=== PATIENT | female | born 1940 | race Caucasian/White ===

== ENCOUNTER → 2016-07-26 | Outpatient (CLI) | payer MEDICARE | LOC: FS 11:09 | PROVIDERS: ATTEND Internal Medicine Hematology & Oncology | DX: Z08 Encounter for follow-up examination after completed treatment for malignant neoplasm (principal); Z85.22 Personal history of malignant neoplasm of nasal cavities, middle ear, and accessory sinuses; C44.311 Basal cell carcinoma of skin of nose; N18.3 Chronic kidney disease, stage 3 (moderate); M48.02 Spinal stenosis, cervical region; Z92.21 Personal history of antineoplastic chemotherapy; Z92.3 Personal history of irradiation; Z79.899 Other long term (current) drug therapy | CPT/HCPCS: 99213 ==

== ENCOUNTER 2016-08-05 10:22 | Outpatient (CLI) | payer MEDICARE ==
[~2016-08-05] VITALS: Ht 160 cm; Wt 73.0 kg
[2016-08-05] MEDS ORDERED: DEXAMETHASONE PF 10 MG/ML (DECADRON) VIAL ONE (10:30)
[2016-08-05 10:39] VITALS: BP 116/69
[2016-08-05 11:08] VITALS: BP 116/69
--- NOTE | 2016-08-05 12:38 | Pain Medicine-Procedure ---
Procedure Pre-Op/Post-Op Diagnosis Diagnosis: disc disorder with radiculopathy, cervical Indications for Operation Neck pain Attending Surgeon Reilly Procedure Date of Service: August 05, 2016 Procedure: Cervical Epidural Steroid Injection at the C7-T1 Level under Fluoroscopic Guidance Procedure: Pt was identified in the holding area. After risks, benefits, and alternatives were discussed with the patient, informed consent was obtained. An IV was placed by nursing staff prior to procedure. Patient was brought to the fluoroscopy suite and placed prone on the operating table. A time out was performed. Vital signs were monitored throughout the procedure. The patients neck was prepped and draped in the usual sterile fashion. The patients skin was anesthetized using 1% Lidocaine. A 18 gauge tuohy needle was inserted and advanced to the C7-T1 epidural space under fluoroscopic guidance using the loss of resistance technique. The needle position was confirmed in the AP and lateral view. After negative aspiration 2 ml of non-ionic contrast was injected under live fluoroscopy which showed good spread of the contrast in the epidural space at the appropriate level, there was no intravascular or subarachnoid spread. Again, after negative aspiration, 3 ml of preservative free normal saline and 10 mg of dexamethasone was injected. The needle was removed and the patient was transferred to the recovery area in stable condition. And after a brief period of observation was discharged to home in stable condition with no new neurologic deficits. Complications None DIANA MARTINEZ MD August 05, 2016 12:38 pm
== END 2016-08-05 11:17 | disposition home or self-care (01) ==
LOC: CARD 10:22
PROVIDERS: ATTEND Pain Medicine Pain Medicine
DX: M54.12 Radiculopathy, cervical region (principal); Z79.899 Other long term (current) drug therapy
CPT/HCPCS: 62321

== ENCOUNTER → 2017-04-06 | Outpatient (CLI) | payer MEDICARE ==
--- NOTE | 2017-04-06 12:21 | Diagnostic Imaging Report ---
INDICATION: Cough. TIME OF EXAM: 12:18 PM COMPARISON: No prior studies are available for comparison. FINDINGS: The heart size is normal. The lungs are clear. No pleural effusion or pneumothorax is identified. The pulmonary vascularity is normal. IMPRESSION: No acute abnormality detected. Dictated by: Dictated on workstation # [id number]
== END ==
LOC: RAD 11:17
PROVIDERS: ATTEND Physician Assistant
DX: C30.0 Malignant neoplasm of nasal cavity (principal); I10 Essential (primary) hypertension; E78.2 Mixed hyperlipidemia; R05 Cough
CPT/HCPCS: 71046

== ENCOUNTER 2017-06-08 11:29 | Outpatient (CLI) | payer MEDICARE ==
[~2017-06-08] VITALS: Ht 165.1 cm; Wt 65.3 kg
[2017-06-08] MEDS ORDERED: methylPREDNISolone 80 MG/ML (DEPO MEDROL) VIAL ONE (11:42)
[2017-06-08 11:54] VITALS: BP 133/70
[2017-06-08 12:13] VITALS: BP 126/71
== END 2017-06-08 12:14 | disposition home or self-care (01) ==
LOC: CARD 11:29
PROVIDERS: ATTEND Pain Medicine Interventional Pain Medicine
DX: M54.16 Radiculopathy, lumbar region (principal); M47.817 Spondylosis without myelopathy or radiculopathy, lumbosacral region
CPT/HCPCS: 62323

== ENCOUNTER 2017-07-25 09:42 | Outpatient (RCR) | payer OTHER ==
[2017-07-25 10:33] LABS: BASOPHILS % (AUTO) 0 % (0-10); EOSINOPHILS # (AUTO) 0.2 10^3/uL (0.0-0.3); EOSINOPHILS % (AUTO) 3 % (0-10); HEMATOCRIT 40 % (35-52); HEMOGLOBIN 13.4 G/DL (11.5-16.0); LYMPHOCYTES # (AUTO) 2.2 X 10^3 (1.0-4.0); LYMPHOCYTES % (AUTO) 33 % (12-44); MEAN CORPUSCULAR HEMOGLOBIN 31 PG (25-34); MEAN CORPUSCULAR HGB CONC 34 G/DL (32-36); MEAN CORPUSCULAR VOLUME 92 FL (80-99); MEAN PLATELET VOLUME 10.5 FL (7.4-10.4); MONOCYTES # (AUTO) 0.6 X 10^3 (0.0-1.0); MONOCYTES % (AUTO) 10 % (0-12); NEUTROPHILS # (AUTO) 3.5 X 10^3 (1.8-7.8); NEUTROPHILS % (AUTO) 54 % (42-75); PLATELET COUNT 307 10^3/uL (130-400); RED BLOOD COUNT 4.29 10^6/uL (4.35-5.85); RED CELL DISTRIBUTION WIDTH 12.4 % (10.0-14.5); WHITE BLOOD COUNT 6.5 10^3/uL (4.3-11.0)
[2017-07-25 10:57] LABS: ALBUMIN 4.2 GM/DL (3.2-4.5); BILIRUBIN,TOTAL 0.5 MG/DL (0.1-1.0); CALCIUM 9.4 MG/DL (8.5-10.1); CREATININE SERUM 1.16 MG/DL (0.60-1.30); POTASSIUM 4.2 MMOL/L (3.6-5.0); TOTAL PROTEIN 7.2 GM/DL (6.4-8.2)
== END 2017-10-23 | disposition home or self-care (01) ==
LOC: ONC 09:42
PROVIDERS: ATTEND Internal Medicine Hematology & Oncology
DX: Z08 Encounter for follow-up examination after completed treatment for malignant neoplasm (principal); Z85.22 Personal history of malignant neoplasm of nasal cavities, middle ear, and accessory sinuses; C44.311 Basal cell carcinoma of skin of nose; N18.3 Chronic kidney disease, stage 3 (moderate); M48.02 Spinal stenosis, cervical region; Z92.21 Personal history of antineoplastic chemotherapy; Z92.3 Personal history of irradiation; Z79.899 Other long term (current) drug therapy
CPT/HCPCS: 36415; 80053; 85025; 99213

== ENCOUNTER → 2017-08-03 | Outpatient (CLI) | payer MEDICARE, OTHER ==
[~2017-08-03] VITALS: Ht 165.1 cm; Wt 65.3 kg
[~2017-08-03] MED LIST: methylPREDNISolone 80 MG/ML (DEPO MEDROL) VIAL ONE
[2017-08-03 14:57] VITALS: BP 149/84
[2017-08-03 15:17] VITALS: BP 141/77
--- NOTE | 2017-08-03 20:39 | OPERATIVE REPORT ---
DATE OF SERVICE: 08/03/2017 DIAGNOSES: 1. Lumbar spondylosis. 2. Lumbar facet arthropathy. PROCEDURE: Fluoroscopic-guided facet medial branch block L3, L4, L5, S1 (right). PROCEDURE IN DETAIL: After obtaining informed consent from the patient, the patient's chart was reviewed. The patient was then brought to the procedure room and placed in prone position. Time-out was performed. The area and the L3, L4, L5, S1, neck, upper back, lower back was prepped with antiseptic solution and under fluoroscopic guidance, the patient's L3, L4, L5, S1 area was examined and the facet joints listed above were identified. L3, L4, L5, S1 was identified under fluoroscopy. A 22-gauge 3-1/2 inch spinal needle was inserted and advanced under fluoroscopy down to the area where the pedicle and the transverse process meet and approximately 1 mL of 1% lidocaine was injected at this level. This was then repeated for the remainder of the levels stated above. Afterwards, the needle was removed. Band-Aids were applied to all sites and the patient tolerated the procedure well and was taken to the recovery area in stable condition. COMPLICATIONS: None. Job ID: [id number] DocumentID: [id number] Dictated Date: 08/03/2017 15:14:19 Lard Mixer Date: 08/03/2017 20:38:34 Dictated By: JUAN JOSE KENNEY DO
== END ==
LOC: CARD 13:38
PROVIDERS: ATTEND Pain Medicine Interventional Pain Medicine
DX: M54.16 Radiculopathy, lumbar region (principal)
CPT/HCPCS: 64493; 64494; 64495

== ENCOUNTER 2017-09-28 13:48 | Outpatient (CLI) | payer MEDICARE ==
[~2017-09-28] VITALS: Ht 165.1 cm; Wt 63.5 kg
[2017-09-28] MEDS ORDERED: methylPREDNISolone 80 MG/ML (DEPO MEDROL) VIAL ONE (14:04)
[2017-09-28 14:25] VITALS: BP 120/68
[2017-09-28 14:52] VITALS: BP 120/70
--- NOTE | 2017-09-28 22:12 | OPERATIVE REPORT ---
DATE OF SERVICE: 09/28/2017 DIAGNOSIS: Sacroiliitis PROCEDURE: Fluoroscopic guided right-sided sacroiliac joint injection. PROCEDURE IN DETAIL: After obtaining informed consent from the patient, the patient's chart was reviewed. The patient was then brought to the procedure room, placed in prone position, a timeout was performed. The patient's back was prepped with antiseptic solution. Under fluoroscopic guidance, the patient's sacroiliac joint on the right side was identified. Right-sided sacroiliac joint was identified with fluoroscopic guidance and approximately 2 mL of 1.5% lidocaine was used to anesthetize the skin with a 22-gauge 3-1/2 inch spinal needle. This same spinal needle was then advanced under fluoroscopic guidance until it was placed at the inferior third of the SI joint on the right side. After negative aspiration, the solution was injected through the spinal needle. The solution was 80 mg of Depo-Medrol. After steroid was injected, then flushed out the needle with lidocaine used for prep and the needle was then removed. Bandages were applied to all sites. The patient tolerated the procedure well and was taken to recovery area in stable condition. No complications noted. Job ID: [id number] DocumentID: [id number] Dictated Date: 09/28/2017 14:49:33 Document Management Analyst Date: 09/28/2017 22:10:51 Dictated By: JUAN JOSE KENNEY DO
== END 2017-09-28 14:53 ==
LOC: CARD 13:48
PROVIDERS: ATTEND Pain Medicine Interventional Pain Medicine
DX: M46.1 Sacroiliitis, not elsewhere classified (principal)
CPT/HCPCS: 27096

== ENCOUNTER → 2017-10-25 | Outpatient (CLI) | payer MEDICARE ==
[~2017-10-25] VITALS: Ht 160 cm; Wt 66.7 kg
[~2017-10-25] MED LIST changes: +CATHETER FLUSH 10 ML SYR IV PRN; +REGADENOSON 0.4 MG/5 ML SYR (LEXISCAN) IV ONE; -methylPREDNISolone 80 MG/ML (DEPO MEDROL) VIAL ONE
[2017-10-25 09:52] VITALS: BP 131/58
--- NOTE | 2017-10-25 22:31 | STRESS TEST ---
DATE OF SERVICE: 10/25/2017 LEXISCAN MYOVIEW STRESS TEST REPORT REFERRING PHYSICIAN: Baseline heart rate is 64, baseline blood pressure 130/73. Baseline EKG is sinus rhythm with no ischemic changes. In summary, the patient was injected with 10.77 mCi of technetium-99 Myoview and the resting images were obtained. Then, the patient received 0.4 mg of Lexiscan followed by 29.8 mCi of technetium-99 Myoview. Throughout the test, there were no EKG changes. The resting and stress images were reviewed and compared in the short axis, horizontal long axis, and vertical long axis views. Review of the images showed small left ventricle with good radiotracer uptake, no significant ischemia was noted. SSS is 5, SDS 3, TID value 1.04. On the gated images, the left ventricle appeared to be normal size with normal contractility. Calculated ejection fraction 87%. CONCLUSION: 1. The patient tolerated Lexiscan well. 2. Small left ventricular size with no significant ischemia or infarction. 3. Normal contractility with calculated ejection fraction 87%. Job ID: [id number] DocumentID: [id number] Dictated Date: 10/25/2017 17:05:37 Route Sales Person Date: 10/25/2017 22:30:31 Dictated By: JOSEPH RADER MD
== END ==
LOC: CARD 07:52
PROVIDERS: ATTEND Physician Assistant
DX: R07.9 Chest pain, unspecified (principal); I10 Essential (primary) hypertension; E78.2 Mixed hyperlipidemia; C30.0 Malignant neoplasm of nasal cavity
CPT/HCPCS: 78452; 93017

== ENCOUNTER 2018-07-18 05:38 | Outpatient (CLI) | payer MEDICARE ==
[~2018-07-18] VITALS: Ht 165.1 cm; Wt 65.8 kg
[2018-07-18] MEDS ORDERED: OMEP20TA7 PO (15:36)
[2018-07-18] MEDS ORDERED: LISI-556 PO (15:36)
[2018-07-18] MEDS ORDERED: LEVO50TA6 PO (15:36)
[2018-07-18] MEDS ORDERED: EZET10TA5 PO (15:36)
[2018-07-18] MEDS ORDERED: LEVE500T99 PO (15:36)
[2018-07-18] MEDS ORDERED: NIAC10002 PO (15:36)
[2018-07-18] MEDS ORDERED: SERT50TA2 PO (15:36)
[2018-07-18] MEDS ORDERED: MULT-178 PO (15:36)
[2018-07-18] MEDS ORDERED: FENO160T12 PO (15:36)
[2018-07-18] MEDS ORDERED: GARL10002 PO (15:36)
[2018-07-18] MEDS ORDERED: TRAM50TA2 PO (15:36)
== END 2018-07-18 15:42 | disposition home or self-care (01) ==
LOC: PREOP 05:38
PROVIDERS: ATTEND Orthopaedic Surgery Orthopaedic Surgery of the Spine
DX: Z01.818 Encounter for other preprocedural examination (principal)

== ENCOUNTER 2018-07-23 07:55 | Day surgery (SDC) | payer MEDICARE ==
[~2018-07-23] VITALS: Ht 165.1 cm; Wt 65.8 kg
[2018-07-23] VITALS (12 sets, daily range): BP systolic 95–131; BP diastolic 55–70
[~2018-07-23 07:55] MED LIST changes: -CATHETER FLUSH 10 ML SYR IV PRN; +EZET10TA5 PO; +FENO160T12 PO; +GARL10002 PO; +LEVE500T99 PO; +LEVO50TA6 PO; +LISI-556 PO; +MULT-178 PO; +NIAC10002 PO; +OMEP20TA7 PO; -REGADENOSON 0.4 MG/5 ML SYR (LEXISCAN) IV ONE; +SERT50TA2 PO; +TRAM50TA2 PO
[2018-07-23] MEDS ORDERED: LACTATED RINGERS 1,000 ML IV PRN (08:27)
[2018-07-23] MEDS ORDERED: ceFAZolin 2 GM IV Premixed 50 ML IV ONE (08:30)
[2018-07-23] MEDS ORDERED: CATHETER FLUSH 10 ML SYR IV PRN (08:45)
[2018-07-23] MEDS ORDERED: ONDANSETRON 4 MG/2 ML (SDV) Z0FRAN ONE (09:05)
[2018-07-23] MEDS ORDERED: ROCURONIUM 10 MG/ML 5 ML SYRINGE IV ONE (09:05)
[2018-07-23] MEDS ORDERED: LIDOCAINE PF 2% 5 ML (XYLOCAINE) VIAL ONE (09:05)
[2018-07-23] MEDS ORDERED: proPOfol 200 MG/20 ML (DIPRIVAN) VIAL IV ONE (09:05)
[2018-07-23] MEDS ORDERED: fentaNYL INJECTION 100 MCG/2 ML AMP ONE (09:06)
[2018-07-23] MEDS ORDERED: MIDAZOLAM 2 MG/2 ML (VERSED) VIAL ONE (09:06)
[2018-07-23] MEDS ORDERED: PROPOFOL INJECTION 50 ML IV ONE (09:07)
[2018-07-23] MEDS ORDERED: SEVOFLURANE (ULTANE) 15 ML INHAL SOLN ONE ×4 (09:07→10:48)
[2018-07-23] MEDS ORDERED: GENTAMICIN 40 MG/ML 2 ML INJ SDV ONE (09:12)
[2018-07-23] MEDS ORDERED: VANCOMYCIN 1000 MG/VIAL ONE (09:12)
[2018-07-23] MEDS ORDERED: BUP/EPI 0.25% 1:200,000 (MARCAINE) 10 ML VIAL IJ ONE (09:12)
--- NOTE | 2018-07-23 09:40 | Progress Note-Post Operative ---
Post-Operative Progess Note Surgeon (s)/Eyelet Riveter (s) Surgeon SHARLA GOLDMAN MD Eyelet Riveter: VANNESSA Lee Pre-Operative Diagnosis LUMBAGO, Radiculopathy Post-Operative Diagnosis Same Procedure & Operative Findings Date of Procedure 07/23/18 Procedure Performed/Findings Placement of permanent spinal cord stim via laminectomy Anesthesia Type GETA Estimated Blood Loss Estimated blood loss (mL): minimal Specimens/Packing Specimens Removed None SHARLA GOLDMAN MD July 23, 2018 09:40
[2018-07-23] MEDS ORDERED: GLYCOPYRROLATE 0.2 MG/ML (ROBINUL) 2 ML VIAL ONE (10:36)
[2018-07-23] MEDS ORDERED: NEOSTIGMINE 1 MG/ML 5 ML SYRINGE ONE (10:36)
[2018-07-23] MEDS ORDERED: morphine INJ 10 MG/ML 1ML (SYR OR VIAL) ONE (10:44)
[2018-07-23] MEDS ORDERED: MEPERIDINE (DEMEROL) INJ 50 MG/ML IVP ONE (11:00)
[2018-07-23] MEDS ORDERED: ONDANSETRON 4 MG/2 ML (SDV) Z0FRAN IVP PRN (11:00)
[2018-07-23] MEDS ORDERED: HYDROmorphone 2 MG/ML VIAL (DILAUDID) IV ONE (11:00)
[2018-07-23] MEDS ORDERED: morphine INJ 10 MG/ML 1ML (SYR OR VIAL) IVP ONE (11:00)
--- NOTE | 2018-07-23 11:06 | Diagnostic Imaging Report ---
Indication: Fluoroscopy for spinal cord stimulator placement. Fluoroscopy was provided in the OR during spinal cord stimulator placement. 19 seconds of fluoroscopy was utilized. A single image demonstrates a paddle stimulator overlying the midline of the lower thoracic spine. Impression: Fluoroscopy during spinal cord stimulator placement. Dictated by: Dictated on workstation # [id number]
[2018-07-23] MEDS ORDERED: HYDROcodone/APAP 5 MG/325 MG (LORTAB) TAB ONE (11:48)
--- NOTE | 2018-07-23 11:57 | Anesthesia-General Post-Op ---
General Patient Condition Mental Status/LOC: Same as Preop Cardiovascular: Satisfactory Nausea/Vomiting: Absent Respiratory: Satisfactory Pain: Controlled Complications: Absent Post Op Complications Complications None Follow Up Care/Instructions Patient Instructions None needed. Anesthesia/Patient Condition Patient Condition Patient is doing well, no complaints, stable vital signs, no apparent adverse anesthesia problems. No complications reported per nursing. D/C home per [facility] Criteria: Yes SHELLY JAVIER CRNA July 23, 2018 11:57
[2018-07-23] MEDS ORDERED: HYDROcodone/APAP 5 MG/325 MG (LORTAB) TAB PO ONE (12:00)
--- NOTE | 2018-07-23 16:38 | OPERATIVE REPORT ---
DATE OF SERVICE: 07/23/2018 PREOPERATIVE DIAGNOSES: Chronic lumbago and lumbar radiculopathy. POSTOPERATIVE DIAGNOSIS: Chronic lumbago and lumbar radiculopathy. PROCEDURES PERFORMED: 1. T9-T10 level laminectomy for placement of paddle electrode for spinal cord stimulation. 2. Left-sided battery placement for spinal cord stimulation. DATE AND TIME OF SURGERY: Please see anesthesia record. IMPLANTS USED: [place] [employer] Penta lead and Proclaim 5 MRI compatible battery. SURGEON: Sharla Campos MD IMMERSION METALCLEANER: FELIX Lee ROLE OF HORSE BUYER: Aid in retraction of procedure, aid in implantation, wound closure. ANESTHESIA: General endotracheal. ESTIMATED BLOOD LOSS: Minimal. INTRAVENOUS FLUIDS: Please see anesthesia record. ANTIBIOTICS: Ancef. COMPLICATIONS: None. SPECIMENS: None. INDICATIONS FOR PROCEDURE: The patient is a 78-year-old female with severe back and lower extremity pain, positive trial, desires permanent placement. Standard intraoperative neuromonitoring carried out by means of real time continuous high quality bidirectional mode, audio and visual communication to both the spray technician and surgeon by Dr. Ferraro was performed. SSEPs, EMGs, TOFs were carried out continuously throughout the procedure and stable. DESCRIPTION OF PROCEDURE: The patient was taken to the preoperative holding area and brought back to the operative suite. After adequate induction of general anesthesia, preoperative antibiotics, turned prone on Basilio table, careful padding to all extremities, sterilely prepped and draped posterior thoracic and lumbar spine. Localization of the T9-T10 level was performed and then a small laminotomy was created and a [employer] Penta lead was passed over the 7-8 disk space where she had her best pain relief. It was then tunneled to the left side flank where she desired her battery placed. It was connected to a Proclaim 5 MRI compatible battery. The system was functioning well. Wounds were closed in layers. Final imaging was obtained and dressings were applied and the patient was transferred to the recovery room in stable condition and tolerated the procedure well Job ID: [id number] DocumentID: [id number] Dictated Date: 07/23/2018 10:27:14 Line Fixer Date: 07/23/2018 16:37:54 Dictated By: SHARLA CAMPOS MD
== END 2018-07-23 13:50 | disposition home or self-care (01) ==
LOC: SDC 07:55
PROVIDERS: ATTEND Orthopaedic Surgery Orthopaedic Surgery of the Spine
DX: M54.16 Radiculopathy, lumbar region (principal); M48.061 Spinal stenosis, lumbar region without neurogenic claudication; M43.17 Spondylolisthesis, lumbosacral region; Z11.2 Encounter for screening for other bacterial diseases; E11.9 Type 2 diabetes mellitus without complications; I10 Essential (primary) hypertension; E07.9 Disorder of thyroid, unspecified; Z98.1 Arthrodesis status; Z88.2 Allergy status to sulfonamides; Z79.899 Other long term (current) drug therapy; Z85.828 Personal history of other malignant neoplasm of skin
CPT/HCPCS: 87081

== ENCOUNTER → 2018-08-20 | Outpatient (CLI) | payer MEDICARE ==
[2018-08-20 11:16] LABS: BASOPHILS % (AUTO) 1 % (0-10); EOSINOPHILS # (AUTO) 0.3 10^3/uL (0.0-0.3); EOSINOPHILS % (AUTO) 5 % (0-10); HEMATOCRIT 40 % (35-52); HEMOGLOBIN 13.2 G/DL (11.5-16.0); LYMPHOCYTES % (AUTO) 36 % (12-44); MEAN CORPUSCULAR HEMOGLOBIN 31 PG (25-34); MEAN CORPUSCULAR HGB CONC 33 G/DL (32-36); MEAN CORPUSCULAR VOLUME 95 FL (80-99); MONOCYTES # (AUTO) 0.5 X 10^3 (0.0-1.0); MONOCYTES % (AUTO) 9 % (0-12); NEUTROPHILS # (AUTO) 2.8 X 10^3 (1.8-7.8); NEUTROPHILS % (AUTO) 50 % (42-75); PLATELET COUNT 283 10^3/uL (130-400); RED CELL DISTRIBUTION WIDTH 12.3 % (10.0-14.5); WHITE BLOOD COUNT 5.5 10^3/uL (4.3-11.0)
[2018-08-20 11:49] LABS: ALBUMIN 4.3 GM/DL (3.2-4.5); BILIRUBIN,TOTAL 0.5 MG/DL (0.1-1.0); CALCIUM 9.8 MG/DL (8.5-10.1); CREATININE SERUM 1.44 MG/DL (0.60-1.30); TOTAL PROTEIN 7.2 GM/DL (6.4-8.2)
== END ==
LOC: EDSTATUS 10-24 10:35 → ONC 10:37
PROVIDERS: ATTEND Internal Medicine Hematology & Oncology
DX: Z08 Encounter for follow-up examination after completed treatment for malignant neoplasm (principal); Z85.22 Personal history of malignant neoplasm of nasal cavities, middle ear, and accessory sinuses; C44.311 Basal cell carcinoma of skin of nose; N18.3 Chronic kidney disease, stage 3 (moderate); M48.02 Spinal stenosis, cervical region; Z92.21 Personal history of antineoplastic chemotherapy; Z92.3 Personal history of irradiation; Z79.899 Other long term (current) drug therapy
CPT/HCPCS: 36415; 80053; 85025; 99213

== ENCOUNTER → 2019-01-17 | Outpatient (CLI) | payer MEDICARE | END | disposition home or self-care (01) | LOC: PREOP 13:43 | PROVIDERS: ATTEND Surgery | DX: Z01.818 Encounter for other preprocedural examination (principal) ==

== ENCOUNTER → 2019-01-17 | Outpatient (CLI) | payer MEDICARE | LOC: ONC 09:41 | PROVIDERS: ATTEND Internal Medicine Hematology & Oncology | DX: Z08 Encounter for follow-up examination after completed treatment for malignant neoplasm (principal); Z85.22 Personal history of malignant neoplasm of nasal cavities, middle ear, and accessory sinuses; C44.311 Basal cell carcinoma of skin of nose; N18.3 Chronic kidney disease, stage 3 (moderate); M48.02 Spinal stenosis, cervical region; Z92.21 Personal history of antineoplastic chemotherapy; Z92.3 Personal history of irradiation; Z79.899 Other long term (current) drug therapy | CPT/HCPCS: 99213 ==

== ENCOUNTER 2019-01-18 10:26 | Day surgery (SDC) | payer MEDICARE ==
[~2019-01-18] VITALS: Ht 165.1 cm; Wt 68.1 kg
[2019-01-18] VITALS (9 sets, daily range): BP systolic 119–137; BP diastolic 65–72
[~2019-01-18 10:26] MED LIST changes: +EZET10TA17 PO; -EZET10TA5 PO; -TRAM50TA2 PO; +TRM50T PO
[2019-01-18] MEDS ORDERED: PROPOFOL INJECTION 50 ML IV ONE (10:54)
[2019-01-18] MEDS ORDERED: LACTATED RINGERS 1,000 ML IV PRN (11:09)
[2019-01-18] MEDS ORDERED: HEParin (CENTRAL IV FLUSH) 500 UNIT/5 ML SYR ONE (11:28)
[2019-01-18] MEDS ORDERED: BUP/EPI 0.5% 1:200,000 (SENSORCAINE) 30 ML VIAL ONE (11:28)
[2019-01-18] MEDS ORDERED: 0.9% SODIUM CHLORIDE PF INJ 20 ML VIAL ONE (11:28)
[2019-01-18] MEDS ORDERED: MIDAZOLAM 2 MG/2 ML (VERSED) VIAL ONE (11:55)
[2019-01-18] MEDS ORDERED: KETAMINE/NaCl 50 MG/5 ML SYRINGE (ED ONLY) ONE (12:39)
--- NOTE | 2019-01-18 13:09 | Progress Note-Post Operative ---
Post-Operative Progess Note Surgeon (s)/Structural Steel Fitter (s) Surgeon GRACY CARPIO DO Structural Steel Fitter: DULCE CoxII Pre-Operative Diagnosis Esthesio Neuroblastoma, Venous insufficiency Post-Operative Diagnosis same Procedure & Operative Findings Date of Procedure 01/18/19 Procedure Performed/Findings Coreen-cath placement with flouroscopy guidance Anesthesia Type IV sedation by INSPECTOR AND MENDER Estimated Blood Loss Estimated blood loss (mL): scant Specimens/Packing Specimens Removed none GRACY CARPIO DO Jan 18, 2019 13:09 POS
--- NOTE | 2019-01-18 13:11 | Discharge Inst-Surgical ---
Discharge Inst-Surgical Depart Medication/Instructions New, Converted or Re-Newed RX: Other (no Rx needed) Patient Instructions Follow up Appt: Make appointment for 1 1/2 weeks. [phone] Instructions: No strenuous activity. May shower in 24 hours, no tub bath or soaking. Use incentive spirometer at home as directed. No Smoking Skin/Wound Care: May remove bandages in am. You need to leave the Dermabond on incision it will fall off on it's own. Symptoms to Report: Appetite Changes, Extremity Discoloration, Numbness/Tingling, Swelling Increased, Bleeding Excessive, Eyesight Changes, Pain Increased, Urine Color Change, Constipation(Persistent), Fever over 101 degree F, Pain/Pressure in chest, Urinating Difficulty, Cough Up/Vomit Blood, Heart Beat Irreg/Pounding, Pain/Pressure in jaw, Cramps in feet or legs, Lightheadedness, Pain/Pressure in shoulder, Diarrhea(Persistent), Memory Changes Suddenly, Questions/Concerns, Weight gain consecutive days, Dizziness/Fainting, Nausea/Vomiting, Shortness of Breath, Weight gain over 2 pounds If questions or concerns contact your physician Or seek help at emergency department. Activity Activity as Tolerated: Yes Driving Instructions: No Driving for 24 Hours Diet Discharge Diet: No Restrictions Diet After 24 Hours: Clear Liquid if Nauseous If Any Problems/Questions/Issu: Contact Your Physician, Go to Emergency Room Skin/Wound Care Infection Signs and Symptoms: Increased Redness, Foul Odor of Wound, Increased Drainage, Skin Itchy or Has a Rash, Increased Swelling, Temperature Above 101 F Bathing Instructions: Shower Stitches/Romain/Dermabond Dis: GRACY Dalton DO Jan 18, 2019 13:11 POS
[2019-01-18] MEDS ORDERED: MEPERIDINE (DEMEROL) INJ 50 MG/ML IVP ONE (13:15)
[2019-01-18] MEDS ORDERED: morphine INJ 10 MG/ML 1ML (SYR OR VIAL) IVP ONE (13:15)
[2019-01-18] MEDS ORDERED: ONDANSETRON 4 MG/2 ML (SDV) Z0FRAN IVP PRN (13:15)
[2019-01-18] MEDS ORDERED: ONDANSETRON 4 MG/2 ML (SDV) Z0FRAN ONE (13:23)
--- NOTE | 2019-01-18 14:20 | Anesthesia-General Post-Op ---
MAC Patient Condition Mental Status/LOC: Same as Preop Cardiovascular: Satisfactory Nausea/Vomiting: Absent Respiratory: Satisfactory Pain: Controlled Complications: Absent Post Op Complications Complications None Follow Up Care/Instructions Patient Instructions None needed. Anesthesiology Discharge Order Discharge Order Patient is doing well, no complaints, stable vital signs, no apparent adverse anesthesia problems. No complications reported per nursing. CESAR VALDIVIA CRNA Jan 18, 2019 14:20 POS
--- NOTE | 2019-01-18 17:04 | Diagnostic Imaging Report ---
INDICATION: Port-A-Cath placement Intraoperative fluoroscopy view obtained during Port-A-Cath placement in surgery with Dr. Canales. Port is visualized over the right chest with catheter entering the right subclavian vein with catheter tip overlying the SVC right atrial junction. The study is otherwise limited. 4 seconds of fluoroscopy time was used. IMPRESSION: Intraoperative fluoroscopy views demonstrate Port-A-Cath placement in surgery. Dictated by: Dictated on workstation # [id number]
--- NOTE | 2019-01-18 23:34 | OPERATIVE REPORT ---
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 POSTOPERATIVE DIAGNOSES: Venous insufficiency and esthesioneuroblastoma. PROCEDURE: Insertion of Port-A-Cath. SURGEON: Nimesh Canales DO. DIRECTIONAL DRILL OPERATOR: Marcelo VALDIVIA. ANESTHESIA: IV sedation by HEALTH PROMOTION COORDINATOR. SPECIMENS: None. BLOOD LOSS: Scant. FLUIDS: Per anesthesia. POSTOPERATIVE CONDITION: Stable. 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 She has some venous insufficiency, will need long-term IV access for chemotherapy. FINDINGS: The patient had a port placed for an anterior chest wall right subclavian vein with fluoroscopy. PROCEDURE NOTE: After informed consent was obtained, the patient was brought to the operating room, placed on the operating table in supine position. She was sterilely prepped and draped in normal fashion. Local lidocaine was used to infiltrate the skin towards the clavicle as well as a right anterior chest wall. The patient placed slightly Trendelenburg and then advanced the 18-gauge fine needle under negative inspiration, cannulated the subclavian vein on the third attempt. Good flash of blood, removed the syringe, placed a guidewire using Seldinger technique, it went in easily and checked with fluoroscopy, it was in good position. I removed the needle and then made a stab incision at the guidewire with #11 blade and then made an incision in the right anterior chest wall with a #11 blade, carried down through the skin into subcutaneous tissue, deepened down to subcutaneous tissue with Bovie electrocautery down to the fascia of the pectoralis muscle. I then tunneled a tunneler from the stab incision into the pocket and then over the guidewire placed a dilator using Seldinger technique, it went in easily, checked with fluoroscopy, it was in good position. I removed the inner portion of the dilator as well as the guidewire and then placed the catheter down the dilator sheath, checked for fluoroscopy again it was in good position. I removed the dilator sheath, attached the catheter to the port and then placed a locking mechanism then used a Calzada needle to access the port. Good flash of blood then easily flushed with saline and then aspirated and flushed with heparin flush. It was then placed into the pocket previously created, sutured in place to the pectoralis major muscle with a 3-0 Prolene and then closed this incision in 2 layers, closing the subcutaneous tissue with 3-0 Vicryl, interrupted sutures and closed the subcuticular layer with 3 interrupted 4-0 undyed Monocryl subcuticular stitches. Area was cleaned and dried and Dermabond placed as well as a Band-Aid. The patient tolerated the procedure. Sponge, instrument and needle count correct at the end of the case. Job ID: [id number] DocumentID: [id number] Dictated Date: 01/18/2019 13:07:31 Political Theory Professor Date: 01/18/2019 23:34:24 Dictated By: DO NOA MEDINA
--- OUTSIDE RECORDS SUMMARY | 2019-02-11 02:56 | XMS REPORT | Clinical Summary ---
Author Author [facility] POS Organization [facility] SP Address Unknown SP Phone Unavailable SP Care Team Providers Care Uniform Maker Name Role Phone POS PCP Unavailable SP Allergies Not on File Medications Not on file Active Problems Not on file Social History Date POS Tobacco Use Types Packs/Day Years Used SP SP Never Assessed SP Sex Assigned at Date Recorded SP Not on file SP Industry POS Job Start Date Occupation SP Not on file SP Not on file Not on file SP Travel End POS Travel History Travel Start SP No recent travel history available. SP Last Filed Vital Signs Not on file Plan of Treatment Not on file Results Not on filefrom Last 3 Months
--- OUTSIDE RECORDS SUMMARY | 2019-02-11 02:56 | XMS REPORT | Encounter Summary ---
Author Author [facility] POS Organization [facility] SP Address Unknown SP Phone Unavailable SP Care Team Providers Care Compo Caster Name Role Phone POS PCP Unavailable SP Encounter Details Care Team Description POS Date Type Department SP SP Vee Wen SP 07/26/2001 [facility] SP Encounter [address] [place] [address] SP [phone] SP Social History Date POS Tobacco Use Types Packs/Day Years Used SP SP Never Assessed SP Sex Assigned at Date Recorded SP Not on file SP Industry POS Job Start Date Occupation SP Not on file SP Not on file Not on file SP Travel End POS Travel History Travel Start SP No recent travel history available. SP documented as of this encounter Plan of Treatment Not on filedocumented as of this encounter Procedures Comments POS Procedure Name Priority Date/Time Associated Diag nosis SP SP [facility] Routine 07/25/2001 SP 8:53 PM CDT SP documented in this encounter Results * Cytology (07/25/2001 8:53 PM CDT) Specimen POS Narrative Performed At SP [place] [id number] F 61 YRS SL SP G Y N C Y T O P A T H O L O G Y SP [id number] LABORATORY NO/ [id number] SP SOURCE SP Vaginal specimen SP [id number] SP ADEQUACY OF SPECIMEN SP Specimen is satisfactory for evaluation . Cytolysis is present. The SP endocervical component is absent due to prior hysterectomy. SP >>>>>CYTOLOGIC INTERPRETATION<<<<< SP Within normal limits. SP [id number] SP Screening/ L. Mamalis, CT(ASCP) Veri fying/ L. Mamalis, CT(ASCP) SP 07/31/01 (ELECTRONIC SIGNATURE) SP PATIENT HISTORY SP LMP POST MENOPAUSA L SP ORAL CONTRACEPT SP SP HORMONE THERAPY SP PREV CYTOLOGY SP BUSINESS DEVELOPMENT REPRESENTATIVE SURG/BX HYSTERECTOMY SP PT ID NUMBER SP COMMENTS SCREEN SP Performing Organization Address City/State/Zipcode Ph one Number SP [address] [place], [place] [address] SP [facility] SP documented in this encounter Visit Diagnoses Not on filedocumented in this encounter
--- OUTSIDE RECORDS SUMMARY | 2019-02-11 02:56 | XMS REPORT | Clinical Summary ---
Author Author [facility] POS Organization [facility] SP Address Unknown SP Phone Unavailable SP Care Team Providers Care Cupola Charger Name Role Phone POS Amrik Valentino MD Unavailable SP Rolando Colin MD Unavailable SP Tulio Boucher MD Unavailable SP Boone Westfall MD Unavailable SP Owen Navas MD Unavailable SP James oMntes MD Unavailable SP [facility] Unavailable SP Kwaku Grover MD Unavailable SP Cinthia Carmichael Unavailable SP Kadeem Robb MD Unavailable SP Rolando Weeks MD Unavailable Unavailable SP Kandy Petersen MD Unavailable SP Elvin Flores MD Unavailable SP Janes Conley MD Unavailable Unavailable SP Delfin Acevedo MD Unavailable SP Sadie Brown MD PCP SP Source Comments Some departments are not documenting in the electronic medical record. If you d o not see the information that you expected, contact Release of Information in [facility] Information Management department at [phone] for further assistan ce in locating additional records.[facility] Allergies Comments POS Active Allergy Reactions Severity Noted Date SP SP Shaking and jerking movements Elavil SEE COMMENTS Low 06/13/2011 SP SP Hives, swelling, loss of consciousness Levofloxacin ANAPHYLAXIS, High 06/06/2011 SP EDEMA SP SP Hives, tongue, mouth and lip swelling, loss of consciousness Sulfa (Sulfonamide ANAPHYLAXIS, High 06/06/2011 SP Antibiotics) EDEMA SP SP Venom-Honey Bee ANAPHYLAXIS 06/29/2011 SP Medications End Date Status POS Medication Sig Dispensed Refills Start SP Date SP Active SP artificial Apply 1 Drop 0 SP tears/hypromellose to both eyes 2 SP (ISOPTO TEARS) 0.5 % four times SP ophthalmic solution daily. SP Additional SP information SP Patient SP taking SP differently: SP 1 drop Both SP Eyes SP NEEDED, SP Informant: SP Self, SP Reported on SP 10/21/2016 SP 2:17 PM SP Active SP fenofibrate(+) (TRIGLIDE) Take 160 mg 0 SP 160 mg tablet by mouth SP daily after SP lunch. SP Active SP lisinopril (ZESTRIL) 5 mg Take 5 mg by 0 SP tablet mouth daily SP after lunch. SP Active SP vitamins, multiple cap Take 1 Cap by 0 SP mouth daily SP after lunch. SP Active SP cyanocobalamin 1,000 mcg Take 1,000 0 SP tablet mcg by mouth SP daily after SP lunch. SP Active SP Garlic 1,000 mg cap Take 1 Cap by 0 SP mouth daily. SP Active SP ezetimibe (ZETIA) 10 mg Take 10 mg by 0 SP tablet mouth daily. SP Active SP traMADol (ULTRAM) 50 mg Take 50 mg by 0 SP tablet mouth every 6 SP hours as SP needed for SP Pain. SP Active SP Melatonin 5 mg cap Take 5 mg by 0 SP mouth as SP Needed. SP Active SP dexamethasone (DECADRON) INSERT 2 40 mL 1 0 SP 0.1 % ophthalmic solution DROPS INTO 7 SP EACH NOSTRIL SP THREE TIMES A SP DAY. TAKE 1 SP WEEK OFF SP EVERY MONTH SP Active SP omeprazole (PRILOSEC PO) Take 20 mg by 0 SP mouth daily. SP Take one SP brand name SP tab in the AM SP and one SP generic brand SP in the PM SP Active SP levothyroxine (SYNTHROID) Take 50 mcg 0 SP 50 mcg tablet by mouth SP daily 30 SP minutes SP before SP breakfast. SP Active SP sertraline (ZOLOFT) 50 mg Take 50 mg by 0 04/21 SP tablet mouth daily. 9 SP Active SP carbidopa/levodopa CR Take one 90 tablet 5 09/17 SP (SINEMET CR) 25/100 mg tablet by 9 SP tabletIndications: mouth three SP parkinsonism times daily. SP Indications: SP parkinson SP symptoms SP Active SP levETIRAcetam (KEPPRA) Take one 180 tablet 3 SP 500 mg tablet tablet by 9 SP mouth twice SP daily. SP Active SP niacin ER (NIASPAN) 1,000 Take 1 tablet 0 SP mg tablet by mouth SP daily. Take SP with food. SP Active SP mupirocin (BACTROBAN) 2 % Apply 2 g 0 SP topical ointment topically to SP affected area SP three times SP daily. 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 Pt reported doing SP better and tolerating medication well. SP Plan: SP Continue Sinemet CR 25/100 mg TID SP Fall precautions SP Tremor 08/04/2017 SP Overview: SP Patient with tremor left> right origina lly felt to be due to depakote, but SP has continued even after this medicatio n is out of her system. She has some SP parkinsonian features on exam such as m asked facies, decreased movements, SP small steps and multistep turn. 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 Essential tremor would also be o n differential, but lower down. SP L SP ast Assessment & Plan: SP Patient not worried about tremor at thi s time. She is still playing the SP organ and getting ready for [employer] oncerts at [employer]. SP Tremor 07/23/2016 SP Seizure 06/24/2016 SP Overview: SP Hospitalized in 02/2016 with concern fo r right side shaking and forced gaze SP deviation witnessed by EMS prior to adm ission to hospital. Patient with EEG SP showing no epileptic activity, but stru ctural changes, MRI showed bilateral SP frontal encephalomalacia due to tumor r esection. Patient started on SP Depakote due to previous poor kidney fu nction. Depakote caused tremor. SP Lamotrigine caused dizziness, tremor, f alls, fatigue, decreased mental SP acuity. SP Last Assessment & Plan: SP She continues to do well from a seizure standpoint and no seizures since 2015. She wishes to remain on Keppra at this time with a possible fear of SP another seizure if she was to discontin ue it. Tolerating well. SP Plan: SP Continue Keppra 500 mg bid SP - Seizure precautions, Pt instructed no t to drive, climb on ladders, swim SP alone, bath with door locked, use heavy machinery, use firearms or do SP anything else potentially dangerous if were to have another seizure, for 6 SP months. 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 SP OS>OD. Discussed condition. Minimal eff ect on vision currently. 1 year or SP prn. SP Next Visit: SP MRx x SP OCT Nerve SP OCT Mac SP IOP x SP Pach SP Dilate x SP Glare SP B-scan SP HVF SP Stereo Disc Photos SP SP Nasal valve collapse 01/10/2016 SP Nasal deformity 01/10/2016 SP Basal cell carcinoma of nose 01/01/2016 SP Basal cell carcinoma 01/01/2016 SP Pseudophakia, left eye 10/15/2015 SP Overview: SP Phaco/IOL 05/16/2015 ASC SP L SP ast Assessment & Plan: SP Formatting of this note might be differ ent from the original. SP Good vision limited by ON. She is happy with the improvement. Give MRx OS. SP D/C drops OS. 3 months. SP Next Visit: SP MRx x SP OCT Nerve SP OCT Mac SP IOP SP Pach SP Dilate x SP Glare SP B-scan SP HVF SP Stereo Disc Photos SP SP Pseudophakia of right eye 08/20/2015 SP Overview: SP CE/IOL OD 08/19/15 ASC SP L SP ast Assessment & Plan: SP Good vision and clinical appearance at today's 1mo POV. Pt very happy with SP vision. Refracts to 20/20, mild astig. SP -continue AT's prn SP -scheduled for OS end of this month SP Give MRx OD and balance OS with safety lenses. Will re-refract OS after SP cataract surgery OS. 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 Would limit visual SP recovery after CE/IOL. No treatment in dicated at this time. SP Chronic sinusitis 07/12/2012 SP Drop attack 02/08/2012 SP Overview: SP Two last two weeks- tumor vs vascular- MRI with contrast today. Consider SP angiography at home [address] [facility] or [facility], discuss with PCP for local SP neurologist to begin w/u SP Cellulitis 07/18/2011 SP Hypotension 07/07/2011 SP Debility 07/07/2011 SP Anemia 07/07/2011 SP Intracranial hypotension 06/19/2011 SP Overview: SP Patient s/p craniotomy and resection of skull base tumor. SP After CSF was drained in the operating room at the end of the case, found SP to not respond to VC, with pneumocephal us and ventricular collapse on CT SP scan SP HOB elevation d/praveena to supine, Lumbar d rain clamped. SP Respiratory failure 06/18/2011 SP Mechanically assisted ventilation 06/18/2011 SP SIRS (systemic inflammatory response syndrome) 06/17 SP Pneumocephalus 06/18/2011 SP S/P craniotomy 06/18/2011 SP Overview: SP Transnasal/transfacial endoscopic ap proach to skull base tumor- poorly SP differentiated neuroendocrine tumor SP Transnasal/transfacial endoscopic re section of skull base tumor SP Transnasal/transfacial endoscopic re pair of skull base tumor defect SP Transcranial orbitotomy for excision of orbital involvement of the SP sino-cranial tumor, left side. 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 female with past medi chloé history significant for NEGRO, HLD, SP hypothyroidism, OA, and dizziness who w as found to have a left SP nasopharyngeal mass extending into righ t posterior ethmoid and sphenoid SP sinuses. S/P skull base resection of po cory differentiated neuroendocrine SP carcinoma on 06/17/11. Preoperative path ology was consistent with base of SP skull High grade neuroendocrine tumor.T his is aggressive and uncommon SP tumor. Best outcome is achieved with co mbined modality therapy (surgery, SP radiation and chemotherapy). Her surgic al findings indicate she did have SP very extensive disease. Adjuvant radiat ion and concurrent chemotherapy is SP indicated. SP FINDINGS: Large nasal/skull base tumor filling the left nasal cavity, SP pushing through left ethmoid to medial orbital wall, but not invading the SP eye at the ethmoid level (lamina papyra cea was intact). SP Tumor surrounding the right optic nerve , dissected by Dr. Colin and Dr. AMINA Navas with microscopic residual disease only. SP At the completion of the case, no visib le tumor by our SP microscopic/endoscopic view. SP INDICATIONS FOR OPERATIVE PROCEDURE: Ms Yamil Greenwood is a very pleasant SP 70-year-old female with a large sinonas al tumor, biopsy consistent with SP poorly differentiated neuroendocrine ca rcinoma. After the risks and SP benefits of resection and repair were d iscussed with the patient, she would SP like to proceed. SP DESCRIPTION OF OPERATIVE PROCEDURE: Aft er the risks and benefits of the SP procedure, we started the procedure by performing a Norton-Ru. We made SP an incision using a 15-blade into the u pper sublabial crease. Care was SP taken to leave enough mucosa inferiorly to allow for good closure at the SP end of the case. We used Bovie cautery to dissect down to the maxilla and SP carried this plane out laterally on eit her side to the lateral buttress. We SP then used a butter knife to elevate the tissue off of either anterior SP maxillary nagel. Care was taken not to injure the two on either sides. SP Using osteotomes, we made a window into the central aspect of the anterior SP wall of the maxillary sinus. We then us ed Kerrison forceps to create a SP large window. Again, we skeletonized th e bone around the two, but preserved SP this on either side. This window was la terally carried to the level of the SP lateral buttress and similar procedure was performed on the opposite side. SP With our access now complete, we used a 0-degree rigid endoscope and SP assessed the right and left nasal passa ges. We examined the right nasal SP passage, which was essentially free of tumor anteriorly. The left nasal SP passage was with tumor easily evident a nd suction debrider was used to SP suction the majority of this tumor from the left nasal passage. We SP continued to ellen the tumor using suct ion debrider, as the tumor did SP appear to be encased and we were able t o find good plane between the tumor SP and normal tissue. The tumor was peeled off the lamina papyracea and the SP lamina papyracea was noted to be intact . We carried our dissection to the SP remnant sphenoid and superiorly at the level of the defect to the SP cribriform plate. We did note that post eriorly the tumor appeared to invade SP the septum and we took down the posteri or septum using a combination of SP Sohan-Cut forceps and suction debrider. W e placed our scope through the SP window that we had created to the anter ior maxillary wall and created a SP wide maxillary antrostomy both with acc ess through the nose and through our SP anterior maxillary window. This was per formed using a combination of SP Sohan-Cut forceps and suction debrider. T his was performed on both sides. SP After our portion of the tumor had been successfully resected, we took a SP split-thickness skin graft in the patie nt's left upper thigh. This was SP performed using a dermatome with 0.16 m m thickness. The 4 cm plate was used SP and the skin graft was approximately 4 x 6 cm. Once the graft was SP harvested, it was handed off the table in a wet Ray-Miguelina. The skin graft SP site was treated with Telfa coated epin ephrine and eventually dressed using SP Xeroform, ABD, and Hypafix tape. Next, we performed an abdominal fat graft. SP A 15-blade was used to make an incision in the patient's left inferior SP abdomen. The incision was approximately 5 cm in length. Blunt dissection SP was used circumferentially to undermine and to free up a large portion of SP abdominal fat. This was then harvested using Bovie cautery. Once the fat SP was harvested, it was handed off the ta ble and saved for use later in the SP case. The abdomen was copiously irrigat ed and Bovie cautery was used for SP hemostasis. It was closed using 3-0 Rip ryl sutures for deep stitches and SP 3-0 Vicryl interrupted for deep dermal sutures. [place] drain was placed SP and secured using a 4-0 nylon. The skin was then closed using a running SP subcuticular stitch with 4-0 Monocryl a nd dressed with Steri-Strips, 4 x 4, SP and Tegaderm. At this point, we handed the case over to the Neurosurgery SP and Ophthalmology teams. Please see elisa andrews dictated operative report SP for their portion of the procedure. Onc e Neurosurgery had completed their SP craniotomy, we were called back to the room for completion of the case. We SP assessed the right and left nasal passa ges using a 0-degree rigid SP endoscope. Hemostasis was confirmed. Th ere was no visible remnant tumor. We SP were able to clearly visualize the rosa cranial flap created by the SP neurosurgeons. We then started our pack ing, which was done using abdominal SP fat graft and Tisseel. We then placed b ilateral nasal trumpets, which were SP secured using 2-0 silk stitch through t he septum. Additional fat and SP Tisseel were then placed. Lastly, the p atient's mouth was copiously SP irrigated and the sublabial incision wa s closed using interrupted 3-0 SP Vicryl sutures. At this point, the head of bed was rotated 180 degrees back SP towards Anesthesia. The patient was chauncey en to the neurosurgical ICU in SP stable condition, still intubated. Ther e were no complications. The counts SP were correct. Dr. Valentino was present fo r all portions of the procedure SP dictated in this operative report. SP Last Assessment & Plan: SP She was admitted again on July 12 for possible cellulitis. Now improved SP and discharged from hospital. It is alr tone a month sine her surgery. SP Considering her aggressive tumor, adjuv ant therapy needs to start soon. I SP discussed adjuvant chemotherapy and rad iation therapy with patient. She is SP ready to start therapy soon. He family situation ad logistics does not SP permit her to have radiation therapy he re at . She is planning to have SP radiation and chemotherapy in [facility]. She requested me to forward SP information to Dr. Pendleton medical oncol ogjina. I have not schedule any follow SP up at this time as she will be treated and followed my Dr. Pendleton. I will SP be happy review and see her if needed i n future. SP Resolved Problems Problem Noted Date Resolved Date POS Combined form of senile cataract of both eyes 12/31/2012 02/15/2016 SP Last Assessment & Plan: SP Reviewed procedure and risks as well as expected post operative course. SP Schedule phaco/IOL OD. SP Sinusitis 06/23/2012 07/12/2012 SP Encounters Care Team Description POS Date Type Specialty SP Yvonne Brian MD Parkinson disease (HCC); SPSeizure (HCC) 01/25/2019 Office Visit Neurology SP James Soto MD Other SP 01/21/2019 Telephone Otolaryngology SP James Soto MD Other SP 01/18/2019 Telephone Otolaryngology SP Flaco Cuellar MD Follow-up Phone Call SP 01/15/2019 Telephone Plastic Surgery SP Flaco Cuellar MD Neuroendocrine carcinoma (HCC) (Primary Dx); SPPre-op testing 01/15/2019 Orders Only Plastic Surgery SP Flaco Cuellar MD SP 01/11/2019 Office Visit Plastic Surgery SP James Soto MD SP 01/11/2019 Hospital Radiology SP Encounter SP James Soto MD Neuroendocrine carcinoma (HCC) (Primary Dx) SP 01/03/2019 Office Visit Otolaryngology SP Amrik Donovan MD SP 01/03/2019 Hospital Radiology SP Encounter SP James Soto MD Malignant poorly differentiated neuroend ocrine tumors SP (Primary Dx) 01/03/2019 Orders Only Otolaryngology SP James Soto MD Follow-up Phone Call SP 01/03/2019 Telephone Otolaryngology SP Amrik Donovan MD Results SP 12/31/2018 Telephone Otolaryngology SP James Soto MD Other SP 12/24/2018 Telephone Otolaryngology SP SP Amrik Valentino MD Other (imaging) SP 12/24/2018 Telephone Otolaryngology SP SP Amrik Valentino MD Esthesioneuroblastoma (HCC); 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 Office Visit Otolaryngology SP Hai Eden MD SP 11/15/2018 Refill Neurology SP from Last 3 Months Family History Medical History Relation Name Comments POS Asthma Father SP Cancer Father SP Diabetes Father SP Heart Attack Father SP High Cholesterol Father SP Hypertension Father SP Migraines Father SP Other Father kidney disease/ston es SP Stroke Father SP Asthma Mother SP Cancer Mother SP High Cholesterol Mother SP Hypertension Mother SP Migraines Mother SP Other Mother heart attack/troubl e/kidney disease/stones SP Stroke Mother SP Hypertension Other siblings SP High Cholesterol Other siblings SP High Cholesterol Paternal SP Grandfather SP Hypertension Paternal SP Grandfather SP Stroke Paternal SP Grandfather SP High Cholesterol Paternal SP Grandmother SP Hypertension Paternal SP Grandmother SP Stroke Paternal SP Grandmother SP Amblyopia Neg Hx SP Autoimmune Disease Neg Hx SP Blindness Neg Hx SP Cataract Neg Hx SP Coronary Artery Disease Neg Hx SP Glaucoma Neg Hx SP Macular Degen Neg Hx SP Neurologic Disorder Neg Hx SP Retinal Detachment Neg Hx SP Strabismus Neg Hx SP Thyroid Disease Neg Hx SP Relation Name Status Comments SP Father SP Mother Alive SP Other SP Other SP Paternal Grandfather SP Paternal Grandmother SP Social History Date POS Tobacco Use Types Packs/Day Years Used SP SP Never Smoker SP Smokeless Tobacco: Never SP Used SP Drinks/Week oz/Week Comments POS Alcohol Use SP SP 0 Standard drinks or equivalent 0.0 SP No SP Sex Assigned at Date Recorded SP Not on file SP Industry POS Job Start Date Occupation SP Not on file SP Not on file Not on file SP Travel End POS Travel History Travel Start SP No recent travel history available. SP Last Filed Vital Signs Reading Time Taken Comments POS Vital Sign SP 108/61 01/25/2019 11:42 AM SMUDGER SP Blood Pressure SP 70 01/25/2019 11:42 AM SMUDGER SP Pulse SP 36.8 C (98.2 F) 02/25/2016 6:08 AM SMUDGER SP Temperature SP 14 01/25/2019 11:42 AM SMUDGER SP Respiratory Rate SP 95% 02/25/2016 6:08 AM SMUDGER SP Oxygen Saturation SP - - SP Inhaled Oxygen SP Concentration SP 70.5 kg (155 lb 6.4 oz) 01/25/2019 11:42 AM SMUDGER SP Weight SP 165.1 cm (5' 5") 01/25/2019 11:42 AM SMUDGER SP Height SP 25.86 01/25/2019 11:42 AM SMUDGER SP Body Mass Index SP Plan of Treatment Health Maintenance Due Date Last Done Comments POS MEDICARE ANNUAL WELLNESS 1940 SP VISIT SP DTAP/TDAP VACCINES (1 - 07/21/1957 SP Tdap) SP PHYSICAL (COMPREHENSIVE) 07/21/1957 SP EXAM SP SHINGLES RECOMBINANT 07/21/1989 SP VACCINE (1 of 2) SP OSTEOPOROSIS 07/21/2004 SP SCREENING/MONITORING SP PNEUMONIA (PCV13/PPSV23) 07/21/2004 SP VACCINES (1 of 2 - PCV13) SP INFLUENZA VACCINE 10/18/2018 SP Procedures Comments POS Procedure Name Priority Date/Time Associated Diag nosis SP SP NM PET SCAN TORSO Routine 01/11/2019 Malignant po cory SP (SKULL-THIGHS) 12:59 PM CDT differentiated SP neuroendocrine tumors SP (HCC) SP SP POC GLUCOSE 01/11/2019 SP 11:18 AM CDT SP SP CT HEAD WO/W CONTRAST Routine 01/03/2019 Esthesio neuroblastoma SP 11:08 AM CDT (HCC) SP Olfactory SP esthesioneuroblastoma SP (HCC) SP SP CT MAXIFACIAL/SINUS W Routine 01/03/2019 Esthesio neuroblastoma SP CONTRAST 11:08 AM CDT (HCC) SP Olfactory SP esthesioneuroblastoma SP (HCC) SP SP HC CREATININE, POC 01/03/2019 SP 10:48 AM CDT SP SP HC LVL IV SRG PTH, GROSS 12/19/2018 SP & MICRO 2:35 PM CDT SP from Last 3 Months Results * NM PET SCAN TORSO (SKULL-THIGHS) (01/11/2019 12:59 PM CDT) Specimen POS Impressions Performed At [facility] hypermetabolic mass centered w ithin the left nasal vault extending SP KU RAD RESULTS SP the overlying soft tissues consistent w ith biopsy-proven tumor recurrence. No SP PET/CT evidence of metastatic disease. SP See recent maxillofacial CT for additio nal pertinent findings. SP By my electronic signature, I attest th at I have personally reviewed the images SP for this examination and formulated the interpretations and opinions expressed SP in this report SP Finalized by Maykel Ramirez M.D. on 1:30 PM. Dictated by Ozzy Kelly M.D. on 01/11/2019 1:00 PM. SP Narrative Performed At NM PET SCAN TORSO (SKULL-THIGHS) KU RAD RESULTS SP Radiopharmaceutical:15.1 mCi F-18 F luorodeoxyglucose (FDG) IV. SP Clinical Indication:78-year-old fem abbey, malignant poorly differentiated SP neuroendocrine tumor SP Technique: Beginning approximately 66 m inutes after tracer administration, SP routine whole body PET/CT imaging was p erformed from the skull to proximal SP thighs. PET images were reviewed in sta ndard orthogonal projections. Low dose SP non-contrast CT imaging was performed f or attenuation correction and SP localization purposes. The current mean hepatic SUV (reported for quality SP control purposes) is 2.8. SP Blood glucose level (at the time of rad iopharmaceutical administration):81 SP mg/dL SP Comparison: CT head/maxillofacial Octob er 2018, CT abdomen/pelvis April SP 2015, MRI head October 11, 2017 SP FINDINGS: SP Head/Neck: Prior extensive sinonasal durham rgery and skull base/superior nasal mass SP resection with redemonstration of a mas s centered in the left nasal vault which SP demonstrates increased FDG uptake with a maximum SUV of 49.5 (CT image 17 index SP 314). Associated osseous destruction is better demonstrated on recent CT SP maxillofacial. SP Chest: No suspicious hypermetabolic les ion(s). SP Abdomen/Pelvis: No suspicious hypermeta bolic lesion(s). SP Osseous Structures: See above for discu ssion of skull base findings. Otherwise SP no suspicious hypermetabolic lesion(s). SP Additional CT findings: Mitral annular calcification. Calcified granuloma in SP right middle lobe. Mild emphysema with scattered areas of scarring. Small SP along the right major fissure (CT image 70) which is too small to characterize SP by PET. Prior cholecystectomy. Mild dis megha, diverticulosis. Prior hysterectomy. SP Spinal stimulator device in the subcuta neous soft tissues of the left flank SP leads terminating in the central spinal canal at the T7 level with mild SP associated FDG uptake. SP Procedure Note POS SP Interface, Radiant Results - 01/11/2019 1:33 PM CDT NM PET SCAN TORSO (SKULL-THIGHS) Radiopharmaceutical: 15.1 mCi F-18 Fluorodeoxyglucose (FDG) IV. Clinical Indication: 78-year-old female, malignant poorly differentiated neuroendocrine tumor Technique: Beginning approximately 66 minutes after tracer administration, routine whole body PET/CT imaging was performed from the skull to proximal thighs. PET images were reviewed in standard orthogonal projections. Low dose non-contrast CT imaging was performed for attenuation correction and localization purposes. The current mean hepatic SUV (reported for quality analyst/technical writer purposes) is 2.8. Blood glucose level (at the time of radiopharmaceutical administration): 81 mg/dL Comparison: CT head/maxillofacial January 03, 2019, CT abdomen/pelvis April 23, 2015, MRI head October 11, 2017 FINDINGS: Head/Neck: Prior extensive sinonasal surgery and skull base/superior nasal mass resection with redemonstration of a mass centered in the left nasal vault which demonstrates increased FDG uptake with a maximum SUV of 49.5 (CT image 17 index 314). Associated osseous destruction is better demonstrated on recent CT maxillofacial. Chest: No suspicious hypermetabolic lesion(s). Abdomen/Pelvis: No suspicious hypermetabolic lesion(s). Osseous Structures: See above for discussion of skull base findings. Otherwise no suspicious hypermetabolic lesion(s). Additional CT findings: Mitral annular calcification. Calcified granuloma in the right middle lobe. Mild emphysema with scattered areas of scarring. Small nodule along the right major fissure (CT image 70) which is too small to characterize by PET. Prior cholecystectomy. Mild distal, diverticulosis. Prior hysterectomy. Spinal stimulator device in the subcutaneous soft tissues of the left flank with leads terminating in the central spinal canal at the T7 level with mild associated FDG uptake. IMPRESSION Markedly hypermetabolic mass centered within the left nasal vault extending into the overlying soft tissues consistent with biopsy-proven tumor recurrence. No PET/CT evidence of metastatic disease. See recent maxillofacial CT for additional pertinent findings. By my electronic signature, I attest that I have personally reviewed the images for this examination and formulated the interpretations and opinions expressed in this report Finalized by Maykel Ramirez M.D. on 01/11/2019 1:30 PM. Dictated by Ozzy Kelly M.D. on 01/11/2019 1:00 PM. Performing Organization Address City/State/Zipcode Ph one Number SP [facility] SP * POC GLUCOSE (01/11/2019 11:18 AM CDT) Pathologist SP Signature SP Glucose, POC 81 70 - 100 MG/DL [facility] SP Specimen SP Performing Organization Address City/State/Zipcode Ph one Number SP [facility] [address] [place] [address] SP * CT HEAD WO/W CONTRAST (01/03/2019 11:08 AM CDT) Specimen SP Impressions Performed At SP Head: [facility] SP Prior bifrontal craniotomy and craniali zation of the frontal sinuses with SP similar extra-axial and frontal sinus i ntermediate/high density opacification. SP No significant change in bifrontal pole encephalomalacia and gliosis. SP Maxillofacial: SP 1.Extensive prior sinonasal surgery and skull base/superior nasal mass SP resection with recurrent mass centered in the left nasal vault. There is SP superior extension to the base of the c rista emigdio and anterior extension to SP left nasal and medial canthal soft tiss ues with associated osseous destruction SP as detailed. SP 2.Similar postsurgical/posttreatmen t soft tissue thickening in the left SP pterygomaxillary fissure/pterygopalatin e fossa. SP 3.Moderate likely benign right ethm oid and bilateral maxillary sinus SP thickening with multifocal chronic appe aring thinning/dehiscence of bilateral SP anterior maxillary sinus nagel. SP Approved by Florian Quijano MD on 01/04/20 1:53 PM SP By my electronic signature, I attest th at I have personally reviewed the images SP for this examination and formulated the interpretations and opinions expressed SP in this report SP Finalized by Richard Clark M.D. on 2:28 PM. Dictated by Florian Quijano MD on 01/03/2019 11:34 AM. 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 SP Comparison: Multiple prior CT and MRI c omparisons dating back to 05/27/2011, SP including the most recent MRI of September 182017 and CT head February 19, 2016 SP FINDINGS: SP Dr. Richard Clark M.D. has personally reviewed these images and formulated the SP interpretations and opinions expressed in this report. SP Head: SP Prior bifrontal craniotomy with cranial ization of the frontal sinuses. No SP significant change in the intermediate and hyperdense thickening in the SP cranialized frontal sinuses and along t he anterior paramedian frontal SP convexities. Unchanged encephalomalacia and gliosis in the frontal poles. SP Additional scattered patchy cerebral wh ite matter hypodensities are unchanged. SP Stable nondistended ventricles. The gra y-white matter interfaces are otherwise SP maintained. No abnormal intracranial en hancement. SP Maxillofacial: SP Extensive prior sinonasal and anterior skull base surgery with bilateral SP uncinectomies, maxillary antrostomies, ethmoidectomies and sphenoid SP sinusotomies. There is a new destructiv e enhancing mass centered in the left SP nasal vault with new osseous destructio n of the left nasal bone and frontal SP nasal sutures with extension to the for amen cecum and base of the sugey emigdio. SP There is soft tissue extension into the superficial left nasal tissues and SP medial canthal region. No definitive po st septal left orbital involvement is SP identified. The right mass margin produ nisha new rightward deviation of the nasal SP septum which is also thinned/deminerali zed superiorly. The lesion measures at SP least 2.9 x 2.2 x 3.3 cm (AP by TV by C C, series 6 image 81, series 701 image SP 27). Postsurgical and posttreatment rel ated sclerosis and multifocal bone loss SP involving the anterior ethmoid, left gr eater than right lamina papyracea, and SP bilateral fovea ethmoidalis, and spheno id sinus nagel is otherwise similar. SP Postsurgical low attenuation soft tissu e thickening at the left SP fissure and pterygopalatine fossa is no t significantly changed (series 6 image SP 61). Moderate mucosal thickening and se cretions in the right ethmoid sinuses SP bilateral maxillary sinuses. Multi foca l thinning or absence of the anterior SP maxillary sinus nagel. Unchanged incide ntal likely benign scleral calcification SP in the superior right globe. 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 Pre-contrast axial images were obtained through the head. Comparison: Multiple prior CT and MRI comparisons dating back to 05/27/2011, including the most recent MRI of October 11, [address] head February 19, 2016 FINDINGS: Dr. Richard Clark M.D. has personally reviewed these images and formulated the interpretations and opinions expressed in this report. Head: Prior bifrontal craniotomy with cranialization of the frontal sinuses. No significant change in the intermediate and hyperdense thickening in the cranialized frontal sinuses and along the anterior paramedian frontal convexities. Unchanged encephalomalacia and gliosis in the frontal poles. Additional scattered patchy cerebral white matter hypodensities are unchanged. Stable nondistended ventricles. The christopher-white matter interfaces are otherwise maintained. No abnormal intracranial enhancement. Maxillofacial: Extensive prior sinonasal and anterior skull base surgery with bilateral uncinectomies, maxillary antrostomies, ethmoidectomies and sphenoid sinusotomies. There is a new destructive enhancing mass centered in the left nasal vault with new osseous destruction of the left nasal bone and frontal nasal sutures with extension to the foramen cecum and base of the sugey emigdio. There is soft tissue extension into the superficial left nasal tissues and medial canthal region. No definitive post septal left orbital involvement is identified. The right mass margin produces new rightward deviation of the nasal septum which is also thinned/demineralized superiorly. The lesion measures at least 2.9 x 2.2 x 3.3 cm (AP by TV by CC, series 6 image 81, series 701 image 27). Postsurgical and posttreatment related sclerosis and multifocal bone loss involving the anterior ethmoid, left greater than right lamina papyracea, and bilateral fovea ethmoidalis, and sphenoid sinus nagel is otherwise similar. Postsurgical low attenuation soft tissue thickening at the left pterygomaxillary fissure and pterygopalatine fossa is not significantly changed (series 6 image 61). Moderate mucosal thickening and secretions in the right ethmoid sinuses and bilateral maxillary sinuses. Multi focal thinning or absence of the anterior maxillary sinus nagel. Unchanged incidental likely benign scleral calcification in the superior right globe. IMPRESSION Head: Prior bifrontal craniotomy and cranialization of the frontal sinuses with similar extra-axial and frontal sinus intermediate/high density opacification. No significant change in bifrontal pole encephalomalacia and gliosis. Maxillofacial: 1. Extensive prior sinonasal surgery an d skull base/superior nasal mass SP with recurrent mass centered in the left nasal vault. There is superior extension to the base of the sugey emigdio and anterior extension to the left nasal and medial canthal soft tissues with associated osseous destruction as detailed. 2. Similar postsurgical/posttreatment s oft tissue thickening in the left SP fissure/pterygopalatine fossa. 3. Moderate likely benign right ethmoid and bilateral maxillary sinus mucosal SP with multifocal chronic appearing thinning/dehiscence of bilateral anterior maxillary sinus nagel. Approved by Florian Quijano MD on 01/03/2019 1:53 PM By my electronic signature, I attest that I have personally reviewed the images for this examination and formulated the interpretations and opinions expressed in this report Finalized by Richard Clrak M.D. on 01/03/2019 2:28 PM. Dictated by Florian Quijano MD on 01/03/2019 11:34 AM. Performing Organization Address City/State/Zipcode Ph one Number SP [facility] SP * CT MAXIFACIAL/SINUS W CONTRAST (01/03/2019 11:08 AM CDT) Specimen SP Impressions Performed At Head: [facility] SP Prior bifrontal craniotomy and craniali zation of the frontal sinuses with SP similar extra-axial and frontal sinus i ntermediate/high density opacification. SP No significant change in bifrontal pole encephalomalacia and gliosis. SP Maxillofacial: SP 1.Extensive prior sinonasal surgery and skull base/superior nasal mass SP resection with recurrent mass centered in the left nasal vault. There is SP superior extension to the base of the c rista emigdio and anterior extension to SP left nasal and medial canthal soft tiss ues with associated osseous destruction SP as detailed. SP 2.Similar postsurgical/posttreatmen t soft tissue thickening in the left SP pterygomaxillary fissure/pterygopalatin e fossa. SP 3.Moderate likely benign right ethm oid and bilateral maxillary sinus SP thickening with multifocal chronic appe aring thinning/dehiscence of bilateral SP anterior maxillary sinus nagel. SP Approved by Florian Quijano MD on 01/04/20 19 1:53 PM SP By my electronic signature, I attest th at I have personally reviewed the images SP for this examination and formulated the interpretations and opinions expressed SP in this report SP Finalized by Richard Clark M.D. on 2:28 PM. Dictated by Florian Quijano MD on 01/03/2019 11:34 AM. 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 SP Comparison: Multiple prior CT and MRI c omparisons dating back to 05/27/2011, SP including the most recent MRI of September [address] CT head February 19, 2016 SP FINDINGS: SP Dr. Richard Clark M.D. has personally reviewed these images and formulated the SP interpretations and opinions expressed in this report. SP Head: SP Prior bifrontal craniotomy with cranial ization of the frontal sinuses. No SP significant change in the intermediate and hyperdense thickening in the SP cranialized frontal sinuses and along t he anterior paramedian frontal SP convexities. Unchanged encephalomalacia and gliosis in the frontal poles. SP Additional scattered patchy cerebral wh ite matter hypodensities are unchanged. SP Stable nondistended ventricles. The gra y-white matter interfaces are otherwise SP maintained. No abnormal intracranial en hancement. SP Maxillofacial: SP Extensive prior sinonasal and anterior skull base surgery with bilateral SP uncinectomies, maxillary antrostomies, ethmoidectomies and sphenoid SP sinusotomies. There is a new destructiv e enhancing mass centered in the left SP nasal vault with new osseous destructio n of the left nasal bone and frontal SP nasal sutures with extension to the for amen cecum and base of the sugey emigdio. SP There is soft tissue extension into the superficial left nasal tissues and SP medial canthal region. No definitive po st septal left orbital involvement is SP identified. The right mass margin produ nisha new rightward deviation of the nasal SP septum which is also thinned/deminerali zed superiorly. The lesion measures at SP least 2.9 x 2.2 x 3.3 cm (AP by TV by C C, series 6 image 81, series 701 image SP 27). Postsurgical and posttreatment rel ated sclerosis and multifocal bone loss SP involving the anterior ethmoid, left gr eater than right lamina papyracea, and SP bilateral fovea ethmoidalis, and spheno id sinus nagel is otherwise similar. SP Postsurgical low attenuation soft tissu e thickening at the left SP fissure and pterygopalatine fossa is no t significantly changed (series 6 image SP 61). Moderate mucosal thickening and se cretions in the right ethmoid sinuses SP bilateral maxillary sinuses. Multi foca l thinning or absence of the anterior SP maxillary sinus nagel. Unchanged incide ntal likely benign scleral calcification SP in the superior right globe. 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 Pre-contrast axial images were obtained through the head. Comparison: Multiple prior CT and MRI comparisons dating back to 05/27/2011, including the most recent MRI of October 11, [address] head February 19, 2016 FINDINGS: Dr. Richard Clark M.D. has personally reviewed these images and formulated the interpretations and opinions expressed in this report. Head: Prior bifrontal craniotomy with cranialization of the frontal sinuses. No significant change in the intermediate and hyperdense thickening in the cranialized frontal sinuses and along the anterior paramedian frontal convexities. Unchanged encephalomalacia and gliosis in the frontal poles. Additional scattered patchy cerebral white matter hypodensities are unchanged. Stable nondistended ventricles. The christopher-white matter interfaces are otherwise maintained. No abnormal intracranial enhancement. Maxillofacial: Extensive prior sinonasal and anterior skull base surgery with bilateral uncinectomies, maxillary antrostomies, ethmoidectomies and sphenoid sinusotomies. There is a new destructive enhancing mass centered in the left nasal vault with new osseous destruction of the left nasal bone and frontal nasal sutures with extension to the foramen cecum and base of the sugey emigdio. There is soft tissue extension into the superficial left nasal tissues and medial canthal region. No definitive post septal left orbital involvement is identified. The right mass margin produces new rightward deviation of the nasal septum which is also thinned/demineralized superiorly. The lesion measures at least 2.9 x 2.2 x 3.3 cm (AP by TV by CC, series 6 image 81, series 701 image 27). Postsurgical and posttreatment related sclerosis and multifocal bone loss involving the anterior ethmoid, left greater than right lamina papyracea, and bilateral fovea ethmoidalis, and sphenoid sinus nagel is otherwise similar. Postsurgical low attenuation soft tissue thickening at the left pterygomaxillary fissure and pterygopalatine fossa is not significantly changed (series 6 image 61). Moderate mucosal thickening and secretions in the right ethmoid sinuses and bilateral maxillary sinuses. Multi focal thinning or absence of the anterior maxillary sinus nagel. Unchanged incidental likely benign scleral calcification in the superior right globe. IMPRESSION Head: Prior bifrontal craniotomy and cranialization of the frontal sinuses with similar extra-axial and frontal sinus intermediate/high density opacification. No significant change in bifrontal pole encephalomalacia and gliosis. Maxillofacial: 1. Extensive prior sinonasal surgery an d skull base/superior nasal mass SP with recurrent mass centered in the left nasal vault. There is superior extension to the base of the sugey emigdio and anterior extension to the left nasal and medial canthal soft tissues with associated osseous destruction as detailed. 2. Similar postsurgical/posttreatment s oft tissue thickening in the left SP fissure/pterygopalatine fossa. 3. Moderate likely benign right ethmoid and bilateral maxillary sinus mucosal SP with multifocal chronic appearing thinning/dehiscence of bilateral anterior maxillary sinus nagel. Approved by Florian Quijano MD on 01/03/2019 1:53 PM By my electronic signature, I attest that I have personally reviewed the images for this examination and formulated the interpretations and opinions expressed in this report Finalized by Richard Clark M.D. on 01/03/2019 2:28 PM. Dictated by Florian Quijano MD on 01/03/2019 11:34 AM. Performing Organization Address City/[facility] Ph one Number SP [facility] SP * POC CREATININE, RAD (01/03/2019 10:48 AM CDT) Pathologist SP Signature SP Creatinine, POC 1.2 (H) 0.4 - 1.00 MG/DL [facility] SP Specimen SP Performing Organization Address [facility] Ph one Number SP [facility] [address] [place] [address] SP * SURGICAL PATHOLOGY (12/19/2018 2:35 PM CDT) Pathologist SP Signature SP PATHOLOGY [facility] SP [email or web address] SP Department of Pathology and SP Laboratory Medicine SP [address] [place] [address] SP Surgical Pathology SP Office:[phone] SP [phone] SP SURGICAL PATHOLOGY REPORT SP NAME: NISA GREENWOOD SURG SP PATH #: [id number] MR #: SP [id number] SPECIMEN SP CLASS: SR BILLING #: SP [id number] ALT ID SP #:LOCATION: [facility] DATE OF SP PROCEDURE: 12/19/2018 SP AGE:78 SEX: F DATE SP RECEIVED: 12/19/2018 : SP 1939TIME SP RECEIVED:14:35 PHYSICIAN: AMINA VALENTINO MD DATE OF SP REPORT: 12/21/2018 COPY SP TO:DATE OF PRINTING: SP 12/21/2018 SP ############################## SP ############################## SP ############ SP Final Diagnosis: SP A. 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 SP Comment: SP Preliminary results were SP relayed to Dr. Valentino on SP December 20, 2018 at 8:58 SP AM via email. The patient's SP previous nasal mass ([id number]) SP and left SP nasal/skull base tumor SP ([id number]) were concurrently SP reviewed and the tumors SP are morphologically similar. SP An immunohistochemical panel SP with controls is performed SP showing the SP following results and SP supporting the above SP diagnosis: SP Pancytokeratin: Patchy strong SP positive cytoplasmic staining SP of tumor SP cells. SP CK 7: Negative staining of SP tumor cells. SP CK 20: Negative. SP SOX 10: Negative staining of SP tumor cells. SP ELENA: Patchy moderate to strong SP positive cytoplasmic staining SP of tumor SP cells. SP Synaptophysin: Negative. SP Chromogranin: Negative. SP NSE: Patchy weak positive SP cytoplasmic staining of tumor SP cells. SP Ki-67: Markedly increased SP proliferation index of SP approximately 70%. SP In situ hybridization for EBV SP is negative. SP Pursuant to the Quality SP Assurance Program at the SP [facility] Pathology Department, SP selected slides from this case SP have been SP concurrently reviewed by the SP following pathologist: Dr. AMINA Bell who SP agrees with the final SP diagnosis. SP Attestation: SP By this signature, I attest SP that I have personally SP formulated the final SP interpretation expressed in SP this report and that the above SP diagnosis is SP based upon my examination of SP the slides and/or other SP material indicated in SP this report. 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 Received in formalin, SP labeled with the patient's SP name and "left SP superior nasal cavity/skull SP base mass" is a 1.0 x 0.6 x SP 0.5 cm aggregate SP of firm pink-mejia soft tissue SP fragments. The specimen is SP filtered and SP entirely submitted in SP cassettes A1-A2. (tn) SP /12/19/2018 SP SP If immunohistochemical stains SP and/or in situ hybridization SP are cited in SP this report, the performance SP characteristics were SP determined by the SP Department of Pathology and SP Laboratory Medicine of the [facility] ([facility]) in compliance SP with CLIA'88 SP regulations.Some of these SP tests rely on the use of SP "analyte specific SP reagents" and are subject to SP specific labeling requirements SP by the FDA. SP Known positive and negative SP control tissues demonstrate SP appropriate SP staining.Results should be SP interpreted with caution given SP the likelihood SP of false negativity on SP decalcified specimens.This SP testing was developed SP by the Department of Pathology SP and Laboratory Medicine of the [facility].It has not been SP cleared or approved by the FDA.The FDA has SP determined that such clearance SP or approval is not necessary. 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 SP POS 02/19/2016 4:25 PM SP Full Code 02/19/2016 10:34 AM SP Provider has discussed Code Status No, more discussi on SP w/Patient or Family? needed SP POS 01/02/2016 2:09 PM SP Full Code 01/01/2016 7:22 PM SP Provider has discussed Code Status Yes SP w/Patient or Family? SP POS 07/18/2011 3:58 PM SP Full Code 07/13/2011 7:54 PM SP Provider has discussed Code Status No, more discussi on SP w/Patient or Family? needed SP POS 07/07/2011 3:33 PM SP Full Code 06/27/2011 5:05 PM SP Provider has discussed Code Status Yes SP w/Patient or Family? SP
--- OUTSIDE RECORDS SUMMARY | 2019-02-11 02:57 | XMS REPORT | Encounter Summary ---
Author Author [facility] POS Organization [facility] SP Address Unknown SP Phone Unavailable SP Care Team Providers Care Mails Supervisor Name Role Phone POS Amrik Live MD Unavailable SP Rolando Colin MD Unavailable SP Tulio Boucher MD Unavailable SP Boone Westfall MD Unavailable SP Owen Navas MD Unavailable SP James Montes MD Unavailable SP Saw [facility] Unavailable SP Kwaku Grover MD Unavailable SP Cinthia Carmichael Unavailable SP Kadeem Robb MD Unavailable SP Rolando Weeks MD Unavailable Unavailable SP Kandy Petersen MD Unavailable SP Elvin Flores MD Unavailable SP Janes Conley MD Unavailable Unavailable SP Delfin Acevedo MD Unavailable SP Sadie Brown MD PCP SP Reason for Visit * Reason Comments POS Follow-up Phone Call SP Encounter Details Care Team Description POS Date Type Department SP SP Flaco Callse MD [address] [place] [id number] [phone] Follow-up Phone Call SP 01/15/2019 Telephone [facility] [place] [address] SP [address] [place] [phone] SP [phone] SP Social History Date POS Tobacco Use [...] available. SP documented as of this encounter Functional Status Date of Assessment POS Functional Status Response SP 10/05/2018 SP Does the patient have a hearing impairment: No SP 10/05/2018 SP Does the patient have a visual impairment: Yes SP 10/05/2018 SP Does the patient have impaired ambulation: No SP 10/05/2018 SP Does the patient have an activity of daily living No SP (ADL) impairment: SP 10/05/2018 SP Does the patient have an instrumental activity of No SP daily living (IADL) impairment: SP Date of Assessment POS Cognitive Status Response SP 10/05/2018 SP Does the patient have a cognitive impairment: No SP documented as of this encounter Miscellaneous Notes * Telephone Encounter - Carmelina Silverman RN - 01/15/2019 5:43 PM CDT Called to schedule appointments for patient that Dr. Calles requested for surge ry. Patient stated she does not want surgery at this time. Cancelled the noninva sive's that were scheduled at this time. Patient also said did not want MRI but was scheduled by Dr. Montes's office. Reached out to their office to let them kngeorges w. Patient said she would call back if anything changed and she decided to have surgery. Carmelina Silverman RN documented in this encounter Plan of Treatment Not on filedocumented as of this encounter Visit Diagnoses Not on filedocumented in this encounter Additional Health Concerns Resolved Time POS Infection Noted Time SP SP MRSA 06/25/2012 8:29 AM CDT SP documented as of this encounter
--- OUTSIDE RECORDS SUMMARY | 2019-02-11 02:57 | XMS REPORT | Encounter Summary ---
Author Author [facility] POS Organization [facility] SP Address Unknown SP Phone Unavailable SP Care Team Providers Care Clinical Unit Coordinator Name Role Phone POS Amrik Live MD Unavailable SP Rolando Colin MD Unavailable SP Tulio Boucher MD Unavailable SP Boone Westfall MD Unavailable SP Owen Navas MD Unavailable SP James Montes MD Unavailable SP Saw [facility]es [facility] Unavailable SP Kwaku Grover MD Unavailable SP Cinthia Carmichael Unavailable SP Kadeem Robb MD Unavailable SP Rolando Weeks MD Unavailable Unavailable SP Kandy Petersen MD Unavailable SP Elvin Flores MD Unavailable SP Janes Conley MD Unavailable Unavailable SP Delfin Acevedo MD Unavailable SP Sadie Brown MD PCP SP Reason for Visit * Reason Comments POS Other SP Encounter Details Care Team Description POS Date Type Department SP SP James Montes MD [address] [facility] [address] [place] [id number] [phone] Other SP 01/21/2019 Telephone [facility] SP [address] [facility] SP [address] [place] [phone] SP [phone] SP Social History Date POS Tobacco Use [...] encounter Miscellaneous Notes * Telephone Encounter - James Montes MD - 01/22/2019 10:57 AM SIDE BOSS I called patient regarding decision for treatment of her recurrent cancer. She has decided that she is not interested in surgical resection. She has met with her oncologist in [place], [place] and they have discussed chemotherapy options. She meets with radiation oncology tomorrow to discuss radiation options in the s etting of prior treatment (7 yrs ago). She understands that treatment is unlike ly to cure the cancer and that her goal is palliation. She will call if she has problems or needs ENT intervention. She was very appreciative of the care she has received here and thankful for all that has been done for her. BOSS * Telephone Encounter - Nan Hernandez - 01/21/2019 9:34 AM SIDE BOSS Calling regarding surgery she doesn't want it BOSS documented in this encounter Plan of Treatment Not on filedocumented as of this encounter Visit Diagnoses Not on filedocumented in this encounter Additional Health Concerns Resolved Time POS Infection Noted Time SP SP MRSA 06/25/2012 8:29 AM CDT SP documented as of this encounter
--- OUTSIDE RECORDS SUMMARY | 2019-02-11 02:57 | XMS REPORT | Encounter Summary ---
Author Author [facility] POS Organization [facility] SP Address Unknown SP Phone Unavailable SP Care Team Providers Care Wood Borer Name Role Phone POS Amrik Live MD Unavailable SP Rolando Colin MD Unavailable SP Tulio Boucher MD Unavailable SP Boone Westfall MD Unavailable SP Owen Navas MD Unavailable SP James Montes MD Unavailable SP Saw [facility]es [facility] Unavailable SP Kwaku Grover MD Unavailable SP Cinthia Carmichael Unavailable SP Kadeem Robb MD Unavailable SP Rolando Weeks MD Unavailable Unavailable SP Kandy Petersen MD Unavailable SP Elvin Flores MD Unavailable SP Janes Conley MD Unavailable Unavailable SP Delfin Acevedo MD Unavailable SP Sadie Brown MD PCP SP Encounter Details Care Team Description POS Date Type Department SP SP Flaco Calles MD [address] [place], [place] [phone] Neuroendocrine carcinoma (HCC) (Primary Dx); SPPre-op testing 01/15/2019 Orders Only [facility] SP [address] [place] [phone] SP [phone] SP Social History Date POS Tobacco Use [...] No SP documented as of this encounter Plan of Treatment Order Schedule POS Name Type Priority Associated Diag noses SP Expected: 01/15/2019 (Approximate), Expi res: 01/16/2020 SP HAND MIN 3 VIEWS Imaging Routine Neuroendocrin e carcinoma SP BILATERAL (HCC) SP Expected: 01/15/2019 (Approximate), Expi res: 01/15/2020 SP US NONINVASIVE UPPER EXT Imaging Routine Neuro endocrine carcinoma SP PVR (HCC) SP Pre-op testing SP documented as of this encounter Visit Diagnoses Diagnosis POS Neuroendocrine carcinoma (HCC) - Primar y SP Malignant 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
--- OUTSIDE RECORDS SUMMARY | 2019-02-11 02:57 | XMS REPORT | Encounter Summary ---
Author Author [facility] POS Organization [facility] SP Address Unknown SP Phone Unavailable SP Care Team Providers Care Manager Audio Name Role Phone POS Amrik Live MD Unavailable SP Rolando Colin MD Unavailable SP Tulio Boucher MD Unavailable SP Boone Westfall MD Unavailable SP Owen Navas MD Unavailable SP James Montes MD Unavailable SP Saw [facility]es [facility] Unavailable SP Kwaku Grover MD Unavailable SP Cinthia Carmichael Unavailable SP Kadeem Robb MD Unavailable SP Rolando Weeks MD Unavailable Unavailable SP Kandy Petersen MD Unavailable SP Elvin Flores MD Unavailable SP Janes Conley MD Unavailable Unavailable SP Delfin Acevedo MD Unavailable SP Sadie Brown MD PCP SP Reason for Referral * Consult, Test & Treat (Routine) Referred By Contact Referred To Contact POS Status Reason Specialty Diagnoses / SP Procedures SP James Soto MD [address] [facility] [address] [place] [phone] Flaco Cuellar MD [address] [place] [address] No Auth Needed Specialty Services Plastic Surgery Diagnoses SP Required Neuroendocrine SP carcinoma (HCC) SP * Consult, Test & Treat (Routine) Referred By Contact Referred To Contact POS Status Reason Specialty Diagnoses / SP Procedures SP James Soto MD [address] [facility] [address] [place] [phone] Rolando Guillen MD [address] [facility] [address] [place] [phone] New Request Specialty Services Neurosurgery Diagnoses SP Required Neuroendocrine SP carcinoma (HCC) SP Reason for Visit * Reason Comments POS Other Poss Recurrent esthesioneur oblastoma SP Encounter Details Care Team Description POS Date Type Department SP James Soto MD [address] [facility] [address] [place] [address] [phone] Neuroendocrine carcinoma (HCC) (Primary Dx) SP 01/03/2019 Office Visit [facility] [place] [address] [place] [address] SP [phone] SP Social History Date POS Tobacco Use [...] available. SP documented as of this encounter Last Filed Vital Signs Reading Time Taken Comments POS Vital Sign SP 125/60 01/03/2019 2:18 PM CDT SP Blood Pressure SP 78 01/03/2019 2:18 PM CDT SP Pulse SP - - SP Temperature SP - - SP Respiratory Rate SP - - SP Oxygen Saturation SP - - SP Inhaled Oxygen SP Concentration SP 71.2 kg (157 lb) 01/03/2019 2:18 PM CDT SP Weight SP 165.1 cm (5' 5") 01/03/2019 2:18 PM CDT SP Height SP 26.13 01/03/2019 2:18 PM CDT SP Body Mass Index SP documented in this encounter Functional Status Date of Assessment [...] No SP documented as of this encounter Progress Notes * James Montes MD - 01/03/2019 2:15 PM CDT Date of Service: 01/03/2019 Subjective: Nisa Greenwood is a 78 y.o. female. 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 Completed chemo/XRT in August 2011. About 6-8 weeks ago, her cat head butted her hitting her glasses. Reports this c aused some swelling of nasal dorsum which did not reduce and began enlarging. e saw Dr. Live on 12/19/18 who noted 2 cm subcutaneous mass measuring about 2 c m at nasal root at frontal bone. Dr. Live biopsied mass in-office, positive fo r poorly differentiated neuroendocrine tumor. She has not seen Dr. Escobedo, onco logist in [place] yet. 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 Acevedo in Jan 2016. She had recently had a spi nal implant stimulator for chronic back pain at [facility] in [place], [place]. Zaire sanchez does not have any cardiac or pulmonary issues. Reports heart disease runs in [facility]. She has had echocardiogram about 1 year ago in [facility] with Dr. Hariston . Review of Systems Constitutional: Negative. HENT: Negative. Eyes: Negative. Respiratory: Negative. Cardiovascular: Negative. Gastrointestinal: Negative. Endocrine: Negative. Genitourinary: Negative. Musculoskeletal: Negative. Skin: Negative. Allergic/Immunologic: Negative. Neurological: Negative. Hematological: Negative. Psychiatric/Behavioral: Negative. Objective: artificial tears/hypromellose (ISOPTO TEARS) 0.5 % ophthalmic solution Apply 1 Drop to both eyes four times daily. (Patient taking differently: Apply 1 Drop to both eyes as Needed.) carbidopa/levodopa CR (SINEMET CR) 25/100 mg tablet Take one tablet by mouth three times daily. Indications: parkinson symptoms cyanocobalamin 1,000 mcg tablet Take 1,000 mcg by mouth daily after lunch. dexamethasone (DECADRON) 0.1 % ophthalmic solution INSERT 2 DROPS INTO EACH NOSTRIL THREE TIMES A DAY. TAKE 1 WEEK OFF EVERY MONTH ezetimibe (ZETIA) 10 mg tablet Take 10 mg by mouth daily. fenofibrate(+) (TRIGLIDE) 160 mg tablet Take 160 mg by mouth daily after cammy ch. Garlic 1,000 mg cap Take 1 Cap by mouth daily. levETIRAcetam (KEPPRA) 500 mg tablet Take one tablet by mouth twice daily. levothyroxine (SYNTHROID) 50 mcg tablet Take 50 mcg by mouth daily 30 minute s before breakfast. lisinopril (PRINIVIL, ZESTRIL) 40 mg tablet Take 5 mg by mouth daily after l unch. melatonin 3 mg tab Take 3 mg by mouth as Needed. omeprazole (PRILOSEC PO) Take by mouth twice daily. Take one brand name tab in the AM and one generic brand in the PM sertraline (ZOLOFT) 100 mg tablet Take by mouth daily. traMADol (ULTRAM) 50 mg tablet Take 50 mg by mouth every 6 hours as needed f or Pain. vitamins, multiple cap Take 1 Cap by mouth daily after lunch. Vitals: 01/03/19 1418 BP: 125/60 Pulse: 78 Weight: 71.2 kg (157 lb) Height: 165.1 cm (65") Body mass index is 26.13 kg/m. Physical Exam General: Well-developed, well-nourished Communication and Voice: Clear pitch and clarity Hearing: Hearing adequate for verbal communication bilaterally Inspection: widened nasal bridge with discoloration of the skin, mass effect on nasal dorsum left>right Palpation: Dehiscent bone of the nasal dorsum Facial Strength: Facial motility symmetric and full bilaterally Pinna: External ear intact and fully developed External canal: Canal is patent with intact skin Tympanic Membrane: Normal bilaterally External nose: widened nasal bridge with discoloration of the skin, mass effect on nasal dorsum left>right Internal Nose: Septum intact some edema + rhinorrhea. Oral cavity, Lips, Teeth, and Gums: Mucosa and teeth intact and viable, No lesi ons, masses or ulcers Oropharynx: No erythema or exudate, no masses or ulcerations, non-obstructive to nsils Larynx: Normal voice, no stridor or stertor. Neck, Trachea, Lymphatics: Midline trachea without mass or lesion, no lymphaden opathy Thyroid: No mass or nodularity Eyes: No nystagmus with equal extraocular motion bilaterally Neuro/Psych/Balance: Patient oriented and appropriate in interaction; Appropria te mood and affect; Gait is intact with no imbalance; Cranial nerves II-XII are intact (reports very poor vision on the left) Respiratory effort: Equal inspiration and expiration, no respiratory distress Peripheral Vascular: Warm extremities with equal distal pulses Nasal Endoscopy: Patient is anesthetized with 4% lidocaine and decongested with neosynephrine. Rigid endoscopy is performed; the patient tolerated the procedure well. There is evidence of prior central skull base resection. The nose and si nuses are well healed. The skull base reconstruction is intact. There is + hector ting. The nasoseptal flap appears well healed. The frontal sinuses are open an d the sphenoid sinuses appear open as well. There is no evidence of CSF leak or tumor recurrence. The nasopharynx is normal. There are no suspicious appearing lesions. Some crusting throughout. Mass like appearance in anterior nasal cavi ty, more to left than right. Pathology reviewed with her today. Final Diagnosis: A. Soft tissue, left superior nasal cavity/skull base mass, biopsy: Poorly differentiated neuroendocrine tumor (see comment). Comment: Preliminary results were relayed to Dr. Live on December 20, 2018 at 8:58 AM via email. The patient's previous nasal mass ([id number]) and left nasal/skull base tumor ([id number]) wereconcurrently reviewed and the tumors are morphologically similar. An immunohistochemical panel with controls is performed showing the following results and supporting the above diagnosis: Pancytokeratin: Patchy strong positive cytoplasmic staining of tumor cells. CK 7: Negative staining of tumor cells. CK 20: Negative. SOX 10: Negative staining of tumor cells. ELENA: Patchy moderate to strong positive cytoplasmic staining of tumor cells. Synaptophysin: Negative. Chromogranin: Negative. NSE: Patchy weak positive cytoplasmic staining of tumor cells. Ki-67: Markedly increased proliferation index of approximately 70%. In situ hybridization for EBV is negative. CT images and report reviewed today. There is a large central nasal cavity mass with erosion of the nasal dorsum There are post surgical changes of prior cranial base surgery Assessment and Plan: Encounter Diagnoses Name Primary? Neuroendocrine carcinoma (HCC) Yes Based on exam, symptoms and pathology she does have a recurrence of neuroendocri ne carcinoma. We discussed her options. Options include resection of mass and re construction, boost XRT and chemo vs XRT and chemo vs palliative care. We discus sed XRT and chemo would not be curative and would likely give her more time. Dis cussed if she begins to have adverse reactions to XRT or chemo she may have to d raw back. Palliative care would make her comfortable. Discussed I am not sure ho w long she would have left. We discussed surgery including open resection and reconstruction. We discussed reconstruction options including the need for allograft, fascia xiao graft or ab dominal fat graft. We also discussed the possibility of nasoseptal flap and/or use of lumbar drain. I reviewed with her the overall strategy of surgery and an swered all of her questions. We discussed details of surgery, alternatives to s urgery. We discussed risks of surgery including bleeding, infection, loss of se nse of smell, pain, CSF leak, meningitis, damage to brain tissue, seizure, damag e to vision including blindness, stroke, , and need for further surgery. Sh daniel would likely need 1 week hospitalization and may need to go to a rehab facilit y after discharge from hospital. We discussed her case will likely also involve Dr. Colin and Dr. Calles. We discussed she will also need XRT boost after durham rgery and possibly chemotherapy if she has metastasis. I do not think there is a need to remove the eye at this time but discussed there is a risk for diplopia and other vision issues. She should also discuss her overall health with PCP and carton stapler. I will order an MRI to evaluate the mass. I will also order a PET scan to look for metastasis. I will refer her to Dr. Calles and Dr. Colin to discuss surgery further. She should discuss diagnosis and treatments with tiara lozada. Refer to Dr. Colin and Dr. Calles. Order MRI and PET scan. Start time 229pm, Stop time 308pm I spent a total of 39 minutes in this patient encounter, 90% of which was spent in counseling, reviewing current diagnosis and discussing treatment options. In the presence of James Montes MD, I have taken down these notes, Harsh Franz. 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
--- OUTSIDE RECORDS SUMMARY | 2019-02-11 02:57 | XMS REPORT | Encounter Summary ---
Author Author [facility] POS Organization [facility] SP Address Unknown SP Phone Unavailable SP Care Team Providers Care Regulatory Affairs Consultant Name Role Phone POS Amrik Live MD Unavailable SP Rolando Colin MD Unavailable SP Tulio Boucher MD Unavailable SP Boone Westfall MD Unavailable SP Owen Navas MD Unavailable SP James Montes MD Unavailable SP Saw Ames [facility] Unavailable SP Kwaku Grover MD Unavailable SP Cinthia Carmichael Unavailable SP Kadeem Robb MD Unavailable SP Rolando Weeks MD Unavailable Unavailable SP Kandy Petersen MD Unavailable SP Elvin Flores MD Unavailable SP Janes Conley MD Unavailable Unavailable SP Delfin Acevedo MD Unavailable SP Sadie Brown MD PCP SP Reason for Referral * Radiology Services (Routine) Referred By Contact Referred To Contact POS Status Reason Specialty Diagnoses / SP Procedures SP [facility] [address] [address] SP [facility] [address] [place] [address] Closed Radiology Diagnoses SP Malignant poorly SP differentiated SP neuroendocrine SP tumors (HCC) SP P SP rocedures SP NM PET SCAN TORSO SP (SKULL-THIGHS) SP Reason for Visit * Radiology Services (Routine) Referred By Contact Referred To Contact POS Status Reason Specialty Diagnoses / SP Procedures SP SP James Montes MD [address] [facility] [address] [address] SP [facility] [address] [place] [address] Closed Radiology Diagnoses SP Malignant poorly SP differentiated SP neuroendocrine SP tumors (HCC) SP P SP rocedures SP NM PET SCAN TORSO SP (SKULL-THIGHS) SP Encounter Details Care Team Description POS Date Type Department SP James Soto MD [address] [facility] [address] [phone] SP 01/11/2019 [facility] SP Encounter [facility] SP [address] [facility] [place] [address] SP [phone] SP Social History Date POS Tobacco Use [...] No SP documented as of this encounter Medications at Time of Discharge Start Date End Date POS Medication Sig Dispensed Refills SP 06/27/2011 SP artificial Apply 1 Drop 0 SP tears/hypromellose to both eyes SP (ISOPTO TEARS) 0.5 % four times SP ophthalmic solution daily. SP 10/05/2018 SP carbidopa/levodopa CR Take one 90 tablet 5 SP (SINEMET CR) 25/100 mg tablet by SP tabletIndications: mouth three SP parkinsonism times daily. SP Indications: SP parkinson SP symptoms SP SP cyanocobalamin 1,000 mcg Take 1,000 0 SP tablet mcg by mouth SP daily after SP lunch. SP 10/17/2016 SP dexamethasone (DECADRON) INSERT 2 40 mL 1 SP 0.1 % ophthalmic solution DROPS INTO SP EACH NOSTRIL SP THREE TIMES A SP DAY. TAKE 1 SP WEEK OFF SP EVERY MONTH SP SP ezetimibe (ZETIA) 10 mg Take 10 mg by 0 SP tablet mouth daily. SP SP fenofibrate(+) (TRIGLIDE) Take 160 mg 0 SP 160 mg tablet by mouth SP daily after SP lunch. SP SP Garlic 1,000 mg cap Take 1 Cap by 0 SP mouth daily. SP 11/15/2018 SP levETIRAcetam (KEPPRA) Take one 180 tablet 3 SP 500 mg tablet tablet by SP mouth twice SP daily. SP SP levothyroxine (SYNTHROID) Take 50 mcg 0 SP 50 mcg tablet by mouth SP daily 30 SP minutes SP before SP breakfast. SP SP lisinopril (ZESTRIL) 5 mg Take 5 mg by 0 SP tablet mouth daily SP after lunch. SP SP Melatonin 5 mg cap Take 5 mg by 0 SP mouth as SP Needed. SP SP omeprazole (PRILOSEC PO) Take 20 mg by 0 SP mouth daily. SP Take one SP brand name SP tab in the AM SP and one SP generic brand SP in the PM SP 05/09/2018 SP sertraline (ZOLOFT) 50 mg Take 50 mg by 0 SP tablet mouth daily. SP SP traMADol (ULTRAM) 50 mg Take 50 mg by 0 SP tablet mouth every 6 SP hours as SP needed for SP Pain. SP SP vitamins, multiple cap Take 1 Cap by 0 SP mouth daily SP after lunch. SP documented as of this encounter Plan of Treatment Not on filedocumented as of this encounter Procedures Comments POS Procedure Name Priority Date/Time Associated Diag nosis SP SP NM PET SCAN TORSO Routine 01/11/2019 Malignant po cory SP (SKULL-THIGHS) 12:59 PM CDT differentiated SP neuroendocrine tumors SP (HCC) SP SP POC GLUCOSE 01/11/2019 SP 11:18 AM CDT SP documented in this encounter Results * NM PET SCAN TORSO (SKULL-THIGHS) [...] administration):81 SP mg/dL SP Comparison: CT head/maxillofacial Oct2018, CT abdomen/pelvis April, MRI head October 11, 2017 SP FINDINGS: [...] The current mean hepatic SUV (reported for research quality assurance specialist purposes) is 2.8. Blood glucose level (at [...] on 01/11/2019 1:00 PM. Performing Organization Address [facility]/State[facility] Number SP [facility] SP * POC GLUCOSE (01/11/2019 11:18 AM CDT) Pathologist SP Signature SP Glucose, POC 81 70 - 100 MG/DL [facility] SP Specimen SP Performing Organization Address City/State/[facility] Ph one Number SP [facility] [address] [place] [address] SP documented in this encounter Visit Diagnoses Diagnosis POS Malignant poorly differentiated neuroen docrine tumors (HCC) SP Malignant poorly differentiated neuroen docrine carcinoma, any site SP documented in this encounter Administered Medications Action Date Dose Rate Site POS Medication Order MAR Action SP 01/11/2019 11:30 AM CDT 15.1 millicuries SP RP DX F-18 FDG injection 15 millicurie Given SP 15 millicurie, Intravenous, ONCE, 1 SP dose, 01/11/19 at 1130 SP documented in this encounter Additional Health Concerns Resolved Time POS Infection Noted Time SP SP MRSA 06/25/2012 8:29 AM CDT SP documented as of this encounter
--- OUTSIDE RECORDS SUMMARY | 2019-02-11 02:57 | XMS REPORT | Encounter Summary ---
Author Author [facility] POS Organization [facility] SP Address Unknown SP Phone Unavailable SP Care Team Providers Care Head Strength And Conditioning Coach Name Role Phone POS Amrik Live MD Unavailable SP Rolando Colin MD Unavailable SP Tulio Boucher MD Unavailable SP Boone Westfall MD Unavailable SP Owen Navas MD Unavailable SP James Montes MD Unavailable SP Saw Ames [facility] Unavailable SP Kwaku Grover MD Unavailable SP Cinthia Carmichael Unavailable SP Kadeem Robb MD Unavailable SP Rolando Weeks MD Unavailable Unavailable SP Kandy Petersen MD Unavailable SP Elvin Flores MD Unavailable SP Janes Conley MD Unavailable Unavailable SP Delfin Acevedo MD Unavailable SP Sadie Brown MD PCP SP Reason for Visit * Reason Comments POS Follow Up review imaging SP Encounter Details Care Team Description POS Date Type Department SP SP Flaco Calles MD [address] [place] [address] [phone] SP 01/11/2019 Office Visit [facility] SP [address] [place] [phone] SP [phone] SP Social History Date POS Tobacco Use [...] Time Taken Comments POS Vital Sign SP 117/73 01/11/2019 3:05 PM CDT SP Blood Pressure SP 76 01/11/2019 3:05 PM CDT SP Pulse SP - - SP Temperature SP - - SP Respiratory Rate SP - - SP Oxygen Saturation SP - - SP Inhaled Oxygen SP Concentration SP 68 kg (150 lb) 01/11/2019 3:05 PM CDT SP Weight SP 165.1 cm (5' 5") 01/11/2019 3:05 PM CDT SP Height SP 24.96 01/11/2019 3:05 PM CDT SP Body Mass Index SP [...]
--- OUTSIDE RECORDS SUMMARY | 2019-02-11 02:57 | XMS REPORT | Encounter Summary ---
Author Author [facility] POS Organization [facility] SP Address Unknown SP Phone Unavailable SP Care Team Providers Care Hydro Technician Name Role Phone POS Amrik Live MD Unavailable SP Rolando Colin MD Unavailable SP Tulio Boucher MD Unavailable SP Boone Westfall MD Unavailable SP Owen Navas MD Unavailable SP James Montes MD Unavailable SP Saw Ames [facility] Unavailable SP Kwaku Grover MD Unavailable [...] Type Department SP James Soto MD [address] [facility] [address] [place] [address] [phone] Follow-up Phone Call SP 01/03/2019 Telephone [facility] SP [address] SP [address] [place] [phone] SP [phone] SP Social History Date POS Tobacco Use [...] encounter Miscellaneous Notes * Telephone Encounter - Arlen Marshall RN - 01/03/2019 1:30 PM CDT Patient has a spinal stimulator for chronic pain. [place] medical records there who obtained the operative report. It reads "[facility] Penta Lead Proclaim 5, MRI compatible." documented in this encounter Plan of Treatment Not on filedocumented as of this encounter Visit Diagnoses Not on filedocumented in this encounter Additional Health Concerns Resolved Time POS Infection Noted Time SP SP MRSA 06/25/2012 8:29 AM CDT SP documented as of this encounter
--- OUTSIDE RECORDS SUMMARY | 2019-02-11 02:57 | XMS REPORT | Encounter Summary ---
Author Author [facility] POS Organization [facility] SP Address Unknown SP Phone Unavailable SP Care Team Providers Care Nursing Education Specialist Name Role Phone POS Amrik Live MD Unavailable SP Rolando Colin MD Unavailable SP Tulio Boucher MD Unavailable SP Boone Westfall MD Unavailable SP Owen Navas MD Unavailable SP James Montes MD Unavailable SP Saw Ames [facility] Unavailable SP Kwaku Grover MD Unavailable [...] SP Procedures SP [facility] MD [facility] [address] [address] [facility] [address] [place] [address] Closed Radiology Diagnoses SP Malignant poorly SP differentiated SP neuroendocrine SP tumors (HCC) SP P SP rocedures SP NM PET SCAN TORSO SP (SKULL-THIGHS) SP * Radiology Services (Routine) Referred By Contact Referred To Contact POS Status Reason Specialty Diagnoses / SP Procedures SP James Soto MD [address] [facility] [address] [place] [address] SP [facility] [address] [place] [address] Closed Radiology Diagnoses SP Malignant poorly SP differentiated SP neuroendocrine SP tumors (HCC) SP P SP rocedures SP MRI ORBIT FACE SP AND/OR NECK WO/W SP CONT SP Encounter Details Care Team Description POS Date Type Department SP James Soto MD [address] [facility] [address] [place] [id number] Malignant poorly differentiated neuroend ocrine tumors (HCC) SP Dx) 01/03/2019 Orders Only [facility] SP [address] SP [address] [place] [phone] SP [phone] SP Social History Date POS Tobacco Use [...] Type Priority Associated Diag noses SP Expected: 01/03/2019 (Approximate), Expi res: 01/04/2020 SP MRI ORBIT FACE AND/OR Imaging Routine Malignan t poorly SP NECK WO/W CONT differentiated SP neuroendocrine tumors SP (HCC) SP documented as of this encounter Results * NM PET SCAN [...] SP mg/dL SP Comparison: CT head/maxillofacial Octob 2018, CT abdomen/pelvis April, MRI head October 11, [...] The current mean hepatic SUV (reported for software quality assurance analyst purposes) is 2.8. 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
--- OUTSIDE RECORDS SUMMARY | 2019-02-11 02:57 | XMS REPORT | Encounter Summary ---
Author Author [facility] POS Organization [facility] SP Address Unknown SP Phone Unavailable SP Care Team Providers Care Crystal Slicer Name Role Phone POS Amrik Live MD Unavailable SP Rolando Colin MD Unavailable SP Tulio Boucher MD Unavailable SP Boone Westfall MD Unavailable SP Owen Navas MD Unavailable SP James Montes MD Unavailable SP Saw Ames [facility] Unavailable SP Kwaku Grover MD Unavailable [...] Department SP SP James Montes MD [address] [facility] [address] [place] [address] [phone] Other SP 01/18/2019 Telephone [facility] SP [address] SP [address] [place] [phone] SP [phone] SP Social History Date POS Tobacco Use [...] encounter Miscellaneous Notes * Telephone Encounter - Mary Matthew - 01/18/2019 8:06 AM CDT Patient called to inform Dr. Montes she has cancelled surgery, also cancelling Dr Yamil Colin's upcoming appointment. If you have any questions give her a call. documented in this encounter Plan of Treatment Not on filedocumented as of this encounter Visit Diagnoses Not on filedocumented in this encounter Additional Health Concerns Resolved Time POS Infection Noted Time SP SP MRSA 06/25/2012 8:29 AM CDT SP documented as of this encounter
--- OUTSIDE RECORDS SUMMARY | 2019-02-11 02:57 | XMS REPORT | Encounter Summary ---
Author Author [facility] POS Organization [facility] SP Address Unknown SP Phone Unavailable SP Care Team Providers Care Corporate Travel Manager Name Role Phone POS Amrik Live MD Unavailable SP Rolando Colin MD Unavailable SP Tulio Boucher MD Unavailable SP Boone Westfall MD Unavailable SP Owen Navas MD Unavailable SP James Montes MD Unavailable SP Saw Ames [facility] Unavailable SP Kwaku Grover MD Unavailable SP Cinthia Carmichael Unavailable SP Kadeem Robb MD Unavailable SP Rolando Weeks MD Unavailable Unavailable SP Kandy Petersen MD Unavailable SP Elvin Flores MD Unavailable SP Janes Conley MD Unavailable Unavailable SP Delfin Acevedo MD Unavailable SP Sadie Brown MD PCP SP Reason for Visit * Reason Comments POS Seizure SP Encounter Details Care Team Description POS Date Type Department SP SP Yvonne Jeffers MD [address] [place] [address] Parkinson disease (HCC); SPSeizure (HCC) 01/25/2019 Office Visit [facility] SP [address] [place] [place] [phone] SP [phone] SP Social History Date POS Tobacco Use [...] Vital Sign SP 108/61 01/25/2019 11:42 AM TREE DOCTOR SP Blood Pressure SP 70 01/25/2019 11:42 AM TREE DOCTOR SP Pulse SP - - SP Temperature SP 14 01/25/2019 11:42 AM TREE DOCTOR SP Respiratory Rate SP - - SP Oxygen Saturation SP - - SP Inhaled Oxygen SP Concentration SP 70.5 kg (155 lb 6.4 oz) 01/25/2019 11:42 AM TREE DOCTOR SP Weight SP 165.1 cm (5' 5") 01/25/2019 11:42 AM TREE DOCTOR SP Height SP 25.86 01/25/2019 11:42 AM TREE DOCTOR SP Body Mass Index SP documented in [...] No SP documented as of this encounter Patient Instructions * Patient Instructions* Yvonne Jeffers MD - 01/25/2019 11:30 AM TREE DOCTOR Continue Sinemet 25/100 mg three times a day. Continue Keppra 500 mg twice a day. - Seizure precautions, Pt instructed not to drive, climb on ladders, swim alone, bath with door locked, use heavy machinery, use firearms or do anything else po tentially dangerous if were to have another seizure, for 6 months. Return to clinic in 6 months or earlier if needed. Please call clinic with any questions or concerns. DOCTOR documented in this encounter Progress Notes * Hai Henson MD - 01/25/2019 11:30 AM TREE DOCTOR I have personally interviewed and examined Nisa Greenwood and reviewed the h istory, examination, impression, and plan of care as outlined by Dr.Aissata Evelyn hull MD. I personally participated in patient counseling and coordination of c are. I agree with the assessment and plan as documented by Dr. Yvonne Jeffers MD. DOCTOR * Yvonne Jeffers MD - 01/25/2019 11:30 AM TREE DOCTOR Date of Service: 01/25/2019 Subjective: Nisa Greenwood is a 78 y.o. female. History of Present Illness Ms. 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 Last clinic visit 01/[address] Donna mclean. Events since last visit: Unfornantley her neuroendocrine tumor has returned on recent biopsy of her nasal cavity. She reports doing well from a neurological standpoint. No seizures and on Keppra 500 mg bid and wishes to remain on it at this time. Tremors have improved on sinemet 25/100 mg TID, tolerating well. Denies any lightheadedness, dizziness, hallucinations or falls. Review of Systems Constitutional: Positive for activity change and fatigue. HENT: Positive for drooling, postnasal drip, rhinorrhea, sinus pressure, sneezin g and tinnitus. Eyes: Positive for pain and discharge. Respiratory: Positive for cough and shortness of breath. Gastrointestinal: Positive for vomiting. Musculoskeletal: Positive for arthralgias, back pain, gait problem and neck pain . Neurological: Positive for tremors, light-headedness and headaches. All other systems reviewed and are negative. Objective: artificial tears/hypromellose (ISOPTO TEARS) 0.5 % [...] daily 30 minute s before breakfast. lisinopril (ZESTRIL) 5 mg tablet Take 5 mg by mouth daily after lunch. Melatonin 5 mg cap Take 5 mg by mouth as Needed. mupirocin (BACTROBAN) 2 % topical ointment Apply 2 g topically to affected a yusra three times daily. niacin ER (NIASPAN) 1,000 mg tablet Take 1 tablet by mouth daily. Take with food. omeprazole (PRILOSEC PO) Take 20 mg by mouth daily. Take one brand name tab in the AM and one generic brand in the PM sertraline (ZOLOFT) 50 mg tablet Take 50 mg by mouth daily. traMADol (ULTRAM) 50 mg tablet Take 50 mg by mouth every 6 hours as needed f or Pain. vitamins, multiple cap Take 1 Cap by mouth daily after lunch. Vitals: 01/25/19 1142 BP: 108/61 Pulse: 70 Resp: 14 Weight: 70.5 kg (155 lb 6.4 oz) Height: 165.1 cm (65") Body mass index is 25.86 kg/m. Physical Exam Neurological: Mental status: Patient is alert and oriented to time, place, person and situatio n. Speech: Fluent, with normal naming, comprehension, articulation and repetition CN II-XII: masked facies. Visual blackwood intact to confrontation, PERRL (4->2), EOMI, impaired vertical gaze. facial sensation intact. Symmetrical facial mo vement. Hearing grossly intact. Strong cough, elevates palate, uvula midline. St yudy shoulder shrug. Tongue midline. Motor: (R/L) b/l UE/LE 5/5. Normal tone and bulk. Mild postural tremors b/l. No rest tremor or rigidity noted. NF NE SA EF EE WE WF FF FE FA TA HF NEGRO HE KF KE DF PF In Ev TF TE R 5 5 5 5 5 5 5 5- 5 5 5 5 5 5 L 5 5 5 5 5 5 5 5- 5 5 5 5 5 5 Sensory: intact light touch Reflexes: 2+ symmetric throughout. 1 at the ankles b/l. Coordination/ fine movement: normal finger to nose, finger tapping slower on L<R Gait: Mild lordotic posutre. Decreased movement with multistep movements, and de compensation of turns. Assessment and Plan: Problem Parkinson Disease (Hcc) Seizure (Hcc) Hospitalized in 02/2016 with concern for right side shaking and forced gaze dev iation witnessed by EMS prior to admission to hospital. 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 Patient started on Depakote due to previou s poor kidney function. Depakote caused tremor. Lamotrigine caused dizziness, tr emor, falls, fatigue, decreased mental acuity. Parkinson disease (HCC) Tremors have improved with Sinemet CR 25/100 mg TID. Pt reported doing better an d tolerating medication well. Plan: Continue Sinemet CR 25/100 mg TID Fall precautions Seizure (HCC) She continues to do well from a seizure standpoint and no seizures since 2016. S he wishes to remain on Keppra at this time with a possible fear of another seizu re if she was to discontinue it. Tolerating well. Plan: Continue Keppra 500 mg bid - Seizure precautions, Pt instructed not to drive, climb on ladders, swim alone, bath with door locked, use heavy machinery, use firearms or do anything else po tentially dangerous if were to have another seizure, for 6 months. RTC: 6 months Patient seen and discussed with Dr. Henson. Yvonne Jeffers MD Neurology PGY-3 Pager [phone] DOCTOR documented in this encounter Miscellaneous Notes * Addendum Note - Hai Henson MD - 01/25/2019 11:30 AM TREE DOCTOR Addended by: PILAR HENSON on: 01/28/2019 04:07 PM Modules accepted: Level of Service DOCTOR documented in this encounter Plan of Treatment Not on filedocumented as of this encounter Visit Diagnoses Diagnosis POS Parkinson disease (HCC) SP Paralysis agitans SP Seizure (HCC) SP Other convulsions SP * Assessment & Plan Note - Yvonne Jeffers MD - 01/25/2019 6:38 PM TREE DOCTOR Associated Problem(s): Seizure (HCC) She continues to do well from a seizure standpoint and no seizures since 2016. S he wishes to remain on Keppra at this time with a possible fear of another seizu re if she was to discontinue it. Tolerating well. Plan: Continue Keppra 500 mg bid - Seizure precautions, Pt instructed not to drive, climb on ladders, swim alone, bath with door locked, use heavy machinery, use firearms or do anything else po tentially dangerous if were to have another seizure, for 6 months. DOCTOR * Assessment & Plan Note - Yvonne Jeffers MD - 01/25/2019 6:36 PM TREE DOCTOR Associated Problem(s): Parkinson disease (HCC) Tremors have improved with Sinemet CR 25/100 mg TID. Pt reported doing better an d tolerating medication well. Plan: Continue Sinemet CR 25/100 mg TID Fall precautions DOCTOR documented in this encounter Additional Health Concerns Resolved Time POS Infection Noted Time SP SP MRSA 06/25/2012 8:29 AM CDT SP documented as of this encounter
--- OUTSIDE RECORDS SUMMARY | 2019-02-11 02:58 | XMS REPORT | Encounter Summary ---
Author Author [facility] POS Organization [facility] SP Address Unknown SP Phone Unavailable SP Care Team Providers Care Pharmacy Technician Program Director Name Role Phone POS Amrik Live MD Unavailable SP Rolando Colin MD Unavailable SP Tulio Boucher MD Unavailable SP Boone Westfall MD Unavailable SP Owen Navas MD Unavailable SP James Montes MD Unavailable SP Saw Ames [facility] Unavailable SP Kwaku Grover MD Unavailable [...] Specialty Diagnoses / SP Procedures SP SP Amrik Live MD [address] [facility] [address] [place] [address] Closed Radiology Diagnoses SP Esthesioneuroblast SP brittany (HCC) SP Olfactory SP esthesioneuroblast SP brittany (HCC) SP P SP rocedures SP CT HEAD WO/W SP CONTRAST SP * Radiology Services (Routine) Referred By Contact Referred To Contact POS Status Reason Specialty Diagnoses / SP Procedures SP SP Amrik Live MD [address] [facility] [address] [place] [address] [place] [address] Closed Radiology Diagnoses SP Esthesioneuroblast SP brittany (HCC) SP Olfactory SP esthesioneuroblast SP brittany (HCC) SP P SP rocedures SP CT SP MAXIFACIAL/SINUS W SP CONTRAST SP Reason for Visit * Radiology Services (Routine) Referred By Contact Referred To Contact POS Status Reason Specialty Diagnoses / SP Procedures SP SP Amrik Live MD [address] [facility] [address] [place] [address] [place] [address] Closed Radiology Diagnoses SP Esthesioneuroblast SP brittany (HCC) SP Olfactory SP esthesioneuroblast SP brittany (HCC) SP P SP rocedures SP CT HEAD WO/W SP CONTRAST SP Encounter Details Care Team Description POS Date Type Department SP Amrik Donovan MD [address] [facility] [address] [place] [address] [phone] SP 01/03/2019 [facility] SP [address] [place] [address] SP [phone] SP Social History Date POS Tobacco Use [...] Priority Date/Time Associated Diag nosis SP SP CT HEAD WO/W CONTRAST Routine 01/03/2019 [place] neuroblastoma SP 11:08 AM CDT ([facility]) SP Olfactory SP esthesioneuroblastoma SP (HCC) SP SP CT MAXIFACIAL/SINUS W Routine 01/03/2019 Esthesio neuroblastoma SP CONTRAST 11:08 AM CDT ([facility]) SP Olfactory SP esthesioneuroblastoma SP (HCC) SP SP HC CREATININE, POC 01/03/2019 SP 10:48 AM CDT SP documented in this encounter Results * CT HEAD WO/W CONTRAST (01/03/2019 11:08 AM CDT) Specimen POS Impressions Performed At Head: [facility] RAD RESULTS [...] Clark M.D. on 2:28 PM. Dictated by Flroian Quijano MD on 01/03/2019 11:34 AM. SP [...] the foramen cecum and base of the usgey emigdio. There is soft tissue extension into [...] M.D. on 01/03/2019 2:28 PM. Dictated by Folrian Quijano MD on 01/03/2019 11:34 AM. Performing Organization Address City/[facility] Ph one Number SP [facility] RAD RESULTS SP * POC CREATININE, RAD (01/03/2019 10:48 AM CDT) Pathologist SP Signature SP Creatinine, POC 1.2 (H) 0.4 - 1.00 MG/DL [facility] SP Specimen SP Performing Organization Address City/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
--- OUTSIDE RECORDS SUMMARY | 2019-02-11 02:58 | XMS REPORT | Encounter Summary ---
Author Author [facility] POS Organization [facility] SP Address Unknown SP Phone Unavailable SP Care Team Providers Care Information Broker Name Role Phone POS Amrik Live MD Unavailable SP Rolando Colin MD Unavailable SP Tulio Boucher MD Unavailable SP Boone Westfall MD Unavailable SP Owen Navas MD Unavailable SP James Montes MD Unavailable SP Saw Ames [facility] Unavailable SP Kwaku Grover MD Unavailable SP [...] Department SP SP James Montes MD [address] [facility] [address] [place] [address] [phone] Other SP 12/24/2018 Telephone [facility] SP [phone] [place] [phone] SP [phone] SP Social History Date POS Tobacco Use [...]
--- OUTSIDE RECORDS SUMMARY | 2019-02-11 02:58 | XMS REPORT | Encounter Summary ---
Author Author [facility] POS Organization [facility] SP Address Unknown SP Phone Unavailable SP Care Team Providers Care Pencils Washer Name Role Phone POS Amrik Live MD Unavailable SP Rolando Colin MD Unavailable SP Tulio Boucher MD Unavailable SP Boone Westfall MD Unavailable SP Owen Navas MD Unavailable SP James Montes MD Unavailable SP Saw Ames [facility] Unavailable SP Kwaku Grover MD Unavailable SP Cinthia Carmichael Unavailable SP Kadeem Robb MD Unavailable SP Rolando Weeks MD Unavailable Unavailable SP Kandy Petersen MD Unavailable SP Elvin Flores MD Unavailable SP Janes Conley MD Unavailable Unavailable SP Delfin Acevedo MD Unavailable SP Sadie Brown MD PCP SP Reason for Visit * Reason Comments POS Other imaging SP Encounter Details Care Team Description POS Date Type Department SP SP Amrik Live MD [address] [facility] [address] [place] [address] [phone] Other (imaging) SP 12/24/2018 Telephone [facility] SP [address] SP [address] [place] [phone] SP [phone] SP Social History Date POS Tobacco Use [...] encounter Miscellaneous Notes * Telephone Encounter - Sadie Lynn RN - 12/24/2018 10:48 AM CDT Left message for patient that Dr. Live has to do a peer to peer with the insur [employer] before patient's CT will be approved by her insurance. Advised patient her CT will need to be rescheduled; it is currently scheduled monday, 12/[address] Live will not be back in the office. Asked patient to please call the clinic back if she needs assistance rescheduling her CT. documented in this encounter Plan of Treatment Not on filedocumented as of this encounter Visit Diagnoses Not on filedocumented in this encounter Additional Health Concerns Resolved Time POS Infection Noted Time SP SP MRSA 06/25/2012 8:29 AM CDT SP documented as of this encounter
--- OUTSIDE RECORDS SUMMARY | 2019-02-11 02:58 | XMS REPORT | Encounter Summary ---
Author Author [facility] POS Organization [facility] SP Address Unknown SP Phone Unavailable SP Care Team Providers Care Lsw Name Role Phone POS Amrik Valentino MD Unavailable SP Rolando Colin MD Unavailable SP Tulio Boucher MD Unavailable SP Boone Westfall MD Unavailable SP Owen Navas MD Unavailable SP James Montes MD Unavailable SP Saw Ames [facility] Unavailable SP Kwaku Grover MD Unavailable SP [...] Diagnoses / SP Procedures SP SP Amrik Valentino MD [address] [facility] [address] [place] [address] Closed Radiology Diagnoses SP Esthesioneuroblast SP brittany (HCC) SP Olfactory SP esthesioneuroblast SP brittany (HCC) SP P SP rocedures SP CT HEAD WO/W SP CONTRAST SP * Radiology Services (Routine) Referred By Contact Referred To Contact POS Status Reason Specialty Diagnoses / SP Procedures SP SP Amrik Valentino MD [address] [facility] [address] [place] [id number] [address] [place] [address] Closed Radiology Diagnoses SP Esthesioneuroblast SP brittany (HCC) SP Olfactory SP esthesioneuroblast SP brittany (HCC) SP P SP rocedures SP CT SP MAXIFACIAL/SINUS W SP CONTRAST SP Reason for Visit * Reason Comments POS Allergic Rhinitis SP Encounter Details Care Team Description POS Date Type Department SP SP Amrik Valentino MD [address] [facility] [address] [place] [address] [phone] Esthesioneuroblastoma (HCC); 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 Office Visit [facility] SP [address] SP [address] [place] [phone] SP [phone] SP Social History Date POS Tobacco Use [...] Time Taken Comments POS Vital Sign SP 143/77 12/19/2018 8:55 AM CDT SP Blood Pressure SP 69 12/19/2018 8:55 AM CDT SP Pulse SP - - SP Temperature SP - - SP Respiratory Rate SP - - SP Oxygen Saturation SP - - SP Inhaled Oxygen SP Concentration SP 71.2 kg (157 lb) 12/19/2018 8:55 AM CDT SP Weight SP 165.1 cm (5' 5") 12/19/2018 8:55 AM CDT SP Height SP 26.13 12/19/2018 8:55 AM CDT SP Body Mass Index SP documented [...] this encounter Patient Instructions * Patient Instructions* Amrik Valentino MD - 12/19/2018 9:00 AM CDT Assessment and Plan: 77year old female s/p skull base/nasal cavity resection and chemo/XRT forpoo rly differentiated neuroendocrine tumor - possible recurrence upper anterior fabiola al resection cavity/ nasal root with extension thru nasal bones. No evidence of recurrent disease at this time, raw area with post radiation reynolds ges (reduced to 1.5 cm high X 1 cmpreviously, previously improved, little wors e today - check next time) Nasal saline gel8-10/day Vaseline at bedtime, humidification bedroom- doing these Return to clinic - will call with biopsy results, if positive will need MRI an d CT with contrast to determine extent of recurrence documented in this encounter Progress Notes * Amrik Valentino MD - 12/19/2018 9:00 AM CDT Date of Service: 12/19/2018 Subjective: Nisa Greenwood is a 78 y.o. female. 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 Stable postsurgical changes of prior bifrontal craniotomy and sinonasal mass res ection. Postsurgical thickening was unchanged without evidence of definite rec urrent or new mass on last 10/16/2018. About 6 weeks ago report her cat butted heads with her resulting in swelling of the nasal dorsum at the root which at first she thought improved, but then began enlarging. Now there is an obvious subcutaneous mass measuring about 2 cm under the skin of the nasal root at the frontal bone (see e ndoscopic exam with anterior skull base mass seen below this - biopsy done). Thi s area is tender to touch but no erythema. Todayshe ratesher sense of smell as none and her nasal airway as good. She her last visit on 06/13/2018,she has not been treated with antibiotics for si nus infection. She reports intermittent pressure in the mid face area. Currently she is not using topical steroids. She is doing nasal saline irrigatio ns 2 times a day. She uses nasal saline gel 4 to 5 times a day and vaseline at bedtime.Humidifier in bedroom and living room. Had bilateral nasal tip basal cells removed by [facility] (Dr Timmons) then local flap edil at [facility] (January,). Hearing is good, no tinnitus or vertigo. Good salivary function/ moist mucosa. N ormal swallowing. Recent spinal implant stimulator for chronic back pain recently [facility] [place], [place], says it's helping. DATE OF OPERATION:06/17/2011 SURGEON:Amrik Valentino MD: DIRECTOR INFORMATION(S):Roxanna Siegel M.D. 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 POSTOPERATIVE DIAGNOSIS:Same. OPERATIVE PROCEDURE: Transnasal/transfacial endoscopic approach to skull base tumor, poorly different iated neuroendocrine tumor. Transnasal /transfacial endoscopic resection of sk ull base tumor. Transnasal/transfacial endoscopic repair of skull base tumor d efect. Split-thickness skin graft. Abdominal fat harvest. LandmarX image tracy gomez. ANESTHESIA:General. Blood Loss:Approximately 300 mL. Specimens Removed :Yes, sent as permanent specimen to pathology. FINDINGS:Large nasal/skull base tumor filling the left nasal cavity, pushing t hrough left ethmoid to medial orbital wall, but not invading the eye at the ethm oid level (lamina papyracea was intact). Tumor surrounding the right optic nerve, dissected by Dr. Colin and Dr. Navas with microscopic residual disease only. At the completion of the case, no visible tumor by our microscopic/endoscopic vi ew. INDICATIONS FOR OPERATIVE PROCEDURE:Ms. Greenwood is a very pleasant 70-year-ol d female with a large sinonasal tumor, biopsy consistent with poorly differentia cecilia neuroendocrine carcinoma. Patient Active Problem List Diagnosis Date Noted Parkinson disease (HCC) 10/05/2018 Tremor 08/04/2017 Patient with tremor left> right originally felt to be due to depakote, but has continued even after this medication is out of her system. She has some parkinsonian features on exam such as masked facies, decreased movements, small steps and multistep turn. 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 Essential tremor would also be on differential, but lower down. Tremor 07/23/2016 Seizure ([facility]) 06/24/2016 Hospitalized in 02/2016 with concern for right side shaking and forced gaze de viation witnessed by EMS prior to admission to hospital. Patient with EEG showin g no epileptic activity, but structural changes, MRI showed bilateral frontal en cephalomalacia due to tumor resection. Patient started on Depakote due to previo us poor kidney function. Depakote caused tremor. Lamotrigine caused dizziness, t remor, falls, fatigue, decreased mental acuity. 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 Consider angio graphy at home [facility] or , discuss with PCP for local neurologi st to begin w/u Cellulitis 07/18/2011 Hypotension 07/07/2011 Debility 07/07/2011 Anemia 07/07/2011 Intracranial hypotension 06/19/2011 Patient s/p craniotomy and resection of skull base tumor. After CSF was drained in the operating room at the end of the case, found to not respond to VC, with pneumocephalus and ventricular collapse on CT scan HOB elevation d/praveena to supine, Lumbar drain clamped. Respiratory failure (HCC) 06/18/2011 Mechanically assisted ventilation 06/18/2011 SIRS (systemic inflammatory response syndrome) (HCC) 06/18/2011 Pneumocephalus 06/18/2011 S/P craniotomy 06/18/2011 Transnasal/transfacial endoscopic approach to skull base tumor- poorly diff erentiated neuroendocrine tumor Transnasal/transfacial endoscopic resection of skull base tumor Transnasal/transfacial endoscopic repair of skull base tumor defect Transcranial orbitotomy for excision of orbital involvement of the sino-crani al tumor, left side. 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 female with past medical history significant for NEGRO, HLD, hy pothyroidism, OA, and dizziness who was found to have a left nasopharyngeal mass extending into right posterior ethmoid and sphenoid sinuses. S/P skull base res ection of poorly differentiated neuroendocrine carcinoma on 06/17/11. Preoperativ e pathology was consistent with base of skull High grade neuroendocrine tumor.Th is is aggressive and uncommon tumor. Best outcome is achieved with combined moda lity therapy (surgery, radiation and chemotherapy). Her surgical findings indica te she did have very extensive disease. Adjuvant radiation and concurrent chemot herapy is indicated. FINDINGS: Large nasal/skull base tumor filling the left nasal cavity, pushing th rough left ethmoid to medial orbital wall, but not invading the eye at the ethmo id level (lamina papyracea was intact). Tumor surrounding the right optic nerve, dissected by Dr. Colin and Dr. Navas with microscopic residual disease only. At the completion of the case, no visible tumor by our microscopic/endoscopic vi ew. INDICATIONS FOR OPERATIVE PROCEDURE: Ms. Greenwood is a very pleasant 70-year-old female with a large sinonasal tumor, biopsy consistent with poorly differentiat ed neuroendocrine carcinoma. After the risks and benefits of resection and repai r were discussed with the patient, she would like to proceed. DESCRIPTION OF OPERATIVE PROCEDURE: After the risks and benefits of the procedur e, we started the procedure by performing a Norton-Ru. We made an incision us ing a 15-blade into the upper sublabial crease. Care was taken to leave enough m ucosa inferiorly to allow for good closure at the end of the case. We used Bovie cautery to dissect down to the maxilla and carried this plane out laterally on either side to the lateral buttress. We then used a butter knife to elevate the tissue off of either anterior maxillary nagel. Care was taken not to injure the two on either sides. Using osteotomes, we made a window into the central aspect of the anterior wall of the maxillary sinus. We then used Kerrison forceps to cr eate a large window. Again, we skeletonized the bone around the two, but preserv ed this on either side. This window was laterally carried to the level of the la teral buttress and similar procedure was performed on the opposite side. With ou r access now complete, we used a 0-degree rigid endoscope and assessed the right and left nasal passages. We examined the right nasal passage, which was essenti ally free of tumor anteriorly. The left nasal passage was with tumor easily evid ent and suction debrider was used to suction the majority of this tumor from the left nasal passage. We continued to ellen the tumor using suction debrider, as the tumor did appear to be encased and we were able to find good plane between t he tumor and normal tissue. The tumor was peeled off the lamina papyracea and th e lamina papyracea was noted to be intact. We carried our dissection to the remn ant sphenoid and superiorly at the level of the defect to the cribriform plate. We did note that posteriorly the tumor appeared to invade the septum and we took down the posterior septum using a combination of Sohan-Cut forceps and suction de brider. We placed our scope through the window that we had created to the anteri or maxillary wall and created a wide maxillary antrostomy both with access throu gh the nose and through our anterior maxillary window. This was performed using a combination of Sohan-Cut forceps and suction debrider. This was performed on bot h sides. After our portion of the tumor had been successfully resected, we took a split-thickness skin graft in the patient's left upper thigh. This was perform ed using a dermatome with 0.16 mm thickness. The 4 cm plate was used and the ski n graft was approximately 4 x 6 cm. Once the graft was harvested, it was handed off the table in a wet Ray-Miguelina. The skin graft site was treated with Telfa coate d epinephrine and eventually dressed using Xeroform, ABD, and Hypafix tape. Next , we performed an abdominal fat graft. A 15-blade was used to make an incision i n the patient's left inferior abdomen. The incision was approximately 5 cm in le ngth. Blunt dissection was used circumferentially to undermine and to free up a large portion of abdominal fat. This was then harvested using Bovie cautery. Onc e the fat was harvested, it was handed off the table and saved for use later in the case. The abdomen was copiously irrigated and Bovie cautery was used for hem ostasis. It was closed using 3-0 Vicryl sutures for deep stitches and 3-0 Vicryl interrupted for deep dermal sutures. Delmy drain was placed and secured using a 4-0 nylon. The skin was then closed using a running subcuticular stitch with 4-0 Monocryl and dressed with Steri-Strips, 4 x 4, and Tegaderm. At this point, we handed the case over to the Neurosurgery and Ophthalmology teams. Please see separately dictated operative report for their portion of the procedure. Once Ne urosurgery had completed their craniotomy, we were called back to the room for c ompletion of the case. We assessed the right and left nasal passages using a 0-d egree rigid endoscope. Hemostasis was confirmed. There was no visible remnant tu mor. We were able to clearly visualize the pericranial flap created by the neuro surgeons. We then started our packing, which was done using abdominal fat graft and Tisseel. We then placed bilateral nasal trumpets, which were secured using 2 -0 silk stitch through the septum. Additional fat and Tisseel were then placed. Lastly, the patient's mouth was copiously irrigated and the sublabial incision w as closed using interrupted 3-0 Vicryl sutures. At this point, the head of bed w as rotated 180 degrees back towards Anesthesia. [facility] in [facility] condition, still intubated. There were no complications . The counts were correct. Dr. Valentino was present for all portions of the proced ure dictated in this operative report. Medical History: Diagnosis Date Abnormal involuntary movement Arthritis Basal cell carcinoma Cancer (HCC) Cataract Convulsion (HCC) Dizziness Esthesioneuroblastoma (HCC) Frozen shoulder 1987 Generalized headaches High cholesterol Hypertension Hypothyroid Kidney disease ND, old 1979 Myocardial infarction (HCC) 1979 Never smoked any substance Optic neuropathy Osteoarthritis Skull fracture (HCC) compund depressed skull fx Thyroid disease Torn rotator cuff 1987 Surgical History: Procedure Laterality Date HX ADENOIDECTOMY 1942 HX TONSILLECTOMY 1942 SKULL FRACTURE ELEVATION 1957 compound depressed skull fx BONE GRAFT 1961 Left wrist HYSTERECTOMY 1978 EYE SURGERY 06-17-11 transcranial orbitotomy to remove lesion HX CATARACT REMOVAL Right 08/19/15 HX CATARACT REMOVAL Left 10/14/15 TISSUE TRANSFER N/A 01/01/2016 FOREHEAD FLAP, RIGHT MEDIOLABIAL FLAP performed by Delfin Acevedo MD at [facility] OR/Periop SKIN GRAFT Right 01/01/2016 CARTILAGE GRAFT FROM RIGHT AURICULAR CARTILAGE TO BILATERAL NOSE, BILATERAL FABIOLA AL VALVE REPAIR performed by Delfin Acevedo MD at [facility] OR/Periop EXTERNAL EAR SURGERY Bilateral 01/25/2016 PEDICLE FLAP TAKEDOWN, NASAL performed by Delfin Ace[facility] MD at [facility] OR/Bernice op STIMULATOR IMPLANT 07/23/2018 Spinal stimulator (thoracic region) GALLBLADDER SURGERY SHOULDER SURGERY Right side Allergies Allergen Reactions Levaquin [Levofloxacin] ANAPHYLAXIS and EDEMA Hives, swelling, loss of consciousness Sulfa (Sulfonamide Antibiotics) ANAPHYLAXIS and EDEMA Hives, tongue, mouth and lip swelling, loss of consciousness Venom-Honey Bee ANAPHYLAXIS Elavil SEE COMMENTS Shaking and jerking movements Review of Systems HENT: Positive for postnasal drip, rhinorrhea and sneezing. Negative for congest ion, ear pain, facial swelling, hearing loss, nosebleeds, sinus pressure, sinus pain, sore throat, tinnitus, trouble swallowing and voice change. Eyes: Negative for pain, discharge, redness and itching. Respiratory: Positive for cough. Allergic/Immunologic: Positive for environmental allergies. Negative for food al lergies. Neurological: Positive for dizziness, light-headedness and headaches. Objective: artificial tears/hypromellose (ISOPTO TEARS) 0.5 % [...] 1 Cap by mouth daily after lunch. There were no vitals filed for this visit. There is no height or weight on file to calculate BMI. Physical Exam A complete ear, nose and throat exam was carried out: General- Welldeveloped, wellnourished; Communication and Voice-Clear p itch andclarity; Hearing- Hearing adequate for verbal communication bilatera lly; Inspection-Normocephalic and atraumatic without mass or lesion; Palpati on-Facial skeleton intact without bony stepoffs; Facial Strength-Facial motility symmetric and full bilaterally The neck , thyroid and salivary glands were negative.Midline trachea w ithout mass or lesion, no lymphadenopathy. Thyroid: No mass or nodularity The oral cavity, pharynx and gums show normal moist mucosa with normal ton irene and palate motion. Mucosa and teeth intact and viable, No lesions, masses or ulcers. Oropharynx: No erythema or exudate, no masses or ulcerations, non-obs tructive tonsils The pharynx, hypopharynx and larynx does not appear inflamed, nor is there posterior edema consistent with reflux. Normal voice, no stridor or stertor. The ear canals are normal and the tympanic membranes do not show negative pres sure, fluid, or scarring. Pinna-External ear intact and fully developed Eyes- No nystagmus with equal extraocular motion bilaterally; Neuro/Psych/Juan Antonio nce-Patient oriented and appropriate in interaction; Appropriate mood and affect; Gait is Intact with no imbalance; Cranial nerves II-XII are intact Nasal Endoscopic Examination/Bilateral/Debridement: 10/13/2017- on nasal endoscopic examination, she has evidence of major previou s resection. Large common cavity posteriorly with lots of crusting removed wit h suction and blakesly forceps last time over 45 minutes. To access this large p osterior skull base cavity, and perform the significant debridement described ab ove it was of course necessary to perform nasal endoscopy thru both the left and right nostrilagain. 04/05/2017-area of granulations reduced (cauterized with AgNO3, superiorly 1 cm STSG residual (does not move with valsalvae), slight movement with light cuate ch. 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 08/09/2017- 1 cm area granulation posterior wall/to the left, cauterized with AgNO3 after debridement which is improved, but crust still fill ing posterior nares left and right, blocking left choane.10/11/2017 -large amount of crusting bilaterally posterior/inferiorly - removed.12/13/2017- Crusting inferior left, but all other areas inproved.03/17/2018- mucosa m ore moist, crusting blocking posterior nares left, less right/removed. 9 -crusting blocking posterior nares leftandright/removed.Underlying muc srinivasa mildly inflamed. No evidence of recurrent tumor. 10/16/2018 - moderate crust ing posterior nares, left > right, removed, base with granulations cauterized with AgNO3. No recurrent tumor. Today - 8 week history of dorsal nasal swelling at base nose/frontal, L>R; upper left intranasal mass/soft - Biopsy X 3 after scalpel incision, sent to pathology today - Federico Villarreal, ext [phone] receiving specimens today (Betzy de la torre has examined previous pathology, ext [phone]) Assessment and Plan: 77year old female s/p skull base/nasal cavity resection and chemo/XRT forpoo rly differentiated neuroendocrine tumor - possible recurrence upper anterior fabiola al resection cavity/ nasal root with extension thru nasal bones. No evidence of recurrent disease at this time, raw area with post radiation reynolds ges (reduced to 1.5 cm high X 1 cmpreviously, previously improved, little wors e today - check next time) Nasal saline gel8-10/day Vaseline at bedtime, humidification bedroom- doing these Return to clinic - will call with biopsy results, if positive will need MRI an d CT with contrast to determine extent of recurrence documented in this encounter Miscellaneous Notes * Addendum Note - Brina Horowitz LPN - 12/19/2018 9:00 AM CDT Addended by: BRINA HOROWITZ on: 12/19/2018 02:51 PM Modules accepted: Orders * Addendum Note - Brina Horowitz LPN - 12/19/2018 9:00 AM CDT Addended by: BRINA HOROWITZ on: 12/19/2018 01:40 PM Modules accepted: Orders documented in this encounter Plan of Treatment Order Schedule POS Name Type Priority Associated Diag noses SP Expected: 12/19/2018, Expires: 0 SP PATHOLOGY SURGICAL < 5 Pathology Routine Esthesi oneuroblastoma SP SPECIMENS (HCC) SP Olfactory SP esthesioneuroblastoma SP (HCC) SP documented as of this encounter Procedures Comments POS Procedure Name Priority Date/Time Associated Diag nosis SP SP HC LVL IV SRG PTH, GROSS 12/19/2018 SP & MICRO 2:35 PM CDT SP documented in this encounter [...] Number SP KU RAD RESULTS SP * SURGICAL PATHOLOGY (12/19/2018 2:35 PM CDT) Pathologist SP Signature SP PATHOLOGY [facility] SP [email or web address] SP Department of Pathology and SP Laboratory Medicine SP [address] [place] [address] SP Surgical Pathology SP Office:[phone] SP :[phone] SP SURGICAL PATHOLOGY REPORT SP NAME: NISA GREENWOOD SURG SP PATH #: [id number] MR #: SP [id number] SPECIMEN SP CLASS: SR BILLING #: SP [id number] ALT ID SP #:LOCATION: [facility] DATE OF SP PROCEDURE: 12/19/2018 SP [...] email. The patient's SP previous nasal mass ([id number]) SP and left SP nasal/skull base tumor SP ([id number]) were concurrently SP reviewed and the tumors [...] the Quality SP Assurance Program at the [facility] Pathology Department, SP selected slides from [...] submitted in SP cassettes A1-A2. (tn) SP mejia/12/19/2018 SP SP If immunohistochemical stains SP and/or in situ hybridization SP are cited in SP this report, the performance SP characteristics were SP determined by the SP Department of Pathology and SP Laboratory Medicine of the [facility] ([place] [facility] SP [employer]) in compliance SP with [...] Pathology SP and Laboratory Medicine of the [facility].It has not been SP cleared or approved by the FDA.The FDA has SP determined that such clearance SP or approval is not necessary. 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
--- OUTSIDE RECORDS SUMMARY | 2019-02-11 02:58 | XMS REPORT | Encounter Summary ---
Author Author [facility] POS Organization [facility] SP Address Unknown SP Phone Unavailable SP Care Team Providers Care Assistant Womens Volleyball Coach Name Role Phone POS Amrik Live MD Unavailable SP Rolando Colin MD Unavailable SP Tulio Boucher MD Unavailable SP Boone Westfall MD Unavailable SP Owen Navas MD Unavailable SP James Montes MD Unavailable SP Saw [facility] Unavailable SP Kwaku Grover MD Unavailable SP Cinthia Carmichael Unavailable SP Kadeem Robb MD Unavailable SP Rolando Weeks MD Unavailable Unavailable SP Kandy Petersen MD Unavailable SP Elvin Flores MD Unavailable SP Janes Conley MD Unavailable Unavailable SP Delfin Acevedo MD Unavailable SP Sadie Brown MD PCP SP Reason for Visit * Reason Comments POS Medication Refill SP Encounter Details Care Team Description POS Date Type Department SP SP Hai Argueta MD [address] [place] [address] [phone] SP 11/15/2018 Refill [facility] SP [address] [place] [id number] SP [phone] SP Social History Date POS Tobacco Use [...]
--- OUTSIDE RECORDS SUMMARY | 2019-02-11 02:58 | XMS REPORT | Encounter Summary ---
Author Author [facility] POS Organization [facility] SP Address Unknown SP Phone Unavailable SP Care Team Providers Care Escort Service Attendant Name Role Phone POS Amrik Live MD Unavailable SP Rolando Colin MD Unavailable SP Tulio Boucher MD Unavailable SP Boone Westfall MD Unavailable SP Owen Navas MD Unavailable SP James Montes MD Unavailable SP [facility] Unavailable SP Kwaku Grover MD Unavailable SP Cinthia Carmichael Unavailable SP Kadeem Robb MD Unavailable SP Rolando Weeks MD Unavailable Unavailable SP Kandy Petersen MD Unavailable SP Elvin Flores MD Unavailable SP Janes Conley MD Unavailable Unavailable SP Delfin Acevedo MD Unavailable SP Sadie Brown MD PCP SP Reason for Visit * Reason Comments POS New Patient SP Encounter Details Care Team Description POS Date Type Department SP SP Yvonne Jeffers MD [address] [place] [address] Seizure (HCC); SPParkinson disease (HCC) 10/05/2018 Office Visit [facility] SP [address] [phone] SP [phone] SP Social History Date POS Tobacco Use [...] Time Taken Comments POS Vital Sign SP 114/71 10/05/2018 10:53 AM CDT SP Blood Pressure SP 63 10/05/2018 10:53 AM CDT SP Pulse SP - - SP Temperature SP 14 10/05/2018 10:53 AM CDT SP Respiratory Rate SP - - SP Oxygen Saturation SP - - SP Inhaled Oxygen SP Concentration SP 68.4 kg (150 lb 12.8 oz) 10/05/2018 10:53 AM CDT SP Weight SP 165.1 cm (5' 5") 10/05/2018 10:53 AM CDT SP Height SP 25.09 10/05/2018 10:53 AM CDT SP Body Mass Index SP [...] * Patient Instructions* Yvonne Jeffers MD - 10/05/2018 11:00 AM CDT Start taking Carbidopa/Levodopa 25/100 mg three times a day. Take one pill at 8A M, 1200-1PM), and 5PM. A prescription has been sent to [facility] in [place], [place]. Please continue taking Keppra 500 mg BID. - Seizure precautions, Pt instructed not to drive, climb on ladders, swim alone, bath with door locked, use heavy machinery, use firearms or do anything else po tentially dangerous if were to have another seizure, for 6 months. Return to clinic in 2 months. Please call with any questions or concerns. documented in this encounter Progress Notes * Hai Henson MD - 10/05/2018 11:00 AM CDT I have personally interviewed and examined Nisa Greenwood and reviewed the h istory, examination, impression, and plan of care as outlined by Dr.Aissata Evelyn hull MD. I personally participated in patient counseling and coordination of c are. I agree with the assessment and plan as documented by Dr. Yvonne Jeffers MD. * Yvonne Jeffers MD - 10/05/2018 11:00 AM CDT Date of Service: 10/05/2018 Subjective: Nisa Greenwood is a 78 y.o. female. History of Present Illness Ms. 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 Last clinic visit 01/[address] Donna salvador Events since last visit: Last sz 2015. None since. She reports that her tremors have gotten worse since last visit R>L, worse with eating, and also present at rest. She reports that she has done "some research" on Parkinson's disease. Applying pressure to her hands make the tremors disappear. She reports that her hand witting has changed and reports its smaller and erratic. Occasional lightheadedness and dizziness with ambulation. Denies any falls or dy sphagia. Denies any hallucinations or vivid dreams. Review of Systems Constitutional: Positive for activity change, chills, diaphoresis and fatigue. HENT: Positive for drooling, postnasal drip, rhinorrhea, sinus pressure and snee zing. Eyes: Positive for photophobia. Respiratory: Positive for cough and shortness of breath. Musculoskeletal: Positive for arthralgias, back pain and neck pain. Neurological: Positive for tremors, weakness and light-headedness. Psychiatric/Behavioral: The patient is nervous/anxious. All other systems reviewed and are negative. [...] levETIRAcetam (KEPPRA) 500 mg tablet Take one tab twice daily levothyroxine (SYNTHROID) 50 mcg tablet Take 50 [...] Cap by mouth daily after lunch. Vitals: 10/05/18 1053 BP: 114/71 Pulse: 63 Resp: 14 Weight: 68.4 kg (150 lb 12.8 oz) Height: 165.1 cm (65") Body mass index is 25.09 kg/m. Physical Exam Neurological: General: mild mased facies, decreased blank rate Mental status: Patient is alert and oriented to time, place, person and situatio n. Speech: Fluent, with normal naming, comprehension, articulation and repetition CN II-XII: Visual blackwood intact to confrontation, PERRL (4->2), EOMI, impaired vertical gaze. facial sensation intact. Symmetrical facial movement. Hearing grossly intact. Strong cough, elevates palate, uvula midline. Strong shoulder shrug. Tongue midline. Motor: (R/L) b/l UE/LE 5/5. Normal tone and bulk. No abnormal movement, fascicul ation or pronator drift. Mild resting moderate frequency tremor on left hand>right, rigidity on RUE, and bradykinesia. NF NE SA EF EE WE WF FF FE FA TA HF NEGRO HE KF KE DF PF In Ev TF TE R 5 5 5 5 5 5 5 5 5 5 5 5 5 5 5 5 5 L 5 5 5 5 5 5 5 5 5 5 5 5 5 5 5 5 5 Sensory: intact light touch Reflexes: (R/L) Bj, Trj, Brj, Knj, Aj. Right Left Triceps 2 3 Biceps 2+ 3 Brachioradialis 2 3 Patella 2 2 Ankle 1 1 Plantar down down Coordination/ fine movement: normal finger to nose, heel to adkins(tremor noted on left hand during this), finger tapping slower on L<R, foot tapping. Gait: Mild lordotic posutre. Decreased movement with multistep movements, and de compensation of turns. Patient able to walk on heels, toes with difficulty. Unab le to tandem. Romberg absent. Assessment and Plan: Problem Parkinson Disease (Hcc) Tremor Seizure (Hcc) Hospitalized in 02/2016 with concern [...] tr emor, falls, fatigue, decreased mental acuity. Seizure (HCC) Ms. 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 No seizures since 2016. She is currently doing well on Keppra 500 mg BID, tolerating well. Plan: Continue Keppra 500mg BID - Seizure precautions discussed with patient, Pt instructed not to drive, climb on ladders, swim alone, bath with door locked, use heavy machinery, use firearms or do anything else potentially dangerous if were to have another seizure, for 6 months. Parkinson disease (HCC) Patient with tremors for the past several years that was initially thought to be due to Depakote. Tremors however persisted despite discontinuation of Depakote for several years now. She has a rest tremor on left hand>right, bradykinesia, impaired vertical gaze, decreased blank rate and decreased movement with multistep movements, and decompensation of turns. Plan: Initiate a trial of Sinemet CR 25/100 mg TID (8am, 12, and 5PM), side effects di scussed including GI discomfort and nausea. Patient advised to use a walker or cane for stability to prevent falls. Patient agreed to this and has a cane at home. RTC: 2 months. Patient seen and discussed with Dr. Henson. Yvonne Jeffers MD Neurology PGY-3 documented in this encounter Miscellaneous Notes * Addendum Note - Hai Henson MD - 10/05/2018 11:00 AM CDT Addended by: PILAR HENSON on: 10/08/2018 01:13 PM Modules accepted: Level of Service documented in this encounter Plan of Treatment Not on filedocumented as of this encounter Visit Diagnoses Diagnosis POS Seizure (HCC) SP Other convulsions SP Parkinson disease (HCC) SP Paralysis agitans SP * Assessment & Plan Note - Yvonne Jeffers MD - 10/05/2018 12:10 PM CDT Associated Problem(s): Parkinson disease (HCC) Patient with tremors for the past several years that was initially thought to be due to Depakote. Tremors however persisted despite discontinuation of Depakote for several years now. She has a rest tremor on left hand>right, bradykinesia, impaired vertical gaze, decreased blank rate and decreased movement with multistep movements, and decompensation of turns. Plan: Initiate a trial of Sinemet CR 25/100 mg TID (8am, 12, and 5PM), side effects di scussed including GI discomfort and nausea. Patient advised to use a walker or cane for stability to prevent falls. Patient agreed to this and has a cane at home. * Assessment & Plan Note - Yvonne Jeffers MD - 10/05/2018 12:06 PM CDT Associated Problem(s): Seizure (HCC) Ms. 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 No seizures since 2016. She is currently doing well on Keppra 500 mg BID, tolerating well. Plan: Continue Keppra 500mg BID - Seizure precautions discussed with patient, Pt instructed not to drive, climb on ladders, swim alone, bath with door locked, use heavy machinery, use firearms or do anything else potentially dangerous if were to have another seizure, for 6 months. documented in this encounter Additional Health Concerns Resolved Time POS Infection Noted Time SP SP MRSA 06/25/2012 8:29 AM CDT SP documented as of this encounter
--- OUTSIDE RECORDS SUMMARY | 2019-02-11 02:58 | XMS REPORT | Encounter Summary ---
Author Author [facility] POS Organization [facility] SP Address Unknown SP Phone Unavailable SP Care Team Providers Care Resin Mixer Name Role Phone POS Amrik Live MD Unavailable SP Rolando Colin MD Unavailable SP Tulio Boucher MD Unavailable SP Boone Westfall MD Unavailable SP Owen Navas MD Unavailable SP James Montes MD Unavailable SP Saw Ames [facility] Unavailable SP Kwaku Grover MD Unavailable SP Cinthia Carmichael Unavailable SP Kadeem Robb MD Unavailable SP Rolando Weeks MD Unavailable Unavailable SP Kandy Petersen MD Unavailable SP Elvin Flores MD Unavailable SP Janes Conley MD Unavailable Unavailable SP Delfin Acevedo MD Unavailable SP Sadie Brown MD PCP SP Reason for Visit * Reason Comments POS Results SP Encounter Details Care Team Description POS Date Type Department SP SP Amrik Live MD [address] [facility] [address] [place] [id number] [phone] Results SP 12/31/2018 Telephone [facility] SP [address] [place] [id number] SP [phone] SP Social History Date POS Tobacco Use [...] encounter Miscellaneous Notes * Telephone Encounter - Brina Horowitz LPN - 01/01/2019 4:[address] Live discussed patient's biopsy results with her. She is scheduled to see Dr. Montes on for continued care. Voices understanding. * Telephone Encounter - Nan Heranndez - 12/31/2018 1:27 PM CDT Pt wanting you to tell Calos to call her on her cell # tomorrow documented in this encounter Plan of Treatment Not on filedocumented as of this encounter Visit Diagnoses Not on filedocumented in this encounter Additional Health Concerns Resolved Time POS Infection Noted Time SP SP MRSA 06/25/2012 8:29 AM CDT SP documented as of this encounter
--- OUTSIDE RECORDS SUMMARY | 2019-02-11 02:58 | XMS REPORT | Encounter Summary ---
Author Author [facility] POS Organization [facility] SP Address Unknown SP Phone Unavailable SP Care Team Providers Care Insurance Licensing Supervisor Name Role Phone POS Amrik Live MD Unavailable SP Rolando Colin MD Unavailable SP Tulio Boucher MD Unavailable SP Boone Westfall MD Unavailable SP Owen Navas MD Unavailable SP James Montes MD Unavailable SP Saw Ames [facility] Unavailable SP Kwaku Grover MD Unavailable SP Cinthia Carmichael Unavailable SP Kadeem Robb MD Unavailable SP Rolando Weeks MD Unavailable Unavailable SP Kandy Petersen MD Unavailable SP Elvin Flores MD Unavailable SP Janes Conley MD Unavailable Unavailable SP Delfin Acevedo MD Unavailable SP Sadie Brown MD PCP SP Reason for Visit * Reason Comments POS Follow Up SP Encounter Details Care Team Description POS Date Type Department SP SP Amrik Live MD [address] [facility] [address] [place] [id number] [phone] Chronic pansinusitis; SPEsthesioneuroblastoma (HCC); 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 Office Visit [facility] SP [address] SP [address] [place] [phone] SP [phone] SP Social History Date POS Tobacco Use [...] Time Taken Comments POS Vital Sign SP 124/73 10/16/2018 11:06 AM CDT SP Blood Pressure SP 71 10/16/2018 11:06 AM CDT SP Pulse SP - - SP Temperature SP - - SP Respiratory Rate SP - - SP Oxygen Saturation SP - - SP Inhaled Oxygen SP Concentration SP 69.9 kg (154 lb) 10/16/2018 11:06 AM CDT SP Weight SP 165.1 cm (5' 5") 10/16/2018 11:06 AM CDT SP Height SP 25.63 10/16/2018 11:06 AM CDT SP Body Mass Index SP [...] encounter Patient Instructions * Patient Instructions* Amrik Live MD - 10/16/2018 11:30 AM CDT Assessment and Plan: 77year old female s/p skull base/nasal cavity resection and chemo/XRT forpoo rly differentiated neuroendocrine tumor - no evidence of recurrence (MRI also ne [id number]/11/2017). No evidence of recurrent disease at this time, raw area with post radiation reynolds ges (reduced to 1.5 cm high X 1 cm previously, previously improved, little worse today - check next time) Nasal saline gel8-10/day Vaseline at bedtime, humidification bedroom- doing these Return to clinic 2 months documented in this encounter Progress Notes * Amrik Live MD - 10/16/2018 11:30 AM CDT Date of Service: 10/16/2018 Subjective: Nisa Greenwood is a 78 y.o. female. History of Present Illness Nisa has a history of apoorly differentiated neuroendocrine sinus cavity/skull base tumorwith resection in May of 2011. Completed chemo/XRT in August 012. Stable postsurgical changes of prior bifrontal craniotomy and sinonasal mass res ection. Postsurgical thickening is unchanged without evidence of definite recu rrent or new mass. Todayshe ratesher sense of smell as none and her nasal airway as good. She her last visit on 06/13/2018,she has not been treated with antibiotics for sin us infection. No sinus pain or pressure Currently she is not using topical steroids. She is doing nasal saline irrigatio ns 2 times a day. She uses nasal saline gel 3 to 4 times a day and vaseline a t bedtime.Humidifier in bedroom and living room. Had bilateral nasal tip basal cells removed by [facility]'s (Dr Timmons) then local flap edil at [facility] (January,). Hearing is good, no tinnitus or vertigo. Good salivary function/ moist mucosa. N ormal swallowing. Recent spinal implant stimulator for chronic back pain recently [facility] [place], [place], says it's helping. DATE OF OPERATION:06/17/2011 SURGEON:Amrik Live MD: AIRLINE OPERATIONS AGENT(S):Roxanna Siegel M.D. 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 POSTOPERATIVE DIAGNOSIS:Same. OPERATIVE PROCEDURE: Transnasal/transfacial endoscopic approach to skull base tumor, poorly different iated neuroendocrine tumor. Transnasal /transfacial endoscopic resection of sk ull base tumor. Transnasal/transfacial endoscopic repair of skull base tumor d efect. Split-thickness skin graft. Abdominal fat harvest. [employer]Place image tracy gomez. ANESTHESIA:General. Blood Loss:Approximately 300 [...] differential, but lower down. 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 Consider angio graphy at home [facility] or , discuss with PCP for local [...] the tissue off of either anterior maxillary naegl. Care was taken not to injure the [...] 3-0 Vicryl interrupted for deep dermal sutures. Colman drain was placed and secured using a [...] Anesthesia. The patient was [facility] ICU in stable condition, still intubated. There were no complications . The counts were correct. Dr. Live was present for all portions of the proced ure dictated in this operative report. Medical History: Diagnosis Date Abnormal involuntary movement Arthritis Basal cell carcinoma Cancer (HCC) Cataract Convulsion (HCC) Dizziness Esthesioneuroblastoma (HCC) Frozen shoulder 1987 Generalized headaches High cholesterol Hypertension Hypothyroid Kidney disease [place], old 1979 Myocardial infarction (HCC) 1979 Never [...] FLAP performed by Delfin Acevedo MD at [facility] OR/Periop SKIN GRAFT Right 01/01/2016 CARTILAGE GRAFT FROM RIGHT AURICULAR CARTILAGE TO BILATERAL NOSE, BILATERAL FERMIN AL VALVE REPAIR performed by Delfin Acevedo MD at [facility] OR/Periop EXTERNAL EAR SURGERY Bilateral 01/25/2016 PEDICLE [...] No nystagmus with equal extraocular motion bilaterally; Neuro/Psych/[place] nce-Patient oriented and appropriate in interaction; Appropriate [...] time.06/07/2017- above problem site healed, but still instrument technician helper ior/inferior crusting blocking post nares - removed over 45 minutes, bilateral/l eft and right. 08/09/2017- 1 cm area granulation posterior wall/to the left, cauterized with AgNO3 after debridement which is improved, but crust still fill ing posterior nares left and right, blocking left choane.10/11/2017 -large amount of crusting bilaterally posterior/inferiorly - removed.12/13/2017- Crusting inferior left, but all other areas inproved. 03/17/2018 - mucosa more moist, crusting blocking posterior nares left, less right/removed. 06/13/2018 - crusting blocking posterior nares left and right/removed. Underlying mucosa mil dly inflamed. No evidence of recurrent tumor. Today - moderate crusting posterior nares, left > right, removed, base with granulations cauterized with AgNO3. No recurrent tumor. Assessment and Plan: 77year old female s/p skull base/nasal cavity resection and chemo/XRT forpoo rly differentiated neuroendocrine tumor - no evidence of recurrence (MRI also ne [id number]/11/2017). 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
--- OUTSIDE RECORDS SUMMARY | 2019-02-11 02:59 | XMS REPORT | Continuity of Care Document ---
Author Organization Unknown POS Address Unknown SP Phone Unavailable SP Allergies Active Description Code Type Severity POS Reaction Onset Reported/Identified POS to Patient Clinical Status POS Yes amitriptyline HCl [id number] Drug Allergy SP Unknown N/A 08/02/2011 SP SP Yes bee venom (honey bee) [id number] Drug Allergy SP Unknown N/A 08/02/2011 SP SP Yes levofloxacin [id number] Drug Allergy SP Unknown N/A 08/02/2011 SP Yes SULFA SULFA Unknown N/A SP 08/02/2011 SP Yes Sulfa (Sulfonamide Antibiotics) [id number] SP Allergy Unknown N/A 2 SP SP Yes venom-honey bee [id number] D rug Allergy SP Unknown N/A 08/02/2011 SP SP Medications There is no data. 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.0 MAL DENISE NASAL SP SP 08/22/2014 POLLOGREG N Ot 160.0 SP SP 08/22/2014 POLLOGREG Ot 530.81 SP SP 08/22/2014 POLLOGREG CALLE Ot 786.2 SP SP 08/22/2014 POLLOGREG Ot V15.3 SP SP 08/22/2014 POLLOGREG Ot V58.69 SP SP 08/22/2014 POLLOGREG N Ot V87.41 SP SP 09/22/2014 POLLOGREG N Ot 160.0 SP SP 09/22/2014 POLLOGREG N Ot V15.3 SP SP 09/22/2014 POLLOGREG N Ot V58.69 SP SP 09/22/2014 POLLOGREG N Ot V87.41 SP SP 12/09/2014 POLLOGREG N Ot 160.0 SP SP 12/09/2014 POLLOGREG N Ot V15.3 SP SP 12/09/2014 POLLO, BOBAN N Ot V58.69 SP SP 12/09/2014 POLLO, BOBAN N Ot V87.41 SP SP 12/09/2014 POLLO, BOBAN N Ot 160.0 SP SP 12/09/2014 POLLO, BOBAN N Ot V15.3 SP SP 12/09/2014 POLLO, BOBAN N Ot V58.69 SP SP 12/09/2014 POLLO, BOBAN N Ot V87.41 SP SP 12/09/2014 POLLO, BOBAN N Ot 160.0 SP SP 12/09/2014 POLLO, BOBAN N Ot 530.81 SP SP 12/09/2014 POLLO, BOBAN N Ot 786.2 SP SP 12/09/2014 POLLO, BOBFREDY N Ot V15.3 SP SP 12/09/2014 POLLO, BOBFREDY N Ot V58.69 SP SP 12/09/2014 POLLO, BOBFREDY N Ot V87.41 SP SP 12/12/2014 WAYNE PA, [place] K Ot 244.9 SP SP 12/12/2014 WAYNE PA, [place] K Ot 272.0 SP SP 12/12/2014 WAYNE PA, [place] K Ot 401.9 SP SP 12/12/2014 WAYNE PA, [place] K Ot SP SP 12/29/2014 WAYNE PA, [place] K Ot 244.9 SP SP 12/29/2014 WAYNE PA, [place] K Ot 272.0 SP SP 12/29/2014 WAYNE PA, [place] K Ot 401.9 SP SP 12/29/2014 WAYNE PA, [place] K Ot SP SP 02/06/2015 POLLO, BOBAN N Ot M48.02 SP SP 02/06/2015 POLLO, BOBAN N Ot M50.20 SP SP 02/06/2015 POLLO, BOBAN N Ot Z08 SP SP 02/06/2015 POLLO, BOBAN N Ot Z85.22 SP SP 02/06/2015 POLLO, BOBAN N Ot Z92.21 SP SP 02/06/2015 POLLO, BOBAN N Ot Z92.3 SP SP 07/30/2015 POLLO, GREG N Ot 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 SP 07/30/2015 POLLO, BOBAN N Ot M48.02 SP STENOSIS, CERVICAL REGION SP 07/30/2015 POLLOGREG N Ot Z79.899 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) 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 SP 07/30/2015 GREG ABAD N Ot Z92.21 SP HISTORY OF ANTINEOPLASTIC CHEMO SP 07/30/2015 POLLOGREG CALLE N Ot Z92.3 SP HISTORY OF IRRADIATION SP 08/10/2015 GREG ABAD N Ot 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 SP 08/10/2015 POLLOGREG CALLE N Ot M48.02 SP STENOSIS, CERVICAL REGION SP 08/10/2015 GREG ABAD N Ot Z79.899 SP PRISON (CURRENT) 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 SP 08/10/2015 POLLOGREG CALLE N Ot Z92.21 SP HISTORY OF ANTINEOPLASTIC CHEMO SP 08/10/2015 POLLOGREG CALLE N Ot Z92.3 SP HISTORY OF IRRADIATION SP 01/27/2016 GREG ABAD N Ot 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 SP 01/27/2016 POLLOGREG CALLE N Ot M48.02 SP STENOSIS, CERVICAL REGION SP 01/27/2016 GREG ABAD N Ot Z79.899 SP PRISON (CURRENT) 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 SP 01/27/2016 POLLOGREG CALLE N Ot Z92.21 SP HISTORY OF ANTINEOPLASTIC CHEMO SP 01/27/2016 POLLOGREG CALLE N Ot Z92.3 SP HISTORY OF IRRADIATION SP 02/08/2016 GREG ABAD N Ot 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 SP 02/08/2016 POLLOGREG CALLE N Ot M48.02 SP STENOSIS, CERVICAL REGION SP 02/08/2016 GREG ABAD N Ot Z79.899 SP PRISON (CURRENT) 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 SP 02/08/2016 POLLOGREG CALLE N Ot Z92.21 SP HISTORY OF ANTINEOPLASTIC CHEMO SP 02/08/2016 POLLOGREG CALLE N Ot Z92.3 SP HISTORY OF IRRADIATION SP 07/27/2016 GREG ABAD N Ot 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 SP 07/27/2016 POLLOGREG CALLE N Ot M48.02 SP STENOSIS, CERVICAL REGION SP 07/27/2016 POLLO, GABRIELAFREDY N Ot N18.3 SP KIDNEY DISEASE, STAGE 3 (MODERAT SP 07/27/2016 GABRIELA ABADFREDY Kelly Ot Z08 ENCNTR SPFOR FOLLOW-UP EXAM AFTER TRTMT FO SP 07/27/2016 GREG ABAD Robin Ot Z79.899 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) 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 SP 07/27/2016 POLLO GREG Kelly Ot 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, TN SP 07/27/2016 POLLO GREG Kelly Ot Z92.21 SP HISTORY OF ANTINEOPLASTIC CHEMO SP 07/27/2016 POLLO GREG Kelly Ot Z92.3 SP HISTORY OF IRRADIATION SP 08/05/2016 POLLOGREG Ot 160.0 MAL SP NASAL CAVITIES SP 08/05/2016 POLLO GREG Kelly Ot V15.3 HX SP IRRADIATION SP 08/05/2016 POLLOGREG Ot V58.69 OTH SPMED,LT,CURRENT USE SP 08/05/2016 POLLOGREG N Ot V87.41 SP HISTORY OF ANTINEOPLASTIC CHEMO SP 08/05/2016 POLLOGREG Ot 160.0 MAL SP NASAL CAVITIES SP 08/05/2016 POLLO GREG Kelly Ot V15.3 HX SP IRRADIATION SP 08/05/2016 POLLOGREG N Ot V58.69 OTH SPMED,LT,CURRENT USE SP 08/05/2016 POLLOGREG N Ot V87.41 SP HISTORY OF ANTINEOPLASTIC CHEMO SP 08/05/2016 POLLOGREG Ot 160.0 MAL SP NASAL CAVITIES SP 08/05/2016 POLLOGREG N Ot 530.81 SP REFLUX SP 08/05/2016 POLLOGREG CALLE Ot 786.2 SP SP 08/05/2016 POLLOGREG Ot V15.3 HX SP IRRADIATION SP 08/05/2016 POLLOGREG N Ot V58.69 OTH SPMED,LT,CURRENT USE SP 08/05/2016 POLLOGREG CALLE N Ot V87.41 SP HISTORY OF ANTINEOPLASTIC CHEMO SP 08/05/2016 [place] DANGELO Ot 244.9 SP HYPOTHYROIDISM NOS SP 08/05/2016 [place] DANGELO Ot 272.0 SP PURE HYPERCHOLESTEROLEM SP 08/05/2016 [place] DANGELO Ot 401.9 SP HYPERTENSION NOS SP 08/05/2016 WAYNE [place], [place] Grier Ot SP RESPIRATORY ABNORM NEC SP 08/05/2016 GREG ABAD Ot M48.02 SP STENOSIS, CERVICAL REGION SP 08/05/2016 GREG ABAD Ot M50.20 SP CERVICAL DISC DISPLACEMENT, UNSP C SP 08/05/2016 GREG ABAD Ot Z08 ENCNTR SPFOR FOLLOW-UP EXAM AFTER TRTMT FO SP 08/05/2016 GREG ABAD Ot 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, TN SP 08/05/2016 GREG ABAD Ot Z92.21 SP HISTORY OF ANTINEOPLASTIC CHEMO SP 08/05/2016 GREG ABAD Ot Z92.3 SP HISTORY OF IRRADIATION SP 08/05/2016 GREG ABAD Ot 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 SP 08/05/2016 GREG ABAD Ot M48.02 SP STENOSIS, CERVICAL REGION SP 08/05/2016 GREG ABAD Ot Z79.899 SP PRISON (CURRENT) 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 SP 08/05/2016 GREG ABAD Ot Z92.21 SP HISTORY OF ANTINEOPLASTIC CHEMO SP 08/05/2016 GREG ABAD N Ot Z92.3 SP HISTORY OF IRRADIATION SP 08/05/2016 GREG ABAD Ot 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 SP 08/05/2016 GREG ABAD Ot M48.02 SP STENOSIS, CERVICAL REGION SP 08/05/2016 GREG ABAD Ot Z79.899 SP PRISON (CURRENT) 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 SP 08/05/2016 GREG ABAD N Ot Z92.21 SP HISTORY OF ANTINEOPLASTIC CHEMO SP 08/05/2016 GREG ABAD N Ot Z92.3 SP HISTORY OF IRRADIATION SP 08/05/2016 GREG ABAD Ot 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, TN SP 08/08/2016 GREG ABAD Ot Z92.21 SP HISTORY OF ANTINEOPLASTIC CHEMO SP 08/08/2016 GREG ABAD Ot Z92.3 SP HISTORY OF IRRADIATION SP 04/07/2017 [place] DANGELO Ot 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 SP 04/07/2017 [place] DANGELO Ot E78.2 SP MIXED HYPERLIPIDEMIA SP 04/07/2017 [place] DANGELO Ot I10 SP ESSENTIAL (PRIMARY) HYPERTENSION SP 04/07/2017 [place] DANGELO Ot R05 SP COUGH SP 04/18/2017 [place] DANGELO Ot 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 SP 04/18/2017 [place] DANGELO Ot E78.2 SP MIXED HYPERLIPIDEMIA SP 04/18/2017 [place] DANGELO Ot I10 SP ESSENTIAL (PRIMARY) HYPERTENSION SP 04/18/2017 [place] DANGELO Ot R05 SP COUGH SP 06/08/2017 HEARNDON , JUAN JOSE Baxter Ot 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 SP 06/08/2017 HEARNDON , JUAN JOSE Vee Ot M54.16 SP RADICULOPATHY, LUMBAR REGION SP 06/09/2017 HEARNDJUAN JOSE STRICKLAND DO Ot 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 SP 06/09/2017 HEARNDON DO, JUAN JOSE Vee Ot M54.16 SP RADICULOPATHY, LUMBAR REGION SP 07/21/2017 Ot 041.12 MET HICILLIN SP STAPHYLOCOCCUS AUR SP 07/21/2017 Ot 160.0 MAL DENISE NASAL SP SP 07/21/2017 Ot 473.9 INSIDE SALES PERSON MARIA C SINUSITIS SP SP 07/21/2017 Ot V15.3 HX O F IRRADIATION SP SP 07/21/2017 Ot V58.69 OTH SP USE SP 07/21/2017 Ot V87.41 PER COLE HISTORY SP ANTINEOPLASTIC CHEMO SP 07/21/2017 GREG ABAD Ot 041.12 SP RESISTANT STAPHYLOCOCCUS AUR SP 07/21/2017 GREG ABAD Ot 160.0 MAL SP NASAL CAVITIES SP 07/21/2017 GERG ABAD N Ot 473.9 SP SINUSITIS NOS SP 07/21/2017 GREG ABAD Ot V15.3 HX SP IRRADIATION SP 07/21/2017 GREG ABAD Ot V58.69 OTH SPMED,LT,CURRENT USE SP 07/21/2017 GREG ABAD N Ot V87.41 SP HISTORY OF ANTINEOPLASTIC CHEMO SP 07/21/2017 GREG ABAD N Ot 160.0 MAL SP NASAL CAVITIES SP 07/21/2017 GREG ABAD Ot V15.3 HX SP IRRADIATION SP 07/21/2017 GREG ABAD Ot V58.69 OTH SPMED,LT,CURRENT USE SP 07/21/2017 GREG ABAD N Ot V87.41 SP HISTORY OF ANTINEOPLASTIC CHEMO SP 07/27/2017 Ot 041.12 MET HICILLIN SP STAPHYLOCOCCUS AUR SP 07/27/2017 Ot 160.0 MAL DENISE NASAL SP SP 07/27/2017 Ot 473.9 INSIDE SALES PERSON MARIA C SINUSITIS SP SP 07/27/2017 Ot V15.3 HX O F IRRADIATION SP SP 07/27/2017 Ot V58.69 OTH SP USE SP 07/27/2017 Ot V87.41 PER COLE HISTORY SP ANTINEOPLASTIC CHEMO SP 07/27/2017 GREG ABAD N Ot 041.12 SP RESISTANT STAPHYLOCOCCUS AUR SP 07/27/2017 POLLO, GREG N Ot 160.0 MAL SP NASAL CAVITIES SP 07/27/2017 POLLO, GREG N Ot 473.9 SP SINUSITIS NOS SP 07/27/2017 GREG ABAD N Ot V15.3 HX SP IRRADIATION SP 07/27/2017 GREG ABAD N Ot V58.69 OTH SPMED,LT,CURRENT USE SP 07/27/2017 GREG ABAD N Ot V87.41 SP HISTORY OF ANTINEOPLASTIC CHEMO SP 07/27/2017 GREG ABAD N Ot 160.0 MAL SP NASAL CAVITIES SP 07/27/2017 GREG ABAD Ot V15.3 HX SP IRRADIATION SP 07/27/2017 GREG ABAD N Ot V58.69 OTH SPMED,LT,CURRENT USE SP 07/27/2017 GREG ABAD N Ot V87.41 SP HISTORY OF ANTINEOPLASTIC CHEMO SP 08/03/2017 Ot 041.12 MET HICILLIN SP STAPHYLOCOCCUS AUR SP 08/03/2017 Ot 160.0 MAL DENISE NASAL SP SP 08/03/2017 Ot 473.9 INSIDE SALES PERSON MARIA C SINUSITIS SP SP 08/03/2017 Ot V15.3 HX O F IRRADIATION SP SP 08/03/2017 Ot V58.69 OTH SP USE SP 08/03/2017 Ot V87.41 PER COLE HISTORY SP ANTINEOPLASTIC CHEMO SP 08/03/2017 GREG ABAD Ot 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 SP 08/03/2017 GREG ABAD Ot M48.02 SP STENOSIS, CERVICAL REGION SP 08/03/2017 GREG ABAD Ot N18.3 SP KIDNEY DISEASE, STAGE 3 (MODERAT SP 08/03/2017 GREG ABAD Ot Z08 ENCNTR SPFOR FOLLOW-UP EXAM AFTER TRTMT FO SP 08/03/2017 GREG ABAD Ot Z79.899 SP PRISON (CURRENT) 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 SP 08/03/2017 POLLOGREG N Ot 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, TN SP 08/03/2017 POLLOGREG Ot Z92.21 SP HISTORY OF ANTINEOPLASTIC CHEMO SP 08/03/2017 POLLOGREG N Ot Z92.3 SP HISTORY OF IRRADIATION SP 08/03/2017 POLLOGREG N Ot 041.12 SP RESISTANT STAPHYLOCOCCUS AUR SP 08/03/2017 POLLOGREG N Ot 160.0 MAL SP NASAL CAVITIES SP 08/03/2017 POLLOGREG N Ot 473.9 SP SINUSITIS NOS SP 08/03/2017 POLLOGREG N Ot V15.3 HX SP IRRADIATION SP 08/03/2017 POLLOGREG N Ot V58.69 OTH SPMED,LT,CURRENT USE SP 08/03/2017 POLLOGREG N Ot V87.41 SP HISTORY OF ANTINEOPLASTIC CHEMO SP 08/03/2017 POLLOGREG N Ot 160.0 MAL SP NASAL CAVITIES SP 08/03/2017 POLLOGREG N Ot V15.3 HX SP IRRADIATION SP 08/03/2017 POLLOGABRIELAFREDY N Ot V58.69 OTH SPMED,LT,CURRENT USE SP 08/03/2017 POLLOGREG N Ot V87.41 SP HISTORY OF ANTINEOPLASTIC CHEMO SP 08/04/2017 JUAN JOSE KENNEY DO Ot M54.16 SP RADICULOPATHY, LUMBAR REGION SP 08/25/2017 JUAN JOSE KENNEY DO Ot M54.16 SP RADICULOPATHY, LUMBAR REGION SP 09/01/2017 GREG ABAD N Ot 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 SP 09/01/2017 GREG ABAD N Ot M48.02 SP STENOSIS, CERVICAL REGION SP 09/01/2017 GREG ABAD N Ot N18.3 SP KIDNEY DISEASE, STAGE 3 (MODERAT SP 09/01/2017 GREG ABAD N Ot Z08 ENCNTR SPFOR FOLLOW-UP EXAM AFTER TRTMT FO SP 09/01/2017 GREG ABAD N Ot Z79.899 SP PRISON (CURRENT) 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 SP 09/01/2017 GREG ABAD N Ot 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, TN SP 09/01/2017 GREG ABAD N Ot Z92.21 SP HISTORY OF ANTINEOPLASTIC CHEMO SP 09/01/2017 GREG ABAD N Ot Z92.3 SP HISTORY OF IRRADIATION SP 09/28/2017 HEARNDON DO, JUAN JOSE L Ot M46.1 SP SACROILIITIS, NOT ELSEWHERE CLASSIFIED SP 10/02/2017 HEARNDON DO, JUAN JOSE L Ot M46.1 SP SACROILIITIS, NOT ELSEWHERE CLASSIFIED SP 10/23/2017 GREG ABAD Ot 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 SP 10/23/2017 POLLOGREG Ot M48.02 SP STENOSIS, CERVICAL REGION SP 10/23/2017 GREG ABAD Ot N18.3 SP KIDNEY DISEASE, STAGE 3 (MODERAT SP 10/23/2017 GREG ABAD Ot Z08 ENCNTR SPFOR FOLLOW-UP EXAM AFTER TRTMT FO SP 10/23/2017 GREG ABAD Ot Z79.899 SP PRISON (CURRENT) 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 SP 10/23/2017 GREG ABAD N Ot 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, TN SP 10/23/2017 GREG ABAD Ot Z92.21 SP HISTORY OF ANTINEOPLASTIC CHEMO SP 10/23/2017 GREG ABAD N Ot Z92.3 SP HISTORY OF IRRADIATION SP 11/06/2017 Ot C30.0 AUGUSTO GNANT NEOPLASM SPOF NASAL CAVITY SP 11/06/2017 Ot E78.2 MIXE D SP SP 11/06/2017 Ot I10 ESSENT IAL (PRIMARY) SP SP 11/06/2017 Ot R07.9 CHES T PAIN, SP SP 07/18/2018 GREG ABAD Ot 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0 MAL SP NASAL CAVITIES SP 07/20/2018 GREG ABAD Ot V15.3 HX SP IRRADIATION SP 07/20/2018 GREG ABAD Ot V58.69 OTH SPMED,LT,CURRENT USE SP 07/20/2018 GREG ABAD Ot V87.41 SP HISTORY OF ANTINEOPLASTIC CHEMO SP 07/20/2018 JUAN JOSE KENNEY DO Ot M54.16 SP RADICULOPATHY, LUMBAR REGION SP 07/20/2018 Ot C30.0 AUGUSTO GNANT NEOPLASM SPOF NASAL CAVITY SP 07/20/2018 Ot E78.2 MIXE D SP SP 07/20/2018 Ot I10 ESSENT IAL (PRIMARY) SP SP 07/20/2018 Ot R07.9 CHES T PAIN, SP SP 07/20/2018 GREG ABAD Ot 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 SP 07/20/2018 GREG ABAD Ot M48.02 SP STENOSIS, CERVICAL REGION SP 07/20/2018 GREG ABAD Ot N18.3 SP KIDNEY DISEASE, STAGE 3 (MODERAT SP 07/20/2018 GREG ABAD Ot Z08 ENCNTR SPFOR FOLLOW-UP EXAM AFTER TRTMT FO SP 07/20/2018 GREG ABAD Ot Z79.899 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) 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 SP 07/20/2018 GREG ABAD Ot 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, TN SP 07/20/2018 GREG ABAD Ot Z92.21 SP HISTORY OF ANTINEOPLASTIC CHEMO SP 07/20/2018 POLLO, BOBAN N Ot Z92.3 SP HISTORY OF IRRADIATION SP 07/23/2018 SHARLA GOLDMAN MD Ot E07.9 SP OF THYROID, UNSPECIFIED SP 07/23/2018 SHARLA GOLDMAN MD Ot E11.9 SP 2 DIABETES MELLITUS WITHOUT COMPLIC SP 07/23/2018 SHARLA GOLDMAN MD Ot I10 SP (PRIMARY) HYPERTENSION SP 07/23/2018 SHARLA GOLDMAN MD Ot M43.1 6 SP LUMBAR REGION SP 07/23/2018 SHARLA GOLDMAN MD Ot M43.1 7 SP LUMBOSACRAL REGION SP 07/23/2018 SHARLA GOLDMAN MD Ot M48.0 61 SP STENOSIS, LUMBAR REGION WITHOUT N SP 07/23/2018 SHARLA GOLDMAN MD Ot M54.1 6 SP LUMBAR REGION SP 07/23/2018 SHARLA GOLDMAN MD Ot Z11.2 SP FOR SCREENING FOR OTHER BACTER SP 07/23/2018 SHARLA GOLDMAN MD Ot Z79.8 99 SP PRISON (CURRENT) 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 SP 07/23/2018 SHARLA GOLDMAN MD Ot Z85.8 28 SP HISTORY OF OTHER MALIGNANT NEOP SP 07/23/2018 SHARLA GOLDMAN MD Ot Z88.2 SP STATUS TO SULFONAMIDES STATUS SP 07/23/2018 SHARLA GOLDMAN MD Ot Z98.1 SP STATUS SP 07/24/2018 SHARLA GOLDMAN MD Ot E07.9 SP OF THYROID, UNSPECIFIED SP 07/24/2018 SHARLA GOLDMAN MD Ot E11.9 SP 2 DIABETES MELLITUS WITHOUT COMPLIC SP 07/24/2018 SHARLA GOLDMAN MD Ot I10 SP (PRIMARY) HYPERTENSION SP 07/24/2018 SHARLA GOLDMAN MD Ot M43.1 7 SP LUMBOSACRAL REGION SP 07/24/2018 SHARLA GOLDMAN MD Ot M48.0 61 SP STENOSIS, LUMBAR REGION WITHOUT N SP 07/24/2018 SHARLA GOLDMAN MD Ot M54.1 6 SP LUMBAR REGION SP 07/24/2018 SHARLA GOLDMAN MD Ot Z11.2 SP FOR SCREENING FOR OTHER BACTER SP 07/24/2018 SHARLA GOLDMAN MD Ot Z79.8 99 SP PRISON (CURRENT) 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 SP 07/24/2018 SHARLA GOLDMAN MD Ot Z85.8 28 SP HISTORY OF OTHER MALIGNANT NEOP SP 07/24/2018 SHARLA GOLDMAN MD Ot Z88.2 SP STATUS TO SULFONAMIDES STATUS SP 07/24/2018 SHARLA GOLDMAN MD Ot Z98.1 SP STATUS SP 07/26/2018 SHARLA GOLDMAN MD Ot E07.9 SP OF THYROID, UNSPECIFIED SP 07/26/2018 SHARLA GOLDMAN MD Ot E11.9 SP 2 DIABETES MELLITUS WITHOUT COMPLIC SP 07/26/2018 SHARLA GOLDMAN MD Ot I10 SP (PRIMARY) HYPERTENSION SP 07/26/2018 SHARLA GOLDMAN MD Ot M43.1 7 SP LUMBOSACRAL REGION SP 07/26/2018 SHARLA GOLDMAN MD Ot M48.0 61 SP STENOSIS, LUMBAR REGION WITHOUT N SP 07/26/2018 SHARLA GOLDMAN MD Ot M54.1 6 SP LUMBAR REGION SP 07/26/2018 SHARLA GOLDMAN MD Ot Z11.2 SP FOR SCREENING FOR OTHER BACTER SP 07/26/2018 SHARLA GOLDMAN MD Ot Z79.8 99 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) 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 SP 07/26/2018 SHARLA GOLDMAN MD Ot Z85.8 28 SP HISTORY OF OTHER MALIGNANT NEOP SP 07/26/2018 SHARLA GOLDMAN MD Ot Z88.2 SP STATUS TO SULFONAMIDES STATUS SP 07/26/2018 SHARLA GOLDMAN MD Ot Z98.1 SP STATUS SP 08/02/2018 SHARLA GOLDMAN MD Ot E07.9 SP OF THYROID, UNSPECIFIED SP 08/02/2018 SHARLA GOLDMAN MD Ot E11.9 SP 2 DIABETES MELLITUS WITHOUT COMPLIC SP 08/02/2018 SHARLA GOLDMAN MD Ot I10 SP (PRIMARY) HYPERTENSION SP 08/02/2018 SHARLA GOLDMAN MD Ot M43.1 6 SP LUMBAR REGION SP 08/02/2018 SHARLA GOLDMAN MD Ot M48.0 61 SP STENOSIS, LUMBAR REGION WITHOUT N SP 08/02/2018 SHARLA GOLDMAN MD Ot M54.1 6 SP LUMBAR REGION SP 08/02/2018 SHARLA GOLDMAN MD Ot Z11.2 SP FOR SCREENING FOR OTHER BACTER SP 08/02/2018 SHARLA GOLDMAN MD Ot Z79.8 99 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) 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 SP 08/02/2018 SHARLA GOLDMAN MD Ot Z85.8 28 SP HISTORY OF OTHER MALIGNANT NEOP SP 08/02/2018 SHARLA GOLDMAN MD Ot Z88.2 SP STATUS TO SULFONAMIDES STATUS SP 08/02/2018 SHARLA GOLDMAN MD Ot Z98.1 SP STATUS SP 08/20/2018 GREG ABAD Ot 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 SP 08/20/2018 POLLOGREG N Ot M48.02 SP STENOSIS, CERVICAL REGION SP 08/20/2018 POLLO, GREG N Ot N18.3 SP KIDNEY DISEASE, STAGE 3 (MODERAT SP 08/20/2018 POLLOGREG CALLE N Ot Z08 ENCNTR SPFOR FOLLOW-UP EXAM AFTER TRTMT FO SP 08/20/2018 GREG ABAD N Ot Z79.899 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) 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 SP 08/20/2018 POLLOGREG N Ot 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, [place] SP 08/20/2018 POLLOGREG N Ot Z92.21 SP HISTORY OF ANTINEOPLASTIC CHEMO SP 08/20/2018 POLLO, BOBAN N Ot Z92.3 SP HISTORY OF IRRADIATION SP 09/03/2018 POLLOGREG N Ot 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 SP 09/03/2018 POLLO, GREG N Ot M48.02 SP STENOSIS, CERVICAL REGION SP 09/03/2018 POLLO, BOBFREDY N Ot N18.3 SP KIDNEY DISEASE, STAGE 3 (MODERAT SP 09/03/2018 POLLOGREG N Ot Z08 ENCNTR SPFOR FOLLOW-UP EXAM AFTER TRTMT FO SP 09/03/2018 POLLOGREG N Ot Z79.899 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) 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 SP 09/03/2018 POLLOGREG N Ot 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, [place] SP 09/03/2018 POLLO, BOBAN N Ot Z92.21 SP HISTORY OF ANTINEOPLASTIC CHEMO SP 09/03/2018 POLLO, GABRIELAAN N Ot Z92.3 SP HISTORY OF IRRADIATION SP 01/18/2019 GRACY CARPIO DO Ot 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 SP 01/18/2019 TY CARPIO DOIC B Ot E03.9 SP UNSPECIFIED SP 01/18/2019 GRACY CARPIO DO Ot E78.2 SP HYPERLIPIDEMIA SP 01/18/2019 TY CARPIO DOIC Jorge Ot I10 SP (PRIMARY) HYPERTENSION SP 01/18/2019 TY CARPIO DOIC B Ot I87.2 SP INSUFFICIENCY (CHRONIC) (PERIPHER SP 01/18/2019 GRACY CARPIO DO Ot J30.9 SP RHINITIS, UNSPECIFIED SP 01/18/2019 TY CARPIO DOIC Jorge Ot M19.9 0 SP OSTEOARTHRITIS, UNSPECIFIED SP 01/18/2019 GRACY CARPIO DO B Ot M54.1 2 SP CERVICAL REGION SP 01/18/2019 GRACY CARPIO DO Ot Z79.8 99 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) 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 SP 01/18/2019 GRACY CARPIO DO Ot Z88.1 SP STATUS TO OTHER ANTIBIOTIC AGENT SP 01/18/2019 GRACY CARPIO DO Ot Z88.2 SP STATUS TO SULFONAMIDES STATUS SP 01/18/2019 RGACY CARPIO DO Ot Z88.8 SP STATUS TO OTH DRUG/MEDS/BIOL SUB SP 01/18/2019 GRACY CARPIO DO Ot Z91.0 30 SP ALLERGY STATUS SP 01/19/2019 Ot C44.311 BA NELDA CELL SP OF SKIN OF NOSE SP 01/19/2019 Ot M48.02 SPI NAL STENOSIS, SP REGION SP 01/19/2019 Ot N18.3 INSIDE SALES PERSON MARIA C KIDNEY SP STAGE 3 (MODERAT SP 01/19/2019 Ot Z08 ENCNTR FOR FOLLOW-UP SPEXAM AFTER TRTMT FO SP 01/19/2019 Ot Z79.899 OT HER COUNTRY DIRECTOR SP 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 SP 01/19/2019 Ot Z85.22 PRS NL HX OF MALIG SPNEOPLM OF NASL CAV, [place] SP 01/19/2019 Ot Z92.21 PER COLE HISTORY SP ANTINEOPLASTIC CHEMO SP 01/19/2019 Ot Z92.3 PERS ONAL HISTORY SP IRRADIATION SP 01/22/2019 TY CARPIO DOIC B Ot 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 SP 01/22/2019 GRACY CARPIO DO Ot E03.9 SP UNSPECIFIED SP 01/22/2019 [place] DO, GRACY B Ot E78.2 SP HYPERLIPIDEMIA SP 01/22/2019 [facility] B Ot I10 SP (PRIMARY) HYPERTENSION SP 01/22/2019 [facility], GRACY B Ot I87.2 SP INSUFFICIENCY (CHRONIC) (PERIPHER SP 01/22/2019 [place] , GRACY B Ot J30.9 SP RHINITIS, UNSPECIFIED SP 01/22/2019 [facility] , GRACY B Ot M19.9 0 SP OSTEOARTHRITIS, UNSPECIFIED SP 01/22/2019 [facility], GRACY B Ot M54.1 2 SP CERVICAL REGION SP 01/22/2019 [facility], GRACY B Ot Z79.8 99 SP PRISON (CURRENT) 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 SP 01/22/2019 [place] DO GRACY B Ot Z88.1 SP STATUS TO OTHER ANTIBIOTIC AGENT SP 01/22/2019 [facility] B Ot Z88.2 SP STATUS TO SULFONAMIDES STATUS SP [facility] SP STATUS TO OTH DRUG/MEDS/BIOL SUB SP 01/22/2019 [place] DO GRACY B Ot Z91.0 30 SP ALLERGY STATUS SP 01/23/2019 [place] DO GRACY B Ot Z01.8 18 SP FOR OTHER PREPROCEDURAL EXAMIN SP 01/25/2019 TY CARPIO DOIC B Ot 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 SP 01/25/2019 [facility] DO GRACY B Ot E03.9 SP UNSPECIFIED SP 01/25/2019 TY CARPIO DOIC B Ot E78.2 SP HYPERLIPIDEMIA SP 01/25/2019 [place] , GRACY B Ot I10 SP (PRIMARY) HYPERTENSION SP 01/25/2019 [facility] GRACY B Ot I87.2 SP INSUFFICIENCY (CHRONIC) (PERIPHER SP 01/25/2019 [facility], GRACY B Ot J30.9 SP RHINITIS, UNSPECIFIED SP 01/25/2019 [facility], GRACY B Ot M19.9 0 SP OSTEOARTHRITIS, UNSPECIFIED SP 01/25/2019 [facility], GRACY B Ot M54.1 2 SP CERVICAL REGION SP 01/25/2019 [place] DO GRACY B Ot Z79.8 99 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) 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 SP 01/25/2019 GRACY CARPIO DO Ot Z88.1 SP STATUS TO OTHER ANTIBIOTIC AGENT SP 01/25/2019 GRACY CARPIO DO Ot Z88.2 SP STATUS TO SULFONAMIDES STATUS SP 01/25/2019 GRACY CARPIO DO Ot Z88.8 SP STATUS TO OTH DRUG/MEDS/BIOL SUB SP 01/25/2019 GRACY CARPIO DO Ot Z91.0 30 SP ALLERGY STATUS SP 01/30/2019 Ot C44.311 BA NELDA CELL SP OF SKIN OF NOSE SP 01/30/2019 Ot M48.02 SPI NAL STENOSIS, SP REGION SP 01/30/2019 Ot N18.3 INSIDE SALES PERSON MARIA C KIDNEY SP STAGE 3 (MODERAT SP 01/30/2019 Ot Z08 ENCNTR FOR FOLLOW-UP SPEXAM AFTER TRTMT FO SP 01/30/2019 Ot Z79.899 OT HER COUNTRY DIRECTOR SP 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 SP 01/30/2019 Ot Z85.22 PRS NL HX OF MALIG SPNEOPLM OF NASL CAV, [place] SP 01/30/2019 Ot Z92.21 PER COLE HISTORY SP ANTINEOPLASTIC CHEMO SP 01/30/2019 Ot Z92.3 PERS ONAL HISTORY SP IRRADIATION SP 02/06/2019 GREG ABAD Ot 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 Results Test Result Range POS Methicillin resistant Staphylococcus aur eus (MRSA) screening culture - 07/23/18 POS MRSA SCREEN RESULT MRSA ISOLATED NRG POS Methicillin resistant Staphylococcus aur eus (MRSA) screening culture - 01/18/19 POS MRSA SCREEN RESULT MRSA ISOLATED NRG POS Encounters ACCT No. Visit Date/Time Discharge Status POS Pt. Type Provider Facility Loc./Un it POS Complaint POS [id number] 02/06/2019 08:52:00 23:59:59 SP CLS Outpatient GREG ABAD [facility] ONC SP [id number] 01/18/2019 10:26:00 15:00:00 SP DIS Outpatient GRACY CARPIO DO [facility] SDC ESTHESIONEUROBLASTOMA SP [id number] 01/17/2019 13:43:00 23:59:59 SP CLS Outpatient GRACY CARPIO DO Via [facility] PREOP ESTHESIONEUROBLASTOMA SP [id number] 08/20/2018 10:37:00 019 23:59:59 SP CLS Outpatient GABRIELA ABADFREDY Ojeda matilda [facility] ONC SP [id number] 07/23/2018 07:55:00 019 13:50:00 SP DIS Outpatient SHARLA GOLDMAN MD Via [facility] SDC LUMBAGO SP [id number] 07/18/2018 05:38:00 15:42:00 SP DIS Outpatient SHARLA GOLDMAN MD Via [facility] PREOP SPINAL CORD STIMULATOR SP [id number] 09/28/2017 13:48:00 018 14:53:00 SP DIS Outpatient JUAN JOSE KENNEY DO Via [facility] CARD SACRILITIS SP [id number] 08/03/2017 13:38:00 018 23:59:59 SP CLS Outpatient PABLITO FULTONJUAN JOSE Via [facility] CARD LUMBAR RADICULOPATHY SP [id number] 07/25/2017 09:42:00 018 23:59:59 SP CLS Outpatient GABRIELA ABADFREDY Ojeda matilda [facility] ONC SP [id number] 06/08/2017 11:29:00 018 12:14:00 SP DIS Outpatient PABLITO JUAN JOSE FULTON Via [facility] CARD LUMBAR RADICULOPATHY SP [id number] 04/06/2017 11:17:00 018 23:59:59 SP CLS Outpatient RAVI DANGELO SP [facility] RAD R06.02 C30.0 I10 SP [id number] 08/05/2016 10:22:00 017 11:17:00 SP DIS Outpatient DIANA MARTINEZ MD Via [facility] CARD CERVICAL RADICULOPATHY SP [id number] 07/26/2016 11:09:00 017 23:59:59 SP CLS Outpatient POLLOGREG [facility] SP [id number] 01/26/2016 12:48:00 23:59:59 SP CLS Outpatient POLLOGREG [facility] SP [id number] 07/28/2015 13:13:00 23:59:59 SP CLS Outpatient POLLOGREG [facility] SP [id number] 01/27/2015 13:41:00 23:59:59 SP CLS Outpatient POLLOGREG [facility] SP [id number] 12/10/2014 06:54:00 23:59:59 [facility] CARD SP HYPOTHRYROIDISM [id number] 08/05/2014 11:42:00 23:59:59 SP CLS Outpatient POLLOGREG [facility] SP [id number] 02/04/2014 10:26:00 014 23:59:59 SP CLS Outpatient POLLOGREG [facility] SP [id number] 08/06/2013 13:39:00 014 23:59:59 SP CLS Outpatient POLLOGREG [facility] SP [id number] 02/19/2013 10:15:00 013 23:59:[address] Rusty [facility] SP [id number] 10/16/2012 09:56:00 013 23:59:59 SP CLS Outpatient POLLO, GREG N V ia [facility] SP [id number] 01/17/2019 09:41:00 SP Registration SP [id number] 07/18/2018 15:17:00 SP Registration SP [id number] 10/25/2017 07:52:00 SP Registration SP [id number] 07/10/2012 10:04:00 SP Registration SP [id number] 04/11/2012 09:31:00 SP Registration SP
[2019-02-19] MEDS ORDERED: OMEP-280 PO (09:41)
== END 2019-01-18 15:00 | disposition home or self-care (01) ==
LOC: SDC 10:26
PROVIDERS: ATTEND Surgery
DX: C30.0 Malignant neoplasm of nasal cavity (principal); I87.2 Venous insufficiency (chronic) (peripheral); M19.90 Unspecified osteoarthritis, unspecified site; E03.9 Hypothyroidism, unspecified; E78.2 Mixed hyperlipidemia; J30.9 Allergic rhinitis, unspecified; M54.12 Radiculopathy, cervical region; I10 Essential (primary) hypertension; Z88.2 Allergy status to sulfonamides; Z88.8 Allergy status to other drugs, medicaments and biological substances; Z88.1 Allergy status to other antibiotic agents; Z91.030 Bee allergy status; Z79.899 Other long term (current) drug therapy
CPT/HCPCS: 87081

== ENCOUNTER 2019-02-18 15:57 | Inpatient (IN) | payer MEDICARE ==
[~2019-02-18] VITALS: Ht 165 cm; Wt 69.5 kg
[~2019-02-18 15:57] MED LIST changes: -EZET10TA17 PO; +EZET10TA5 PO; +TRAM50TA2 PO; -TRM50T PO
[2019-02-18] MEDS ORDERED: ONDANSETRON 4 MG/2 ML (SDV) Z0FRAN IV PRN (16:15)
[2019-02-18] MEDS ORDERED: MILK OF MAGNESIA 400 MG/5 ML 30 ML UDC PO PRN (16:15)
[2019-02-18] MEDS ORDERED: POLYETHYLENE GLYCOL 17 GM (MIRALAX) PACK PO PRN (16:15)
[2019-02-18] MEDS ORDERED: MELATONIN 3 MG TABLET PO PRN (16:15)
[2019-02-18] MEDS ORDERED: BISACODYL 10 MG SUPP (DULCOLAX) PR PRN (16:15)
[2019-02-18] MEDS ORDERED: ANTACID SUSP 30 ML UDC (MYLANTA) PO PRN (16:15)
[2019-02-18 16:20] VITALS: BP 129/62
[2019-02-18] MEDS ORDERED: VANCOMYCIN INJECTION 1,500 MG in NS IV 500 ML 500 ML IV NR (17:00)
--- NOTE | 2019-02-18 17:15 | NUR ---
VANCOMYCIN DOSING: IBW 56.9 KG, SCr 1.47, EST CrCl 28 LOADING DOSE: 1,500 MG MAIN DOSE: 1,000 MG DAILY VANCOMYCIN TROUGH DUE 02/19/19 @ 17:00 IF TROUGH > 20 HOLD 02/19/19 18:00 DOSE
[2019-02-18] MEDS ORDERED: PIPERACILLIN/TAZO 4.5 GM/NS 100 ML IV NR ×2 (17:30)
[2019-02-18] MEDS: NS IV 1000 ML 1,000 ML IV SCH (17:37)
[2019-02-18] MEDS: ACETAMINOPHEN 325 MG TABLET PO PRN (17:49)
[2019-02-18 19:33] VITALS: BP 120/58
[2019-02-18] MEDS: TBO-FILGRASTIM 480 MCG/0.8 ML (GRANIX) SQ SCH (20:12)
[2019-02-18] MEDS: inSUlin ASPART (NovoLOG) 1 UNIT/0.01 ML (CHARGE PER UNIT) SC SCH (21:00)
[2019-02-19] VITALS (7 sets, daily range): BP systolic 109–144; BP diastolic 58–69
[2019-02-19] MEDS: PIPERACILLIN/TAZOBACTAM (BULK) 4.5 GM in NS (IVPB) 100 ML IV SCH ×3 (00:07→15:18)
[2019-02-19] MEDS: inSUlin ASPART (NovoLOG) 1 UNIT/0.01 ML (CHARGE PER UNIT) SC SCH ×4 (06:00→20:53)
[2019-02-19 06:25] LABS: BASOPHILS % (AUTO) 0 % (0-10); EOSINOPHILS # (AUTO) 0.1 10^3/uL (0.0-0.3); EOSINOPHILS % (AUTO) 2 % (0-10); HEMATOCRIT 34 % (35-52); LYMPHOCYTES # (AUTO) 1.4 X 10^3 (1.0-4.0); LYMPHOCYTES % (AUTO) 28 % (12-44); MEAN CORPUSCULAR HEMOGLOBIN 31 PG (25-34); MEAN CORPUSCULAR HGB CONC 33 G/DL (32-36); MEAN CORPUSCULAR VOLUME 95 FL (80-99); MEAN PLATELET VOLUME 9.8 FL (7.4-10.4); MONOCYTES # (AUTO) 0.8 X 10^3 (0.0-1.0); MONOCYTES % (AUTO) 16 % (0-12); NEUTROPHILS # (AUTO) 2.7 X 10^3 (1.8-7.8); NEUTROPHILS % (AUTO) 54 % (42-75); PLATELET COUNT 266 10^3/uL (130-400); RED CELL DISTRIBUTION WIDTH 11.7 % (10.0-14.5); WHITE BLOOD COUNT 5.1 10^3/uL (4.3-11.0)
[2019-02-19 06:44] LABS: CALCIUM 8.6 MG/DL (8.5-10.1); CREATININE SERUM 1.09 MG/DL (0.60-1.30); POTASSIUM 3.9 MMOL/L (3.6-5.0)
[2019-02-19] MEDS: ACETAMINOPHEN 325 MG TABLET PO PRN (09:02)
--- NOTE | 2019-02-19 09:17 | NUR ---
RADIATION TREATMENT # 5 OF 25 WAS DELIVERED TODAY AT 9:16 AM
[2019-02-19] MEDS ORDERED: ONDA8TAB12 PO (09:41)
[2019-02-19] MEDS ORDERED: CARB1TAB40 PO (09:41)
[2019-02-19] MEDS ORDERED: MELA5CAP PO (09:41)
[2019-02-19] MEDS ORDERED: OMEP20CA13 PO (09:41)
[2019-02-19] MEDS ORDERED: EZET10TA49 PO (09:41)
[2019-02-19] MEDS ORDERED: SERT50TA9 PO (09:41)
[2019-02-19] MEDS ORDERED: LEVE500T6 PO (09:41)
[2019-02-19] MEDS ORDERED: CYAN-41 PO (09:41)
--- NOTE | 2019-02-19 09:47 | NUR ---
WENT OVER THE EXT MED HX WELL THE LIST FROM THE [facility]ER CENTER WITH THE PATIENT. SHE VERIFIED HOW SHE TAKES EACH MEDICATION. SHE HAS NOT FILLED FENOFIBRATE 160MG SINCE 09-28-18 #90 THROUGH [place], SHE STATES SHE DOES TAKE THIS DAILY AND DOES NOT MISS IT, [employer] JUST SENDS IT TO HER EARLY SO MUCH SHE HAS A SUPPLY BUILT UP AT HOME. HER LEVOTHYROXINE STATES TO TAKE 1 TAB EVERYDAY EXCEPT MON AND THURS TAKE 1/2 TAB. SHE STATES SHE TAKES 1 WHOLE TABLET EVERY DAY OF THE WEEK. OTC MEDS: MTV DAILY GARLIC DAILY MELATONIN HS PRN B12 DAILY NIACIN DAILY
[2019-02-19] MEDS ORDERED: MELATONIN 3 MG TABLET PO PRN (10:00)
[2019-02-19] MEDS ORDERED: NON-FORMULARY MEDICATION 1 EA EA (Melatonin 5 MG) PO PRN (10:00)
--- NOTE | 2019-02-19 10:59 | History & Physical-Hospitalist ---
DOINNA ARAUJO [facility] 02/19/19 1059: History of Present Illness HPI/Chief Complaint Nisa is a 78 y/o female that presented to [facility] for a high fever. 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 She was about to start her radiation treatment and it was found that she was having a fever and a drop in cell count and was sent for admittance into the hospital. She states she has been feeling feverish since 02/16 and it continued until 02/18. She states she had been feeling crappy and that she felt better when she just laid down and was left alone. She does not know of anything that made it worse. She has not had any associated symptoms with the fever and has only had pain her back. She states the pain in her back is 5-6 and it feels more of a spasm. The patient stated she has a hx of UTI's and that she has had periodic pain on urination. She has had increased frequency but she states this may be due to her increase in fluids via IV. Source: patient Date Seen 02/19/19 Time Seen by a Provider: 10:30 Attending Physician Lynn Pendleton Heather T MD Referring Physician Date of Admission Feb 18, 2019 at 16:13 Home Medications & Allergies Home Medications Reviewed patient Home Medication Reconciliation performed by pharmacy medication reconciliations compressor service technician and/or nursing. Patients Allergies have been reviewed. Allergies Allergies Coded Allergies Sulfa (Sulfonamide Antibiotics) (Verified Allergy, Unknown, rash, 02/19/19) amitriptyline HCl (Verified Allergy, Unknown, 08/02/11) levofloxacin (Verified Allergy, Unknown, rash, 02/19/19) venom-honey bee (Verified Allergy, Unknown, 08/02/11) Past Ksmdldm-Bhiwov-Tlprgh Hx Patient Social History Marrital Status: Alcohol Use: Denies Use Recreational Drug Use: No Smoking Status: Never a Smoker 2nd Hand Smoke Exposure: No Recent Foreign Travel: No Contact w/other who traveled: No Recent Hopitalizations: No Recent Infectious Disease Expo: No Immunizations Up To Date Pediatric: No Date of Influenza Vaccine: Jan 17, 2019 Seasonal Allergies Seasonal Allergies: Yes Past Medical History Surgeries: Adenoidectomy, Gallbladder, Hysterectomy, Nose (Had BCC of the nose and had nose reconstruction ), Tonsillectomy Bone cyst requiring bone graft, Skull fracture requiring decompression Cardiac: High Cholesterol, Hypertension Neurological: Seizure Disorder Musculoskeletal: Arthritis, Chronic Back Pain Endocrine: Hypothyroidsim HEENT: Cataract Loss of Vision: Left Hearing Impairment: Denies Cancer: Skin What Type of Treatment Did You: Radiation, Surgical Intervention Psychosocial: PTSD History of Blood Disorders: No Family History Heart Disease, Hypertension Review of Systems Constitutional: No chills, No diaphoresis; dizziness (resolves ) EENTM: no symptoms reported Respiratory: no symptoms reported Cardiovascular: no symptoms reported Gastrointestinal: no symptoms reported Genitourinary: frequency, pain Musculoskeletal: back pain, muscle pain Skin: no symptoms reported Psychiatric/Neurological: No Symptoms Reported Physical Exam Physical Exam Vital Signs Vital Signs - First Documented Capillary Refill : Height, Weight, BMI Height: 5'5.00" Weight: 145lbs. 0.0oz. 65.741436fe; 25.52 BMI Method: General Appearance: No Apparent Distress, WD/WN Eyes: Bilateral Eye PERRL, Bilateral Eye EOMI HEENT: Moist Mucous Membranes; No Photophobia Neck: Full Range of Motion, Normal Inspection, Non Tender, Supple Respiratory: Chest Non Tender, Lungs Clear, Normal Breath Sounds, No Accessory Muscle Use, No Respiratory Distress Cardiovascular: Regular Rate, Rhythm, No Edema, No Murmur, Normal Peripheral Pulses Gastrointestinal: Normal Bowel Sounds, No Organomegaly, No Pulsatile Mass, Non Tender, Soft Extremity: Normal Capillary Refill, No Calf Tenderness, Pedal Edema (Minimal ) Neurologic/Psychiatric: Alert, Oriented x3, Normal Mood/Affect, licensed club manager II-XII Norm as Tested (Left eye has decreased vision with minor ptosis, cannot smell, decreased taste) Skin: Normal Color, Warm/Dry Lymphatic: No Adenopathy Results Results/Procedures Labs Laboratory Tests 02/19/19 06:10 Patient resulted labs reviewed. Assessment/Plan Admission Diagnosis Neutropenic Fever Anemia Leukopenia Recurrent Esthesioneuroblastoma Possible UTI HX of Seizure Parkinson HTN High Cholesterol Hypothyroidism Chronic Back pain Assessment and Plan Neutropenic Fever Anemia Leukopenia Recurrent Esthesioneuroblastoma Possible UTI HX of Seizure Parkinson HTN High Cholesterol Hypothyroidism Chronic back pain Neutropenic Fever - Filgrastim - Fevers controlled with Acetaminophen Anemia - Monitor Leukopenia - Filgrastim Possible UTI - Order UA - Treat prophylactically Recurrent Esthesioneuroblastoma - Under the care of oncology HX of Seizure - Seizure precaution - Continue home meds Parkinson - Continue Home Meds - Patient is up with assistance HTN - Continue home meds High Cholesterol - Continue home meds Hypothyroidism - Continue home meds Chronic back pain - Continue home meds Patient should be on mechanical and medicinal DVT prophylaxis and can be on a neutropenic diet PEPE MARTINI MD 02/20/19 1644: Past Nfqvutc-Zeaeaz-Elzdpc Hx Past Med/Social Hx: Reviewed Nursing Past Med/Soc Hx Assessment/Plan Admission Diagnosis Admission Status: Inpatient Order (span 2 midnights) Reason for Inpatient Admission: Will need filgrastim and monitor CBC for improvement in ANC. Await cultures. Will need 48 hours negative cultures prior to DC. Supervisory-Addendum Brief Verification & Attestation Participated in pt care: history, MDM, physical Personally performed: exam, history, MDM, supervision of care Care discussed with: Medical Student Procedures: n/a Results interpretation: Verified all documentation Verification and Attestation of Medical Student E/M Service A medical student performed and documented this service in my presence. I reviewed and verified all information documented by the medical student and made modifications to such information, when appropriate. I personally performed the physical exam and medical decision making. Pepe Martini, Feb 20, 2019,16:44 DIONNA ARAUJO [facility] Feb 19, 2019 10:59 PEPE REYES MD Feb 20, 2019 16:44 POS
[2019-02-19] MEDS: PANTOPRAZOLE 20 MG TABLET (PROTONIX) PO SCH (11:08)
[2019-02-19] MEDS: NS IV 1000 ML 1,000 ML IV SCH ×3 (12:53→15:26)
[2019-02-19] MEDS ORDERED: [UNRECOGNIZED DRUG - OTHER] PO SCH (13:00)
[2019-02-19] MEDS ORDERED: CARBIDOPA PO SCH (13:00)
[2019-02-19] MEDS ORDERED: LEVODOPA PO SCH (13:00)
[2019-02-19] MEDS: SINEMET CR 50/200 (CARBIDOPA/LEVODOPA SA) TAB PO SCH ×2 (13:11→21:21)
--- NOTE | 2019-02-19 15:09 | NUR ---
REPORT RECEIVED FROM CELESTE VARNER. ASSUMED CARE OF THE PATIENT AT THIS TIME.
--- NOTE | 2019-02-19 16:55 | NUR ---
PORT DOES NOT DRAW BLOOD. LAB CALLED TO DRAW VANC. TROUGH
[2019-02-19] MEDS ORDERED: TROUGH ORDER-PHARMACY XX NR (17:00)
[2019-02-19] MEDS ORDERED: VANCOMYCIN 1 GM/NS 250 ML IVPB IV SCH ×2 (18:00)
[2019-02-19] MEDS: TBO-FILGRASTIM 480 MCG/0.8 ML (GRANIX) SQ SCH (18:28)
--- NOTE | 2019-02-19 18:59 | NUR ---
VANCOMYCIN TROUGH = 8, CONTINUE CURRENT REGIMEN. VANCOMYCIN TROUGH ORDERED FOR 02/21/19 @ 17:00 IF TROUGH > 20 HOLD 02/21/19 18:00 DOSE
[2019-02-19] MEDS ORDERED: NON-FORMULARY MEDICATION 1 EA EA (Levetiracetam 500 MG) PO SCH (21:00)
[2019-02-19] MEDS: LEVETIRACETAM 500 MG (KEPPRA) TAB PO SCH (21:21)
--- NOTE | 2019-02-19 22:49 | CONSULTATION REPORT ---
DATE OF SERVICE: 02/19/2019 The patient is admitted to room 416. IMPRESSION: 1. A 78-year-old female admitted to the hospital with neutropenic fever. 2. History of recurrent esthesioneuroblastoma. The patient was started on combined chemotherapy and radiation 2 weeks ago using cisplatin and etoposide regimen. 3. Previous history of esthesioneuroblastoma diagnosed in early 2011, status post bifrontal craniotomy with gross resection of tumor followed by combined chemoradiation adjuvantly using weekly cisplatin regimen completed by 2011. RECOMMENDATIONS: 1. Continue broad spectrum antibiotic therapy and await cultures as well as sensitivity. 2. We will start the patient on G-CSF 480 mcg subcutaneously daily until the white blood cell count is more than 10,000. 3. Continue daily radiation therapy as scheduled for the recurrent esthesioneuroblastoma. 4. We will follow the patient with you. 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 She was started on combined chemotherapy and radiation using cisplatin and etoposide regimen two weeks ago and daily radiation therapy. The patient presented for radiation therapy on 02/18/2019 and was found to be lethargic with a fever of 102.6 degrees Fahrenheit. She had blood cultures, UA with culture as well as nasal swab for influenza done. Routine lab work was also done, which showed grade III neutropenia with absolute neutrophil count of 0.5. Her temperature continued to be elevated throughout her stay at the [facility] for evaluation and it was decided to admit her to the hospital for further management. She was admitted to the hospitalist service with an oncology consultation for concurrent care. PAST MEDICAL HISTORY: Significant for recurrent esthesioneuroblastoma diagnosed recently as mentioned in the history of present illness. The patient has been started on combined chemoradiation. She has previous history of esthesioneuroblastoma diagnosed in early 2011, requiring bifrontal craniotomy with gross maximum resection of tumor followed by adjuvant chemoradiation. Her other significant past history include hypertension and hypercholesterolemia. Hypothyroidism and chronic low back pain due to osteoarthritis. She underwent neuro stimulator placement in her back in mid 2018. PAST SURGICAL HISTORY: Tonsillectomy and adenoidectomy, cholecystectomy, hysterectomy, bifrontal craniotomy in 2011, resection of a basal cell carcinoma from base of the nose in 2018, nerve stimulator implanted in 2018. FAMILY HISTORY: Significant for coronary artery disease in both grandparents on the paternal side as well as hypertension. Both her parents had congestive heart failure. Father had diabetes mellitus type 2 and mother was diagnosed with chronic leukemia. Sister had hypertension. No other malignancies or major medical problems in the family that the patient knows of. SOCIAL HISTORY: The patient is and lives in [place], [place]. They retired. Children live in [place]. No history of tobacco, alcohol or other recreational drug use. PHYSICAL EXAMINATION: At the time of admission GENERAL: Showed an elderly female, lethargic, awake and answering questions briefly. VITAL SIGNS: Temperature prior to admission at the Cancer Center was 102.6 degree Fahrenheit, borderline tachycardia and blood pressure in the low normal range. Most recent set of vital signs in the hospital showed a temperature of 36.4 degrees Celsius, pulse rate of 74, respirations 22, blood pressure 129/62 with oxygen saturation of 95% on room air. HEENT: Normocephalic, extraocular muscles intact, slight swelling at the root of the nose consistent with known diagnosis of recurrent esthesioneuroblastoma with radiation markings. Oral mucosa was moist without lesions. NECK: Supple, with no JVD. No cervical, supraclavicular or axillary lymphadenopathy palpable. CHEST: Symmetrical. LUNGS: Fairly clear to auscultation without wheezes or rales. CARDIOVASCULAR: Regular in rate and rhythm. No murmurs or gallops heard. ABDOMEN: Soft, nontender with no hepatosplenomegaly or other masses palpable. EXTREMITIES: Showed no edema. NEUROLOGIC: Showed no focal motor deficits. LABORATORY DATA: I reviewed her lab work. CBC done on 02/18/2019 at 1426 hours showed WBC 2.4, hemoglobin 11.4, platelet count 206,000 with neutrophil count 0.5, lymphocyte count 1.2 and monocyte count 0.8. CBC done today morning after she was admitted to the hospital and started on G-CSF showed WBC 5.1, hemoglobin 11.0, platelet count 266,000 with neutrophil count 2.7 and lymphocyte count 1.4. Influenza screen done prior to admission was negative. Blood cultures are pending and is negative so far. Urinalysis done prior to admission showed nitrite positive, 2 to 5 WBCs per high power field and large amount of bacteria. Preliminary culture report showed mixed bacterial wilder with E. coli more than 100,000 colonies. Sensitivities pending. Chest x-ray done yesterday prior to admission showed no acute abnormalities. Thank you for allowing me to participate in this patient's care. I will follow the patient with you and make appropriate recommendations. Job ID: [id number] DocumentID: [id number] Dictated Date: 02/19/2019 17:24:14 Photo Technologist Date: 02/19/2019 22:49:16 Dictated By: RGEG ABAD MD MTDD
[2019-02-20] MEDS: PIPERACILLIN/TAZOBACTAM (BULK) 4.5 GM in NS (IVPB) 100 ML IV SCH ×2 (00:53→08:14)
[2019-02-20] MEDS: NS IV 1000 ML 1,000 ML IV SCH ×2 (00:54→08:14)
[2019-02-20 03:40] VITALS: BP 117/68
[2019-02-20] MEDS: inSUlin ASPART (NovoLOG) 1 UNIT/0.01 ML (CHARGE PER UNIT) SC SCH ×2 (05:13→11:00)
[2019-02-20 05:52] LABS: BASOPHILS # (AUTO) 0.1 10^3/uL (0.0-0.1); BASOPHILS % (AUTO) 0 % (0-10); EOSINOPHILS # (AUTO) 0.2 10^3/uL (0.0-0.3); EOSINOPHILS % (AUTO) 1 % (0-10); HEMATOCRIT 29 % (35-52); HEMOGLOBIN 9.8 G/DL (11.5-16.0); MEAN CORPUSCULAR HEMOGLOBIN 31 PG (25-34); MEAN CORPUSCULAR HGB CONC 33 G/DL (32-36); MEAN CORPUSCULAR VOLUME 94 FL (80-99); MEAN PLATELET VOLUME 10.1 FL (7.4-10.4); MONOCYTES # (AUTO) 2.4 X 10^3 (0.0-1.0); MONOCYTES % (AUTO) 11 % (0-12); PLATELET COUNT 332 10^3/uL (130-400); RED CELL DISTRIBUTION WIDTH 11.9 % (10.0-14.5)
[2019-02-20 06:17] LABS: CALCIUM 8.1 MG/DL (8.5-10.1); CREATININE SERUM 0.94 MG/DL (0.60-1.30); POTASSIUM 3.7 MMOL/L (3.6-5.0)
[2019-02-20 06:28] LABS: LYMPHOCYTES % (AUTO) 15 % (12-44); NEUTROPHILS % (AUTO) 73 % (42-75)
[2019-02-20 06:29] LABS: LYMPHOCYTES # (AUTO) 3.2 X 10^3 (1.0-4.0); NEUTROPHILS # (AUTO) 15.2 X 10^3 (1.8-7.8)
[2019-02-20] MEDS ORDERED: LEVOTHYROXINE 50 MCG (LEVOTHROID) TAB PO SCH (06:30)
[2019-02-20 08:00] VITALS: BP 117/71
[2019-02-20] MEDS: PANTOPRAZOLE 20 MG TABLET (PROTONIX) PO SCH (08:14)
[2019-02-20] MEDS: SINEMET CR 50/200 (CARBIDOPA/LEVODOPA SA) TAB PO SCH ×2 (08:15→12:53)
[2019-02-20] MEDS: LEVETIRACETAM 500 MG (KEPPRA) TAB PO SCH (08:15)
--- NOTE | 2019-02-20 08:35 | NUR ---
RADIATION TREATMENT # 6 OF 25 WAS DELIVERED TODAY AT 8:55 AM.
[2019-02-20] MEDS ORDERED: OMEPRAZOLE 20 MG (PriLOSEC) CAP NON-FORMULARY PO SCH (09:00)
[2019-02-20] MEDS ORDERED: SERTRALINE 50 MG (ZOLOFT) TABLET PO SCH (09:00)
[2019-02-20] MEDS ORDERED: lisINopril 5 MG (PRINIVIL) TABLET PO SCH (09:00)
[2019-02-20] MEDS ORDERED: eZETimibe 10 MG (ZETIA) TABLET PO SCH (09:00)
[2019-02-20] MEDS ORDERED: NON-FORMULARY MEDICATION 1 EA EA (Fenofibrate 160 MG) PO SCH (09:00)
--- NOTE | 2019-02-20 11:47 | Discharge Summary ---
DIONNA ARAUJO [facility] 02/20/19 1147: Diagnosis/Chief Complaint Date of Admission Feb 18, 2019 at 16:13 Date of Discharge Discharge Date: Feb 20, 2019 Discharge Time: 11:44 Admission Diagnosis Neutropenic Fever Anemia Leukopenia Recurrent Esthesioneuroblastoma Possible UTI HX of Seizure Parkinson HTN High Cholesterol Hypothyroidism Chronic Back pain Primary Care Sadie Brown MD Discharge Diagnosis Neutropenic Fever (1) Neutropenic fever Status: Acute (2) UTI (urinary tract infection) due to Enterococcus Status: Acute (3) Esthesioneuroblastoma Status: Chronic Discharge Summary Discharge Physical Exam Allergies: Coded Allergies: Sulfa (Sulfonamide Antibiotics) (Verified Allergy, Unknown, rash, 02/19/19) amitriptyline HCl (Verified Allergy, Unknown, 08/02/11) levofloxacin (Verified Allergy, Unknown, rash, 02/19/19) venom-honey bee (Verified Allergy, Unknown, 08/02/11) Vitals & I&Os Vital Signs Date Time Temp Pulse Resp B/P (MAP) Pulse Ox O2 Delivery O2 Flow Rate FiO2 02/20/19 08:00 94 Room Air 02/20/19 08:00 36.6 71 18 117/71 (86) General Appearance: No Apparent Distress, WD/WN HEENT: PERRL/EOMI, Normal ENT Inspection, Moist Mucous Membranes; No Photophobia Respiratory: Chest Non Tender, Lungs Clear, Normal Breath Sounds, No Accessory Muscle Use, No Respiratory Distress Cardiovascular: Regular Rate, Rhythm, No Edema, Normal Peripheral Pulses Gastrointestinal: Normal Bowel Sounds, Non Tender; No Distended, No Guarding Extremity: Normal Capillary Refill, No Calf Tenderness, No Pedal Edema Skin: Normal Color, Warm/Dry Neurologic/Psychiatric: Alert, Oriented x3, Normal Mood/Affect, patch finisher II-XII Norm as Tested Hospital Course Was the Problem List Reviewed?: Yes Nisa was admitted to [facility] on 02/17/19 and will be discharged today 02/18/19. She was admitted with Neutropenic Fever. While at [facility] she was under the care of Dr. Maritni Hospitalist. Dr. Little Oncologist was consulted. Patient has a PMH of Recurrent Esthesioneuroblastoma which she is receiving both chemo and radiation treatment for. While at [facility] she was found to have a fever, pertinent lab values where a WBC of 2.4 and Neutrophil count of .5. Chest X-ray showed no acute abnormalities, and a UA found a UTI present and cultures showed a Ecoli infection. Patient was negative for Influenza type A and B and both blood cultures and port culture came back negative. The patient was treated for her neutropenia with Filgrastim and her UTI was initially treated broadly until culture and sensitivity where resulted. The patients lab values improved with treatment to a WBC of 21 and a neutrophil count of 15.2.She no longer is having fevers, an no longer has stinging while urinating. Culture and sensitivity came back as E.Coli and patients antibiotics where changed to cephalexin due to sensitivity. The patient is being discharged today in a stable condition. The patient will continue her medication regimen outlined in the discharge papers. The patient is to follow up with her oncologist. The following information is only a summary of the patients admission while at [facility] and is not all inclusive. Please review entire chart for more information. Labs (last 24 hrs) Laboratory Tests 02/19/19 15:57: Glucometer 138H 02/19/19 17:05: Vancomycin Level Trough 8.7L 02/19/19 20:39: Glucometer 110 02/20/19 04:51: Glucometer 85 02/20/19 05:00: White Blood Count 21.0H, Red Blood Count 3.12L, Hemoglobin 9.8L, Hematocrit 29L, Mean Corpuscular Volume 94, Mean Corpuscular Hemoglobin 31, Mean Corpuscular Hemoglobin Concent 33, Red Cell Distribution Width 11.9, Platelet Count 332, Mean Platelet Volume 10.1, Neutrophils (%) (Auto) 73, Lymphocytes (%) (Auto) 15, Monocytes (%) (Auto) 11, Eosinophils (%) (Auto) 1, Basophils (%) (Auto) 0, Neutrophils # (Auto) 15.2H, Lymphocytes # (Auto) 3.2, Monocytes # (Auto) 2.4H, Eosinophils # (Auto) 0.2, Basophils # (Auto) 0.1, Sodium Level 140, Potassium Level 3.7, Chloride Level 110H, Carbon Dioxide Level 19L, Anion Gap 11, Blood Urea Nitrogen 8, Creatinine 0.94, Estimat Glomerular Filtration Rate 57, B UN/Creatinine Ratio 9, Glucose Level 71, Calcium Level 8.1L 02/20/19 12:16: Glucometer 81 Patient resulted labs reviewed. Pending Labs Laboratory Tests 02/20/19 12:16: Glucometer 81 Discussion & Recommendations Discharge Planning: >30 minutes discharge planning Discharge Home Medications: Active Scripts Active Cephalexin 500 Mg Tablet 500 Mg PO BID Reported Melatonin 5 Mg Capsule 5 Mg PO HS PRN Vitamin B-12 (Cyanocobalamin (Vitamin B-12)) 1,000 Mcg Tablet 1,000 Mcg PO DAILY Sertraline HCl 50 Mg Tablet 50 Mg PO DAILY Ezetimibe 10 Mg Tablet 10 Mg PO DAILY Omeprazole 20 Mg Capsule.dr 20 Mg PO DAILY Carbidopa-Levo ER 25-100 Tab (Carbidopa/Levodopa) 1 Each Tablet.er 1 Tab PO TID Ondansetron HCl 8 Mg Tablet 8 Mg PO Q8H PRN Levetiracetam 500 Mg Tablet 500 Mg PO BID Tramadol HCl 50 Mg Tablet 50 Mg PO Q6H PRN Niacin 1,000 Mg Tablet.er 1,000 Mg PO DAILY Levothyroxine Sodium 50 Mcg Tablet 50 Mcg PO DAILY Lisinopril 5 Mg Tablet 5 Mg PO DAILY Fenofibrate 160 Mg Tablet 160 Mg PO DAILY Garlic 1,000 Mg Capsule 1,000 Mg PO DAILY Multiple Vitamins (Multivitamin) 1 Each Tablet 1 Tab PO DAILY Instructions to patient/family Please see electronic discharge instructions given to patient. Clinical Quality Measures DVT/VTE Risk/Contraindication: Risk Factor Score Per Nursin RFS Level Per Nursing on Admit: 4+=Very High PEPE MARTINI MD 02/21/19 1127: Discharge Summary Discharge Physical Exam Allergies: Coded Allergies: Sulfa (Sulfonamide Antibiotics) (Verified Allergy, Unknown, rash, 02/19/19) amitriptyline HCl (Verified Allergy, Unknown, 08/02/11) levofloxacin (Verified Allergy, Unknown, rash, 02/19/19) venom-honey bee (Verified Allergy, Unknown, 08/02/11) Supervisory-Addendum Brief Verification & Attestation Participated in pt care: history, MDM, physical Personally performed: exam, history, MDM, supervision of care Care discussed with: Medical Student Procedures: n/a Results interpretation: Verified all documentation Verification and Attestation of Medical Student E/M Service A medical student performed and documented this service in my presence. I reviewed and verified all information documented by the medical student and made modifications to such information, when appropriate. I personally performed the physical exam and medical decision making. Pepe Martini, Feb 21, 2019,11:27 DIONNA ARAUJO [facility] Feb 20, 2019 11:47 PEPE REYES MD Feb 21, 2019 11:27 POS
[2019-02-20] MEDS ORDERED: CEPH500T PO (11:58)
--- NOTE | 2019-02-20 11:59 | Discharge Inst-Simple/Standard ---
Discharge Inst-Standard Discharge Medications New, Converted or Re-Newed RX: Transmitted to Pharmacy Patient Instructions/Follow Up Plan of Care/Instructions/FU: Please continue to take your medications as written. Please follow up with daily radiation and with Dr Pendleton on monday. Activity as Tolerated: Yes Discharge Diet: No Restrictions Return to The Hospital For: Fever, cough, confusion, chest pain, shortness of breath, if you feel you are getting worse. PEPE MORGAN MD Feb 20, 2019 11:59 POS
[2019-02-20 12:00] VITALS: BP 119/74
[2019-02-20 13:27] VITALS: BP 119/74
--- NOTE | 2019-02-20 14:25 | NUR ---
Pt discharge home in care of her . Pt anxious to go home. 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 [facility] and will check on her when she comes for her radiation treatment tomorrow.
[2019-02-20] MEDS ORDERED: CEPHALEXIN 250 MG (KEFLEX) CAP PO SCH (21:00)
[2019-02-20] MEDS ORDERED: FENOFIBRATE 134 MG (LOFIBRA) CAPSULE PO SCH (21:00)
[2019-02-21] MEDS ORDERED: VANCOMYCIN TROUGH XX NR (17:00)
--- OUTSIDE RECORDS SUMMARY | 2019-03-15 19:32 | XMS REPORT | Clinical Summary ---
Author Author [facility] Organization [facility] Address Unknown Phone Unavailable Care Team Providers Care Rigging Worker Name Role Phone PCP Unavailable Allergies Not on File Medications Not on file Active Problems Not on file Social History Date Tobacco Use Types Packs/Day Years Used Never Assessed Sex Assigned at Date Recorded Not on file Industry Job Start Date Occupation Not on file Not on file Not on file Travel End Travel History Travel Start No recent travel history available. Last Filed Vital Signs Not on file Plan of Treatment Not on file Results Not on filefrom Last 3 Months
--- OUTSIDE RECORDS SUMMARY | 2019-03-15 19:32 | XMS REPORT | Encounter Summary ---
Author Author [facility] Organization [facility] Address Unknown Phone Unavailable Care Team Providers Care Metal Forger'S Assistant Name Role Phone PCP Unavailable Encounter Details Care Team Description Date Type Department Vee Wen 07/26/2001 [facility] al Encounter [address] [place] [address] Social History Date Tobacco Use Types Packs/Day Years Used Never Assessed Sex Assigned at Date Recorded Not on file Industry Job Start Date Occupation Not on file Not on file Not on file Travel End Travel History Travel Start No recent travel history available. documented as of this encounter Plan of Treatment Not on filedocumented as of this encounter Procedures Comments Procedure Name Priority Date/Time Associated Diag nosis [place] CYTOLOGY Routine 07/25/2001 8:53 PM CDT documented in this encounter Results * Cytology (07/25/2001 8:53 PM CDT) Specimen Narrative Performed At Report [facility] Order Comments [id number] F 61 YRS SL G Y N C Y T O P A T H O L O G Y [id number] LABORATORY NO/ [id number] SOURCE Vaginal specimen [id number] ADEQUACY OF SPECIMEN Specimen is satisfactory for evaluation . Cytolysis is present. The endocervical component is absent due to prior hysterectomy. >>>>>CYTOLOGIC INTERPRETATION<<<<< Within normal limits. [id number] Screening/ L. Mamalis, CT(ASCP) Veri fying/ L. Mamalis, CT(ASCP) 07/31/01 (ELECTRONIC SIGNATURE) PATIENT HISTORY LMP POST [place] L ORAL CONTRACEPT HORMONE THERAPY PREV CYTOLOGY BRIDGE TENDER SURG/BX HYSTERECTOMY PT ID NUMBER COMMENTS SCREEN Performing Organization Address City/State/Zip[place] Ph one Number [facility] [address] [place], [place] [address] [place] documented in this encounter Visit Diagnoses Not on filedocumented in this encounter
--- OUTSIDE RECORDS SUMMARY | 2019-03-15 19:33 | XMS REPORT | Encounter Summary ---
Author Author [facility] Organization [facility] Address Unknown Phone Unavailable Care Team Providers Care Batch Records Clerk Name Role Phone Amrik Live MD Unavailable Rolando Colin MD Unavailable Tulio Boucher MD Unavailable Boone Westfall MD Unavailable Owen Navas MD Unavailable LawrenceJames castro MD Unavailable Saw Ames [facility] Unavailable Kwaku Grover MD Unavailable Cinthia Carmichael Unavailable Kadeem Robb MD Unavailable Rolando Weeks MD Unavailable Unavailable Kandy Petersen MD Unavailable Elvin Flores MD Unavailable Janes Conley MD Unavailable Unavailable Delfin Acevedo MD Unavailable Sadie Brown MD PCP Reason for Visit * Reason Comments Other imaging Encounter Details Care Team Description Date Type Department Amrik Live MD [address] Orth[facility] [address] [place] [address] [phone] Other (imaging) 12/24/2018 Telephone [facility] [address] [place] [phone] Social History Date Tobacco Use Types Packs/Day Years Used Never Smoker Smokeless Tobacco: Never Used Drinks/Week oz/Week Comments Alcohol Use 0 Standard drinks or equivalent 0.0 No Sex Assigned at Date Recorded Not on file Industry Job Start Date Occupation Not on file Not on file Not on file Travel End Travel History Travel Start No recent travel history available. documented as of this encounter Functional Status Date of Assessment Functional Status Response 10/05/2018 Does the patient have a hearing impairment: No 10/05/2018 Does the patient have a visual impairment: Yes 10/05/2018 Does the patient have impaired ambulation: No 10/05/2018 Does the patient have an activity of daily living No (ADL) impairment: 10/05/2018 Does the patient have an instrumental activity of No daily living (IADL) impairment: Date of Assessment Cognitive Status Response 10/05/2018 Does the patient have a cognitive impairment: No documented as of this encounter Miscellaneous Notes * Telephone Encounter - Sadie Lynn RN - 12/24/2018 10:48 AM CDT Left message for patient that Dr. Live has to do a peer to peer with the insur [employer] before patient's CT will be approved by [...] this encounter Additional Health Concerns Resolved Time Infection Noted Time MRSA 06/25/2012 8:29 AM CDT documented as of this encounter
--- OUTSIDE RECORDS SUMMARY | 2019-03-15 19:33 | XMS REPORT | Encounter Summary ---
Author Author [facility] Organization [facility] Address Unknown Phone Unavailable Care Team Providers Care Liaison Inspection Laboratory Assistant Name Role Phone Amrik Live MD Unavailable Rolando Colin MD Unavailable Tulio Boucher MD Unavailable Boone Westfall MD Unavailable Owen Navas MD Unavailable LawrenceJames castro MD Unavailable Saw Ames [facility] Unavailable Kwaku Grover MD Unavailable Cnithia Carmichael Unavailable Kadeem Robb MD Unavailable Rolando Weeks MD Unavailable Unavailable Kandy Petersen MD Unavailable Elvin Flores MD Unavailable Janes Conley MD Unavailable Unavailable Delfin Acevedo MD Unavailable Sadie Brown MD PCP Encounter Details Care Team Description Date Type Department Flaco Calles MD [address] [place] [address] Neuroendocrine carcinoma (HCC) (Primary Dx); Pre-op testing 01/15/2019 Orders Only [facility] [address] [place] [address] Social History Date Tobacco Use Types Packs/Day [...] impairment: No documented as of this encounter Plan of Treatment Order Schedule Name Type Priority Associated Diag noses Expected: 01/15/2019 (Approximate), Expi res: 01/16/2020 HAND MIN 3 VIEWS Imaging Routine Neuroendocrin e carcinoma BILATERAL (HCC) Expected: 01/15/2019 (Approximate), Expi res: 01/15/2020 US NONINVASIVE UPPER EXT Imaging Routine Neuro endocrine carcinoma PVR (HCC) Pre-op testing documented as of this encounter Visit Diagnoses Diagnosis 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
--- OUTSIDE RECORDS SUMMARY | 2019-03-15 19:33 | XMS REPORT | Encounter Summary ---
Author Author [facility] Organization [facility] Address Unknown Phone Unavailable Care Team Providers Care Waterworks Pump Station Operator Name Role Phone Amrik Live MD Unavailable Rolando Colin MD Unavailable Tulio Boucher MD Unavailable Bonoe Westfall MD Unavailable Owen Navas MD Unavailable James Montes MD Unavailable Saw Ames [facility] Unavailable Kwaku Grover MD Unavailable Cinthia Carmichael Unavailable Kadeem Robb MD Unavailable Rolando Weeks MD Unavailable Unavailable Kandy Petersen MD Unavailable Elvin Flores MD Unavailable Janes Conley MD Unavailable Unavailable Delfin Acevedo MD Unavailable Sadie Brown MD PCP Reason for Visit * Reason Comments Other Encounter Details Care Team Description Date Type Department James Montes MD [address] Orth[facility] [address] [place] [address] [phone] Other 01/21/2019 Telephone [facility] [address] [place] [phone] Social History Date Tobacco Use Types Packs/Day [...] James Montes MD - 01/22/2019 10:57 AM ADJUNCT PHILOSOPHY FACULTY I called patient regarding decision for treatment of her recurrent cancer. She has decided that she is not interested in surgical resection. She has met with her oncologist in [place], [place] and they have discussed chemotherapy options. [...] all that has been done for her. NCT PHILOSOPHY FACULTY * Telephone Encounter - Nan Hernandez - 01/21/2019 9:34 AM ADJUNCT PHILOSOPHY FACULTY Calling regarding surgery she doesn't want it NCT PHILOSOPHY FACULTY documented in this encounter Plan of Treatment Not on filedocumented as of this encounter Visit Diagnoses Not on filedocumented in this encounter Additional Health Concerns Resolved Time Infection Noted Time MRSA 06/25/2012 8:29 AM CDT documented as of this encounter
--- OUTSIDE RECORDS SUMMARY | 2019-03-15 19:33 | XMS REPORT | Encounter Summary ---
Author Author [facility] Organization [facility] Address Unknown Phone Unavailable Care Team Providers Care Asphalt Spreader Name Role Phone Mirta Valentino MD Unavailable Rolando Colin MD Unavailable Tulio Boucher MD Unavailable Boone Westfall MD Unavailable Owen Navas MD Unavailable LawrenceJames castro MD Unavailable Saw Ames [facility] Unavailable Kwaku Grover MD Unavailable Cinthia Carmichael Unavailable Kadeem Robb MD Unavailable Rolando Weeks MD Unavailable Unavailable Kandy Petersen MD Unavailable Elvin Flores MD Unavailable Janes Conley MD Unavailable Unavailable Delfin Acevedo MD Unavailable Sadie Brown MD PCP Reason for Referral * Radiology Services (Routine) Referred By Contact Referred To Contact Status Reason Specialty Diagnoses / Procedures Mirta Valentino MD [address] [facility] [address] [place] [address] [address] [place] [address] Closed Radiology 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 CT HEAD WO/W CONTRAST * Radiology Services (Routine) Referred By Contact Referred To Contact Status Reason Specialty Diagnoses / Procedures Mirta Valentino MD [address] [facility] [address] [place] [address] [place] [address] Closed Radiology 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 documented as of this encounter Last Filed Vital Signs Reading Time Taken Comments Vital Sign 143/77 12/19/2018 8:55 AM CDT Blood Pressure 69 12/19/2018 8:55 AM CDT Pulse - - Temperature - - Respiratory Rate - - Oxygen Saturation - - Inhaled Oxygen Concentration 71.2 kg (157 lb) 12/19/2018 8:55 AM CDT Weight 165.1 cm (5' 5") 12/19/2018 8:55 AM CDT Height 26.13 12/19/2018 8:55 AM CDT Body Mass Index documented in this encounter Functional Status Date [...] impairment: No documented as of this encounter Patient Instructions * Patient Instructions* Mirta Valentino MD - 12/19/2018 9:00 AM CDT [...] documented in this encounter Progress Notes * Mirta Valentino MD - 12/19/2018 9:00 AM CDT [...] (Dr Timmons) then local flap edil at [facility] (January,). Hearing is good, no tinnitus or vertigo. Good salivary function/ moist mucosa. N ormal swallowing. Recent spinal implant stimulator for chronic back pain recently [facility] [place], [place], says it's helping. DATE OF OPERATION:06/17/2011 SURGEON:Mirta Valentino MD: KNOCKER OFF(S):Roxanna Siegel M.D. 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 POSTOPERATIVE DIAGNOSIS:Same. OPERATIVE PROCEDURE: Transnasal/transfacial endoscopic approach to skull base tumor, poorly different iated neuroendocrine tumor. Transnasal /transfacial endoscopic resection of sk ull base tumor. Transnasal/transfacial endoscopic repair of skull base tumor d efect. Split-thickness skin graft. Abdominal fat harvest. [employer] image tracystievn gomez. ANESTHESIA:General. Blood Loss:Approximately 300 mL. Specimens [...] differential, but lower down. 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 Consider angio graphy at home [facility] [place] [place] or , discuss with PCP for local [...] to supine, Lumbar drain clamped. Respiratory failure ([facility]) 06/18/2011 Mechanically assisted ventilation 06/18/2011 SIRS (systemic inflammatory response syndrome) ([facility]) 06/18/2011 Pneumocephalus 06/18/2011 S/P craniotomy 06/18/2011 Transnasal/transfacial endoscopic approach to skull base tumor- poorly diff erentiated neuroendocrine tumor Transnasal/transfacial endoscopic resection of skull base tumor Transnasal/transfacial endoscopic repair of skull base tumor defect Transcranial orbitotomy for excision of orbital involvement of the sino-crani al tumor, left side. 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 female [...] 3-0 Vicryl interrupted for deep dermal sutures. [place] drain was placed and secured using a [...] Anesthesia. The patient was taken to the [facility] ro[facility] ICU in stable condition, still intubated. There were no complications . The counts were correct. Dr. Valentino was present for all portions of the proced ure dictated in this operative report. Medical History: Diagnosis Date Abnormal involuntary movement Arthritis Basal cell carcinoma Cancer (HCC) Cataract Convulsion (HCC) Dizziness Esthesioneuroblastoma (HCC) Frozen shoulder 1987 Generalized headaches High cholesterol Hypertension Hypothyroid Kidney disease NM, old 1979 Myocardial infarction (HCC) 1979 Never [...] FLAP performed by Delfin Acevedo MD at [facility] OR/Periop SKIN GRAFT Right 01/01/2016 CARTILAGE [...] No nystagmus with equal extraocular motion bilaterally; Neuro/Psych/[place] nce-Patient oriented and appropriate in interaction; Appropriate [...] time.06/07/2017- above problem site healed, but still baseball glove stuffer ior/inferior crusting blocking post nares - removed [...] to pathology today - Federico Villarreal, ext [id number] receiving specimens today (Betzy de la torre has examined previous pathology, ext [id number]) Assessment and Plan: 77year old female s/p [...] Name Type Priority Associated Diag noses Expected: 12/19/2018, Expires: 0 PATHOLOGY SURGICAL < 5 Pathology Routine Esthesi oneuroblastoma SPECIMENS (HCC) Olfactory esthesioneuroblastoma (HCC) documented as of this encounter Procedures Comments Procedure Name Priority Date/Time Associated Diag nosis HC LVL IV SRG PTH, GROSS 12/19/2018 & MICRO 2:35 PM CDT documented in this encounter Results * CT HEAD WO/W CONTRAST (01/03/2019 11:08 AM CDT) Specimen Impressions Performed At Head: [facility] Prior bifrontal craniotomy and craniali zation of the frontal sinuses with similar extra-axial and frontal sinus i ntermediate/high density opacification. No significant change in bifrontal pole encephalomalacia and gliosis. Maxillofacial: 1. Extensive prior sinonasal surgery and skull base/superior nasal mass resection with recurrent mass centered in the left nasal vault. There is superior extension to the base of the c rista emigdio and anterior extension to the left nasal and medial canthal soft tiss ues with associated osseous destruction as detailed. 2. Similar postsurgical/posttreatment soft tissue thickening in the left pterygomaxillary fissure/pterygopalatin e fossa. 3. Moderate likely benign right ethmo id and bilateral maxillary sinus mucosal thickening with multifocal chronic appe aring thinning/dehiscence of bilateral anterior maxillary sinus nagel. Approved by Florian Quijano MD on 01/04/20 19 1:53 PM By my electronic signature, I attest th at I have personally reviewed the images for this examination and formulated the interpretations and opinions expressed in this report Finalized by Richard Clark M.D. on 2:28 PM. Dictated by Florian Quijano MD on 01/03/2019 11:34 AM. Narrative Performed At EXAM: CT HEAD AND MAXILLOFACIAL [facility] HISTORY: , possible recurrent esthesion euroblastoma, TECHNIQUE: Multiple contiguous axial im ages were obtained of the brain and facial bones following the administrati on of Omnipaque 350 intravenous contrast. Pre-contrast axial images were obtained through the head. Comparison: Multiple prior CT and MRI c omparisons dating back to 05/27/2011, including the most recent MRI of September [address] head February 19, 2016 FINDINGS: Dr. Richard Clark M.D. has personally reviewed these images and formulated the interpretations and opinions expressed in this report. Head: Prior bifrontal craniotomy with cranial ization of the frontal sinuses. No significant change in the intermediate and hyperdense thickening in the cranialized frontal sinuses and along t he anterior paramedian frontal convexities. Unchanged encephalomalacia and gliosis in the frontal poles. Additional scattered patchy cerebral wh ite matter hypodensities are unchanged. Stable nondistended ventricles. The gra y-white matter interfaces are otherwise maintained. No abnormal intracranial en hancement. Maxillofacial: Extensive prior sinonasal and anterior skull base surgery with bilateral uncinectomies, maxillary antrostomies, ethmoidectomies and sphenoid sinusotomies. There is a new destructiv e enhancing mass centered in the left nasal vault with new osseous destructio n of the left nasal bone and frontal nasal sutures with extension to the for amen cecum and base of the sugey emigdio. There is soft tissue extension into the superficial left nasal tissues and medial canthal region. No definitive po st septal left orbital involvement is identified. The right mass margin produ nisha new rightward deviation of the nasal septum which is also thinned/deminerali zed superiorly. The lesion measures at least 2.9 x 2.2 x 3.3 cm (AP by TV by C C, series 6 image 81, series 701 image 27). Postsurgical and posttreatment rel ated sclerosis and multifocal bone loss involving the anterior ethmoid, left gr eater than right lamina papyracea, and bilateral fovea ethmoidalis, and spheno id sinus nagel is otherwise similar. Postsurgical low attenuation soft tissu e thickening at the left pterygomaxillary fissure and pterygopalatine fossa is no t significantly changed (series 6 image 61). Moderate mucosal thickening and se cretions in the right ethmoid sinuses and bilateral maxillary sinuses. Multi foca l thinning or absence of the anterior maxillary sinus nagel. Unchanged incide ntal likely benign scleral calcification in the superior right globe. Procedure Note Interface, Radiant Results - 01/03/2019 2:31 PM [...] surgery an d skull base/superior nasal mass resection with recurrent mass centered in the left nasal vault. There is superior extension to the base of the sugey emigdio and anterior extension to the left nasal and medial canthal soft tissues with associated osseous destruction as detailed. 2. Similar postsurgical/posttreatment s oft tissue thickening in the left pterygomaxillary fissure/pterygopalatine fossa. 3. Moderate likely benign right ethmoid and bilateral maxillary sinus mucosal thickening with multifocal chronic appearing thinning/dehiscence of bilateral [...] Performing Organization Address City/State/Zipcode Ph one Number [facility] * CT MAXIFACIAL/SINUS W CONTRAST (01/03/2019 11:08 AM CDT) Specimen Impressions Performed At Head: [facility] Prior bifrontal craniotomy and craniali zation of the frontal sinuses with similar extra-axial and frontal sinus i ntermediate/high density opacification. No significant change in bifrontal pole encephalomalacia and gliosis. Maxillofacial: 1. Extensive prior sinonasal surgery and skull base/superior nasal mass resection with recurrent mass centered in the left nasal vault. There is superior extension to the base of the c rista emigdio and anterior extension to the left nasal and medial canthal soft tiss ues with associated osseous destruction as detailed. 2. Similar postsurgical/posttreatment soft tissue thickening in the left pterygomaxillary fissure/pterygopalatin e fossa. 3. Moderate likely benign right ethmo id and bilateral maxillary sinus mucosal thickening with multifocal chronic appe aring thinning/dehiscence of bilateral anterior maxillary sinus nagel. Approved by Florian Quijano MD on 01/04/20 1:53 PM By my electronic signature, I attest th at I have personally reviewed the images for this examination and formulated the interpretations and opinions expressed in this report Finalized by Richard Clark M.D. on 2:28 PM. Dictated by Florian Quijano MD on 01/03/2019 11:34 AM. Narrative Performed At EXAM: CT HEAD AND MAXILLOFACIAL [facility] HISTORY: , possible recurrent esthesion euroblastoma, TECHNIQUE: Multiple contiguous axial im ages were obtained of the brain and facial bones following the administrati on of Omnipaque 350 intravenous contrast. Pre-contrast axial images were obtained through the head. Comparison: Multiple prior CT and MRI c omparisons dating back to 05/27/2011, including the most recent MRI of September [address] head February 19, 2016 FINDINGS: Dr. Richard Clark M.D. has personally reviewed these images and formulated the interpretations and opinions expressed in this report. Head: Prior bifrontal craniotomy with cranial ization of the frontal sinuses. No significant change in the intermediate and hyperdense thickening in the cranialized frontal sinuses and along t he anterior paramedian frontal convexities. Unchanged encephalomalacia and gliosis in the frontal poles. Additional scattered patchy cerebral wh ite matter hypodensities are unchanged. Stable nondistended ventricles. The gra y-white matter interfaces are otherwise maintained. No abnormal intracranial en hancement. Maxillofacial: Extensive prior sinonasal and anterior skull base surgery with bilateral uncinectomies, maxillary antrostomies, ethmoidectomies and sphenoid sinusotomies. There is a new destructiv e enhancing mass centered in the left nasal vault with new osseous destructio n of the left nasal bone and frontal nasal sutures with extension to the for amen cecum and base of the sugey emigdio. There is soft tissue extension into the superficial left nasal tissues and medial canthal region. No definitive po st septal left orbital involvement is identified. The right mass margin produ nisha new rightward deviation of the nasal septum which is also thinned/deminerali zed superiorly. The lesion measures at least 2.9 x 2.2 x 3.3 cm (AP by TV by C C, series 6 image 81, series 701 image 27). Postsurgical and posttreatment rel ated sclerosis and multifocal bone loss involving the anterior ethmoid, left gr eater than right lamina papyracea, and bilateral fovea ethmoidalis, and spheno id sinus nagel is otherwise similar. Postsurgical low attenuation soft tissu e thickening at the left pterygomaxillary fissure and pterygopalatine fossa is no t significantly changed (series 6 image 61). Moderate mucosal thickening and se cretions in the right ethmoid sinuses and bilateral maxillary sinuses. Multi foca l thinning or absence of the anterior maxillary sinus nagel. Unchanged incide ntal likely benign scleral calcification in the superior right globe. Procedure Note Interface, Radiant Results - 01/03/2019 2:31 PM [...] surgery an d skull base/superior nasal mass resection with recurrent mass centered in the left nasal vault. There is superior extension to the base of the sugey emigdio and anterior extension to the left nasal and medial canthal soft tissues with associated osseous destruction as detailed. 2. Similar postsurgical/posttreatment s oft tissue thickening in the left pterygomaxillary fissure/pterygopalatine fossa. 3. Moderate likely benign right ethmoid and bilateral maxillary sinus mucosal thickening with multifocal chronic appearing thinning/dehiscence of bilateral anterior maxillary sinus naegl. Approved by Florian Quijano MD on 01/03/2019 1:53 PM By my electronic signature, I attest that I have personally reviewed the images for this examination and formulated the interpretations and opinions expressed in this report Finalized by Richard Clark M.D. on 01/03/2019 2:28 PM. Dictated by Florian Quijano MD on 01/03/2019 11:34 AM. Performing Organization Address City/State/Zipcode Ph one Number [facility] * SURGICAL PATHOLOGY (12/19/2018 2:35 PM CDT) PATHOLOGY [email or web address] Department of Pathology and Laboratory Medicine [address] [place] [address] Surgical Pathology Office: [phone] SURGICAL PATHOLOGY REPORT NAME: NISA GREENWOOD KARISHMA SURG PATH #: [id number] MR #: [id number] SPECIMEN CLASS: SR BILLING #: [id number] ALT ID #: LOCATION: [facility] DATE OF PROCEDURE: 12/19/2018 AGE: 78 SEX: F DATE RECEIVED: 12/19/2018 : 1940 TIME RECEIVED: 14:35 PHYSICIAN: MIRTA VALENTINO MD DATE OF REPORT: 12/21/2018 COPY TO: DATE OF PRINTIN12/21/2018 ############################## ############################## ############ Final Diagnosis: A. Soft tissue, left superior nasal cavity/skull base mass, biopsy: Poorly differentiated neuroendocrine tumor (see comment). Comment: Preliminary results were relayed to Dr. Valentino on December 20, 2018 at 8:58 AM via email. The patient's previous nasal mass ([id number]) and left nasal/skull base tumor ([id number]) were concurrently reviewed and the tumors are morphologically similar. [...] In situ hybridization for EBV is negative. Pursuant to the Biosecurity Officer Program at the [facility] Pathology Department, selected slides from this case have been concurrently reviewed by the following pathologist: Dr. Betzy Bell who agrees with the final diagnosis. Attestation: By this signature, I attest that I have personally formulated the final interpretation expressed in this report and that the above diagnosis is based upon my examination of the slides and/or other material indicated in this report. 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 Received in formalin, labeled with the patient's name and "left superior nasal cavity/skull base mass" is a 1.0 x 0.6 x 0.5 cm aggregate of firm pink-mejia soft tissue fragments. The specimen is filtered and entirely submitted in cassettes A1-A2. (tn) mejia/12/19/2018 If immunohistochemical stains and/or in situ hybridization are cited in this report, the performance characteristics were determined by the Department of Pathology and Laboratory Medicine of the [facility] ([facility] [facility]) in compliance with CLIA'88 regulations. Some of these tests rely on the use of "analyte specific reagents" and are subject to specific labeling requirements by the FDA. Known positive and negative control tissues demonstrate appropriate staining. Results should be interpreted with caution given the likelihood of false negativity on decalcified specimens. This testing was developed by the Department of Pathology and Laboratory Medicine of the [facility]. It has not been cleared or approved by the FDA. The FDA has determined that such clearance or approval is not necessary. 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
--- OUTSIDE RECORDS SUMMARY | 2019-03-15 19:33 | XMS REPORT | Encounter Summary ---
Author Author [facility] Organization [facility] Address Unknown Phone Unavailable Care Team Providers Care Lock Tender Chief Operator Name Role Phone Amrik Live MD Unavailable Rolando Colin MD Unavailable Tulio Boucher MD Unavailable Boone Westfall MD Unavailable Owen Navas MD Unavailable James Montes MD Unavailable Saw Ames [facility] Unavailable Kwaku Grover MD Unavailable Cinthia Carmichael Unavailable Kadeem Robb MD Unavailable Rolando Weeks MD Unavailable Unavailable Kandy Petersen MD Unavailable Elvin Flores MD Unavailable Janes Conley MD Unavailable Unavailable Delfin Acevedo MD Unavailable Sadie Brown MD PCP Reason for Visit * Reason Comments Follow-up Phone Call Encounter Details Care Team Description Date Type Department James Montes MD [address] [facility] [address] [place] [address] [phone] Follow-up Phone Call 01/03/2019 Telephone [facility] [address] [place] [address] Social History Date Tobacco Use [...] chronic pain. [place] at [place] Called medical records there who obtained [...]
--- OUTSIDE RECORDS SUMMARY | 2019-03-15 19:33 | XMS REPORT | Encounter Summary ---
Author Author [facility] Organization [facility] Address Unknown Phone Unavailable Care Team Providers Care Barrel Coater Name Role Phone Amrik Live MD Unavailable Rolando Colin MD Unavailable Tulio Boucher MD Unavailable Boone Westfall MD Unavailable Owen Navas MD Unavailable James Montes MD Unavailable Saw Ames [facility] Unavailable Kwaku Grover MD Unavailable Cinthia Carmichael Unavailable Kadeem Robb MD Unavailable Rolando Weeks MD Unavailable Unavailable Kandy Petersen MD Unavailable Elvin Flores MD Unavailable Janes Conley MD Unavailable Unavailable Delfin Acevedo MD Unavailable Sadie Brown MD PCP Reason for Visit * Reason Comments Other Encounter Details Care Team Description Date Type Department James Montes MD [address] [facility] [address] [place] [address] [phone] Other 12/24/2018 Telephone [facility] [address] [place] [phone] Social History Date Tobacco Use Types Packs/Day [...]
--- OUTSIDE RECORDS SUMMARY | 2019-03-15 19:33 | XMS REPORT | Encounter Summary ---
Author Author [facility] Organization [facility] Address Unknown Phone Unavailable Care Team Providers Care Assistant Branch Operations Manager Name Role Phone Amrik Live MD Unavailable Rolando Colin MD Unavailable Tulio Boucher MD Unavailable Boone Westfall MD Unavailable Owen Navas MD Unavailable LawrenceJames castro MD Unavailable Saw Ames [facility] Unavailable Kwaku Grover MD Unavailable Cinthia Carmichael Unavailable Kadeem Robb MD Unavailable Rolando Weeks MD Unavailable Unavailable Kandy Petersen MD Unavailable Elvin Flores MD Unavailable Janes Conley MD Unavailable Unavailable Delfin Acevedo MD Unavailable Sadie Brown MD PCP Reason for Visit * Reason Comments Results Encounter Details Care Team Description Date Type Department Amrik Live MD [address] [facility] [address] [place] [address] [phone] Results 12/31/2018 Telephone [facility] [address] [place] [phone] Social History Date Tobacco Use Types Packs/Day [...] Voices understanding. * Telephone Encounter - Nan Hernandez - 12/31/2018 1:27 PM CDT Pt wanting [...]
--- OUTSIDE RECORDS SUMMARY | 2019-03-15 19:33 | XMS REPORT | Encounter Summary ---
Author Author [facility] Organization [facility] Address Unknown Phone Unavailable Care Team Providers Care Furnace Puncher Name Role Phone Amrik Live MD Unavailable Rolando Colin MD Unavailable Tulio Boucher MD Unavailable Boone Westfall MD Unavailable Owen Navas MD Unavailable James Montes MD Unavailable Saw Ames [facility] Unavailable Kwaku Grover MD Unavailable Cinthia Carmichael Unavailable Kadeem Robb MD Unavailable Rolando Weeks MD Unavailable Unavailable Kandy Petersen MD Unavailable Elvin Flores MD Unavailable Janes Conley MD Unavailable Unavailable Delfin Acevedo MD Unavailable Sadie Brown MD PCP Reason for Referral * Radiology Services (Routine) Referred By Contact Referred To Contact Status Reason Specialty Diagnoses / Procedures James Montes MD [address] [facility] [address] [place] [address], [place] [address] [facility] Nuclear Med [address] [place] [address] Closed Radiology Diagnoses 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 NM PET SCAN TORSO (SKULL-THIGHS) * Radiology Services (Routine) Referred By Contact Referred To Contact Status Reason Specialty Diagnoses / Procedures James Montes MD [address] [facility] Lvl [address] [place] [address] [address] [place] [address] Closed Radiology Diagnoses 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 MRI ORBIT FACE AND/OR NECK WO/W CONT Encounter Details Care Team Description Date Type Department James Montes MD [address] [facility] [address] [place] [address] Malignant poorly differentiated neuroend ocrine tumors (HCC) (Primary Dx) 01/03/2019 Orders Only [facility] [address] [place] [address] Social History Date Tobacco Use [...] Name Type Priority Associated Diag noses Expected: 01/03/2019 (Approximate), Expi res: 01/04/2020 MRI ORBIT FACE AND/OR Imaging Routine Malignan t poorly NECK WO/W CONT differentiated neuroendocrine tumors (HCC) documented as of this encounter Results * NM PET SCAN TORSO (SKULL-THIGHS) (01/11/2019 12:59 PM CDT) Specimen Impressions Performed At Markedly hypermetabolic mass centered w ithin the left nasal vault extending into [facility] the overlying soft tissues consistent w ith biopsy-proven tumor recurrence. No PET/CT evidence of metastatic disease. See recent maxillofacial CT for additio nal pertinent findings. By my electronic signature, I attest th at I have personally reviewed the images for this examination and formulated the interpretations and opinions expressed in this report Finalized by Maykel Ramirez M.D. on 1:30 PM. Dictated by Ozzy Kelly M.D. on 01/11/2019 1:00 PM. Narrative Performed At [place] PET SCAN TORSO (SKULL-THIGHS) [facility] Radiopharmaceutical: 15.1 mCi F-18 Fl uorodeoxyglucose (FDG) IV. Clinical Indication: 78-year-old fema le, malignant poorly differentiated neuroendocrine tumor Technique: Beginning approximately 66 m inutes after tracer administration, routine whole body PET/CT imaging was p erformed from the skull to proximal thighs. PET images were reviewed in sta ndard orthogonal projections. Low dose non-contrast CT imaging was performed f or attenuation correction and localization purposes. The current mean hepatic SUV (reported for software quality test engineer purposes) is 2.8. Blood glucose level (at the time of rad iopharmaceutical administration): 81 mg/dL Comparison: CT head/maxillofacial Octob er 2018, CT abdomen/pelvis April 23, 2015, MRI head October 11, 2017 FINDINGS: Head/Neck: Prior extensive sinonasal durham rgery and skull base/superior nasal mass resection with redemonstration of a mas s centered in the left nasal vault which demonstrates increased FDG uptake with a maximum SUV of 49.5 (CT image 17 index 314). Associated osseous destruction is better demonstrated on recent CT maxillofacial. Chest: No suspicious hypermetabolic les ion(s). Abdomen/Pelvis: No suspicious hypermeta bolic lesion(s). Osseous Structures: See above for discu ssion of skull base findings. Otherwise no suspicious hypermetabolic lesion(s). Additional CT findings: Mitral annular calcification. Calcified granuloma in the right middle lobe. Mild emphysema with scattered areas of scarring. Small nodule along the right major fissure (CT image 70) which is too small to characterize by PET. Prior cholecystectomy. Mild dis megha, diverticulosis. Prior hysterectomy. Spinal stimulator device in the subcuta neous soft tissues of the left flank with leads terminating in the central spinal canal at the T7 level with mild associated FDG uptake. Procedure Note Interface, Radiant Results - 01/11/2019 1:33 PM [...] mean hepatic SUV (reported for software quality test engineer purposes) is 2.8. Blood glucose level (at [...] City/State/Zipcode Ph one Number [facility] documented in this encounter Visit Diagnoses Diagnosis Malignant poorly differentiated neuroen docrine tumors (HCC) - Primary Malignant poorly differentiated neuroen docrine carcinoma, any site documented in this encounter Additional Health Concerns Resolved Time Infection Noted Time MRSA 06/25/2012 8:29 AM CDT documented as of this encounter
--- OUTSIDE RECORDS SUMMARY | 2019-03-15 19:33 | XMS REPORT | Encounter Summary ---
Author Author [facility] Organization [facility] Address Unknown Phone Unavailable Care Team Providers Care Kaiawhina Kura [place]apa Maori Name Role Phone Amrik Live MD Unavailable Rolando Colin MD Unavailable Tulio Boucher MD Unavailable Boone Westfall MD Unavailable Owen Navas MD Unavailable LawrenceJames castro MD Unavailable Saw Ames [facility] Unavailable Kwaku Grover MD Unavailable Cinthia Carmichael Unavailable Kadeem Robb MD Unavailable Rolando Weeks MD Unavailable Unavailable Kandy Petersen MD Unavailable Elvin Flores MD Unavailable Janes Conley MD Unavailable Unavailable Delfin Acevedo MD Unavailable Sadie Brown MD PCP Reason for Visit * Reason Comments Follow-up Phone Call Encounter Details Care Team Description Date Type Department Flaco Calles MD [address] [place], [place] [id number] Follow-up Phone Call 01/15/2019 Telephone [facility] [id number] [place] [address] [address] [place] [address] Social History Date Tobacco Use Types Packs/Day [...] out to their office to let them ahsan w. Patient said she would call back [...]
--- OUTSIDE RECORDS SUMMARY | 2019-03-15 19:33 | XMS REPORT | Encounter Summary ---
Author Author [facility] Organization [facility] Address Unknown Phone Unavailable Care Team Providers Care Sales Management Intern Name Role Phone Amrik Live MD Unavailable Rolando Colin MD Unavailable Tulio Boucher MD Unavailable Boone Westfall MD Unavailable Owen Navas MD Unavailable James Montes MD Unavailable Saw Ames [facility] Unavailable Kwaku Grover MD Unavailable Cinthia Carmichael Unavailable Kadeem Robb MD Unavailable Rolando Weeks MD Unavailable Unavailable Kandy Petersen MD Unavailable Elvin Flores MD Unavailable Janes Conley MD Unavailable Unavailable Delfin Acevedo MD Unavailable Sadie Brown MD PCP Reason for Visit * Reason Comments Other Encounter Details Care Team Description Date Type Department James Montes MD [address] [facility] [address] [place] [address] [phone] Other 01/18/2019 Telephone [facility] [address] [place] [phone] Social History Date Tobacco Use Types Packs/Day [...]
--- OUTSIDE RECORDS SUMMARY | 2019-03-15 19:33 | XMS REPORT | Encounter Summary ---
Author Author [facility] Organization [facility] Address Unknown Phone Unavailable Care Team Providers Care Extras Casting Director Name Role Phone Amrik Live MD Unavailable Rolando Colin MD Unavailable Tulio Boucher MD Unavailable Boone Westfall MD Unavailable Owen Navas MD Unavailable LawrenceJames castro MD Unavailable Saw Ames [facility] Unavailable Kwaku Grover MD Unavailable Cinthia Carmichael Unavailable Kadeem Robb MD Unavailable Rolando Weeks MD Unavailable Unavailable Kandy Petersen MD Unavailable Elvin Flores MD Unavailable Janes Conley MD Unavailable Unavailable Delfin Acevedo MD Unavailable Sadie Brown MD PCP Reason for Referral * Radiology Services (Routine) Referred By Contact Referred To Contact Status Reason Specialty Diagnoses / Procedures Amrik Live MD [address] [facility] Pavilion [address] [place] [address] [address] [place] [address] Closed Radiology 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 CT HEAD WO/W CONTRAST * Radiology Services (Routine) Referred By Contact Referred To Contact Status Reason Specialty Diagnoses / Procedures Amrik Live MD [address] [facility] [address] [place] [address] [place] [address] Closed Radiology 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 CT MAXIFACIAL/SINUS W CONTRAST Reason for Visit * Radiology Services (Routine) Referred By Contact Referred To Contact Status Reason Specialty Diagnoses / Procedures Amrik Live MD [address] [facility] [address] [place] [address] [place] [address] Closed Radiology 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 CT HEAD WO/W CONTRAST Encounter Details Care Team Description Date Type Department Amrik Live MD [address] [facility] [address] [place] [address] [phone] 01/03/2019 [facility] [address] [place] [address] Social History Date Tobacco Use Types Packs/Day [...] impairment: No documented as of this encounter Medications at Time of Discharge Start Date End Date Medication Sig Dispensed Refills 06/27/2011 artificial Apply 1 Drop 0 tears/hypromellose to both eyes (ISOPTO TEARS) 0.5 % four times ophthalmic solution daily. 10/05/2018 carbidopa/levodopa CR Take one 90 tablet 5 (SINEMET CR) 25/100 mg tablet by tabletIndications: mouth three parkinsonism times daily. Indications: parkinson symptoms cyanocobalamin 1,000 mcg Take 1,000 0 tablet mcg by mouth daily after lunch. 10/17/2016 dexamethasone (DECADRON) INSERT 2 40 mL 1 0.1 % ophthalmic solution DROPS INTO EACH NOSTRIL THREE TIMES A DAY. TAKE 1 WEEK OFF EVERY MONTH ezetimibe (ZETIA) 10 mg Take 10 mg by 0 tablet mouth daily. fenofibrate(+) (TRIGLIDE) Take 160 mg 0 160 mg tablet by mouth daily after lunch. Garlic 1,000 mg cap Take 1 Cap by 0 mouth daily. 11/15/2018 levETIRAcetam (KEPPRA) Take one 180 tablet 3 500 mg tablet tablet by mouth twice daily. levothyroxine (SYNTHROID) Take 50 mcg 0 50 mcg tablet by mouth daily 30 minutes before breakfast. lisinopril (ZESTRIL) 5 mg Take 5 mg by 0 tablet mouth daily after lunch. Melatonin 5 mg cap Take 5 mg by 0 mouth as Needed. omeprazole (PRILOSEC PO) Take 20 mg by 0 mouth daily. Take one brand name tab in the AM and one generic brand in the PM 05/09/2018 sertraline (ZOLOFT) 50 mg Take 50 mg by 0 tablet mouth daily. traMADol (ULTRAM) 50 mg Take 50 mg by 0 tablet mouth every 6 hours as needed for Pain. vitamins, multiple cap Take 1 Cap by 0 mouth daily after lunch. 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 Unchanged incide ntal likely benign scleral calcification [...] hypodensities are unchanged. Stable nondistended ventricles. The hcristopher-white matter interfaces are otherwise maintained. 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
--- OUTSIDE RECORDS SUMMARY | 2019-03-15 19:33 | XMS REPORT | Encounter Summary ---
Author Author [facility] Organization [facility] Address Unknown Phone Unavailable Care Team Providers Care Executive Chairman Name Role Phone Amrik Live MD Unavailable Rolando Colin MD Unavailable Tulio Boucher MD Unavailable Boone Westfall MD Unavailable Owen Navas MD Unavailable James Montes MD Unavailable Saw Ames [facility] Unavailable Kwaku Grover MD Unavailable Cinthia Carmichael Unavailable Kadeem Robb MD Unavailable Rolando Weeks MD Unavailable Unavailable Kandy Petersen MD Unavailable Elvin Flores MD Unavailable Janes Conley MD Unavailable Unavailable Delfin Acevedo MD Unavailable Sadie Brown MD PCP Reason for Referral * Consult, Test & Treat (Routine) Referred By Contact Referred To Contact Status Reason Specialty Diagnoses / Procedures James Montes MD [address] Orth[facility] Pavilion [address] [place] [address] Flaco Calles MD [address] [place] [address] No Auth Needed Specialty Services Plastic Surgery Diagnoses Required Neuroendocrine carcinoma (HCC) * Consult, Test & Treat (Routine) Referred By Contact Referred To Contact Status Reason Specialty Diagnoses / Procedures James Montes MD [address] [facility] [address] [place] [address] Rolando Colin MD [address] [facility] [address] [place] [address] New Request Specialty Services Neurosurgery Diagnoses Required Neuroendocrine carcinoma (HCC) Reason for Visit * Reason Comments Other Poss Recurrent esthesioneur oblastoma Encounter Details Care Team Description Date Type Department James Montes MD [address] [facility] [address] [place] [address] [phone] Neuroendocrine carcinoma (HCC) (Primary Dx) 01/03/2019 Office Visit The [address] [address] Social History Date Tobacco Use Types Packs/Day [...] Signs Reading Time Taken Comments Vital Sign 125/60 01/03/2019 2:18 PM CDT Blood Pressure 78 01/03/2019 2:18 PM CDT Pulse - - Temperature - - Respiratory Rate - - Oxygen Saturation - - Inhaled Oxygen Concentration 71.2 kg (157 lb) 01/03/2019 2:18 PM CDT Weight 165.1 cm (5' 5") 01/03/2019 2:18 PM CDT Height 26.13 01/03/2019 2:18 PM CDT Body Mass Index documented in this [...] impairment: No documented as of this encounter Progress Notes [...] which did not reduce and began enlarging. Zaire sanchez saw Dr. Live on 12/19/18 who noted 2 cm subcutaneous mass measuring about 2 c m at nasal root at frontal bone. Dr. Live biopsied mass in-office, positive fo r poorly differentiated neuroendocrine tumor. She has not seen Dr. Escobedo, onco logist in [place] yet. 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 Acevedo in Jan 2016. She had recently had a spi nal implant stimulator for chronic back pain at [facility] in [place], [place]. Zaire sanchez does not have any cardiac or pulmonary issues. Reports heart disease runs in [facility]. She has had echocardiogram about 1 year ago in [facility] with Dr. Hairston . Review of Systems Constitutional: Negative. HENT: [...] via email. 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 Sh e would likely need 1 week hospitalization and [...] discuss her overall health with PCP and machine binder stripper. I will order an MRI to evaluate [...] Schedule Name Type Priority Associated Diag noses Ordered: 01/03/2019 AMB REFERRAL TO Outpatient Routine Neuroendocrine carcinoma NEUROSURGERY Referral (HCC) Ordered: 01/03/2019 AMB REFERRAL TO PLASTIC Outpatient Routine Neuroe ndocrine carcinoma SURGERY Referral (HCC) documented as of this encounter Visit Diagnoses Diagnosis Neuroendocrine carcinoma (HCC) - Primar y Malignant carcinoid tumor of unknown pr imary site documented in this encounter Additional Health Concerns Resolved Time Infection Noted Time MRSA 06/25/2012 8:29 AM CDT documented as of this encounter
--- OUTSIDE RECORDS SUMMARY | 2019-03-15 19:33 | XMS REPORT | Encounter Summary ---
Author Author [facility] Organization [facility] Address Unknown Phone Unavailable Care Team Providers Care Nail Assembly Machine Operator Name Role Phone Amrik Live MD Unavailable Rolando Colin MD Unavailable Tulio Boucher MD Unavailable Boone Westfall MD Unavailable Owen Navas MD Unavailable LawrenceJames castro MD Unavailable Saw Ames [facility] Unavailable Kwaku Grover MD Unavailable Cinthia Carmichael Unavailable Kadeem Robb MD Unavailable Rolando Weeks MD Unavailable Unavailable Kandy Petersen MD Unavailable Elvin Flores MD Unavailable Janes Conley MD Unavailable Unavailable Delfin Acevedo MD Unavailable Sadie Brown MD PCP Reason for Visit * Reason Comments Seizure Encounter Details Care Team Description Date Type Department Yvonne Jeffers MD [address] [place] [address] Parkinson disease (HCC); Seizure (HCC) 01/25/2019 Office Visit [facility] [address] [place] [phone] Social History Date Tobacco Use Types Packs/Day [...] Signs Reading Time Taken Comments Vital Sign 108/61 01/25/2019 11:42 AM MARKING ROOM SUPERVISOR Blood Pressure 70 01/25/2019 11:42 AM MARKING ROOM SUPERVISOR Pulse - - Temperature 14 01/25/2019 11:42 AM MARKING ROOM SUPERVISOR Respiratory Rate - - Oxygen Saturation - - Inhaled Oxygen Concentration 70.5 kg (155 lb 6.4 oz) 01/25/2019 11:42 AM MARKING ROOM SUPERVISOR Weight 165.1 cm (5' 5") 01/25/2019 11:42 AM MARKING ROOM SUPERVISOR Height 25.86 01/25/2019 11:42 AM MARKING ROOM SUPERVISOR Body Mass Index documented in this encounter [...] Yvonne Jeffers MD - 01/25/2019 11:30 AM MARKING ROOM SUPERVISOR Continue Sinemet 25/100 mg three times a [...] call clinic with any questions or concerns. ING ROOM SUPERVISOR documented in this encounter Progress Notes * Hai Henson MD - 01/25/2019 11:30 AM MARKING ROOM SUPERVISOR I have personally interviewed and examined Nisa Greenwood and reviewed the h istory, examination, impression, and plan of care as outlined by Dr.Aissata Evelyn hull MD. I personally participated in patient counseling and coordination of c are. I agree with the assessment and plan as documented by Dr. Yvonne Jeffers MD. ING ROOM SUPERVISOR * Yvonne Jeffers MD - 01/25/2019 11:30 AM MARKING ROOM SUPERVISOR Date of Service: 01/25/2019 Subjective: Nisa Greenwood is a 78 y.o. female. History of Present Illness Ms. 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 Yvonne Jeffers MD Neurology PGY-3 Pager [phone] ING ROOM SUPERVISOR documented in this encounter Miscellaneous Notes * Addendum Note - Hai Henson MD - 01/25/2019 11:30 AM MARKING ROOM SUPERVISOR Addended by: PILAR HENSON on: 01/28/2019 04:07 PM Modules accepted: Level of Service ING ROOM SUPERVISOR documented in this encounter Plan of Treatment Not on filedocumented as of this encounter Visit Diagnoses Diagnosis Parkinson disease (HCC) Paralysis agitans Seizure (HCC) Other convulsions * Assessment & Plan Note - Yvonne Jeffers MD - 01/25/2019 6:38 PM MARKING ROOM SUPERVISOR Associated Problem(s): Seizure (HCC) She continues to [...] to have another seizure, for 6 months. ING ROOM SUPERVISOR * Assessment & Plan Note - Yvonne Jeffers MD - 01/25/2019 6:36 PM MARKING ROOM SUPERVISOR Associated Problem(s): Parkinson disease (HCC) Tremors have improved with Sinemet CR 25/100 mg TID. Pt reported doing better an d tolerating medication well. Plan: Continue Sinemet CR 25/100 mg TID Fall precautions ING ROOM SUPERVISOR documented in this encounter Additional Health Concerns Resolved Time Infection Noted Time MRSA 06/25/2012 8:29 AM CDT documented as of this encounter
--- OUTSIDE RECORDS SUMMARY | 2019-03-15 19:33 | XMS REPORT | Clinical Summary ---
Author Author [facility] Organization [facility] Address Unknown Phone Unavailable Care Team Providers Care Telecommunication Operator Name Role Phone Mirta Valentino MD Unavailable Rolando Colin MD Unavailable Tulio Boucher MD Unavailable Boone Westfall MD Unavailable Owen Navas MD Unavailable LawrenceJames castro MD Unavailable [facility] Unavailable Kwaku Grover MD Unavailable Cinthia Carmichael Unavailable Kadeem Robb MD Unavailable Rolando Weeks MD Unavailable Unavailable Kandy Petersen MD Unavailable Elvin Flores MD Unavailable Janes Conley MD Unavailable Unavailable Delfin Acevedo MD Unavailable Sadie Brown MD PCP Source Comments Some departments are not documenting in the electronic medical record. If you d o not see the information that you expected, contact Release of Information in [facility] Health Information Management department at [phone] for further assistan ce in locating additional records.[facility] Allergies Comments Active Allergy Reactions Severity Noted Date Shaking and jerking movements Elavil SEE COMMENTS Low 06/13/2011 Hives, swelling, loss of consciousness Levofloxacin ANAPHYLAXIS, High 06/06/2011 EDEMA Hives, tongue, mouth and lip swelling, loss of consciousness Sulfa (Sulfonamide ANAPHYLAXIS, High 06/06/2011 Antibiotics) EDEMA Venom-Honey Bee ANAPHYLAXIS 06/29/2011 Medications End Date Status Medication Sig Dispensed Refills Start Date Active artificial Apply 1 Drop 0 tears/hypromellose to both eyes 2 (ISOPTO TEARS) 0.5 % four times ophthalmic solution daily. Additional information Patient taking differently: 1 drop Both Eyes NEEDED, Informant: Self, Reported on 10/21/2016 2:17 PM Active fenofibrate(+) (TRIGLIDE) Take 160 mg 0 160 mg tablet by mouth daily after lunch. Active lisinopril (ZESTRIL) 5 mg Take 5 mg by 0 tablet mouth daily after lunch. Active vitamins, multiple cap Take 1 Cap by 0 mouth daily after lunch. Active cyanocobalamin 1,000 mcg Take 1,000 0 tablet mcg by mouth daily after lunch. Active Garlic 1,000 mg cap Take 1 Cap by 0 mouth daily. Active ezetimibe (ZETIA) 10 mg Take 10 mg by 0 tablet mouth daily. Active traMADol (ULTRAM) 50 mg Take 50 mg by 0 tablet mouth every 6 hours as needed for Pain. Active Melatonin 5 mg cap Take 5 mg by 0 mouth as Needed. Active dexamethasone (DECADRON) INSERT 2 40 mL 1 0 0.1 % ophthalmic solution DROPS INTO 7 EACH NOSTRIL THREE TIMES A DAY. TAKE 1 WEEK OFF EVERY MONTH Active omeprazole (PRILOSEC PO) Take 20 mg by 0 mouth daily. Take one brand name tab in the AM and one generic brand in the PM Active levothyroxine (SYNTHROID) Take 50 mcg 0 50 mcg tablet by mouth daily 30 minutes before breakfast. Active sertraline (ZOLOFT) 50 mg Take 50 mg by 0 04/21 tablet mouth daily. 9 Active carbidopa/levodopa CR Take one 90 tablet 5 09/17 (SINEMET CR) 25/100 mg tablet by 9 tabletIndications: mouth three parkinsonism times daily. Indications: parkinson symptoms Active levETIRAcetam (KEPPRA) Take one 180 tablet 3 500 mg tablet tablet by 9 mouth twice daily. Active niacin ER (NIASPAN) 1,000 Take 1 tablet 0 mg tablet by mouth daily. Take with food. Active mupirocin (BACTROBAN) 2 % Apply 2 g 0 topical ointment topically to affected area three times daily. 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 Pt reported doing better and tolerating medication well. Plan: Continue Sinemet CR 25/100 mg TID Fall precautions Tremor 08/04/2017 Overview: Patient with tremor left> right origina lly felt to be due to depakote, but has continued even after this medicatio n is out of her system. She has some parkinsonian features on exam such as m asked facies, decreased movements, small steps and multistep turn. 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 Essential tremor would also be o n differential, but lower down. L ast Assessment & Plan: Patient not worried about tremor at thi s time. 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 Tremor 07/23/2016 Seizure 06/24/2016 Overview: Hospitalized in 02/2016 with concern fo r right side shaking and forced gaze deviation witnessed by EMS prior to adm ission to hospital. Patient with EEG showing no epileptic activity, but stru ctural changes, MRI showed bilateral frontal encephalomalacia due to tumor r esection. Patient started on Depakote due to previous poor kidney fu nction. Depakote caused tremor. Lamotrigine caused dizziness, tremor, f alls, fatigue, decreased mental acuity. Last Assessment & Plan: She continues to do well from a seizure standpoint and no seizures since 2016. She wishes to remain on Keppra at this time with a possible fear of another seizure if she was to discontin ue it. Tolerating well. Plan: Continue Keppra 500 mg bid - Seizure precautions, Pt instructed no t to drive, climb on ladders, swim alone, bath with door locked, use heavy machinery, use firearms or do anything else potentially dangerous if were to have another seizure, for 6 months. 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 OS>OD. Discussed condition. Minimal eff ect on vision currently. 1 year or prn. Next Visit: MRx x OCT Nerve OCT Mac IOP x Pach Dilate x Glare B-scan HVF Stereo Disc Photos Nasal valve collapse 01/10/2016 Nasal deformity 01/10/2016 Basal cell carcinoma of nose 01/01/2016 Basal cell carcinoma 01/01/2016 Pseudophakia, left eye 10/15/2015 Overview: Phaco/IOL 05/16/2015 ASC L ast Assessment & Plan: Formatting of this note might be differ ent from the original. Good vision limited by ON. She is happy with the improvement. Give MRx OS. D/C drops OS. 3 months. Next Visit: MRx x OCT Nerve OCT Mac IOP Pach Dilate x Glare B-scan HVF Stereo Disc Photos Pseudophakia of right eye 08/20/2015 Overview: CE/IOL OD 08/19/15 ASC L ast Assessment & Plan: Good vision and clinical appearance at today's 1mo POV. Pt very happy with vision. Refracts to 20/20, mild astig. -continue AT's prn -scheduled for OS end of this month Give MRx OD and balance OS with safety lenses. Will re-refract OS after cataract surgery OS. 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 Would limit visual recovery after CE/IOL. No treatment in dicated at this time. Chronic sinusitis 07/12/2012 Drop attack 02/08/2012 Overview: Two last two weeks- tumor vs vascular- MRI with contrast today. Consider angiography at home [facility] or [facility], discuss with PCP for local neurologist to begin w/u Cellulitis 07/18/2011 Hypotension 07/07/2011 Debility 07/07/2011 Anemia 07/07/2011 Intracranial hypotension 06/19/2011 Overview: Patient s/p craniotomy and resection of skull base tumor. After CSF was drained in the operating room at the end of the case, found to not respond to VC, with pneumocephal us and ventricular collapse on CT scan HOB elevation d/praveena to supine, Lumbar d rain clamped. Respiratory failure 06/18/2011 Mechanically assisted ventilation 06/18/2011 SIRS (systemic inflammatory response syndrome) 06/17 Pneumocephalus 06/18/2011 S/P craniotomy 06/18/2011 Overview: Transnasal/transfacial endoscopic ap proach to skull base tumor- poorly differentiated neuroendocrine tumor Transnasal/transfacial endoscopic re section of skull base tumor Transnasal/transfacial endoscopic re pair of skull base tumor defect Transcranial orbitotomy for excision of orbital involvement of the sino-cranial tumor, left side. 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 female with past medi chloé history significant for NEGRO, HLD, hypothyroidism, OA, and dizziness who w as found to have a left nasopharyngeal mass extending into righ t posterior ethmoid and sphenoid sinuses. S/P skull base resection of po cory differentiated neuroendocrine carcinoma on 06/17/11. Preoperative path ology was consistent with base of skull High grade neuroendocrine tumor.T his is aggressive and uncommon tumor. Best outcome is achieved with co mbined modality therapy (surgery, radiation and chemotherapy). Her surgic al findings indicate she did have very extensive disease. Adjuvant radiat ion and concurrent chemotherapy is indicated. FINDINGS: Large nasal/skull base tumor filling the left nasal cavity, pushing through left ethmoid to medial orbital wall, but not invading the eye at the ethmoid level (lamina papyra cea was intact). Tumor surrounding the right optic nerve , dissected by Dr. Colin and Dr. Navas with microscopic residual disease only. At the completion of the case, no visib le tumor by our microscopic/endoscopic view. INDICATIONS FOR OPERATIVE PROCEDURE: Ms Yamil Greenwood is a very pleasant 70-year-old female with a large sinonas al tumor, biopsy consistent with poorly differentiated neuroendocrine ca rcinoma. After the risks and benefits of resection and repair were d iscussed with the patient, she would like to proceed. DESCRIPTION OF OPERATIVE PROCEDURE: Aft er the risks and benefits of the procedure, we started the procedure by performing a Norton-Ru. We made an incision using a 15-blade into the u pper sublabial crease. Care was taken to leave enough mucosa inferiorly to allow for good closure at the end of the case. We used Bovie cautery to dissect down to the maxilla and carried this plane out laterally on eit her side to the lateral buttress. We then used a butter knife to elevate the tissue off of either anterior maxillary nagel. Care was taken not to injure the two on either sides. Using osteotomes, we made a window into the central aspect of the anterior wall of the maxillary sinus. We then us ed Kerrison forceps to create a large window. Again, we skeletonized th e bone around the two, but preserved this on either side. This window was la terally carried to the level of the lateral buttress and similar procedure was performed on the opposite side. With our access now complete, we used a 0-degree rigid endoscope and assessed the right and left nasal passa ges. We examined the right nasal passage, which was essentially free of tumor anteriorly. The left nasal passage was with tumor easily evident a nd suction debrider was used to suction the majority of this tumor from the left nasal passage. We continued to ellne the tumor using suct ion debrider, as the tumor did appear to be encased and we were able t o find good plane between the tumor and normal tissue. The tumor was peeled off the lamina papyracea and the lamina papyracea was noted to be intact . We carried our dissection to the remnant sphenoid and superiorly at the level of the defect to the cribriform plate. We did note that post eriorly the tumor appeared to invade the septum and we took down the posteri or septum using a combination of Sohan-Cut forceps and suction debrider. W e placed our scope through the window that we had created to the anter ior maxillary wall and created a wide maxillary antrostomy both with acc ess through the nose and through our anterior maxillary window. This was per formed using a combination of Sohan-Cut forceps and suction debrider. T his was performed on both sides. After our portion of the tumor had been successfully resected, we took a split-thickness skin graft in the patie nt's left upper thigh. This was performed using a dermatome with 0.16 m m thickness. The 4 cm plate was used and the skin graft was approximately 4 x 6 cm. Once the graft was harvested, it was handed off the table in a wet Ray-Miguelina. The skin graft site was treated with Telfa coated epin ephrine and eventually dressed using Xeroform, ABD, and Hypafix tape. Next, we performed an abdominal fat graft. A 15-blade was used to make an incision in the patient's left inferior abdomen. The incision was approximately 5 cm in length. Blunt dissection was used circumferentially to undermine and to free up a large portion of abdominal fat. This was then harvested using Bovie cautery. Once the fat was harvested, it was handed off the ta ble and saved for use later in the case. The abdomen was copiously irrigat ed and Bovie cautery was used for hemostasis. It was closed using 3-0 Rip ryl sutures for deep stitches and 3-0 Vicryl interrupted for deep dermal sutures. [place] drain was placed and secured using a 4-0 nylon. The skin was then closed using a running subcuticular stitch with 4-0 Monocryl a nd dressed with Steri-Strips, 4 x 4, and Tegaderm. At this point, we handed the case over to the Neurosurgery and Ophthalmology teams. Please see elisa andrews dictated operative report for their portion of the procedure. Onc e Neurosurgery had completed their craniotomy, we were called back to the room for completion of the case. We assessed the right and left nasal passa ges using a 0-degree rigid endoscope. Hemostasis was confirmed. Th ere was no visible remnant tumor. We were able to clearly visualize the rosa cranial flap created by the neurosurgeons. We then started our pack ing, which was done using abdominal fat graft and Tisseel. We then placed b ilateral nasal trumpets, which were secured using 2-0 silk stitch through t he septum. Additional fat and Tisseel were then placed. Lastly, the p atient's mouth was copiously irrigated and the sublabial incision wa s closed using interrupted 3-0 Vicryl sutures. At this point, the head of bed was rotated 180 degrees back towards Anesthesia. The patient was chauncey en to the neurosurgical ICU in stable condition, still intubated. Ther e were no complications. The counts were correct. Dr. Valentino was present fo r all portions of the procedure dictated in this operative report. Last Assessment & Plan: She was admitted again on July 12 for possible cellulitis. Now improved and discharged from hospital. It is alr tone a month sine her surgery. Considering her aggressive tumor, adjuv ant therapy needs to start soon. I discussed adjuvant chemotherapy and rad iation therapy with patient. She is ready to start therapy soon. He family situation ad logistics does not permit her to have radiation therapy he re at . She is planning to have radiation and chemotherapy in [facility]. She requested me to forward information to Dr. Pendleton medical oncol og. I have not schedule any follow up at this time as she will be treated and followed my Dr. Pendleton. I will be happy review and see her if needed i n future. Resolved Problems Problem Noted Date Resolved Date Combined form of senile cataract of both eyes 12/31/2012 02/15/2016 Last Assessment & Plan: Reviewed procedure and risks as well as expected post operative course. Schedule phaco/IOL OD. Sinusitis 06/23/2012 07/12/2012 Encounters Care Team Description Date Type Specialty Yvonne Jeffers MD Parkinson disease (HCC); Seizure (HCC) 01/25/2019 Office Visit Neurology James Montes MD Other 01/21/2019 Telephone Otolaryngology James Montes MD Other 01/18/2019 Telephone Otolaryngology Flaco Calles MD Follow-up Phone Call 01/15/2019 Telephone Plastic Surgery Flaco Calles MD Neuroendocrine carcinoma (HCC) (Primary Dx); Pre-op testing 01/15/2019 Orders Only Plastic Surgery Flaco Calles MD Basal cell carcinoma of nose (Primary Dx ) 01/11/2019 Office Visit Plastic Surgery James Montes MD 01/11/2019 Hospital Radiology Encounter James Montes MD Neuroendocrine carcinoma (HCC) (Primary Dx) 01/03/2019 Office Visit Otolaryngology Mirta Valentino MD 01/03/2019 Hospital Radiology Encounter James Montes MD Malignant poorly differentiated neuroend ocrine tumors (HCC) (Primary Dx) 01/03/2019 Orders Only Otolaryngology James Montes MD Follow-up Phone Call 01/03/2019 Telephone Otolaryngology Mirta Valentino MD Results 12/31/2018 Telephone Otolaryngology James Montes MD Other 12/24/2018 Telephone Otolaryngology Mirta Valentino MD Other (imaging) 12/24/2018 Telephone Otolaryngology Mirta Valentino MD Esthesioneuroblastoma (HCC); Olfactory esthesioneuroblastoma (HCC) 12/19/2018 Office Visit Otolaryngology from Last 3 Months Family History Medical History Relation Name Comments Asthma Father Cancer Father Diabetes Father Heart Attack Father High Cholesterol Father Hypertension Father Migraines Father Other Father kidney disease/ston es Stroke Father Asthma Mother Cancer Mother High Cholesterol Mother Hypertension Mother Migraines Mother Other Mother heart attack/troubl e/kidney disease/stones Stroke Mother Hypertension Other siblings High Cholesterol Other siblings High Cholesterol Paternal Grandfather Hypertension Paternal Grandfather Stroke Paternal Grandfather High Cholesterol Paternal Grandmother Hypertension Paternal Grandmother Stroke Paternal Grandmother Amblyopia Neg Hx Autoimmune Disease Neg Hx Blindness Neg Hx Cataract Neg Hx Coronary Artery Disease Neg Hx Glaucoma Neg Hx Macular Degen Neg Hx Neurologic Disorder Neg Hx Retinal Detachment Neg Hx Strabismus Neg Hx Thyroid Disease Neg Hx Relation Name Status Comments Father Mother Alive Other Other Paternal Grandfather Paternal Grandmother Social History Date Tobacco Use Types Packs/Day [...] travel history available. Last Filed Vital Signs Reading Time Taken Comments Vital Sign 108/61 01/25/2019 11:42 AM BACK UP SCAN COORDINATOR Blood Pressure 70 01/25/2019 11:42 AM BACK UP SCAN COORDINATOR Pulse 36.8 C (98.2 F) 02/25/2016 6:08 AM BACK UP SCAN COORDINATOR Temperature 14 01/25/2019 11:42 AM BACK UP SCAN COORDINATOR Respiratory Rate 95% 02/25/2016 6:08 AM BACK UP SCAN COORDINATOR Oxygen Saturation - - Inhaled Oxygen Concentration 70.5 kg (155 lb 6.4 oz) 01/25/2019 11:42 AM BACK UP SCAN COORDINATOR Weight 165.1 cm (5' 5") 01/25/2019 11:42 AM BACK UP SCAN COORDINATOR Height 25.86 01/25/2019 11:42 AM BACK UP SCAN COORDINATOR Body Mass Index Plan of Treatment Health Maintenance Due Date Last Done Comments MEDICARE ANNUAL WELLNESS 1940 VISIT DTAP/TDAP VACCINES (1 - 07/21/1950 Tdap) PHYSICAL (COMPREHENSIVE) 07/21/1957 EXAM SHINGLES RECOMBINANT 07/21/1989 VACCINE (1 of 2) OSTEOPOROSIS 07/21/2004 SCREENING/MONITORING PNEUMONIA (PCV13/PPSV23) 07/21/2004 VACCINES (1 of 2 - PCV13) INFLUENZA VACCINE 10/18/2018 Procedures Comments Procedure Name Priority Date/Time Associated Diag nosis NM PET SCAN TORSO Routine 01/11/2019 Malignant po cory (SKULL-THIGHS) 12:59 PM CDT differentiated neuroendocrine tumors (HCC) POC GLUCOSE 01/11/2019 11:[address] HEAD WO/W CONTRAST Routine 01/03/2019 Esthesio neuroblastoma 11:08 AM CDT (HCC) Olfactory esthesioneuroblastoma (HCC) CT MAXIFACIAL/SINUS W Routine 01/03/2019 Esthesio neuroblastoma CONTRAST 11:08 AM CDT (HCC) Olfactory esthesioneuroblastoma (HCC) HC CREATININE, POC 01/03/2019 10:48 AM CDT HC LVL IV SRG PTH, GROSS 12/19/2018 & MICRO 2:35 PM CDT from Last 3 Months Results * NM [...] on 01/11/2019 1:00 PM. Narrative Performed At [facility] PET SCAN TORSO (SKULL-THIGHS) [facility] RAD RESULTS [...] The current mean hepatic SUV (reported for director software quality assurance purposes) is 2.8. Blood glucose level (at [...] Radiant Results - 01/11/2019 1:33 PM CDT [facility] PET SCAN TORSO (SKULL-THIGHS) Radiopharmaceutical: 15.1 mCi [...] The current mean hepatic SUV (reported for director software quality assurance purposes) is 2.8. Blood glucose level (at [...] one Number [facility] RAD RESULTS * POC GLUCOSE (01/11/2019 11:18 AM CDT) Glucose, POC 81 70 - 100 MG/DL [facility] Specimen Performing Organization Address City/State/Zipcode Ph one Number [facility] [address] [place] [address] * CT HEAD WO/W CONTRAST (01/03/2019 11:08 [...] on 01/03/2019 11:34 AM. Performing Organization Address [facility] [place] [place] Ph one Number RAD RESULTS * POC CREATININE, RAD (01/03/2019 10:48 AM CDT) Creatinine, POC 1.2 (H) 0.4 - 1.00 MG/DL MAIN LAB Specimen Performing Organization Address [facility] [place] [place] Ph one Number MAIN LAB [address] [place] [address] * SURGICAL PATHOLOGY (12/19/2018 2:35 PM CDT) PATHOLOGY [email or web address] Department of Pathology and Laboratory Medicine [address] [place] [address] Surgical Pathology Office: [phone] SURGICAL PATHOLOGY REPORT NAME: GREENWOOD NISA KARISHMA SURG PATH #: [id number] MR #: [id number] SPECIMEN CLASS: SR BILLING #: [id number] ALT ID #: LOCATION: [facility] DATE OF PROCEDURE: 12/19/2018 AGE: 78 [...] via email. The patient's previous nasal mass ([id number]) and left nasal/skull base tumor ([id number]) were concurrently reviewed and the tumors are [...] for EBV is negative. Pursuant to the Air Conditioning Engineer Program at the [facility] Pathology Department, selected slides from this [...] material indicated in this report. +++ +++ ncg/12/20/2018 ############################## ############################## ############ Material Received: A: Nasal [...] and entirely submitted in cassettes A1-A2. (tn) 12/19/2018 If immunohistochemical stains and/or in situ hybridization are cited in this report, the performance characteristics were determined by the Department of Pathology and Laboratory Medicine of the [facility] ([employer]) in compliance with CLIA'88 regulations. [...] of Pathology and Laboratory Medicine of the [facility]. It has not been cleared or approved by the FDA. The FDA has determined that such clearance or approval is not necessary. Specimen Performing Organization Address City/State/[facility] Ph one Number MAIN LAB [address] [place] [address] from Last 3 Months Additional Health Concerns Resolved Time Infection Noted Time MRSA 06/25/2012 8:29 AM CDT Insurance Type Payer Benefit Subscriber ID Effective Phone Address Plan / Dates Group Medicare HUMANA MEDICARE HUMANA xxxxxxxxx 2017-P GOLD resent CHOICE PFFS [id number] Advance Directives Patient Spa Coordinator Explanation Type Date Recorded Advance 12/16/2015 1:36 PM Directive/DPOA Advance 02/19/2016 8:47 AM Directive/DPOA Date Inactivated Comments Code Status Date Activated 02/25/2016 12:47 PM Full Code 02/19/2016 4:25 PM Provider has discussed Code Status Yes w/Patient or Family? 02/19/2016 4:25 PM Full Code 02/19/2016 10:34 AM Provider has discussed Code Status No, more discussi on w/Patient or Family? needed 01/02/2016 2:09 PM Full Code 01/01/2016 7:22 PM Provider has discussed Code Status Yes w/Patient or Family? 07/18/2011 3:58 PM Full Code 07/13/2011 7:54 PM Provider has discussed Code Status No, more discussi on w/Patient or Family? needed 07/07/2011 3:33 PM Full Code 06/27/2011 5:05 PM Provider has discussed Code Status Yes w/Patient or Family?
--- OUTSIDE RECORDS SUMMARY | 2019-03-15 19:33 | XMS REPORT | Encounter Summary ---
Author Author [facility] Organization [facility] Address Unknown Phone Unavailable Care Team Providers Care Link Trainer Teacher Name Role Phone Amrik Live MD Unavailable Rolando Colin MD Unavailable Tulio Boucher MD Unavailable Boone Westfall MD Unavailable Owen Navas MD Unavailable LawrenceJames castro MD Unavailable Saw Ames [facility] Unavailable Kwaku Grover MD Unavailable Cinthia Carmichael Unavailable Kadeem Robb MD Unavailable Rolando eWeks MD Unavailable Unavailable Kandy Petersen MD Unavailable Elvin Flores MD Unavailable Janes Conley MD Unavailable Unavailable Delfin Acevedo MD Unavailable Sadie Brown MD PCP Reason for Visit * Reason Comments Medication Refill Encounter Details Care Team Description Date Type Department Hai Argueta MD [address] [place] [address] 11/15/2018 Refill [facility] [address] [place] [id number] Social History Date Tobacco Use Types Packs/Day [...]
--- OUTSIDE RECORDS SUMMARY | 2019-03-15 19:33 | XMS REPORT | Encounter Summary ---
Author Author [facility] Organization [facility] Address Unknown Phone Unavailable Care Team Providers Care Managing Member Name Role Phone Amrik Live MD Unavailable Rolando Colin MD Unavailable Tulio Boucher MD Unavailable Boone Westfall MD Unavailable Owen Navas MD Unavailable James Montes MD Unavailable Saw [facility]es [facility] Unavailable Kwaku Grover MD Unavailable Cinthia Carmichael Unavailable Kadeem Robb MD Unavailable Rolando Weeks MD Unavailable Unavailable Kandy Petersen MD Unavailable Elvin Flores MD Unavailable Janes Conley MD Unavailable Unavailable Delfin Acevedo MD Unavailable Sadie Brown MD PCP Reason for Referral * Radiology Services (Routine) Referred By Contact Referred To Contact Status Reason Specialty Diagnoses / Procedures James Montes MD [address] [facility] [address] [place] [address], [place] [address] [facility] Nuclear Med [address] [place] [address] Closed Radiology Diagnoses 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 NM PET SCAN TORSO (SKULL-THIGHS) Reason for Visit * Radiology Services (Routine) Referred By Contact Referred To Contact Status Reason Specialty Diagnoses / Procedures James Montes MD [address] [facility] [address] [place] [address] [facility] Nuclear Med [address] [facility] [place] [address] Closed Radiology Diagnoses 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 Narrative Performed At [place] PET SCAN [place] (SKULL-THIGHS) [facility] RAD RESULTS [...] The current mean hepatic SUV (reported for associate quality engineer purposes) is 2.8. Blood glucose level [...] The current mean hepatic SUV (reported for associate quality engineer purposes) is 2.8. Blood glucose level [...] on 01/11/2019 1:00 PM. Performing Organization Address [facility] RAD RESULTS * POC GLUCOSE (01/11/2019 11:18 AM CDT) Glucose, POC 81 70 - 100 MG/DL MAIN LAB Specimen Performing Organization Address City/[facility] Ph one Number MAIN LAB [address] [place] [address] documented in this encounter Visit Diagnoses Diagnosis Malignant poorly differentiated neuroen docrine tumors (HCC) Malignant poorly differentiated neuroen docrine carcinoma, any site documented in this encounter Administered Medications Action Date Dose Rate Site Medication Order MAR Action 01/11/2019 11:30 AM CDT 15.1 millicuries RP DX F-18 FDG injection 15 millicurie Given 15 millicurie, Intravenous, ONCE, 1 dose, Mon01/11/19 at 1130 documented in this encounter Additional Health Concerns Resolved Time Infection Noted Time MRSA 06/25/2012 8:29 AM CDT documented as of this encounter
--- OUTSIDE RECORDS SUMMARY | 2019-03-15 19:33 | XMS REPORT | Encounter Summary ---
Author Author [facility] Organization [facility] Address Unknown Phone Unavailable Care Team Providers Care Police Officer Name Role Phone Amrik Live MD Unavailable Rolando Colin MD Unavailable Tulio Boucher MD Unavailable Boone Westfall MD Unavailable Owen Navas MD Unavailable LawrenceJames castro MD Unavailable Saw Ames [facility] Unavailable Kwaku Grover MD Unavailable Cinthia Carmichael Unavailable Kadeem Robb MD Unavailable Rolando Weeks MD Unavailable Unavailable Kandy Petersen MD Unavailable Elvin Flores MD Unavailable Janes Conley MD Unavailable Unavailable Delfin Acevedo MD Unavailable Sadie Brown MD PCP Reason for Visit * Reason Comments Follow Up review imaging Encounter Details Care Team Description Date Type Department Flaco Calles MD [address] [place] [address] [phone] Basal cell carcinoma of nose (Primary Dx ) 01/11/2019 Office Visit [facility] [address] [place] [phone] Social History Date Tobacco Use Types Packs/Day [...] Signs Reading Time Taken Comments Vital Sign 117/73 01/11/2019 3:05 PM CDT Blood Pressure 76 01/11/2019 3:05 PM CDT Pulse - - Temperature - - Respiratory Rate - - Oxygen Saturation - - Inhaled Oxygen Concentration 68 kg (150 lb) 01/11/2019 3:05 PM CDT Weight 165.1 cm (5' 5") 01/11/2019 3:05 PM CDT Height 24.96 01/11/2019 3:05 PM CDT Body Mass Index documented in [...] as of this encounter Progress Notes * Flaco Calles MD - 01/11/2019 2:00 PM CDT Date of Service: 01/11/2019 Subjective: Nisa Greenwood is a 78 y.o. female. History of Present Illness Has recurrence of neuroendocrine tumor at [facility] Referred by Jyoti Wants to know surgical options completely Unsure if she wants to commit Several previous procedures Can see No CSF leak Normal mental status Review of Systems Constitutional: Negative. HENT: Positive for sinus pressure. Eyes: Negative. Respiratory: Negative. Cardiovascular: Negative. Gastrointestinal: [...] Cap by mouth daily after lunch. Vitals: 01/11/19 1505 BP: 117/73 Pulse: 76 Weight: 68 kg (150 lb) Height: 165.1 cm (65") Body mass index is 24.96 kg/m. Physical Exam Vitals signs and nursing note reviewed. Constitutional: Appearance: She is well-developed. HENT: Head: Normocephalic. Eyes: Pupils: Pupils are equal, round, and reactive to light. Neck: Musculoskeletal: Normal range of motion. Cardiovascular: Rate and Rhythm: Normal rate and regular rhythm. Heart sounds: Normal heart sounds. Pulmonary: Effort: Pulmonary effort is normal. Breath sounds: Normal breath sounds. Abdominal: General: Bowel sounds are normal. Palpations: Abdomen is soft. Musculoskeletal: Normal range of motion. Skin: General: Skin is warm and dry. Neurological: Mental Status: She is alert and oriented to person, place, and time. Mild facial deformity at glabella Eye exam as expected Assessment and Plan: She is unusre if she wants surgeryw Would need very large surgery Would be large communication between the [facility] and nose Would likely need free tisuse transfer to close hole Problem Basal Cell Carcinoma of Nose documented in this encounter Plan of Treatment Not on filedocumented as of this encounter Visit Diagnoses Diagnosis Basal cell carcinoma of nose - Primary Basal cell carcinoma of skin of other a nd unspecified parts of face documented in this encounter Additional Health Concerns Resolved Time Infection Noted Time MRSA 06/25/2012 8:29 AM CDT documented as of this encounter
--- OUTSIDE RECORDS SUMMARY | 2019-03-15 19:34 | XMS REPORT | Encounter Summary ---
Author Author [facility] Organization [facility] Address Unknown Phone Unavailable Care Team Providers Care Pipe Testing Technician Name Role Phone Amrik Live MD Unavailable Rolando Colin MD Unavailable Tulio Boucher MD Unavailable Boone Westfall MD Unavailable Owen Navas MD Unavailable LawrenceJames castro MD Unavailable Saw Ames [facility] Unavailable Kwaku Grover MD Unavailable Cinthia Carmichael Unavailable Kadeem Robb MD Unavailable Rolando Weeks MD Unavailable Unavailable Kandy Petersen MD Unavailable Elvin Flores MD Unavailable Janes Conley MD Unavailable Unavailable Delfin Acevedo MD Unavailable Sadie Brown MD PCP Reason for Visit * Reason Comments Follow Up Encounter Details Care Team Description Date Type Department Amrik Live MD [address] Ortho[facility]Med Pavilion [address] [place] [address] [phone] Chronic pansinusitis; Esthesioneuroblastoma (HCC); 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 Office Visit [facility] [address] [place] [address] Social History Date Tobacco Use [...] Signs Reading Time Taken Comments Vital Sign 124/73 10/16/2018 11:06 AM CDT Blood Pressure 71 10/16/2018 11:06 AM CDT Pulse - - Temperature - - Respiratory Rate - - Oxygen Saturation - - Inhaled Oxygen Concentration 69.9 kg (154 lb) 10/16/2018 11:06 AM CDT Weight 165.1 cm (5' 5") 10/16/2018 11:06 AM CDT Height 25.63 10/16/2018 11:06 AM CDT Body Mass Index documented in [...] no evidence of recurrence (MRI also ne [id number]/11/2017). No evidence of recurrent disease at this [...] (Dr Timmons) then local flap edil at [facility] (January,). Hearing is good, no tinnitus or vertigo. Good salivary function/ moist mucosa. N ormal swallowing. Recent spinal implant stimulator for chronic back pain recently [place], [place], says it's helping. DATE OF OPERATION:06/17/2011 SURGEON:Amrik Live MD: TOOL AND DIE MANAGER(S):Roxanna Siegel M.D. 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 POSTOPERATIVE DIAGNOSIS:Same. OPERATIVE PROCEDURE: Transnasal/transfacial endoscopic approach to skull base tumor, poorly different iated neuroendocrine tumor. Transnasal /transfacial endoscopic resection of sk ull base tumor. Transnasal/transfacial endoscopic repair of skull base tumor d efect. Split-thickness skin graft. Abdominal fat harvest. [employer] image tracy dance. ANESTHESIA:General. Blood Loss:Approximately 300 mL. Specimens Removed [...] differential, but lower down. 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 [facility] condition, still intubated. There were no complications . The counts were correct. Dr. Live was present for all portions of the proced ure dictated in this operative report. 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
--- OUTSIDE RECORDS SUMMARY | 2019-03-15 19:34 | XMS REPORT | Encounter Summary ---
Author Author [facility] Organization [facility] Address Unknown Phone Unavailable Care Team Providers Care [employer] Line Worker Name Role Phone Amrik Live MD Unavailable Rolando Colin MD Unavailable Tulio Boucher MD Unavailable Boone Westfall MD Unavailable Owen aNvas MD Unavailable LawrenceJames castro MD Unavailable Saw Ames [facility] Unavailable Kwaku Grover MD Unavailable Cinthia Carmichael Unavailable Kadeem Robb MD Unavailable Rolando Weeks MD Unavailable Unavailable Kandy Petersen MD Unavailable Elvin Flores MD Unavailable Janes Conley MD Unavailable Unavailable Delfin Acevedo MD Unavailable Sadie Brown MD PCP Reason for Visit * Reason Comments New Patient Encounter Details Care Team Description Date Type Department Yvonne Jeffers MD [address] [place] [address] Seizure (HCC); Parkinson disease (HCC) 10/05/2018 Office Visit [facility] [address] [place] [address] Social History Date Tobacco Use Types Packs/Day [...] Signs Reading Time Taken Comments Vital Sign 114/71 10/05/2018 10:53 AM CDT Blood Pressure 63 10/05/2018 10:53 AM CDT Pulse - - Temperature 14 10/05/2018 10:53 AM CDT Respiratory Rate - - Oxygen Saturation - - Inhaled Oxygen Concentration 68.4 kg (150 lb 12.8 oz) 10/05/2018 10:53 AM CDT Weight 165.1 cm (5' 5") 10/05/2018 10:53 AM CDT Height 25.09 10/05/2018 10:53 AM CDT Body Mass Index documented in [...] 5PM. A prescription has been sent to [facility] in [place], [place]. Please continue taking Keppra 500 mg [...] and completed chemo/XRT in August of 2011- follo ws with ENT( MRI in 09/2017 w/o [...] as of this encounter Visit Diagnoses Diagnosis Seizure (HCC) Other convulsions Parkinson disease (HCC) Paralysis agitans * Assessment & Plan Note - Yvonne [...]
--- OUTSIDE RECORDS SUMMARY | 2019-03-15 19:34 | XMS REPORT | Continuity of Care Document ---
Author Organization Unknown Address Unknown Phone Unavailable Allergies Active Description Code Type Severity Reaction Onset Reported/Identified Relationship to Patient Clinical Status Yes amitriptyline HCl [id number] Drug Allergy Unknown N/A 08/02/2011 Yes bee venom (honey bee) [id number] Drug Allergy Unknown N/A 08/02/2011 Yes levofloxacin [id number] Drug Allergy Unknown N/A 08/02/2011 Yes SULFA SULFA Unknown N/A 08/02/2011 Yes Sulfa (Sulfonamide Antibiotics) [id number] Drug Allergy Unknown N/A 012 Yes venom-honey bee [id number] D rug Allergy Unknown N/A 08/02/2011 Yes levofloxacin [id number] Drug Allergy Unknown rash 02/19/2019 Yes Sulfa (Sulfonamide Antibiotics) [id number] 0491 Drug Allergy Unknown rash 019 Medications There is no data. Problems Date Dx Coded Attending Type Code Diagnosis Diagnosed By 07/10/2012 Ot 160.0 MAL DENISE NASAL CAVITIES 08/22/2014 POLLOGREG CALLE N Ot 160.0 08/22/2014 POLLO, GREG N Ot 530.81 08/22/2014 POLLOGREG N Ot 786.2 08/22/2014 POLLOGREG N Ot V15.3 08/22/2014 POLLOGREG N Ot V58.69 08/22/2014 POLLO, BOBAN N Ot V87.41 09/22/2014 POLLO, GABRIELAAN N Ot 160.0 09/22/2014 POLLO, BOBAN N Ot V15.3 09/22/2014 POLLO, BOBAN N Ot V58.69 09/22/2014 POLLO, GREG N Ot V87.41 12/09/2014 POLLO, GREG N Ot 160.0 12/09/2014 POLLO, GREG N Ot V15.3 12/09/2014 POLLO, GABRIELAAN N Ot V58.69 12/09/2014 POLLO, BOBAN N Ot V87.41 12/09/2014 POLLO, BOBAN N Ot 160.0 12/09/2014 POLLO, BOBAN N Ot V15.3 12/09/2014 POLLO, BOBAN N Ot V58.69 12/09/2014 POLLO, BOBAN N Ot V87.41 12/09/2014 POLLO, GREG N Ot 160.0 12/09/2014 POLLO, BOBAN N Ot 530.81 12/09/2014 POLLO, BOBAN N Ot 786.2 12/09/2014 POLLO, BOBAN N Ot V15.3 12/09/2014 POLLO, BOBAN N Ot V58.69 12/09/2014 POLLO, GABRIELAAN N Ot V87.41 12/12/2014 WAYNE PA, CLINTON K Ot 244.9 12/12/2014 WAYNE PA, CLINTON K Ot 272.0 12/12/2014 WAYNE PA, CL[place]ON K Ot 401.9 12/12/2014 WAYNE PA, CL[place]ON K Ot 786.09 12/29/2014 WAYNE PA, CL[place]ON K Ot 244.9 12/29/2014 WAYNE PA, CL[place]ON K Ot 272.0 12/29/2014 WAYNE PA, CL[place] K Ot 401.9 12/29/2014 WAYNE PA, CLINTON K Ot 786.09 02/06/2015 POLLO, GREG N Ot M48.02 02/06/2015 POLLO, GABRIELAAN N Ot M50.20 02/06/2015 POLLO, BOBAN N Ot Z08 02/06/2015 POLLO, BOBAN N Ot Z85.22 02/06/2015 POLLO, BOBAN N Ot Z92.21 02/06/2015 POLLO, BOBAN N Ot Z92.3 07/30/2015 POLLO, GABRIELAAN N Ot 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 07/30/2015 POLLO, BOBAN N Ot M48.02 SPINAL STENOSIS, CERVICAL REGION 07/30/2015 POLLO, GABRIELAAN N Ot Z79.899 OTHER FCI (CURRENT) 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 07/30/2015 POLLO, GABRIELAAN N Ot Z92.21 PERSONAL HISTORY OF ANTINEOPLASTIC CHEMO 07/30/2015 GREG ABAD N Ot Z92.3 PERSONAL HISTORY OF IRRADIATION 08/10/2015 GREG ABAD N Ot 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3 PERSONAL HISTORY OF IRRADIATION 07/27/2016 GREG ABAD N Ot C44.311 BASAL CELL CARCINOMA OF SKIN OF NOSE 07/27/2016 GREG ABAD N Ot M48.02 SPINAL STENOSIS, CERVICAL REGION 07/27/2016 GREG ABAD N Ot N18.3 CHRONIC KIDNEY DISEASE, STAGE 3 (MODERAT 07/27/2016 POLLO, GABRIELAFREDY N Ot Z08 ENCNTR FOR FOLLOW-UP EXAM AFTER TRTMT FO 07/27/2016 POLLO GABRIELAFREDY N Ot Z79.899 OTHER INTERNATIONAL TRADE ANALYST (CURRENT) 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 07/27/2016 POLLO, GABRIELAFREDY N Ot Z85.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, [place] 07/27/2016 POLLOGREG Ot Z92.21 PERSONAL HISTORY OF ANTINEOPLASTIC CHEMO 07/27/2016 POLLO, GREG Kelly Ot Z92.3 PERSONAL HISTORY OF IRRADIATION 08/05/2016 POLLO GREG N Ot 160.0 MAL DENISE NASAL CAVITIES 08/05/2016 POLLO GREG N Ot V15.3 HX OF IRRADIATION 08/05/2016 POLLO GREG Kelly Ot V58.69 OTH MED,LT,CURRENT USE 08/05/2016 GREG ABAD N Ot V87.41 PERSONAL HISTORY OF ANTINEOPLASTIC CHEMO 08/05/2016 POLLOGREG N Ot 160.0 MAL DENISE NASAL CAVITIES 08/05/2016 POLLO GREG N Ot V15.3 HX OF IRRADIATION 08/05/2016 POLLOGREG Ot V58.69 OTH MED,LT,CURRENT USE 08/05/2016 POLLOGREG CALLE N Ot V87.41 PERSONAL HISTORY OF ANTINEOPLASTIC CHEMO 08/05/2016 GREG ABAD N Ot 160.0 MAL DENISE NASAL CAVITIES 08/05/2016 GREG ABAD N Ot 530.81 ESOPHAGEAL REFLUX 08/05/2016 GREG ABAD N Ot 786.2 COUGH 08/05/2016 GREG ABAD N Ot V15.3 HX OF IRRADIATION 08/05/2016 GREG ABAD Ot V58.69 OTH MED,LT,CURRENT USE 08/05/2016 GREG ABAD N Ot V87.41 PERSONAL HISTORY OF ANTINEOPLASTIC CHEMO 08/05/2016 [place] DANGELO Ot 244.9 HYPOTHYROIDISM NOS 08/05/2016 [place] DANGELO Ot 272.0 PURE HYPERCHOLESTEROLEM 08/05/2016 [place] DANGELO Ot 401.9 HYPERTENSION NOS 08/05/2016 [place] DANGELO Ot 786.09 RESPIRATORY ABNORM NEC 08/05/2016 GREG ABAD Ot M48.02 SPINAL STENOSIS, CERVICAL REGION 08/05/2016 GREG ABAD Ot M50.20 OTHER CERVICAL DISC DISPLACEMENT, UNSP C 08/05/2016 GREG ABAD Ot Z08 ENCNTR FOR FOLLOW-UP EXAM AFTER TRTMT FO 08/05/2016 GREG ABAD Ot Z85.22 PRSNL HX OF MALIG NEOPLM OF NAS CAV, [place] 08/05/2016 GREG ABAD N Ot Z92.21 PERSONAL HISTORY OF ANTINEOPLASTIC CHEMO 08/05/2016 GREG ABAD N Ot Z92.3 PERSONAL HISTORY OF IRRADIATION 08/05/2016 GREG ABAD N Ot 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3 PERSONAL HISTORY OF IRRADIATION 08/05/2016 GREG ABAD N Ot C44.311 BASAL CELL CARCINOMA OF SKIN OF NOSE 08/05/2016 GREG ABAD N Ot M48.02 SPINAL STENOSIS, CERVICAL REGION 08/05/2016 GREG ABAD N Ot N18.3 CHRONIC KIDNEY DISEASE, STAGE 3 (MODERAT 08/05/2016 GREG ABAD N Ot Z08 ENCNTR FOR FOLLOW-UP EXAM AFTER TRTMT FO 08/05/2016 GREG ABAD N Ot Z79.899 OTHER FCI (CURRENT) 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 08/05/2016 GREG ABAD N Ot Z85.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, [place] 08/05/2016 GREG ABAD N Ot Z92.21 PERSONAL HISTORY OF ANTINEOPLASTIC CHEMO 08/05/2016 GREG ABAD N Ot Z92.3 PERSONAL HISTORY OF IRRADIATION 08/05/2016 DIANA MARTINEZ MD Ot M54. 12 RADICULOPATHY, CERVICAL REGION 08/05/2016 DIANA MARTINEZ MD Ot Z79.899 OTHER INTERNATIONAL TRADE ANALYST (CURRENT) 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 08/08/2016 GREG BAAD Robin Ot C44.311 BASAL CELL CARCINOMA OF SKIN OF NOSE 08/08/2016 POLLO, GABRIELAFREDY Robin Ot M48.02 SPINAL STENOSIS, CERVICAL REGION 08/08/2016 POLLO GABRIELAFREDY Robin Ot N18.3 CHRONIC KIDNEY DISEASE, STAGE 3 (MODERAT 08/08/2016 POLLO GREG Kelly Ot Z08 ENCNTR FOR FOLLOW-UP EXAM AFTER TRTMT FO 08/08/2016 POLLO GABRIELAFREDY Robin Ot Z79.899 OTHER INTERNATIONAL TRADE ANALYST (CURRENT) 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 08/08/2016 POLLO GABRIELAFREDY Robin Ot Z85.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, [place] 08/08/2016 POLLO GREG Kelly Ot Z92.21 PERSONAL HISTORY OF ANTINEOPLASTIC CHEMO 08/08/2016 POLLO, GABRIELAFREDY Robin Ot Z92.3 PERSONAL HISTORY OF IRRADIATION 04/07/2017 [place] DANGELO Ot 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 04/07/2017 [place] DANGELO Ot E78.2 MIXED HYPERLIPIDEMIA 04/07/2017 [place] DANGELO Ot I10 ESSENTIAL (PRIMARY) HYPERTENSION 04/07/2017 [place] DANGELO Ot R05 COUGH 04/18/2017 [place] DANGELO Ot 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 04/18/2017 [place] DANGELO Ot E78.2 MIXED HYPERLIPIDEMIA 04/18/2017 [place] DANGELO Ot I10 ESSENTIAL (PRIMARY) HYPERTENSION 04/18/2017 [place] DANGELO Ot R05 COUGH 06/08/2017 JUAN JOSE KENNEY DO Ot M47.817 SPONDYLS W/O MYELOPATHY OR RADICULOPATHY 06/08/2017 JUAN JOSE KENNEY DO Ot M54.16 RADICULOPATHY, LUMBAR REGION 06/09/2017 JUAN JOSE KENNEY DO Ot M47.817 SPONDYLS W/O MYELOPATHY OR RADICULOPATHY 06/09/2017 JUAN JOSE KENNEY DO Ot M54.16 RADICULOPATHY, LUMBAR REGION 07/21/2017 Ot 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 07/21/2017 Ot 160.0 MAL DENISE NASAL CAVITIES 07/21/2017 Ot 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 07/21/2017 Ot V15.3 HX O F IRRADIATION 07/21/2017 Ot V58.69 OTH MED,LT,CURRENT USE 07/21/2017 Ot V87.41 PER COLE HISTORY OF ANTINEOPLASTIC CHEMO 07/21/2017 POLLO, BOBAN N Ot 041.12 METHICILLIN RESISTANT STAPHYLOCOCCUS AUR 07/21/2017 POLLO, BOBAN N Ot 160.0 MAL DENISE NASAL CAVITIES 07/21/2017 POLLO, BOBAN N Ot 473.9 CHRONIC SINUSITIS NOS 07/21/2017 POLLO, BOBAN N Ot V15.3 HX OF IRRADIATION 07/21/2017 POLLO, BOBAN N Ot V58.69 OTH MED,LT,CURRENT USE 07/21/2017 POLLO, BOBAN N Ot V87.41 PERSONAL HISTORY OF ANTINEOPLASTIC CHEMO 07/21/2017 POLLO, BOBAN N Ot 160.0 MAL DENISE NASAL CAVITIES 07/21/2017 POLLO, BOBAN N Ot V15.3 HX OF IRRADIATION 07/21/2017 POLLO, BOBAN N Ot V58.69 OTH MED,LT,CURRENT USE 07/21/2017 POLLO, BOBAN N Ot V87.41 PERSONAL HISTORY OF ANTINEOPLASTIC CHEMO 07/27/2017 Ot 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 07/27/2017 Ot 160.0 MAL DENISE NASAL CAVITIES 07/27/2017 Ot 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 07/27/2017 Ot V15.3 HX O F IRRADIATION 07/27/2017 Ot V58.69 OTH MED,LT,CURRENT USE 07/27/2017 Ot V87.41 PER COLE HISTORY OF ANTINEOPLASTIC CHEMO 07/27/2017 POLLO, BOBAN N Ot 041.12 METHICILLIN RESISTANT STAPHYLOCOCCUS AUR 07/27/2017 POLLO, BOBAN N Ot 160.0 MAL DENISE NASAL CAVITIES 07/27/2017 POLLO, BOBAN N Ot 473.9 CHRONIC SINUSITIS NOS 07/27/2017 POLLO, BOBAN N Ot V15.3 HX OF IRRADIATION 07/27/2017 POLLO, BOBAN N Ot V58.69 OTH MED,LT,CURRENT USE 07/27/2017 POLLO, BOBAN N Ot V87.41 PERSONAL HISTORY OF ANTINEOPLASTIC CHEMO 07/27/2017 GREG ABAD N Ot 160.0 MAL DENISE NASAL CAVITIES 07/27/2017 GREG ABAD N Ot V15.3 HX OF IRRADIATION 07/27/2017 GREG ABAD Robin Ot V58.69 OTH MED,LT,CURRENT USE 07/27/2017 GREG ABAD N Ot V87.41 PERSONAL HISTORY OF ANTINEOPLASTIC CHEMO 08/03/2017 Ot 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 08/03/2017 Ot 160.0 MAL DENISE NASAL CAVITIES 08/03/2017 Ot 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 08/03/2017 Ot V15.3 HX O F IRRADIATION 08/03/2017 Ot V58.69 OTH MED,LT,CURRENT USE 08/03/2017 Ot V87.41 PER COLE HISTORY OF ANTINEOPLASTIC CHEMO 08/03/2017 GREG ABAD N Ot C44.311 BASAL CELL CARCINOMA OF SKIN OF NOSE 08/03/2017 GREG ABAD Robin Ot M48.02 SPINAL STENOSIS, CERVICAL REGION 08/03/2017 GREG ABAD N Ot N18.3 CHRONIC KIDNEY DISEASE, STAGE 3 (MODERAT 08/03/2017 GREG ABAD N Ot Z08 ENCNTR FOR FOLLOW-UP EXAM AFTER TRTMT FO 08/03/2017 GREG ABAD N Ot Z79.899 OTHER INTERNATIONAL TRADE ANALYST (CURRENT) 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 08/03/2017 GREG ABAD N Ot Z85.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, [place] 08/03/2017 GREG ABAD N Ot Z92.21 PERSONAL HISTORY OF ANTINEOPLASTIC CHEMO 08/03/2017 GREG ABAD N Ot Z92.3 PERSONAL HISTORY OF IRRADIATION 08/03/2017 GREG ABAD N Ot 041.12 METHICILLIN RESISTANT STAPHYLOCOCCUS AUR 08/03/2017 GREG ABAD N Ot 160.0 MAL DENISE NASAL CAVITIES 08/03/2017 POLLO GREG N Ot 473.9 CHRONIC SINUSITIS NOS 08/03/2017 POLLO GABRIELAFREDY N Ot V15.3 HX OF IRRADIATION 08/03/2017 GREG ABAD N Ot V58.69 OTH MED,LT,CURRENT USE 08/03/2017 POLLO GABRIELAFREDY N Ot V87.41 PERSONAL HISTORY OF ANTINEOPLASTIC CHEMO 08/03/2017 GREG ABAD Robin Ot 160.0 MAL DENISE NASAL CAVITIES 08/03/2017 GREG ABAD Robin Ot V15.3 HX OF IRRADIATION 08/03/2017 GREG ABAD Robin Ot V58.69 OTH MED,LT,CURRENT USE 08/03/2017 GREG ABAD Robin Ot V87.41 PERSONAL HISTORY OF ANTINEOPLASTIC CHEMO 08/04/2017 HEARNDON JUAN JOSE FULTON L Ot M54.16 RADICULOPATHY, LUMBAR REGION 08/25/2017 HEARNDON DO, JUAN JOSE L Ot M54.16 RADICULOPATHY, LUMBAR REGION 09/01/2017 GREG ABAD Robin Ot C44.311 BASAL CELL CARCINOMA OF SKIN OF NOSE 09/01/2017 POLLO GREG N Ot M48.02 SPINAL STENOSIS, CERVICAL REGION 09/01/2017 POLLO GABRIELAFREDY N Ot N18.3 CHRONIC KIDNEY DISEASE, STAGE 3 (MODERAT 09/01/2017 POLLO GABRIELAFREDY Robin Ot Z08 ENCNTR FOR FOLLOW-UP EXAM AFTER TRTMT FO 09/01/2017 GREG ABAD N Ot Z79.899 OTHER INTERNATIONAL TRADE ANALYST (CURRENT) 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 09/01/2017 GREG ABAD N Ot Z85.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, [place] 09/01/2017 GRGE ABAD Robin Ot Z92.21 PERSONAL HISTORY OF ANTINEOPLASTIC CHEMO 09/01/2017 GREG ABAD N Ot Z92.3 PERSONAL HISTORY OF IRRADIATION 09/28/2017 JUAN JOSE KENNEY DO Ot M46.1 SACROILIITIS, NOT ELSEWHERE CLASSIFIED 10/02/2017 TITION JUAN JOSE FULTON L Ot M46.1 SACROILIITIS, NOT ELSEWHERE CLASSIFIED 10/23/2017 GREG ABAD Robin Ot C44.311 BASAL CELL CARCINOMA OF SKIN OF NOSE 10/23/2017 POLLO GREG N Ot M48.02 SPINAL STENOSIS, CERVICAL REGION 10/23/2017 POLLO GREG N Ot N18.3 CHRONIC KIDNEY DISEASE, STAGE 3 (MODERAT 10/23/2017 POLLO GREG N Ot Z08 ENCNTR FOR FOLLOW-UP EXAM AFTER TRTMT FO 10/23/2017 POLLO GREG N Ot Z79.899 OTHER FCI (CURRENT) 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 10/23/2017 GREG ABAD N Ot Z85.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, [place] 10/23/2017 GREG ABAD N Ot Z92.21 PERSONAL HISTORY OF ANTINEOPLASTIC CHEMO 10/23/2017 GREG ABAD N Ot Z92.3 PERSONAL HISTORY OF IRRADIATION 11/06/2017 Ot 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.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 11/06/2017 Ot E78.2 MIXE D HYPERLIPIDEMIA 11/06/2017 Ot I10 ESSENT IAL (PRIMARY) HYPERTENSION 11/06/2017 Ot R07.9 CHES T PAIN, UNSPECIFIED 07/18/2018 GREG ABAD Robin Ot C44.311 BASAL CELL CARCINOMA OF SKIN OF NOSE 07/18/2018 GREG ABAD Robin Ot M48.02 SPINAL STENOSIS, CERVICAL REGION 07/18/2018 GREG ABAD Robin Ot N18.3 CHRONIC KIDNEY DISEASE, STAGE 3 (MODERAT 07/18/2018 GREG ABAD Robin Ot Z08 ENCNTR FOR FOLLOW-UP EXAM AFTER TRTMT FO 07/18/2018 GREG ABAD Robin Ot Z79.899 OTHER INTERNATIONAL TRADE ANALYST (CURRENT) 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 07/18/2018 GREG ABAD N Ot Z85.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, [place] 07/18/2018 GREG ABAD N Ot Z92.21 PERSONAL HISTORY OF ANTINEOPLASTIC CHEMO 07/18/2018 GREG ABAD N Ot Z92.3 PERSONAL HISTORY OF IRRADIATION 07/18/2018 SUSI SMALLWOOD, SHARLA Garces Ot Z01.8 18 ENCOUNTER FOR OTHER PREPROCEDURAL EXAMIN 07/20/2018 GREG ABAD N Ot 160.0 MAL DENISE NASAL CAVITIES 07/20/2018 GREG ABAD Robin Ot V15.3 HX OF IRRADIATION 07/20/2018 GREG ABAD Robin Ot V58.69 OT MED,LT,CURRENT USE 07/20/2018 GREG ABAD N Ot V87.41 PERSONAL HISTORY OF ANTINEOPLASTIC CHEMO 07/20/2018 JUAN JOSE KENNEY DO Ot M54.16 RADICULOPATHY, LUMBAR REGION 07/20/2018 Ot C30.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 07/20/2018 Ot E78.2 MIXE D HYPERLIPIDEMIA 07/20/2018 Ot I10 ESSENT IAL (PRIMARY) HYPERTENSION 07/20/2018 Ot R07.9 CHES T PAIN, UNSPECIFIED 07/20/2018 GREG ABAD Robin Ot C44.311 BASAL CELL CARCINOMA OF SKIN OF NOSE 07/20/2018 GREG ABAD Robin Ot M48.02 SPINAL STENOSIS, CERVICAL REGION 07/20/2018 GREG ABAD Robin Ot N18.3 CHRONIC KIDNEY DISEASE, STAGE 3 (MODERAT 07/20/2018 POLLO GREG Kelly Ot Z08 ENCNTR FOR FOLLOW-UP EXAM AFTER TRTMT FO 07/20/2018 GREG ABAD Robin Ot Z79.899 OTHER INTERNATIONAL TRADE ANALYST (CURRENT) 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 07/20/2018 POLLO, GREG Kelly Ot Z85.22 PRSNL HX OF MALIG NEOPLM OF [facility], [place] 07/20/2018 POLLOGABRIELA CALLEFREDY Kelly Ot Z92.21 PERSONAL HISTORY OF ANTINEOPLASTIC CHEMO 07/20/2018 POLLOGABRIELA CALLEFREDY Kelly Ot Z92.3 PERSONAL HISTORY OF IRRADIATION 07/23/2018 SHARLA GOLDMAN MD Ot E07.9 DISORDER OF THYROID, UNSPECIFIED 07/23/2018 SHARLA GOLDMAN MD Ot E11.9 TYPE 2 DIABETES MELLITUS WITHOUT COMPLIC 07/23/2018 SHARLA GOLDMAN MD Ot I10 ESSENTIAL (PRIMARY) HYPERTENSION 07/23/2018 SHARLA GOLDMAN MD Ot M43.1 6 SPONDYLOLISTHESIS, LUMBAR REGION 07/23/2018 SHARLA GOLDMAN MD Ot M43.1 7 SPONDYLOLISTHESIS, LUMBOSACRAL REGION 07/23/2018 SHARLA GOLDMAN MD Ot M48.0 61 SPINAL STENOSIS, LUMBAR REGION WITHOUT N 07/23/2018 SHARLA GOLDMAN MD Ot M54.1 6 RADICULOPATHY, LUMBAR REGION 07/23/2018 SHARLA GOLDMAN MD Ot Z11.2 ENCOUNTER FOR SCREENING FOR OTHER BACTER 07/23/2018 SHARLA GOLDMAN MD Ot Z79.8 99 OTHER INTERNATIONAL TRADE ANALYST (CURRENT) 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 07/23/2018 SHARLA GOLDMAN MD Ot Z85.8 28 PERSONAL HISTORY OF OTHER MALIGNANT NEOP 07/23/2018 SHARLA GOLDMAN MD Ot Z88.2 ALLERGY STATUS TO SULFONAMIDES STATUS 07/23/2018 SHARLA GOLDMAN MD Ot Z98.1 ARTHRODESIS STATUS 07/24/2018 SHARLA GOLDMAN MD Ot E07.9 DISORDER OF THYROID, UNSPECIFIED 07/24/2018 SHARLA GOLDMAN MD Ot E11.9 TYPE 2 DIABETES MELLITUS WITHOUT COMPLIC 07/24/2018 SHARLA GOLDMAN MD Ot I10 ESSENTIAL (PRIMARY) HYPERTENSION 07/24/2018 SHARLA GOLDMAN MD Ot M43.1 7 SPONDYLOLISTHESIS, LUMBOSACRAL REGION 07/24/2018 SHARLA GOLDMAN MD Ot M48.0 61 SPINAL STENOSIS, LUMBAR REGION WITHOUT N 07/24/2018 SHARLA GOLDMAN MD Ot M54.1 6 RADICULOPATHY, LUMBAR REGION 07/24/2018 SHARLA GOLDMAN MD Ot Z11.2 ENCOUNTER FOR SCREENING FOR OTHER BACTER 07/24/2018 SHARLA GOLDMAN MD Ot Z79.8 99 OTHER INTERNATIONAL TRADE ANALYST (CURRENT) 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 07/24/2018 SHARLA GOLDMAN MD Ot Z85.8 28 PERSONAL HISTORY OF OTHER MALIGNANT NEOP 07/24/2018 SHARLA GOLDMAN MD Ot Z88.2 ALLERGY STATUS TO SULFONAMIDES STATUS 07/24/2018 SHARLA GOLDMAN MD Ot Z98.1 ARTHRODESIS STATUS 07/26/2018 SHARLA GOLDMAN MD Ot E07.9 DISORDER OF THYROID, UNSPECIFIED 07/26/2018 SHARLA GOLDMAN MD Ot E11.9 TYPE 2 DIABETES MELLITUS WITHOUT COMPLIC 07/26/2018 SHARLA GOLDMAN MD Ot I10 ESSENTIAL (PRIMARY) HYPERTENSION 07/26/2018 SHARLA GOLDMAN MD Ot M43.1 7 SPONDYLOLISTHESIS, LUMBOSACRAL REGION 07/26/2018 SHARLA GOLDMAN MD Ot M48.0 61 SPINAL STENOSIS, LUMBAR REGION WITHOUT N 07/26/2018 SHARLA GOLDMAN MD Ot M54.1 6 RADICULOPATHY, LUMBAR REGION 07/26/2018 SHARLA GOLDMAN MD Ot Z11.2 ENCOUNTER FOR SCREENING FOR OTHER BACTER 07/26/2018 SHARLA GOLDMAN MD Ot Z79.8 99 OTHER FCI (CURRENT) 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 07/26/2018 SHARLA GOLDMAN MD Ot Z85.8 28 PERSONAL HISTORY OF OTHER MALIGNANT NEOP 07/26/2018 SHARLA GOLDMAN MD Ot Z88.2 ALLERGY STATUS TO SULFONAMIDES STATUS 07/26/2018 SHARLA GOLDMAN MD Ot Z98.1 ARTHRODESIS STATUS 08/02/2018 SHARLA GOLDMAN MD Ot E07.9 DISORDER OF THYROID, UNSPECIFIED 08/02/2018 SHARLA GOLDMAN MD Ot E11.9 TYPE 2 DIABETES MELLITUS WITHOUT COMPLIC 08/02/2018 SHARLA GOLDMAN MD Ot I10 ESSENTIAL (PRIMARY) HYPERTENSION 08/02/2018 SHARLA GOLDMAN MD Ot M43.1 6 SPONDYLOLISTHESIS, LUMBAR REGION 08/02/2018 SHARLA GOLDMAN MD Ot M48.0 61 SPINAL STENOSIS, LUMBAR REGION WITHOUT N 08/02/2018 SHARLA GOLDMAN MD, Ot M54.1 6 RADICULOPATHY, LUMBAR REGION 08/02/2018 SHARLA GOLDMAN MD, Ot Z11.2 ENCOUNTER FOR SCREENING FOR OTHER BACTER 08/02/2018 SHARLA GOLDMAN MD Ot Z79.8 99 OTHER INTERNATIONAL TRADE ANALYST (CURRENT) 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 08/02/2018 SHARLA GOLDMAN MD Ot Z85.8 28 PERSONAL HISTORY OF OTHER MALIGNANT NEOP 08/02/2018 SHARLA GOLDMAN MD, Ot Z88.2 ALLERGY STATUS TO SULFONAMIDES STATUS 08/02/2018 SHARLA GOLDAMN MD, Ot Z98.1 ARTHRODESIS STATUS 08/20/2018 GREG ABAD Ot C44.311 BASAL CELL CARCINOMA OF SKIN OF NOSE 08/20/2018 GREG ABAD Ot M48.02 SPINAL STENOSIS, CERVICAL REGION 08/20/2018 GREG ABAD Ot N18.3 CHRONIC KIDNEY DISEASE, STAGE 3 (MODERAT 08/20/2018 GREG ABAD Ot Z08 ENCNTR FOR FOLLOW-UP EXAM AFTER TRTMT FO 08/20/2018 GREG ABAD Ot Z79.899 OTHER INTERNATIONAL TRADE ANALYST (CURRENT) 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 08/20/2018 GREG ABAD Ot Z85.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, [place] 08/20/2018 GREG ABAD Ot Z92.21 PERSONAL HISTORY OF ANTINEOPLASTIC CHEMO 08/20/2018 GREG ABAD Ot Z92.3 PERSONAL HISTORY OF IRRADIATION 09/03/2018 GREG ABAD Robin Ot C44.311 BASAL CELL CARCINOMA OF SKIN OF NOSE 09/03/2018 GREG ABAD Robin Ot M48.02 SPINAL STENOSIS, CERVICAL REGION 09/03/2018 GREG ABAD Robin Ot N18.3 CHRONIC KIDNEY DISEASE, STAGE 3 (MODERAT 09/03/2018 GREG ABAD Robin Ot Z08 ENCNTR FOR FOLLOW-UP EXAM AFTER TRTMT FO 09/03/2018 GREG ABAD Robin Ot Z79.899 OTHER INTERNATIONAL TRADE ANALYST (CURRENT) 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 09/03/2018 GREG ABAD Robin Ot Z85.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, [place] 09/03/2018 GREG ABAD Robin Ot Z92.21 PERSONAL HISTORY OF ANTINEOPLASTIC CHEMO 09/03/2018 GREG ABAD Robin Ot Z92.3 PERSONAL HISTORY OF IRRADIATION 01/18/2019 GRACY CARPIO DO Ot 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 01/18/2019 GRACY CARPIO DO Ot E03.9 HYPOTHYROIDISM, UNSPECIFIED 01/18/2019 GRACY CARPIO DO Ot E78.2 MIXED HYPERLIPIDEMIA 01/18/2019 GRACY CAPRIO DO Ot I10 ESSENTIAL (PRIMARY) HYPERTENSION 01/18/2019 GRACY CARPIO DO Ot I87.2 VENOUS INSUFFICIENCY (CHRONIC) (PERIPHER 01/18/2019 GRACY CARPIO DO Ot J30.9 ALLERGIC RHINITIS, UNSPECIFIED 01/18/2019 GRACY CARPIO DO Ot M19.9 0 UNSPECIFIED OSTEOARTHRITIS, UNSPECIFIED 01/18/2019 GRACY CARPIO DO Ot M54.1 2 RADICULOPATHY, CERVICAL REGION 01/18/2019 GRACY CARPIO DO Ot Z79.8 99 OTHER INTERNATIONAL TRADE ANALYST (CURRENT) 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 01/18/2019 GRACY CARPIO DO Ot Z88.1 ALLERGY STATUS TO OTHER ANTIBIOTIC AGENT 01/18/2019 GRACY CARPIO DO Ot Z88.2 ALLERGY STATUS TO SULFONAMIDES STATUS 01/18/2019 GRACY CARPIO DO Ot Z88.8 ALLERGY STATUS TO OTH DRUG/MEDS/BIOL SUB 01/18/2019 GRACY CARPIO DO Ot Z91.0 30 BEE ALLERGY STATUS 01/19/2019 Ot 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 01/19/2019 Ot M48.02 SPI NAL STENOSIS, CERVICAL REGION 01/19/2019 Ot 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 DISEASE, STAGE 3 (MODERAT 01/19/2019 Ot Z08 ENCNTR FOR FOLLOW-UP EXAM AFTER TRTMT FO 01/19/2019 Ot Z79.899 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 01/19/2019 Ot Z85.22 PRS NL HX OF MALIG NEOPLM OF NASL CAV, [place] 01/19/2019 Ot Z92.21 PER COLE HISTORY OF ANTINEOPLASTIC CHEMO 01/19/2019 Ot Z92.3 PERS ONAL HISTORY OF IRRADIATION 01/22/2019 GRACY CARPIO DO Ot 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 01/22/2019 GRACY CARPIO DO Ot E03.9 HYPOTHYROIDISM, UNSPECIFIED 01/22/2019 GRACY CARPIO DO Ot E78.2 MIXED HYPERLIPIDEMIA 01/22/2019 GRACY CARPIO DO Ot I10 ESSENTIAL (PRIMARY) HYPERTENSION 01/22/2019 GRACY CARPIO DO Ot I87.2 VENOUS INSUFFICIENCY (CHRONIC) (PERIPHER 01/22/2019 GRACY CARPIO DO Ot J30.9 ALLERGIC RHINITIS, UNSPECIFIED 01/22/2019 GRACY CARPIO DO Ot M19.9 0 UNSPECIFIED OSTEOARTHRITIS, UNSPECIFIED 01/22/2019 GRACY CARPIO DO Ot M54.1 2 RADICULOPATHY, CERVICAL REGION 01/22/2019 GRACY CARPIO DO Ot Z79.8 99 OTHER [facility] (CURRENT) 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 01/22/2019 GRACY CARPIO DO Ot Z88.1 ALLERGY STATUS TO OTHER ANTIBIOTIC AGENT 01/22/2019 GRACY CARPIO DO Ot Z88.2 ALLERGY STATUS TO SULFONAMIDES STATUS 01/22/2019 GRACY CARPIO DO Ot Z88.8 ALLERGY STATUS TO OTH DRUG/MEDS/BIOL SUB 01/22/2019 GRACY CARPIO DO Ot Z91.0 30 BEE ALLERGY STATUS 01/23/2019 GRACY CARPIO DO Ot Z01.8 18 ENCOUNTER FOR OTHER PREPROCEDURAL EXAMIN 01/25/2019 GRACY CARPIO DO Ot 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 01/25/2019 SHIRIN FULTON GRACY B Ot E03.9 HYPOTHYROIDISM, UNSPECIFIED 01/25/2019 GRACY CARPIO DO B Ot E78.2 MIXED HYPERLIPIDEMIA 01/25/2019 SHIRIN FULTON GRACY B Ot I10 ESSENTIAL (PRIMARY) HYPERTENSION 01/25/2019 TY CARPIO DOIC B Ot I87.2 VENOUS INSUFFICIENCY (CHRONIC) (PERIPHER 01/25/2019 SHIRIN FULTON GRACY B Ot J30.9 ALLERGIC RHINITIS, UNSPECIFIED 01/25/2019 SHIRIN FULTON GRACY B Ot M19.9 0 UNSPECIFIED OSTEOARTHRITIS, UNSPECIFIED 01/25/2019 SHIRIN FULTON GRACY B Ot M54.1 2 RADICULOPATHY, CERVICAL REGION 01/25/2019 SHIRIN FULTON GRACY B Ot Z79.8 99 OTHER INTERNATIONAL TRADE ANALYST (CURRENT) 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 01/25/2019 SHIRIN FULTON GRACY B Ot Z88.1 ALLERGY STATUS TO OTHER ANTIBIOTIC AGENT 01/25/2019 SHIRIN FULTON GRACY B Ot Z88.2 ALLERGY STATUS TO SULFONAMIDES STATUS 01/25/2019 SHIRIN FULTON GRACY B Ot Z88.8 ALLERGY STATUS TO OTH DRUG/MEDS/BIOL SUB 01/25/2019 SHIRIN FULTON GRACY B Ot Z91.0 30 BEE ALLERGY STATUS 01/30/2019 Ot 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 01/30/2019 Ot M48.02 SPI NAL STENOSIS, CERVICAL REGION 01/30/2019 Ot 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 KIDNEY DISEASE, STAGE 3 (MODERAT 01/30/2019 Ot Z08 ENCNTR FOR FOLLOW-UP EXAM AFTER TRTMT FO 01/30/2019 Ot Z79.899 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 01/30/2019 Ot Z85.22 PRS NL HX OF MALIG NEOPLM OF NASL CAV, [place] 01/30/2019 Ot Z92.21 PER COLE HISTORY OF ANTINEOPLASTIC CHEMO 01/30/2019 Ot Z92.3 PERS ONAL HISTORY OF IRRADIATION 02/06/2019 GREG ABAD Ot 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 02/07/2019 GREG ABAD Ot 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 02/19/2019 GREG ABAD Ot 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 02/19/2019 GREG ABAD Ot 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 02/20/2019 GREG ABAD Robin Ot B95.2 ENTEROCOCCUS THE CAUSE OF DISEASES CL 02/20/2019 GREG ABAD Robin Ot B96.20 UNSP ESCHERICHIA COLI THE CAUSE OF DI 02/20/2019 GREG ABAD Robin Ot 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2 OTHER SEASONAL ALLERGIC RHINITIS 02/20/2019 GREG ABAD Robin Ot M47.9 SPONDYLOSIS, UNSPECIFIED 02/20/2019 GREG ABAD Robin Ot M54.5 LOW BACK PAIN 02/20/2019 GREG ABAD Robin Ot N39.0 URINARY TRACT INFECTION, SITE NOT SPECIF 02/20/2019 GREG ABAD Robin Ot R50.81 FEVER PRESENTING WITH CONDITIONS CLASSIF 02/20/2019 GREG ABAD Robin Ot Z85.828 PERSONAL HISTORY OF OTHER MALIGNANT NEOP 02/20/2019 GREG ABAD Robin Ot Z88.1 ALLERGY STATUS TO OTHER ANTIBIOTIC AGENT 02/20/2019 POLLOGREG Ot Z88.2 ALLERGY STATUS TO SULFONAMIDES STATUS 03/07/2019 GREG ABAD Robin Ot 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 Results Test Result Range Methicillin resistant Staphylococcus aur eus (MRSA) screening culture - 07/23/18 09:00 MRSA SCREEN RESULT MRSA ISOLATED NRG Methicillin resistant Staphylococcus aur eus (MRSA) screening culture - 01/18/19 11:00 MRSA SCREEN RESULT MRSA ISOLATED NRG Bacterial urine culture - 02/18/19 15:20 Bacterial urine culture [id number] NRG COLONY COUNT >100,000/ML NRG FTX;REPORTABLE SUSCEPTIBILITY REPORTED 02/20 09:30 NRG Dirithromycin susceptibility test by dis k diffusion - 02/18/19 15:20 Gentamicin susceptibility test by minimum inhibitory c oncentration <= NRG Trimethoprim/sulfamethoxazole susceptibi lity test by minimum inhibitoryconcentration > NRG Levofloxacin susceptibility test by minimum inhibitory concentration <= NRG Ampicillin susceptibility test by minimum inhibitory c oncentration <= NRG Cefazolin susceptibility test by minimum inhibitory co ncentration <= NRG Ceftriaxone susceptibility test by minimum inhibitory concentration <= NRG Ciprofloxacin susceptibility test by minimum inhibitor y concentration <= NRG Meropenem susceptibility test by minimum inhibitory co ncentration <= NRG Nitrofurantoin susceptibility test by mi nimum inhibitory concentration <= NRG Amoxicillin and clavulanate potassium susc EDEL <= NRG Blood lactic acid measurement (moles/vol ume) - 02/18/19 19:02 Blood lactic acid measurement (moles/volume) 0.56 mmol/L 0.50-2.00 Capillary blood glucose measurement by g lucometer (mass/volume) - 02/18/19 20:40 Capillary blood glucose measurement by glucometer (mas s/volume) 105 mg/dL 70-110 Complete blood count (CBC) with automate d white blood cell (WBC) differential - 02/19/19 06:10 Blood leukocytes automated count (number/volume) 5.1 10*3/uL 4.3-11.0 Blood erythrocytes automated count (number/volume) 3.57 10*6/uL 4.35-5.85 Venous blood hemoglobin measurement (mass/volume) 11.0 g/dL 11.5-16.0 Blood hematocrit (volume fraction) 34 % 35-52 Automated erythrocyte mean corpuscular volume 95 [ foz_us] 80-99 Automated erythrocyte mean corpuscular h emoglobin (mass per erythrocyte) 31 pg 25-34 Automated erythrocyte mean corpuscular h emoglobin concentration measurement (mass/volume) 33 g/dL 32-36 Automated erythrocyte distribution width ratio 11. 7 % 10.0- 14.5 Automated blood platelet count (count/volume) 266 10*3/uL 130-400 Automated blood platelet mean volume measurement 9.8 [foz_us] 7.4-10.4 Automated blood neutrophils/100 leukocytes 54 % 42-75 Automated blood lymphocytes/100 leukocytes 28 % 12-44 Blood monocytes/100 leukocytes 16 % 0-12 Automated blood eosinophils/100 leukocytes 2 % 0-10 Automated blood basophils/100 leukocytes 0 % 0-10 Blood neutrophils automated count (number/volume) 2.7 10*3 1.8-7.8 Blood lymphocytes automated count (number/volume) 1.4 10*3 1.0-4.0 Blood monocytes automated count (number/volume) 0. 8 10*3 0.0-1.0 Automated eosinophil count 0.1 10*3/uL 0 .0-0.3 Automated blood basophil count (count/volume) 0.0 10*3/uL 0.0-0.1 Whole blood basic metabolic panel - 06/05 06:10 Serum or plasma sodium measurement (moles/volume) 140 mmol/L 135-145 Serum or plasma potassium measurement (moles/volume) 3.9 mmol/L 3.6-5.0 Serum or plasma chloride measurement (moles/volume) 107 mmol/L 98-107 Carbon dioxide 21 mmol/L 21-32 Serum or plasma anion gap determination (moles/volume) 12 mmol/L 5-14 Serum or plasma urea nitrogen measurement (mass/volume ) 15 mg/dL 7-18 Serum or plasma creatinine measurement (mass/volume) 1.09 mg/dL 0.60-1.30 Serum or plasma urea nitrogen/creatinine mass ratio 14 NRG Serum or plasma creatinine measurement w ith calculation of estimated glomerular filtration rate 48 NRG Serum or plasma glucose measurement (mass/volume) 80 mg/dL 70-105 Serum or plasma calcium measurement (mass/volume) 8.6 mg/dL 8.5-10.1 Capillary blood glucose measurement by g lucometer (mass/volume) - 02/19/19 11:37 Capillary blood glucose measurement by glucometer (mas s/volume) 88 mg/dL 70-110 Capillary blood glucose measurement by g lucometer (mass/volume) - 02/19/19 15:57 Capillary blood glucose measurement by glucometer (mas s/volume) 138 mg/dL 70-110 Vancomycin trough - 02/19/19 17:05 Vancomycin trough 8.7 ug/mL 10.0-20.0 Capillary blood glucose measurement by g lucometer (mass/volume) - 02/19/19 20:39 Capillary blood glucose measurement by glucometer (mas s/volume) 110 mg/dL 70-110 Capillary blood glucose measurement by g lucometer (mass/volume) - 02/20/19 04:51 Capillary blood glucose measurement by glucometer (mas s/volume) 85 mg/dL 70-110 Whole blood basic metabolic panel - 07/06 05:00 Serum or plasma sodium measurement (moles/volume) 140 mmol/L 135-145 Serum or plasma potassium measurement (moles/volume) 3.7 mmol/L 3.6-5.0 Serum or plasma chloride measurement (moles/volume) 110 mmol/L 98-107 Carbon dioxide 19 mmol/L 21-32 Serum or plasma anion gap determination (moles/volume) 11 mmol/L 5-14 Serum or plasma urea nitrogen measurement (mass/volume ) 8 mg/dL 7-18 Serum or plasma creatinine measurement (mass/volume) 0.94 mg/dL 0.60-1.30 Serum or plasma urea nitrogen/creatinine mass ratio 9 NRG Serum or plasma creatinine measurement w ith calculation of estimated glomerular filtration rate 57 NRG Serum or plasma glucose measurement (mass/volume) 71 mg/dL 70-105 Serum or plasma calcium measurement (mass/volume) 8.1 mg/dL 8.5-10.1 Complete blood count (CBC) with automate d white blood cell (WBC) differential - 02/20/19 05:00 Blood leukocytes automated count (number/volume) 21.0 10*3/uL 4.3-11.0 Blood erythrocytes automated count (number/volume) 3.12 10*6/uL 4.35-5.85 Venous blood hemoglobin measurement (mass/volume) 9.8 g/dL 11.5-16.0 Blood hematocrit (volume fraction) 29 % 35-52 Automated erythrocyte mean corpuscular volume 94 [ foz_us] 80-99 Automated erythrocyte mean corpuscular h emoglobin (mass per erythrocyte) 31 pg 25-34 Automated erythrocyte mean corpuscular h emoglobin concentration measurement (mass/volume) 33 g/dL 32-36 Automated erythrocyte distribution width ratio 11. 9 % 10.0- 14.5 Automated blood platelet count (count/volume) 332 10*3/uL 130-400 Automated blood platelet mean volume measurement 10.1 [foz_us] 7.4-10.4 Automated blood neutrophils/100 leukocytes 73 % 42-75 Automated blood lymphocytes/100 leukocytes 15 % 12-44 Blood monocytes/100 leukocytes 11 % 0-12 Automated blood eosinophils/100 leukocytes 1 % 0-10 Automated blood basophils/100 leukocytes 0 % 0-10 Blood neutrophils automated count (number/volume) 15.2 10*3 1.8-7.8 Blood lymphocytes automated count (number/volume) 3.2 10*3 1.0-4.0 Blood monocytes automated count (number/volume) 2. 4 10*3 0.0-1.0 Automated eosinophil count 0.2 10*3/uL 0 .0-0.3 Automated blood basophil count (count/volume) 0.1 10*3/uL 0.0-0.1 Capillary blood glucose measurement by g lucometer (mass/volume) - 02/20/19 12:16 Capillary blood glucose measurement by glucometer (mas s/volume) 81 mg/dL 70-110 Encounters ACCT No. Visit Date/Time Discharge Status Pt. Type Provider Facility Loc./Unit Complaint [id number] 02/18/2019 16:13:00 14:03:00 DIS Outpatient GREG ABAD [facility] 4TH NEUTROPENIC FEVER [id number] 01/18/2019 10:26:00 15:00:00 DIS Outpatient GRACY CARPIO DO [facility] SDC ESTHESIONEUROBLASTOMA [id number] 01/17/2019 13:43:00 23:59:59 CLS Outpatient GRACY CARPIO DO [facility] PREOP ESTHESIONEUROBLASTOMA [id number] 08/20/2018 10:37:00 23:59:59 CLS Outpatient GREG ABAD [facility] ONC [id number] 07/23/2018 07:55:00 05/06/2 019 13:50:00 DIS Outpatient SHARLA GOLDMAN MD [facility] SDC LUMBAGO [id number] 07/18/2018 05:38:00 019 15:42:00 DIS Outpatient SHARLA GOLDMAN MD [facility] PREOP SPINAL CORD STIMULATOR [id number] 09/28/2017 13:48:00 14:53:00 DIS Outpatient JUAN JOSE KENNEY DO [facility] CARD SACRILITIS [id number] 08/03/2017 13:38:00 018 23:59:59 CLS Outpatient JUAN JOSE KENNEY DO [facility] CARD LUMBAR RADICULO BRIAN [id number] 07/25/2017 09:42:00 018 23:59:59 CLS Outpatient GREG ABAD [facility] ONC [id number] 06/08/2017 11:29:00 018 12:14:00 DIS Outpatient REGULOGEMA DO JUAN JOSE Vee [facility] CARD LUMBAR RADICULO BRIAN [id number] 04/06/2017 11:17:00 018 23:59:59 CLS Outpatient RAVI DANGELO [facility] RAD R06.02 C30. 0 I10 [id number] 08/05/2016 10:22:00 017 11:17:00 DIS Outpatient DIANA MARTINEZ MD [facility] CARD CERVICAL RADICULOPATHY [id number] 07/26/2016 11:09:00 017 23:59:59 CLS Outpatient GREG ABAD [facility] FS [id number] 01/26/2016 12:48:00 016 23:59:59 CLS Outpatient GREG ABAD [facility] FS [id number] 07/28/2015 13:13:00 016 23:59:59 CLS Outpatient GREG ABAD [facility] FS [id number] 01/27/2015 13:41:00 015 23:59:59 CLS Outpatient POLLO GREG Ojeda [facility] [id number] 12/10/2014 06:54:00 015 23:59:59 CLS Outpatient WAYNE PA, RAVI Grier [facility] CARD DYSPNEA,HTN,HYPERCHOLETOLEMIA HYPOTHRYROIDISM [id number] 08/05/2014 11:42:00 015 23:59:59 CLS Outpatient POLLOGREG V [facility] [id number] 02/04/2014 10:26:00 014 23:59:59 CLS Outpatient GREG ABAD V [facility] [id number] 08/06/2013 13:39:00 014 23:59:59 CLS Outpatient GREG ABAD [facility] FS [id number] 02/19/2013 10:15:00 013 23:59:59 CLS Outpatient POLLO GREG Kelly [facility] FS [id number] 10/16/2012 09:56:00 013 23:59:59 CLS Outpatient POLLO GREG Kelly V [facility] [id number] 03/15/2019 13:27:[address] Outpatient GREG ABAD [facility] lj ONC [id number] 01/17/2019 09:41:00 Document Registration [id number] 07/18/2018 15:17:00 Document Registration [id number] 10/25/2017 07:52:00 Document Registration [id number] 07/10/2012 10:04:00 Document Registration [id number] 04/11/2012 09:31:00 Document Registration
== END 2019-02-20 14:03 | disposition home or self-care (01) | DRG 809 ==
LOC: 4TH 16:13
PROVIDERS: ADMIT Internal Medicine Hematology & Oncology; ATTEND Internal Medicine Hematology & Oncology
DX: D70.9 Neutropenia, unspecified (principal); R50.81 Fever presenting with conditions classified elsewhere; C30.0 Malignant neoplasm of nasal cavity; N39.0 Urinary tract infection, site not specified; B95.2 Enterococcus as the cause of diseases classified elsewhere; B96.20 Unspecified Escherichia coli [E. coli] as the cause of diseases classified elsewhere; M47.9 Spondylosis, unspecified; M54.5 Low back pain; D64.9 Anemia, unspecified; I10 Essential (primary) hypertension; G40.909 Epilepsy, unspecified, not intractable, without status epilepticus; E03.9 Hypothyroidism, unspecified; G20 Parkinson's disease; E78.00 Pure hypercholesterolemia, unspecified; F43.10 Post-traumatic stress disorder, unspecified; J30.2 Other seasonal allergic rhinitis; Z85.828 Personal history of other malignant neoplasm of skin; Z88.2 Allergy status to sulfonamides; Z88.1 Allergy status to other antibiotic agents
CPT/HCPCS: 36415; 77336; 80048; 80202; 82962; 83605; 85025

== ENCOUNTER → 2019-04-18 | Outpatient (CLI) | payer MEDICARE ==
[~2019-04-18] MED LIST changes: +CARB1TAB40 PO; +CEPH500T PO; +CYAN-41 PO; +EZET10TA17 PO; +EZET10TA49 PO; -EZET10TA5 PO; +HOLD METFORMIN - RECEIVED CONTRAST 20 ML VIAL IV SCH; +IOHEXOL 350 MG/ML 100 ML (OMNIPAQUE 350) VIAL IV ONE; +LEVE500T6 PO; +MELA5CAP PO; +NS 100 ML (IVPB) BAG IV ONE; +OMEP-280 PO; +ONDA8TAB12 PO; +SERT50TA9 PO; -TRAM50TA2 PO; +TRM50T PO
--- NOTE | 2019-04-18 13:11 | Diagnostic Imaging Report ---
PROCEDURE: CT head with and without contrast. TECHNIQUE: Multiple contiguous axial images were obtained through the brain before and after the administration of intravenous contrast. Auto Exposure Controls were utilized during the CT exam to meet ALARA standards for radiation dose reduction. All CT scans use one or more of the following dose optimizing techniques: automated exposure control, MA and/or KvP adjustment based on patient size and exam type or iterative reconstruction. 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 COMPARISON: Correlation is made with outside CT of the head from [facility] performed 01/03/2019. FINDINGS: The ventricular size appears stable. Bhatia-white matter differentiation is maintained. No sulcal effacement or midline shift is seen. Extensive postsurgical changes of bifrontal craniotomies is again noted. Previously noted intermediate hyperdense thickening of the cranialized frontal sinuses along the anterior frontal convexities appears similar to prior exam. Areas of encephalomalacia and gliosis in bilateral frontal lobes also similar to prior exam. No new area of enhancement is identified following contrast. Maxillofacial structures will be evaluated on dedicated maxillofacial CT obtained at the same time. IMPRESSION: Overall stable pre and postcontrast CT of the brain when compared with outside CT from 01/03/2019. Dictated by: Dictated on workstation # [id number]
--- NOTE | 2019-04-18 13:17 | Diagnostic Imaging Report ---
PROCEDURE: CT chest with contrast, CT abdomen with and without contrast. TECHNIQUE: Precontrast acquisitions were acquired through the abdomen. Multiple contiguous axial images were obtained through the chest and abdomen after administration of intravenous contrast. Auto Exposure Controls were utilized during the CT exam to meet ALARA standards for radiation dose reduction. INDICATION: Esthesioneuroblastoma, finished treatment in February 2019. The study is performed for follow up. COMPARISON: No prior conventional CT chest, abdomen, or pelvis studies are available for comparison. Comparison is made with the PET/CT performed on 01/11/2019. FINDINGS: CT CHEST: A right chest wall port has the tip at the SVC-right atrial junction. No axillary lymphadenopathy is detected. No definite mediastinal or hilar lymphadenopathy is detected. No pericardial or pleural fluid is detected. No pulmonary parenchymal mass or infiltrate is seen. There is some atelectasis or scarring in the lingula. A spinal stimulator is identified at the level of the midthoracic spine. IMPRESSION: Essentially unremarkable CT of the chest. No thoracic lymphadenopathy or evidence of pulmonary metastatic disease is identified. CT ABDOMEN: No discrete liver mass is identified. The gallbladder is surgically absent. No biliary ductal dilatation is seen. The pancreas and spleen are unremarkable. No adrenal mass is detected. Kidneys are unremarkable. There is no hydronephrosis. Aorta is nonaneurysmal. No central retroperitoneal or mesenteric lymphadenopathy is seen. Small and large bowel loops are normal in caliber. Appendix is unremarkable. There is no free fluid or fluid collection identified. Visualized bony structures are nonacute. IMPRESSION: Unremarkable CT of the abdomen. No abdominal lymphadenopathy or evidence of metastatic disease is identified. Dictated by: Dictated on workstation # [id number]
--- NOTE | 2019-04-18 13:20 | Diagnostic Imaging Report ---
PROCEDURE: CT maxillofacial with contrast. TECHNIQUE: After intravenous administration of contrast, axial images were obtained through the face and reformatted into coronal and sagittal planes. Auto Exposure Controls were utilized during the CT exam to meet ALARA standards for radiation dose reduction. All CT scans use one or more of the following dose optimizing techniques: automated exposure control, MA and/or KvP adjustment based on patient size and exam type or iterative reconstruction. INDICATION: Basal cell carcinoma. Ethesioneuroblastoma. COMPARISON: Outside CT maxillofacial with IV contrast 01/03/2019. FINDINGS: Extensive postoperative changes in the paranasal sinuses including bilateral maxillary antrostomies, ethmoidectomies, sphenoidectomies, left superior and middle turbinectomies and partial resection of the nasal septum. The cribriform plate has also been partially resected or eroded. The anterior sella along the midline is eroded or partially resected. Soft tissue thickening in the left posterior ethmoid space without appreciable enhancement. There is moderate mucosal thickening in the maxillary sinuses, greater on the right. No enhancing soft tissue is seen along the anterior skull base. Enhancing tissue in the sella appears consistent with a normal pituitary. There is also a defect in the left nasal bones with no appreciable enhancing soft tissue component. The orbits are negative. The major salivary glands are negative. The visualized pharyngeal and laryngeal soft tissues are symmetric bilaterally with no suspicious mass or enhancement. Retropharyngeal course of the left internal carotid artery. IMPRESSION: 1. Extensive postoperative changes in the paranasal sinuses, cribriform plate and sella as above. Given the history of esthesioneuroblastoma, some of this may be destructive erosive change due to the mass. No preoperative imaging is available for comparison. No suspicious intracranial enhancement is identified. Soft tissue without convincing enhancement along the anterior left margin of the sella appears stable. MRI would be more sensitive for extension of esthesioneuroblastoma. 2. Defect in the left nasal bone with no associated soft tissue enhancement identified. Dictated by: Dictated on workstation # [id number]
== END ==
LOC: RAD 11:46
PROVIDERS: ATTEND Nurse Practitioner Adult Health
DX: C30.0 Malignant neoplasm of nasal cavity (principal)
CPT/HCPCS: 70470; 70487; 71260; 74170

== ENCOUNTER 2019-04-24 13:40 | Outpatient (RCR) | payer MEDICARE ==
[2019-01-28 11:45] LABS: BASOPHILS % (AUTO) 1 % (0-10); EOSINOPHILS # (AUTO) 0.3 10^3/uL (0.0-0.3); EOSINOPHILS % (AUTO) 5 % (0-10); HEMATOCRIT 42 % (35-52); HEMOGLOBIN 13.5 G/DL (11.5-16.0); LYMPHOCYTES % (AUTO) 34 % (12-44); MEAN CORPUSCULAR HEMOGLOBIN 31 PG (25-34); MEAN CORPUSCULAR HGB CONC 32 G/DL (32-36); MEAN CORPUSCULAR VOLUME 96 FL (80-99); MEAN PLATELET VOLUME 10.1 FL (7.4-10.4); MONOCYTES # (AUTO) 0.6 X 10^3 (0.0-1.0); MONOCYTES % (AUTO) 11 % (0-12); NEUTROPHILS # (AUTO) 2.9 X 10^3 (1.8-7.8); NEUTROPHILS % (AUTO) 50 % (42-75); PLATELET COUNT 358 10^3/uL (130-400); RED CELL DISTRIBUTION WIDTH 12.4 % (10.0-14.5); WHITE BLOOD COUNT 5.8 10^3/uL (4.3-11.0)
[2019-01-28 12:07] LABS: ALBUMIN 4.2 GM/DL (3.2-4.5); BILIRUBIN,TOTAL 0.4 MG/DL (0.1-1.0); CALCIUM 9.4 MG/DL (8.5-10.1); CREATININE SERUM 1.29 MG/DL (0.60-1.30); POTASSIUM 4.3 MMOL/L (3.6-5.0); TOTAL PROTEIN 7.4 GM/DL (6.4-8.2)
[2019-02-11 14:54] LABS: BASOPHILS % (AUTO) 1 % (0-10); EOSINOPHILS # (AUTO) 0.3 10^3/uL (0.0-0.3); EOSINOPHILS % (AUTO) 6 % (0-10); HEMATOCRIT 39 % (35-52); HEMOGLOBIN 12.7 G/DL (11.5-16.0); LYMPHOCYTES # (AUTO) 1.7 X 10^3 (1.0-4.0); LYMPHOCYTES % (AUTO) 38 % (12-44); MEAN CORPUSCULAR HEMOGLOBIN 31 PG (25-34); MEAN CORPUSCULAR HGB CONC 33 G/DL (32-36); MEAN CORPUSCULAR VOLUME 95 FL (80-99); MEAN PLATELET VOLUME 10.4 FL (7.4-10.4); MONOCYTES % (AUTO) 1 % (0-12); NEUTROPHILS # (AUTO) 2.4 X 10^3 (1.8-7.8); NEUTROPHILS % (AUTO) 55 % (42-75); PLATELET COUNT 210 10^3/uL (130-400); RED CELL DISTRIBUTION WIDTH 11.6 % (10.0-14.5); WHITE BLOOD COUNT 4.5 10^3/uL (4.3-11.0)
[2019-02-11 15:17] LABS: CREATININE SERUM 1.11 MG/DL (0.60-1.30); MAGNESIUM 1.9 MG/DL (1.6-2.4); POTASSIUM 4.5 MMOL/L (3.6-5.0)
--- NOTE | 2019-02-18 13:42 | Diagnostic Imaging Report ---
INDICATION: Fever and chronic cough. TIME OF EXAMINATION: 1:35 PM. COMPARISON: 04/06/2017. FINDINGS: The right chest wall port has its tip overlying the SVC. A spinal cord stimulator overlies the mid thoracic spine. The lungs are clear. The pulmonary vascularity is normal. No infiltrate, effusion, or pneumothorax is detected. IMPRESSION: No acute abnormality is detected. Dictated by: Dictated on workstation # [id number]
[2019-02-18 14:37] LABS: BASOPHILS % (AUTO) 0 % (0-10); EOSINOPHILS % (AUTO) 1 % (0-10); HEMATOCRIT 35 % (35-52); HEMOGLOBIN 11.4 G/DL (11.5-16.0); LYMPHOCYTES # (AUTO) 1.2 X 10^3 (1.0-4.0); LYMPHOCYTES % (AUTO) 48 % (12-44); MEAN CORPUSCULAR HEMOGLOBIN 31 PG (25-34); MEAN CORPUSCULAR HGB CONC 33 G/DL (32-36); MEAN CORPUSCULAR VOLUME 96 FL (80-99); MEAN PLATELET VOLUME 9.9 FL (7.4-10.4); MONOCYTES # (AUTO) 0.8 X 10^3 (0.0-1.0); MONOCYTES % (AUTO) 32 % (0-12); NEUTROPHILS # (AUTO) 0.5 X 10^3 (1.8-7.8); NEUTROPHILS % (AUTO) 19 % (42-75); PLATELET COUNT 206 10^3/uL (130-400); RED CELL DISTRIBUTION WIDTH 11.6 % (10.0-14.5); WHITE BLOOD COUNT 2.4 10^3/uL (4.3-11.0)
[2019-02-18 14:59] LABS: ALBUMIN 3.9 GM/DL (3.2-4.5); BILIRUBIN,TOTAL 0.5 MG/DL (0.1-1.0); CALCIUM 8.9 MG/DL (8.5-10.1); CREATININE SERUM 1.47 MG/DL (0.60-1.30); POTASSIUM 4.1 MMOL/L (3.6-5.0); TOTAL PROTEIN 6.9 GM/DL (6.4-8.2)
[2019-02-18 15:42] LABS: BILIRUBIN,URINE NEGATIVE (NEGATIVE); CLARITY,URINE SL CLOUDY; COLOR,URINE YELLOW; GLUCOSE, URINE (UA) NEGATIVE (NEGATIVE); KETONES,URINE NEGATIVE (NEGATIVE); LEUKOCYTE ESTERASE ,URINE NEGATIVE (NEGATIVE); NITRITE,URINE POSITIVE (NEGATIVE); PROTEIN,URINE NEGATIVE (NEGATIVE)
[2019-02-18 15:55] LABS: BACTERIA,URINE LARGE /HPF
[2019-02-25 12:16] LABS: BASOPHILS # (AUTO) 0.1 10^3/uL (0.0-0.1); BASOPHILS % (AUTO) 0 % (0-10); EOSINOPHILS # (AUTO) 0.1 10^3/uL (0.0-0.3); EOSINOPHILS % (AUTO) 1 % (0-10); HEMATOCRIT 33 % (35-52); LYMPHOCYTES # (AUTO) 2.2 X 10^3 (1.0-4.0); LYMPHOCYTES % (AUTO) 17 % (12-44); MEAN CORPUSCULAR HEMOGLOBIN 31 PG (25-34); MEAN CORPUSCULAR HGB CONC 33 G/DL (32-36); MEAN CORPUSCULAR VOLUME 95 FL (80-99); MEAN PLATELET VOLUME 9.6 FL (7.4-10.4); MONOCYTES # (AUTO) 1.4 X 10^3 (0.0-1.0); MONOCYTES % (AUTO) 11 % (0-12); NEUTROPHILS # (AUTO) 8.8 X 10^3 (1.8-7.8); NEUTROPHILS % (AUTO) 71 % (42-75); PLATELET COUNT 416 10^3/uL (130-400); RED CELL DISTRIBUTION WIDTH 12.8 % (10.0-14.5); WHITE BLOOD COUNT 12.5 10^3/uL (4.3-11.0)
[2019-02-25 12:37] LABS: ALBUMIN 3.7 GM/DL (3.2-4.5); BILIRUBIN,TOTAL 0.3 MG/DL (0.1-1.0); CREATININE SERUM 1.22 MG/DL (0.60-1.30); POTASSIUM 3.9 MMOL/L (3.6-5.0); TOTAL PROTEIN 6.9 GM/DL (6.4-8.2)
[2019-03-05 14:21] LABS: BASOPHILS # (AUTO) 0.1 10^3/uL (0.0-0.1); BASOPHILS % (AUTO) 1 % (0-10); EOSINOPHILS % (AUTO) 0 % (0-10); HEMATOCRIT 32 % (35-52); HEMOGLOBIN 10.8 G/DL (11.5-16.0); LYMPHOCYTES # (AUTO) 1.7 X 10^3 (1.0-4.0); LYMPHOCYTES % (AUTO) 33 % (12-44); MEAN CORPUSCULAR HEMOGLOBIN 32 PG (25-34); MEAN CORPUSCULAR HGB CONC 33 G/DL (32-36); MEAN CORPUSCULAR VOLUME 94 FL (80-99); MEAN PLATELET VOLUME 9.4 FL (7.4-10.4); MONOCYTES # (AUTO) 0.1 X 10^3 (0.0-1.0); MONOCYTES % (AUTO) 2 % (0-12); NEUTROPHILS # (AUTO) 3.2 X 10^3 (1.8-7.8); NEUTROPHILS % (AUTO) 64 % (42-75); PLATELET COUNT 283 10^3/uL (130-400); RED CELL DISTRIBUTION WIDTH 12.2 % (10.0-14.5); WHITE BLOOD COUNT 5.1 10^3/uL (4.3-11.0)
[2019-03-05 14:42] LABS: CALCIUM 9.2 MG/DL (8.5-10.1); CREATININE SERUM 0.97 MG/DL (0.60-1.30); POTASSIUM 4.1 MMOL/L (3.6-5.0)
[2019-03-11 14:49] LABS: BASOPHILS % (AUTO) 1 % (0-10); EOSINOPHILS # (AUTO) 0.2 10^3/uL (0.0-0.3); EOSINOPHILS % (AUTO) 7 % (0-10); HEMATOCRIT 32 % (35-52); HEMOGLOBIN 10.5 G/DL (11.5-16.0); LYMPHOCYTES # (AUTO) 1.1 X 10^3 (1.0-4.0); LYMPHOCYTES % (AUTO) 54 % (12-44); MEAN CORPUSCULAR HEMOGLOBIN 32 PG (25-34); MEAN CORPUSCULAR HGB CONC 33 G/DL (32-36); MEAN CORPUSCULAR VOLUME 96 FL (80-99); MEAN PLATELET VOLUME 10.2 FL (7.4-10.4); MONOCYTES # (AUTO) 0.6 X 10^3 (0.0-1.0); MONOCYTES % (AUTO) 29 % (0-12); NEUTROPHILS # (AUTO) 0.2 X 10^3 (1.8-7.8); NEUTROPHILS % (AUTO) 9 % (42-75); PLATELET COUNT 184 10^3/uL (130-400); RED CELL DISTRIBUTION WIDTH 13.4 % (10.0-14.5)
[2019-03-11 15:13] LABS: CALCIUM 9.1 MG/DL (8.5-10.1); CREATININE SERUM 1.02 MG/DL (0.60-1.30); POTASSIUM 4.1 MMOL/L (3.6-5.0)
[2019-03-18 14:15] LABS: BASOPHILS # (AUTO) 0.1 10^3/uL (0.0-0.1); BASOPHILS % (AUTO) 1 % (0-10); EOSINOPHILS # (AUTO) 0.2 10^3/uL (0.0-0.3); EOSINOPHILS % (AUTO) 2 % (0-10); HEMATOCRIT 37 % (35-52); HEMOGLOBIN 11.8 G/DL (11.5-16.0); LYMPHOCYTES # (AUTO) 2.8 X 10^3 (1.0-4.0); LYMPHOCYTES % (AUTO) 23 % (12-44); MEAN CORPUSCULAR HEMOGLOBIN 31 PG (25-34); MEAN CORPUSCULAR HGB CONC 32 G/DL (32-36); MEAN CORPUSCULAR VOLUME 97 FL (80-99); MEAN PLATELET VOLUME 9.4 FL (7.4-10.4); MONOCYTES # (AUTO) 1.1 X 10^3 (0.0-1.0); MONOCYTES % (AUTO) 9 % (0-12); NEUTROPHILS # (AUTO) 7.8 X 10^3 (1.8-7.8); NEUTROPHILS % (AUTO) 66 % (42-75); PLATELET COUNT 799 10^3/uL (130-400); RED CELL DISTRIBUTION WIDTH 14.4 % (10.0-14.5); WHITE BLOOD COUNT 11.9 10^3/uL (4.3-11.0)
[2019-03-18 14:31] LABS: CALCIUM 9.2 MG/DL (8.5-10.1); CREATININE SERUM 1.21 MG/DL (0.60-1.30); POTASSIUM 4.4 MMOL/L (3.6-5.0)
[2019-03-25 09:22] LABS: BASOPHILS # (AUTO) 0.1 10^3/uL (0.0-0.1); BASOPHILS % (AUTO) 1 % (0-10); EOSINOPHILS # (AUTO) 0.1 10^3/uL (0.0-0.3); EOSINOPHILS % (AUTO) 1 % (0-10); HEMATOCRIT 35 % (35-52); HEMOGLOBIN 11.2 G/DL (11.5-16.0); LYMPHOCYTES # (AUTO) 1.8 X 10^3 (1.0-4.0); LYMPHOCYTES % (AUTO) 25 % (12-44); MEAN CORPUSCULAR HEMOGLOBIN 31 PG (25-34); MEAN CORPUSCULAR HGB CONC 32 G/DL (32-36); MEAN CORPUSCULAR VOLUME 98 FL (80-99); MEAN PLATELET VOLUME 9.5 FL (7.4-10.4); MONOCYTES # (AUTO) 0.7 X 10^3 (0.0-1.0); MONOCYTES % (AUTO) 10 % (0-12); NEUTROPHILS # (AUTO) 4.6 X 10^3 (1.8-7.8); NEUTROPHILS % (AUTO) 64 % (42-75); PLATELET COUNT 441 10^3/uL (130-400); WHITE BLOOD COUNT 7.3 10^3/uL (4.3-11.0)
[2019-03-25 09:47] LABS: ALBUMIN 3.8 GM/DL (3.2-4.5); BILIRUBIN,TOTAL 0.3 MG/DL (0.1-1.0); CALCIUM 8.9 MG/DL (8.5-10.1); CREATININE SERUM 1.12 MG/DL (0.60-1.30); MAGNESIUM 1.7 MG/DL (1.6-2.4); POTASSIUM 3.9 MMOL/L (3.6-5.0); TOTAL PROTEIN 6.9 GM/DL (6.4-8.2)
[2019-04-22 11:32] LABS: BASOPHILS % (AUTO) 1 % (0-10); EOSINOPHILS % (AUTO) 1 % (0-10); HEMATOCRIT 36 % (35-52); HEMOGLOBIN 11.8 G/DL (11.5-16.0); LYMPHOCYTES # (AUTO) 1.5 X 10^3 (1.0-4.0); LYMPHOCYTES % (AUTO) 21 % (12-44); MEAN CORPUSCULAR HEMOGLOBIN 32 PG (25-34); MEAN CORPUSCULAR HGB CONC 32 G/DL (32-36); MEAN CORPUSCULAR VOLUME 98 FL (80-99); MEAN PLATELET VOLUME 9.6 FL (7.4-10.4); MONOCYTES # (AUTO) 0.6 X 10^3 (0.0-1.0); MONOCYTES % (AUTO) 9 % (0-12); NEUTROPHILS % (AUTO) 69 % (42-75); PLATELET COUNT 359 10^3/uL (130-400); RED CELL DISTRIBUTION WIDTH 14.9 % (10.0-14.5); WHITE BLOOD COUNT 7.2 10^3/uL (4.3-11.0)
[2019-04-22 11:46] LABS: ALBUMIN 3.8 GM/DL (3.2-4.5); BILIRUBIN,TOTAL 0.3 MG/DL (0.1-1.0); CALCIUM 9.3 MG/DL (8.5-10.1); CREATININE SERUM 1.02 MG/DL (0.60-1.30); MAGNESIUM 1.6 MG/DL (1.6-2.4); POTASSIUM 3.9 MMOL/L (3.6-5.0); TOTAL PROTEIN 6.8 GM/DL (6.4-8.2)
[~2019-04-24] VITALS: Ht 160 cm; Wt 70.5 kg
[~2019-04-24 13:40] MED LIST changes: +ALTEPLASE 2 MG (CATHFLO) CANCER CENTER IV ONE; +CISPLATIN IV SCH; +ETOPOSIDE IV SCH; +FOSAPREPITANT DIMEGLUMINE 150 MG in NS (IVPB) CANCER CENTER ONLY 150 ML IV SCH; -HOLD METFORMIN - RECEIVED CONTRAST 20 ML VIAL IV SCH; -IOHEXOL 350 MG/ML 100 ML (OMNIPAQUE 350) VIAL IV ONE; +MANNITOL IV SCH; +NORMAL SALINE IV SCH; -NS 100 ML (IVPB) BAG IV ONE; +NS IV 1000 ML (CANCER CTR) IV SCH; +ONDANSETRON MDV (CANCER CENTER 16 MG, DEXAMETHASONE INJECTION 10 MG in NS (IVPB) CANCER... IV SCH; +PALONOSETRON HCL 0.25 MG, DEXAMETHASONE INJECTION 10 MG in NS (IVPB) CANCER CENTER 50 ML IV SCH; +[UNRECOGNIZED DRUG - OTHER] IV SCH; +[UNRECOGNIZED DRUG - OTHER] IV SCH
== END 2019-04-28 | disposition home or self-care (01) ==
LOC: ONC 13:40
PROVIDERS: ATTEND Internal Medicine Hematology & Oncology
DX: Z51.11 Encounter for antineoplastic chemotherapy (principal); Z51.0 Encounter for antineoplastic radiation therapy; C30.0 Malignant neoplasm of nasal cavity
CPT/HCPCS: 36415; 36591; 36593; 71046; 77290; 77295; 77300; 77334; 77336; 77417; 77470; 80048; 80053; 81000; 83615; 83735; 85025; 87040; 87077; 87088; 87186; 87804; 96360; 96361; 96367; 96375; 96413; 96417; 99213

== ENCOUNTER → 2019-07-16 | Outpatient (CLI) | payer MEDICARE ==
[~2019-07-16] MED LIST changes: -ALTEPLASE 2 MG (CATHFLO) CANCER CENTER IV ONE; -CISPLATIN IV SCH; -ETOPOSIDE IV SCH; -FOSAPREPITANT DIMEGLUMINE 150 MG in NS (IVPB) CANCER CENTER ONLY 150 ML IV SCH; -MANNITOL IV SCH; -NORMAL SALINE IV SCH; -NS IV 1000 ML (CANCER CTR) IV SCH; -OMEP-280 PO; +OMEP20CA18 PO; -ONDA8TAB12 PO; +ONDA8TAB15 PO; -ONDANSETRON MDV (CANCER CENTER 16 MG, DEXAMETHASONE INJECTION 10 MG in NS (IVPB) CANCER... IV SCH; -PALONOSETRON HCL 0.25 MG, DEXAMETHASONE INJECTION 10 MG in NS (IVPB) CANCER CENTER 50 ML IV SCH; -[UNRECOGNIZED DRUG - OTHER] IV SCH; -[UNRECOGNIZED DRUG - OTHER] IV SCH
--- NOTE | 2019-07-16 12:54 | Diagnostic Imaging Report ---
INDICATION: Esthesioneuroblastoma. TECHNIQUE: The serum blood glucose level at the time of injection was 108 mg/dL. The patient was administered 14.8 mCi of F-18 FDG intravenously and PET imaging was performed from the top of the skull to the mid thighs. A noncontrast CT was also performed for attenuation correction and anatomic correlation. COMPARISON: Correlation is made with the prior conventional CT from 04/18/2019 as well as a prior PET study from 01/11/2019. FINDINGS: There is symmetric activity throughout the brain. Extensive post surgical changes involving the paranasal structures are again noted. The previously noted enhancing mass involving the anterior left nasal cavity on the outside PET study is no longer appreciated. There is some soft tissue thickening at this location; however, no hypermetabolism is identified. No suspicious hypermetabolism in the soft tissues of the neck is identified. No definite mediastinal or hilar hypermetabolism is detected. The pulmonary parenchyma is unremarkable. The abdomen and pelvis demonstrate physiologic activity throughout the GI and tracts. No suspicious hypermetabolism is identified. IMPRESSION: Essentially unremarkable PET/CT study. No suspicious hypermetabolism is identified. In particular, the previously noted left nasal cavity mass demonstrates a decrease in size compared with the prior PET CT study from 01/11/2019 and is no longer hypermetabolic. Dictated by: Dictated on workstation # [id number]
== END ==
LOC: RAD 10:03
PROVIDERS: ATTEND Internal Medicine Hematology & Oncology
DX: C30.0 Malignant neoplasm of nasal cavity (principal)

== ENCOUNTER 2019-07-19 10:22 | Outpatient (RCR) | payer MEDICARE ==
[2019-05-20 11:07] LABS: BASOPHILS % (AUTO) 1 % (0-10); EOSINOPHILS % (AUTO) 0 % (0-10); HEMATOCRIT 37 % (35-52); HEMOGLOBIN 11.7 G/DL (11.5-16.0); LYMPHOCYTES # (AUTO) 2.2 X 10^3 (1.0-4.0); LYMPHOCYTES % (AUTO) 33 % (12-44); MEAN CORPUSCULAR HEMOGLOBIN 31 PG (25-34); MEAN CORPUSCULAR HGB CONC 32 G/DL (32-36); MEAN CORPUSCULAR VOLUME 98 FL (80-99); MEAN PLATELET VOLUME 9.3 FL (7.4-10.4); MONOCYTES # (AUTO) 0.6 X 10^3 (0.0-1.0); MONOCYTES % (AUTO) 10 % (0-12); NEUTROPHILS # (AUTO) 3.8 X 10^3 (1.8-7.8); NEUTROPHILS % (AUTO) 57 % (42-75); PLATELET COUNT 435 10^3/uL (130-400); RED CELL DISTRIBUTION WIDTH 14.1 % (10.0-14.5); WHITE BLOOD COUNT 6.7 10^3/uL (4.3-11.0)
[2019-05-20 11:32] LABS: ALBUMIN 3.8 GM/DL (3.2-4.5); BILIRUBIN,TOTAL 0.3 MG/DL (0.1-1.0); CALCIUM 9.2 MG/DL (8.5-10.1); CREATININE SERUM 1.19 MG/DL (0.60-1.30); MAGNESIUM 1.6 MG/DL (1.6-2.4); TOTAL PROTEIN 7.2 GM/DL (6.4-8.2)
[2019-06-17 10:42] LABS: BASOPHILS % (AUTO) 0 % (0-10); EOSINOPHILS % (AUTO) 0 % (0-10); HEMATOCRIT 38 % (35-52); HEMOGLOBIN 12.2 G/DL (11.5-16.0); LYMPHOCYTES # (AUTO) 2.2 X 10^3 (1.0-4.0); LYMPHOCYTES % (AUTO) 22 % (12-44); MEAN CORPUSCULAR HEMOGLOBIN 31 PG (25-34); MEAN CORPUSCULAR HGB CONC 32 G/DL (32-36); MEAN CORPUSCULAR VOLUME 97 FL (80-99); MEAN PLATELET VOLUME 9.7 FL (7.4-10.4); MONOCYTES # (AUTO) 0.9 X 10^3 (0.0-1.0); MONOCYTES % (AUTO) 9 % (0-12); NEUTROPHILS # (AUTO) 6.7 X 10^3 (1.8-7.8); NEUTROPHILS % (AUTO) 69 % (42-75); PLATELET COUNT 399 10^3/uL (130-400); RED CELL DISTRIBUTION WIDTH 14.2 % (10.0-14.5); WHITE BLOOD COUNT 9.8 10^3/uL (4.3-11.0)
[2019-06-17 10:58] LABS: ALANINE AMINOTRANSFERASE < 6 U/L (0-55); ALBUMIN 3.9 GM/DL (3.2-4.5); ALKALINE PHOSPHATASE 60 U/L (40-136); BILIRUBIN,TOTAL 0.4 MG/DL (0.1-1.0); BUN/CREATININE RATIO 15; CALCIUM 9.1 MG/DL (8.5-10.1); CARBON DIOXIDE 24 MMOL/L (21-32); CHLORIDE 104 MMOL/L (98-107); CREATININE SERUM 1.29 MG/DL (0.60-1.30); GFR ESTIMATED 40; GLUCOSE 100 MG/DL (70-105); MAGNESIUM 1.8 MG/DL (1.6-2.4); SODIUM 138 MMOL/L (135-145); TOTAL PROTEIN 7.3 GM/DL (6.4-8.2)
[~2019-07-19 10:22] MED LIST changes: +CISPLATIN IV SCH; +ETOPOSIDE IV SCH; +FOSAPREPITANT DIMEGLUMINE 150 MG in NS (IVPB) CANCER CENTER ONLY 150 ML IV SCH; +MANNITOL IV SCH; +NORMAL SALINE IV SCH; +NS IV 1000 ML (CANCER CTR) IV SCH; +ONDANSETRON MDV (CANCER CENTER 16 MG, DEXAMETHASONE INJECTION 10 MG in NS (IVPB) CANCER... IV SCH; +PALONOSETRON HCL 0.25 MG, DEXAMETHASONE INJECTION 10 MG in NS (IVPB) CANCER CENTER 50 ML IV SCH; +[UNRECOGNIZED DRUG - OTHER] IV SCH
[2019-07-19 11:23] LABS: BASOPHILS % (AUTO) 1 % (0-10); EOSINOPHILS # (AUTO) 0.2 10^3/uL (0.0-0.3); EOSINOPHILS % (AUTO) 3 % (0-10); HEMATOCRIT 37 % (35-52); HEMOGLOBIN 11.9 G/DL (11.5-16.0); LYMPHOCYTES # (AUTO) 1.9 X 10^3 (1.0-4.0); LYMPHOCYTES % (AUTO) 32 % (12-44); MEAN CORPUSCULAR HEMOGLOBIN 31 PG (25-34); MEAN CORPUSCULAR HGB CONC 32 G/DL (32-36); MEAN CORPUSCULAR VOLUME 96 FL (80-99); MEAN PLATELET VOLUME 9.5 FL (7.4-10.4); MONOCYTES # (AUTO) 0.5 X 10^3 (0.0-1.0); MONOCYTES % (AUTO) 8 % (0-12); NEUTROPHILS # (AUTO) 3.5 X 10^3 (1.8-7.8); NEUTROPHILS % (AUTO) 58 % (42-75); PLATELET COUNT 275 10^3/uL (130-400); RED CELL DISTRIBUTION WIDTH 13.3 % (10.0-14.5); WHITE BLOOD COUNT 6.1 10^3/uL (4.3-11.0)
[2019-07-19 11:40] LABS: ALANINE AMINOTRANSFERASE < 6 U/L (0-55); ALBUMIN 3.7 GM/DL (3.2-4.5); ALKALINE PHOSPHATASE 45 U/L (40-136); BILIRUBIN,TOTAL 0.4 MG/DL (0.1-1.0); BUN/CREATININE RATIO 22; CALCIUM 8.7 MG/DL (8.5-10.1); CARBON DIOXIDE 24 MMOL/L (21-32); CHLORIDE 108 MMOL/L (98-107); CREATININE SERUM 1.03 MG/DL (0.60-1.30); GFR ESTIMATED 52; GLUCOSE 90 MG/DL (70-105); POTASSIUM 4.1 MMOL/L (3.6-5.0); SODIUM 140 MMOL/L (135-145); TOTAL PROTEIN 6.9 GM/DL (6.4-8.2)
== END 2019-08-18 | disposition home or self-care (01) ==
LOC: ONC 10:22
PROVIDERS: ATTEND Internal Medicine Hematology & Oncology
DX: Z51.11 Encounter for antineoplastic chemotherapy (principal); C30.0 Malignant neoplasm of nasal cavity; N18.3 Chronic kidney disease, stage 3 (moderate); M50.20 Other cervical disc displacement, unspecified cervical region; M48.02 Spinal stenosis, cervical region; Z98.890 Other specified postprocedural states; Z85.89 Personal history of malignant neoplasm of other organs and systems
CPT/HCPCS: 36591; 80053; 83615; 83735; 85025; 96367; 96375; 96413; 96417

== ENCOUNTER → 2019-10-01 | Outpatient (CLI) | payer MEDICARE ==
[~2019-10-01] MED LIST changes: +CATHETER FLUSH 10 ML SYR IV PRN; -CISPLATIN IV SCH; -ETOPOSIDE IV SCH; -FOSAPREPITANT DIMEGLUMINE 150 MG in NS (IVPB) CANCER CENTER ONLY 150 ML IV SCH; +HOLD METFORMIN - RECEIVED CONTRAST 20 ML VIAL IV SCH; +IOHEXOL 350 MG/ML 100 ML (OMNIPAQUE 350) VIAL IV ONE; -MANNITOL IV SCH; -NORMAL SALINE IV SCH; +NS 100 ML (IVPB) BAG IV ONE; -NS IV 1000 ML (CANCER CTR) IV SCH; -ONDANSETRON MDV (CANCER CENTER 16 MG, DEXAMETHASONE INJECTION 10 MG in NS (IVPB) CANCER... IV SCH; -PALONOSETRON HCL 0.25 MG, DEXAMETHASONE INJECTION 10 MG in NS (IVPB) CANCER CENTER 50 ML IV SCH; -[UNRECOGNIZED DRUG - OTHER] IV SCH
--- NOTE | 2019-10-01 11:02 | Diagnostic Imaging Report ---
PROCEDURE: CT head with and without contrast. TECHNIQUE: Multiple contiguous axial images were obtained through the brain before and after the administration of intravenous contrast. Auto Exposure Controls were utilized during the CT exam to meet ALARA standards for radiation dose reduction. INDICATION: History of esthesioneuroblastoma. Completed treatment in February 2019. COMPARISON: CT head on 04/18/2019. FINDINGS: Postsurgical changes of bifrontal craniotomy and mass resection from the anterior cranial fossa are again visualized. There is encephalomalacia in the anterior-inferior frontal lobes. No enhancing mass is seen in the surgical bed to suggest local recurrence. No large acute territorial ischemia, mass effect, or hemorrhage. No evidence of acute hydrocephalus. The basilar cisterns are symmetric and unremarkable. Extensive postsurgical changes are seen in the paranasal sinuses. Mucosal thickening and retained secretions are present. The mastoid air cells are well pneumatized. The globes and orbits demonstrate bilateral lens implants without acute abnormality. IMPRESSION: 1. Stable postsurgical changes in the anterior cranial fossa of mass resection. No enhancing mass is seen in the surgical bed to suggest residual or recurrent tumor. Stable encephalomalacia is seen in the anterior-inferior frontal lobes. 2. No large acute territorial ischemia or hemorrhage. No acute hydrocephalus. Dictated by: Dictated on workstation # [id number]
== END ==
LOC: RAD 09:52
PROVIDERS: ATTEND Internal Medicine Hematology & Oncology
DX: C30.0 Malignant neoplasm of nasal cavity (principal); Z98.890 Other specified postprocedural states
CPT/HCPCS: 70470

== ENCOUNTER 2019-11-12 11:48 | Outpatient (RCR) | payer MEDICARE ==
[2019-10-01 09:16] LABS: BASOPHILS % (AUTO) 1 % (0-10); EOSINOPHILS # (AUTO) 0.2 10^3/uL (0.0-0.3); EOSINOPHILS % (AUTO) 3 % (0-10); HEMATOCRIT 40 % (35-52); HEMOGLOBIN 13.3 G/DL (11.5-16.0); LYMPHOCYTES # (AUTO) 1.9 X 10^3 (1.0-4.0); LYMPHOCYTES % (AUTO) 31 % (12-44); MEAN CORPUSCULAR HEMOGLOBIN 31 PG (25-34); MEAN CORPUSCULAR HGB CONC 33 G/DL (32-36); MEAN CORPUSCULAR VOLUME 94 FL (80-99); MEAN PLATELET VOLUME 9.6 FL (7.4-10.4); MONOCYTES # (AUTO) 0.6 X 10^3 (0.0-1.0); MONOCYTES % (AUTO) 9 % (0-12); NEUTROPHILS # (AUTO) 3.5 X 10^3 (1.8-7.8); NEUTROPHILS % (AUTO) 56 % (42-75); PLATELET COUNT 246 10^3/uL (130-400); WHITE BLOOD COUNT 6.2 10^3/uL (4.3-11.0)
[2019-10-01 09:37] LABS: ALBUMIN 4.2 GM/DL (3.2-4.5); BILIRUBIN,TOTAL 0.3 MG/DL (0.1-1.0); CALCIUM 9.3 MG/DL (8.5-10.1); CREATININE SERUM 1.17 MG/DL (0.60-1.30); POTASSIUM 4.1 MMOL/L (3.6-5.0); TOTAL PROTEIN 7.2 GM/DL (6.4-8.2)
[~2019-11-12 11:48] MED LIST changes: -CATHETER FLUSH 10 ML SYR IV PRN; -HOLD METFORMIN - RECEIVED CONTRAST 20 ML VIAL IV SCH; -IOHEXOL 350 MG/ML 100 ML (OMNIPAQUE 350) VIAL IV ONE; -NS 100 ML (IVPB) BAG IV ONE
== END 2019-11-25 | disposition home or self-care (01) ==
LOC: ONC 11:48
PROVIDERS: ATTEND Internal Medicine Hematology & Oncology
DX: Z45.2 Encounter for adjustment and management of vascular access device (principal); C30.0 Malignant neoplasm of nasal cavity; N18.3 Chronic kidney disease, stage 3 (moderate); M50.20 Other cervical disc displacement, unspecified cervical region; M48.02 Spinal stenosis, cervical region; Z98.890 Other specified postprocedural states; Z85.89 Personal history of malignant neoplasm of other organs and systems
CPT/HCPCS: 36591; 80053; 85025; 96523; 99213

== ENCOUNTER → 2019-12-26 | Outpatient (CLI) | payer MEDICARE ==
[~2019-12-26] MED LIST changes: +CATHETER FLUSH 10 ML SYR IV PRN; +HOLD METFORMIN - RECEIVED CONTRAST 20 ML VIAL IV SCH; +IOHEXOL 350 MG/ML 100 ML (OMNIPAQUE 350) VIAL IV ONE; +NS 100 ML (IVPB) BAG IV ONE
--- NOTE | 2019-12-26 11:35 | Diagnostic Imaging Report ---
PROCEDURE: CT head with and without contrast. TECHNIQUE: Multiple contiguous axial images were obtained through the brain before and after the administration of intravenous contrast. Auto Exposure Controls were utilized during the CT exam to meet ALARA standards for radiation dose reduction. INDICATION: Mass. Exam compared with head CT 10/01/2019. FINDINGS: Postsurgical changes to the frontal calvarium and bifrontal lobe parenchymal encephalomalacia stable finding. Postsurgical changes and partial opacification of the residual paranasal sinuses has progressed in the interim. There is no intracranial hemorrhage. Following the administration of intravenous contrast, we note no abnormal enhancement to suggest residual or recurrent tumor. No shift or herniation or hydrocephalus. Orbital contents stable with posterior globe calcification on the right chronic. There are no findings of hemorrhage. There is no acute ischemic insult. There is enhancement of the major dural venous sinuses. IMPRESSION: 1. Progressive paranasal sinus disease. Postsurgical changes to the sinuses and frontal calvarium with stable bifrontal encephalomalacia. No appreciable enhancing lesion to suggest a tumor recurrence in the operative bed. 2. No hemorrhage or hydrocephalus. Dictated by: Dictated on workstation # [id number]
== END ==
LOC: RAD 11:15
PROVIDERS: ATTEND Internal Medicine Hematology & Oncology
DX: C30.0 Malignant neoplasm of nasal cavity (principal); G93.89 Other specified disorders of brain; J32.9 Chronic sinusitis, unspecified; Z98.890 Other specified postprocedural states
CPT/HCPCS: 70470

== ENCOUNTER → 2020-01-10 | Outpatient (CLI) | payer MEDICARE ==
[~2020-01-10] MED LIST changes: -CATHETER FLUSH 10 ML SYR IV PRN; -HOLD METFORMIN - RECEIVED CONTRAST 20 ML VIAL IV SCH; -IOHEXOL 350 MG/ML 100 ML (OMNIPAQUE 350) VIAL IV ONE; -NS 100 ML (IVPB) BAG IV ONE
== END ==
LOC: CARD 14:00
PROVIDERS: ATTEND Internal Medicine Cardiovascular Disease
DX: I87.2 Venous insufficiency (chronic) (peripheral) (principal); I10 Essential (primary) hypertension; E03.9 Hypothyroidism, unspecified; E78.2 Mixed hyperlipidemia
CPT/HCPCS: 93306

== ENCOUNTER → 2020-01-13 | Outpatient (CLI) | payer MEDICARE ==
[~2020-01-13] VITALS: Ht 160 cm; Wt 67.0 kg
[~2020-01-13] MED LIST changes: +REGADENOSON 0.4 MG/5 ML SYR (LEXISCAN) IV ONE
[2020-01-13] MEDS: CATHETER FLUSH 10 ML SYR IV PRN ×2 (08:10→09:30)
[2020-01-13 09:25] VITALS: BP 131/75
--- NOTE | 2020-01-13 11:41 | Cardiology Stress Test Report ---
Stress Test Report Date of Procedure/Referring: Date of Procedure: Jan 13, 2020 PCP Joseph Hairston MD Admitting Physician Sadie Brown MD Indications: Hypertension, hyperlipidemia Baseline Heart Rate: 70 Baseline Blood Pressure: Blood Pressure Systolic: 131 Blood Pressure Diastolic: 75 Baseline Vitals Vital Signs Date Time Temp Pulse Resp B/P (MAP) Pulse Ox O2 Delivery O2 Flow Rate FiO2 01/13/20 09:25 85 14 131/75 (93) 98 Room Air Baseline EKG: Baseline EKG: normal sinus rhythm Summary After explaining the procedure to the patient, she signed a consent and then brought to the stress nuclear laboratory. Patient received 0.4 mg Lexiscan for stress test, ECG, heart rate and blood pressure were monitored continuously. Resting and stress dose of radio tracer were injected, imaging was acquired and reviewed in short axis, horizontal long axis and vertical long axis views. TID: 1.11 SSS: 5 SDS: 4 EF: 79 1. Patient tolerated Lexiscan well 2. Breast attenuation and diaphragmatic attenuation affecting the quality of the images, there is questionable mild ischemia involving the mid to apical inferior wall and inferoseptum 3. Normal left ventricular size, EF 79 percent JOSEPH HAIRSTON MD Jan 13, 2020 11:40
== END ==
LOC: CARD 08:02
PROVIDERS: ATTEND Internal Medicine Cardiovascular Disease
DX: I10 Essential (primary) hypertension (principal); E03.9 Hypothyroidism, unspecified; E78.2 Mixed hyperlipidemia; I87.2 Venous insufficiency (chronic) (peripheral)
CPT/HCPCS: 78452; 93017; A9502

== ENCOUNTER → 2020-01-17 | Day surgery (SDC) | payer MEDICARE ==
[~2020-01-17] VITALS: Ht 160 cm; Wt 68.0 kg
[2020-01-17] VITALS (10 sets, daily range): BP systolic 108–136; BP diastolic 63–76
[~2020-01-17] MED LIST changes: +ADENOSINE 90 MG/30 ML (ADENOSCAN) VIAL IV ONE; +HEParin (CATH LAB) 2,000 ML IV ONE; +HEParin 1000 UNIT/ML (10ML VIAL) FOR BOLUS ONE; +LIDOCAINE 1% INJ 20 ML 20 ML VIAL ONE; +MIDAZOLAM 5 MG/5 ML (VERSED) VIAL ONE; +MIRT15TA PO; +NITRO DRIP 25000 MCG/D5W 250 ML IV ONE; +NS IV 1000 ML 1,000 ML IV SCH; +NS IV 1000 ML 1,000 ML ONE; -REGADENOSON 0.4 MG/5 ML SYR (LEXISCAN) IV ONE; +VERAPAMIL 5 MG/2 ML (CALAN) VIAL IV ONE; +fentaNYL INJECTION 100 MCG/2 ML AMP ONE
[2020-01-17 08:34] LABS: HEMOGLOBIN 13.2 g/dL (11.5-16.0); MEAN PLATELET VOLUME 9.5 fL (9.0-12.2); WHITE BLOOD COUNT 8.2 10^3/uL (4.3-11.0)
[2020-01-17 08:50] LABS: INR 0.9 (0.8-1.4); PROTHROMBIN TIME PATIENT 12.6 SEC (12.2-14.7)
[2020-01-17 09:00] LABS: ALBUMIN 3.8 GM/DL (3.2-4.5); BILIRUBIN,TOTAL 0.3 MG/DL (0.1-1.0); CALCIUM 8.8 MG/DL (8.5-10.1); CREATININE SERUM 0.95 MG/DL (0.60-1.30); TOTAL PROTEIN 6.9 GM/DL (6.4-8.2)
--- NOTE | 2020-01-17 09:08 | Diagnostic Imaging Report ---
EXAM: Portable erect AP chest at 8:46 AM INDICATION: Chest pain FINDINGS: There is shallow inspiration when compared to the prior exam of 02/18/2019. Allowing for this technical factor, the heart size is stable and within normal limits. The lungs are clear. There is no sign of failure, pneumonia or of pleural effusion to indicate acute an acute abnormality. The mediastinum is not widened. The osseous structures are intact. The dorsal stimulator device and the right-sided Port-A-Cath noted previously are again visualized and no different. IMPRESSION: Allowing for the shallow degree of inspiration, there has been no significant change since the prior exam. There is no evidence for an acute cardiopulmonary abnormality. Dictated by: Dictated on workstation # [id number]
--- NOTE | 2020-01-17 09:30 | NUR ---
SPOKE WITH THE PT, HAD MEDICATION LIST FROM THE CARDIOLOGY OFFICE, CALLED [facility] AND [facility] TO COMPLETE THE MED REC [facility] HAS FILLED THE FOLLOWING MEDS: 12-13-2019 MIRTAZAPINE 15MG #90/90DS 12-25-2019 CARBIDOPA-LEVODOPA ER 25/100MG #270/90DS [facility] HAS FILLED THE FOLLOWING MEDS: 07-30-2019 LISINOPRIL 5MG #90/90DS (I DID DOCUMENT THE PAST DUE FILL ON THE MED REC) 10-28-2019 LEVOTHYROXINE 150MCG #90/90DS 11-14-2019 OMEPRAZOLE 20MG #90/90DS 11-14-2019 SERTRALINE 50MG #90/90DS 01-02-2020 LEVETIRACETAM 500MG #180/90DS 01-02-2020 EZETIMIBE 10MG #90/90DS PT SAYS SHE HAS BEEN PRESCRIBED FENOFIBRATE IN THE PAST BUT SHE COULD NOT REMEMBER THE STRENGTH AND IT IS NOT ON THE MEDICATION LIST ON HER CHART. PT ADMITS SHE HAS NOT RECEIVED FROM HER MAIL ORDER IN QUITE A WHILE AND WHEN I CALLED [facility] THEY DIDNT EVEN HAVE THAT MEDICATION OF FILE FOR HER ANY LONGER ([facility] HAD NOT FILLED IT EITHER). TRAMADOL 50MG IS ON HER MEDICATION LIST FROM HER CHART, HOWEVER THE LAST FILL WAS FROM 01-01-2019. DUE TO THE SCRIPT BEING I DID NOT INCLUDE THIS ON THE MED REC OTC MEDS: [employer] GARLIC NIACIN
--- NOTE | 2020-01-17 10:12 | Cardiac Procedure Note-CS/ASA ---
Pre-Procedure Note Pre-Op Procedure Note H&P Reviewed The H&P was reviewed, patient examined and no changes noted. Date H&P Reviewed: Jan 17, 2020 Time H&P Reviewed: 10:12 Conscious Sedation Pre-Proced Time 10:12 ASA Score 3 For ASA 3 and 4: Consider anesthesia and medical clearance. Also, for patients with a history of failed moderate sedation consider anesthesia. Airway Lungs Heart ASA score ASA 1: a normal healthy patient ASA 2: a patient with a mild systemic disease (mid diabetes, controlled hypertension, obesity x ASA 3: a patient with a severe systemic disease that limits activity (angina, COPD, prior Myocardial infarction) ASA 4: a patient with an incapacitating disease that is a constant threat to life (CHF, renal failure) ASA 5: a moribund patient not expected to survive 24 hrs. (ruptured aneurysm) ASA 6: a declared brain- patient whose organs are being harvested. For emergent operations, add the letter E after the classification Mallampati Classification Grade 3 Sedation Plan Analgesia, Amnesia, Plan communicated to team members, Discussed options with patient/fam, Discussed risks with patient/fam The patient is an appropriate candidate to undergo the planned procedure, sedation, and anesthesia. The patient immediately re-assessed prior to indication. JOSEPH RADER MD Jan 17, 2020 10:12
--- NOTE | 2020-01-17 11:07 | Discharge Inst-Post CATH ---
Discharge Inst-CATH/EP Problems Reviewed?: Yes Post Cardiac Cath/EP D/C Inst Follow Up/Plan Appointment with Dr. Hairston's office in 4 weeks <b>CARDIAC CATH/EP PROCEDURE DISCHARGE INSTRUCTIONS</b> ACTIVITY * Go Home directly and rest. * Limit activity of the leg (or wrist if it was used) for 7 days including aerobics, swimming, jogging, bicycling, etc. * Restrict stair-climbing for 7 days if possible, if not, climb up with your non-cath leg, then bring together on the same step. * Avoid lifting, pushing, pulling or excessive movement of the affected extremity for 7 days. * Customary sexual activity may be resumed after 2 days-use caution not to use a position that strains or causes pain to the affected extremity. * No driving for 24 hours. * NO SMOKING. * Avoid straining for bowel movements for 7 days. * Gentle walking on level ground is allowed. * Returning to work will depend on the type of procedure and the results. Your doctor will discuss this with you. CALL YOUR DOCTOR FOR ANY OF THE FOLLOWING: *If bleeding from the puncture site occurs- Apply gentle pressure to site with clean cloth and call your doctor or EMS. * If a knot or lump forms under the skin, increases in size, or causes pain. * If bruising appears to be worsening or moving further down your leg instead of disappearing. * Temperature above 101 F. CARE OF YOUR GROIN INCISION; * Bruising or purple discoloration of the skin near the puncture site is common. * You may shower only, no bathtub bathing for 5 days. Be careful to avoid slipping as your leg may feel stiff. * If a closure device was used on your femoral artery, please see the attached guide regarding care of the device and your leg. * Leave dressing on FOR 24 hours. CARE OF YOUR WRIST INCISION; * Bruising or purple discoloration of the skin near the puncture site is common. * You may shower. * DO NOT submerge wrist. * Leave dressing on FOR 24 hours. JOSEPH HAIRSTON MD Jan 17, 2020 11:07
--- NOTE | 2020-01-17 11:11 | Cardiac Cath Report ---
Cardiac Cath Report Physician (s)/Paper Roll Machine Operator (s) Physician JOSEPH RADER MD Pre-Procedure Diagnosis Pre-Procedure Diagnosis: coronary artery disease Post-Procedure Note Procedure Start Date: Jan 17, 2020 Name of Procedure: Coronary angiogram FFR to the right coronary artery Findings/Procedure Note PROCEDURE NOTE: 79 years old lady with history of hypertension, hyperlipidemia, has been having chest pain, had an abnormal stress test, scheduled for cardiac catheterization possible PTCA. After explaining the procedure to the patient, all pros and cons were explained, all questions were answered. The patient signed the consent and then she was placed on the cardiac catheterization laboratory. Groin was prepped SL fashion local anesthesia was used. Sheath placed in the right radial artery, [place] catheter advanced to the left coronary system, angiogram was done then turned to the right corner system and angiogram was done and it was removed. There was a multiple borderline lesions in the right coronary artery was concerned due to her abnormal stress test with ischemia at the inferior wall advanced at our guide and used pressure wire to measure the gradient across the lesion and it was 0.90, patient was given adenosine challenge, FFR was 0.85. At the end of the procedure the sheath was removed. Vascular band was used FINDINGS: Hemodynamics LV not measured Aorta 124/57 mean of 63 ANATOMY: Left Main is free of obstructive disease Left Anterior Descending is slightly tortuous with a long segment of 50 percent stenosis in the midportion nonobstructive disease Left Circumflex is codominant artery with 50 percent stenosis distally nonobstructive disease Right Coronory Artery has multiple segment of borderline lesion, FFR after adenosine was 0.85, nonobstructive disease CONCLUSION: 1. Multiple segment of borderline stenosis 40-50 percent stenosis in the LAD, distal circumflex and mid and distal right coronary artery, nonobstructive disease 2. FFR across the lesion in the right coronary artery after adenosine challenge was 0.85 DISCUSSION AND RECOMMENDATION: Medical therapy is recommended no intervention is needed Anesthesia Type: Conscious Sedation Estimated blood loss (mL): 10 ml Contrast Amount: 25 ml Total Radiation Dose: 242 mGy Post-Procedure Diagnosis Post-operative diagnosis: Coronary artery disease Chest pain Hypertension Hyperlipidemia JOSEPH RADER MD Jan 17, 2020 11:11
== END | disposition home or self-care (01) ==
LOC: CATH 10:00
PROVIDERS: ATTEND Internal Medicine Cardiovascular Disease
DX: I25.10 Atherosclerotic heart disease of native coronary artery without angina pectoris (principal); I10 Essential (primary) hypertension; E78.5 Hyperlipidemia, unspecified; E78.2 Mixed hyperlipidemia; E78.00 Pure hypercholesterolemia, unspecified; I87.2 Venous insufficiency (chronic) (peripheral); E03.9 Hypothyroidism, unspecified; G40.409 Other generalized epilepsy and epileptic syndromes, not intractable, without status epilepticus; I65.23 Occlusion and stenosis of bilateral carotid arteries; C30.0 Malignant neoplasm of nasal cavity; Z20.828 Contact with and (suspected) exposure to other viral communicable diseases; Z79.899 Other long term (current) drug therapy
CPT/HCPCS: 71045; 80053; 80061; 85027; 85610; 85730; 87081; 93454; 93571; C1769; C1894; 36415

== ENCOUNTER 2020-02-18 11:50 | Outpatient (RCR) | payer MEDICARE ==
[2019-12-26 10:08] LABS: BASOPHILS # (AUTO) 0.1 10^3/uL (0.0-0.1); BASOPHILS % (AUTO) 1 % (0-10); EOSINOPHILS # (AUTO) 0.2 10^3/uL (0.0-0.3); EOSINOPHILS % (AUTO) 3 % (0-10); HEMATOCRIT 44 % (35-52); HEMOGLOBIN 14.2 g/dL (11.5-16.0); LYMPHOCYTES # (AUTO) 3.9 10^3/uL (1.0-4.0); LYMPHOCYTES % (AUTO) 47 % (12-44); MEAN CORPUSCULAR HEMOGLOBIN 30 pg (25-34); MEAN CORPUSCULAR HGB CONC 32 g/dL (32-36); MEAN CORPUSCULAR VOLUME 95 fL (80-99); MEAN PLATELET VOLUME 9.7 fL (9.0-12.2); MONOCYTES # (AUTO) 0.7 10^3/uL (0.0-1.0); MONOCYTES % (AUTO) 9 % (0-12); NEUTROPHILS # (AUTO) 3.3 10^3/uL (1.8-7.8); NEUTROPHILS % (AUTO) 40 % (42-75); PLATELET COUNT 235 10^3/uL (130-400); WHITE BLOOD COUNT 8.3 10^3/uL (4.3-11.0)
[2019-12-26 10:29] LABS: ALBUMIN 3.8 GM/DL (3.2-4.5); BILIRUBIN,TOTAL 0.4 MG/DL (0.1-1.0); CALCIUM 8.8 MG/DL (8.5-10.1); CREATININE SERUM 1.1 MG/DL (0.60-1.30); POTASSIUM 4.2 MMOL/L (3.6-5.0)
[~2020-02-18 11:50] MED LIST changes: -ADENOSINE 90 MG/30 ML (ADENOSCAN) VIAL IV ONE; -HEParin (CATH LAB) 2,000 ML IV ONE; -HEParin 1000 UNIT/ML (10ML VIAL) FOR BOLUS ONE; -LIDOCAINE 1% INJ 20 ML 20 ML VIAL ONE; -MIDAZOLAM 5 MG/5 ML (VERSED) VIAL ONE; +MIRT-96 PO; -MIRT15TA PO; -NITRO DRIP 25000 MCG/D5W 250 ML IV ONE; -NS IV 1000 ML 1,000 ML IV SCH; -NS IV 1000 ML 1,000 ML ONE; -VERAPAMIL 5 MG/2 ML (CALAN) VIAL IV ONE; -fentaNYL INJECTION 100 MCG/2 ML AMP ONE
== END 2020-03-25 | disposition home or self-care (01) ==
LOC: ONC 11:50
PROVIDERS: ATTEND Internal Medicine Hematology & Oncology
DX: Z45.2 Encounter for adjustment and management of vascular access device (principal); C30.0 Malignant neoplasm of nasal cavity; I12.9 Hypertensive chronic kidney disease with stage 1 through stage 4 chronic kidney disease, or unspecified chronic kidney disease; N18.30 Chronic kidney disease, stage 3 unspecified; E03.9 Hypothyroidism, unspecified; E78.2 Mixed hyperlipidemia; M50.20 Other cervical disc displacement, unspecified cervical region; I65.23 Occlusion and stenosis of bilateral carotid arteries; M48.02 Spinal stenosis, cervical region; Z98.890 Other specified postprocedural states; Z85.89 Personal history of malignant neoplasm of other organs and systems; Z92.21 Personal history of antineoplastic chemotherapy; Z92.3 Personal history of irradiation
CPT/HCPCS: 36591; 80053; 83615; 85025; 96523; 99213

== ENCOUNTER → 2020-06-30 | Outpatient (CLI) | payer MEDICARE ==
[~2020-06-30] MED LIST changes: +CATHETER FLUSH 10 ML SYR IV PRN; +HOLD METFORMIN - RECEIVED CONTRAST 20 ML VIAL IV SCH; +IOHEXOL 350 MG/ML 100 ML (OMNIPAQUE 350) VIAL IV ONE; -LISI-556 PO; +LISI-729 PO; +NS 100 ML (IVPB) BAG IV ONE; +SERT-413 PO; -SERT50TA9 PO
--- NOTE | 2020-06-30 14:59 | Diagnostic Imaging Report ---
PROCEDURE: CT head with and without contrast. TECHNIQUE: Multiple contiguous axial images were obtained through the brain before and after the administration of intravenous contrast. Auto Exposure Controls were utilized during the CT exam to meet ALARA standards for radiation dose reduction. INDICATION: Malignant neoplasm of the nasal cavity. Correlation is made with prior CT from 12/26/2019. A postsurgical changes to the frontal calvarium is again noted and appears very similar to prior CT. Bifrontal encephalomalacia is also similar to prior exam. Ventricular size is stable without hydrocephalus. There is no sulcal effacement or midline shift. No acute intra-axial or extra-axial hemorrhage is detected. Cisterns are patent. No abnormal enhancement following contrast administration seen to suggest recurrent mass. There is some minimal fluid and mucosal thickening bilateral maxillary sinuses. IMPRESSION: Stable CT head with and without contrast when compared to examination from 12/26/2019 again demonstrating post therapeutic changes in the frontal calvarium and bifrontal lobes. No definite evidence of tumor recurrence is identified. Dictated by: Dictated on workstation # [id number]
== END ==
LOC: RAD 12:45
PROVIDERS: ATTEND Nurse Practitioner Adult Health
DX: C30.0 Malignant neoplasm of nasal cavity (principal)
CPT/HCPCS: 70470

== ENCOUNTER 2020-07-02 13:44 | Outpatient (RCR) | payer MEDICARE ==
[2020-04-09 14:29] LABS: BASOPHILS % (AUTO) 0 % (0-10); EOSINOPHILS # (AUTO) 0.1 10^3/uL (0.0-0.3); EOSINOPHILS % (AUTO) 2 % (0-10); HEMATOCRIT 41 % (35-52); HEMOGLOBIN 13.3 g/dL (11.5-16.0); LYMPHOCYTES # (AUTO) 2.7 10^3/uL (1.0-4.0); LYMPHOCYTES % (AUTO) 34 % (12-44); MEAN CORPUSCULAR HEMOGLOBIN 31 pg (25-34); MEAN CORPUSCULAR HGB CONC 33 g/dL (32-36); MEAN CORPUSCULAR VOLUME 95 fL (80-99); MEAN PLATELET VOLUME 9.7 fL (9.0-12.2); MONOCYTES # (AUTO) 0.5 10^3/uL (0.0-1.0); MONOCYTES % (AUTO) 7 % (0-12); NEUTROPHILS # (AUTO) 4.5 10^3/uL (1.8-7.8); NEUTROPHILS % (AUTO) 57 % (42-75); PLATELET COUNT 294 10^3/uL (130-400)
[2020-04-09 14:46] LABS: ALBUMIN 3.9 GM/DL (3.2-4.5); BILIRUBIN,TOTAL 0.3 MG/DL (0.1-1.0); CREATININE SERUM 1.11 MG/DL (0.60-1.30)
[2020-06-30 13:05] LABS: BASOPHILS # (AUTO) 0.1 10^3/uL (0.0-0.1); BASOPHILS % (AUTO) 1 % (0-10); EOSINOPHILS # (AUTO) 0.2 10^3/uL (0.0-0.3); EOSINOPHILS % (AUTO) 3 % (0-10); HEMATOCRIT 43 % (35-52); HEMOGLOBIN 14.2 g/dL (11.5-16.0); LYMPHOCYTES # (AUTO) 3.1 10^3/uL (1.0-4.0); LYMPHOCYTES % (AUTO) 43 % (12-44); MEAN CORPUSCULAR HEMOGLOBIN 31 pg (25-34); MEAN CORPUSCULAR HGB CONC 33 g/dL (32-36); MEAN CORPUSCULAR VOLUME 95 fL (80-99); MEAN PLATELET VOLUME 9.4 fL (9.0-12.2); MONOCYTES # (AUTO) 0.6 10^3/uL (0.0-1.0); MONOCYTES % (AUTO) 9 % (0-12); NEUTROPHILS # (AUTO) 3.3 10^3/uL (1.8-7.8); NEUTROPHILS % (AUTO) 45 % (42-75); PLATELET COUNT 285 10^3/uL (130-400); WHITE BLOOD COUNT 7.3 10^3/uL (4.3-11.0)
[2020-06-30 13:30] LABS: ALBUMIN 4.1 GM/DL (3.2-4.5); BILIRUBIN,TOTAL 0.5 MG/DL (0.1-1.0); CALCIUM 8.8 MG/DL (8.5-10.1); CREATININE SERUM 1.07 MG/DL (0.60-1.30); POTASSIUM 4.3 MMOL/L (3.6-5.0); TOTAL PROTEIN 7.6 GM/DL (6.4-8.2)
[~2020-07-02 13:44] MED LIST changes: -CATHETER FLUSH 10 ML SYR IV PRN; -HOLD METFORMIN - RECEIVED CONTRAST 20 ML VIAL IV SCH; -IOHEXOL 350 MG/ML 100 ML (OMNIPAQUE 350) VIAL IV ONE; -NS 100 ML (IVPB) BAG IV ONE
== END 2020-07-08 | disposition home or self-care (01) ==
LOC: ONC 13:44
PROVIDERS: ATTEND Internal Medicine Hematology & Oncology
DX: Z45.2 Encounter for adjustment and management of vascular access device (principal); C30.0 Malignant neoplasm of nasal cavity; I12.9 Hypertensive chronic kidney disease with stage 1 through stage 4 chronic kidney disease, or unspecified chronic kidney disease; N18.30 Chronic kidney disease, stage 3 unspecified; E03.9 Hypothyroidism, unspecified; E78.2 Mixed hyperlipidemia; M50.20 Other cervical disc displacement, unspecified cervical region; I65.23 Occlusion and stenosis of bilateral carotid arteries; M48.02 Spinal stenosis, cervical region; Z98.890 Other specified postprocedural states; Z85.89 Personal history of malignant neoplasm of other organs and systems; Z92.21 Personal history of antineoplastic chemotherapy; Z92.3 Personal history of irradiation
CPT/HCPCS: 80053; 83615; 85025; G0463; 36591; 96523; 99213

== ENCOUNTER 2020-09-10 14:02 | Outpatient (RCR) | payer MEDICARE ==
[2020-09-10 14:23] LABS: BASOPHILS % (AUTO) 0 % (0-10); EOSINOPHILS # (AUTO) 0.1 10^3/uL (0.0-0.3); EOSINOPHILS % (AUTO) 2 % (0-10); HEMATOCRIT 39 % (35-52); HEMOGLOBIN 12.8 g/dL (11.5-16.0); LYMPHOCYTES # (AUTO) 2.6 10^3/uL (1.0-4.0); LYMPHOCYTES % (AUTO) 38 % (12-44); MEAN CORPUSCULAR HEMOGLOBIN 32 pg (25-34); MEAN CORPUSCULAR HGB CONC 33 g/dL (32-36); MEAN CORPUSCULAR VOLUME 97 fL (80-99); MEAN PLATELET VOLUME 9.5 fL (9.0-12.2); MONOCYTES # (AUTO) 0.6 10^3/uL (0.0-1.0); MONOCYTES % (AUTO) 9 % (0-12); NEUTROPHILS # (AUTO) 3.5 10^3/uL (1.8-7.8); NEUTROPHILS % (AUTO) 51 % (42-75); PLATELET COUNT 283 10^3/uL (130-400); WHITE BLOOD COUNT 6.9 10^3/uL (4.3-11.0)
[2020-09-10 14:41] LABS: ALBUMIN 3.8 GM/DL (3.2-4.5); BILIRUBIN,TOTAL 0.4 MG/DL (0.1-1.0); CALCIUM 9.2 MG/DL (8.5-10.1); CREATININE SERUM 1.13 MG/DL (0.60-1.30); POTASSIUM 4.1 MMOL/L (3.6-5.0); TOTAL PROTEIN 7.6 GM/DL (6.4-8.2)
== END 2020-10-26 | disposition home or self-care (01) ==
LOC: ONC 14:02
PROVIDERS: ATTEND Internal Medicine Hematology & Oncology
DX: Z45.2 Encounter for adjustment and management of vascular access device (principal); C30.0 Malignant neoplasm of nasal cavity; I12.9 Hypertensive chronic kidney disease with stage 1 through stage 4 chronic kidney disease, or unspecified chronic kidney disease; N18.30 Chronic kidney disease, stage 3 unspecified; E03.9 Hypothyroidism, unspecified; E78.2 Mixed hyperlipidemia; M50.20 Other cervical disc displacement, unspecified cervical region; I65.23 Occlusion and stenosis of bilateral carotid arteries; M48.02 Spinal stenosis, cervical region; Z98.890 Other specified postprocedural states; Z85.89 Personal history of malignant neoplasm of other organs and systems; Z92.21 Personal history of antineoplastic chemotherapy; Z92.3 Personal history of irradiation; Z85.828 Personal history of other malignant neoplasm of skin; Z79.890 Hormone replacement therapy; Z79.899 Other long term (current) drug therapy
CPT/HCPCS: 36591; 80053; 83615; 85025; 96523

== ENCOUNTER → 2020-12-14 | Outpatient (CLI) | payer MEDICARE ==
[~2020-12-14] MED LIST changes: +CATHETER FLUSH 10 ML SYR IV PRN; +HOLD METFORMIN - RECEIVED CONTRAST 20 ML VIAL IV SCH; +IOHEXOL 350 MG/ML 100 ML (OMNIPAQUE 350) VIAL IV ONE; +NS 100 ML (IVPB) BAG IV ONE
[2020-12-14 13:57] LABS: WHITE BLOOD COUNT 6.1 10^3/uL (4.3-11.0)
[2020-12-14 13:58] LABS: BASOPHILS % (AUTO) 1 % (0-10); EOSINOPHILS % (AUTO) 3 % (0-10); HEMATOCRIT 42 % (35-52); HEMOGLOBIN 13.6 g/dL (11.5-16.0); LYMPHOCYTES % (AUTO) 34 % (12-44); MEAN CORPUSCULAR HEMOGLOBIN 31 pg (25-34); MEAN CORPUSCULAR HGB CONC 33 g/dL (32-36); MEAN CORPUSCULAR VOLUME 97 fL (80-99); MEAN PLATELET VOLUME 9.6 fL (9.0-12.2); MONOCYTES % (AUTO) 7 % (0-12); NEUTROPHILS % (AUTO) 55 % (42-75); PLATELET COUNT 291 10^3/uL (130-400)
[2020-12-14 13:59] LABS: EOSINOPHILS # (AUTO) 0.2 10^3/uL (0.0-0.3); LYMPHOCYTES # (AUTO) 2.1 X 10^3 (1.0-4.0); MONOCYTES # (AUTO) 0.4 X 10^3 (0.0-1.0); NEUTROPHILS # (AUTO) 3.4 X 10^3 (1.8-7.8)
[2020-12-14 14:14] LABS: BUN/CREATININE RATIO 16; CARBON DIOXIDE 25 MMOL/L (21-32); CHLORIDE 105 MMOL/L (98-107); CREATININE SERUM 1.29 MG/DL (0.60-1.30); GFR ESTIMATED 40; POTASSIUM 4.4 MMOL/L (3.6-5.0); SODIUM 140 MMOL/L (135-145)
[2020-12-14 14:15] LABS: ALANINE AMINOTRANSFERASE < 5 U/L (0-55); ALKALINE PHOSPHATASE 61 U/L (40-136); BILIRUBIN,TOTAL 0.4 MG/DL (0.1-1.0); CALCIUM 9.2 MG/DL (8.5-10.1); GLUCOSE 94 MG/DL (70-105); TOTAL PROTEIN 7.3 GM/DL (6.4-8.2)
[2020-12-14 14:16] LABS: ALBUMIN 4.3 GM/DL (3.2-4.5)
--- NOTE | 2020-12-14 17:55 | Diagnostic Imaging Report ---
CLINICAL INDICATION: Patient with malignant neoplasm of the nasal cavity. EXAM: Axial CT scan of the brain performed without and with 50 mL of Omnipaque 350 IV contrast. Sagittal and coronal reformatted images are created. Auto Exposure Controls were utilized during the CT exam to meet ALARA standards for radiation dose reduction. Comparison: Head CT without contrast dated 06/30/2020. Findings: Again seen postop changes with bilateral frontal and craniofacial craniotomy changes. There is again noted soft tissue thickening involving both maxillary sinuses, ethmoid sinus, frontal sinus and sphenoid region. There are postop resection changes of the paranasal sinus as well. There is again noted loss of bone involving the planum sphenoidale region. There is stable non-masslike dural enhancement in the frontal operative region. There is stable encephalomalacia involving bilateral frontal lobes. Stable chronic small vessel ischemic disease. There is no evidence of developing mass. There is no hydrocephalus, brain herniation, or midline shift. Brain parenchymal findings are otherwise stable. IMPRESSION: 1: Stable postop changes bilateral frontal craniofacial osteotomy changes and paranasal sinus resection changes. There is no definitive developing mass seen. There is persistent soft tissue thickening along the operative area and paranasal sinuses. Stable loss of bone involving the planum sphenoidale region. 2: There is stable dural enhancement in the operative area and encephalomalacia of the frontal lobe regions. 3: Age-related brain parenchymal changes. Dictated by: Dictated on workstation # [id number]
== END ==
LOC: RAD FS 13:09
PROVIDERS: ATTEND Nurse Practitioner Adult Health
DX: C30.0 Malignant neoplasm of nasal cavity (principal); G93.89 Other specified disorders of brain; Z98.890 Other specified postprocedural states
CPT/HCPCS: 36415; 70470; 80053; 85025

== ENCOUNTER 2021-02-24 13:22 | Outpatient (RCR) | payer MEDICARE ==
[~2021-02-24 13:22] MED LIST changes: -CATHETER FLUSH 10 ML SYR IV PRN; -HOLD METFORMIN - RECEIVED CONTRAST 20 ML VIAL IV SCH; -IOHEXOL 350 MG/ML 100 ML (OMNIPAQUE 350) VIAL IV ONE; -LISI-729 PO; +LISI5TAB20 PO; -NS 100 ML (IVPB) BAG IV ONE; +ONDA-106 PO; -ONDA8TAB15 PO
[2021-02-24 13:47] LABS: BASOPHILS # (AUTO) 0.1 10^3/uL (0.0-0.1); BASOPHILS % (AUTO) 1 % (0-10); EOSINOPHILS # (AUTO) 0.2 10^3/uL (0.0-0.3); EOSINOPHILS % (AUTO) 2 % (0-10); HEMATOCRIT 41 % (35-52); HEMOGLOBIN 13.6 g/dL (11.5-16.0); LYMPHOCYTES # (AUTO) 2.7 10^3/uL (1.0-4.0); LYMPHOCYTES % (AUTO) 34 % (12-44); MEAN CORPUSCULAR HEMOGLOBIN 32 pg (25-34); MEAN CORPUSCULAR HGB CONC 33 g/dL (32-36); MEAN CORPUSCULAR VOLUME 95 fL (80-99); MEAN PLATELET VOLUME 9.6 fL (9.0-12.2); MONOCYTES # (AUTO) 0.5 10^3/uL (0.0-1.0); MONOCYTES % (AUTO) 6 % (0-12); NEUTROPHILS # (AUTO) 4.5 10^3/uL (1.8-7.8); NEUTROPHILS % (AUTO) 57 % (42-75); PLATELET COUNT 307 10^3/uL (130-400); WHITE BLOOD COUNT 7.9 10^3/uL (4.3-11.0)
[2021-02-24 14:08] LABS: ALBUMIN 3.7 GM/DL (3.2-4.5); BILIRUBIN,TOTAL 0.3 MG/DL (0.1-1.0); CREATININE SERUM 1.17 MG/DL (0.60-1.30); POTASSIUM 3.8 MMOL/L (3.6-5.0); TOTAL PROTEIN 6.9 GM/DL (6.4-8.2)
== END 2021-03-17 | disposition home or self-care (01) ==
LOC: ONC 13:22
PROVIDERS: ATTEND Internal Medicine Hematology & Oncology
DX: Z45.2 Encounter for adjustment and management of vascular access device (principal); C30.0 Malignant neoplasm of nasal cavity; M50.20 Other cervical disc displacement, unspecified cervical region; M48.02 Spinal stenosis, cervical region; E78.00 Pure hypercholesterolemia, unspecified; I10 Essential (primary) hypertension; E03.9 Hypothyroidism, unspecified; E78.2 Mixed hyperlipidemia; Z98.890 Other specified postprocedural states; Z85.89 Personal history of malignant neoplasm of other organs and systems; Z92.21 Personal history of antineoplastic chemotherapy; Z92.3 Personal history of irradiation
CPT/HCPCS: 96523; G0463; 36591; 80053; 83615; 85025; 99213

== ENCOUNTER → 2021-05-18 | Outpatient (CLI) | payer MEDICARE ==
[~2021-05-18] MED LIST changes: +HOLD METFORMIN - RECEIVED CONTRAST 20 ML VIAL IV SCH; +IOHEXOL 350 MG/ML 100 ML (OMNIPAQUE 350) VIAL IV ONE; +NS 100 ML (IVPB) BAG IV ONE
--- NOTE | 2021-05-18 10:43 | Diagnostic Imaging Report ---
PROCEDURE: CT head with and without contrast. TECHNIQUE: Multiple contiguous axial images were obtained through the brain before and after the administration of intravenous contrast. Auto Exposure Controls were utilized during the CT exam to meet ALARA standards for radiation dose reduction. INDICATION: Brain tumor. COMPARISON: Exam compared to 12/14/2020. FINDINGS: A bifrontal craniotomy and paranasal sinus resections again noted with persistent enhancing dural thickening deep to the operative bed anteriorly. This is unchanged. There is bifrontal subjacent frontal lobe encephalomalacia, chronic. No abnormal parenchymal enhancement. No evidence of soft tissue mass within the brain. Tissue thickening in the postsurgical frontal sinuses, bilateral maxillary sinuses, and the residual ethmoid air cells, unchanged from prior. Bifrontal craniofacial bony irregularity, stable and chronic. No new abnormality. There is a very slight degree of senescent cortical volume loss, unremarkable for age. There is enhancement of the major dural venous sinuses. No evidence of edema. No hemorrhage. IMPRESSION: Stable postoperative and chronic findings, as described. No new or acute-appearing abnormality. Dictated by: Dictated on workstation # [id number]
== END ==
LOC: RAD 09:45
PROVIDERS: ATTEND Nurse Practitioner Adult Health
DX: C44.91 Basal cell carcinoma of skin, unspecified (principal); Z98.890 Other specified postprocedural states
CPT/HCPCS: 70470

== ENCOUNTER 2021-06-08 05:40 | Outpatient (CLI) | payer MEDICARE ==
[~2021-06-08] VITALS: Ht 162.6 cm; Wt 73.6 kg
[~2021-06-08 05:40] MED LIST changes: -HOLD METFORMIN - RECEIVED CONTRAST 20 ML VIAL IV SCH; -IOHEXOL 350 MG/ML 100 ML (OMNIPAQUE 350) VIAL IV ONE; -NS 100 ML (IVPB) BAG IV ONE
== END 2021-06-08 09:26 | disposition home or self-care (01) ==
LOC: PREOP 05:40
PROVIDERS: ATTEND Surgery
DX: Z01.818 Encounter for other preprocedural examination (principal)

== ENCOUNTER 2021-06-09 08:06 | Day surgery (SDC) | payer MEDICARE ==
[2021-06-09] VITALS (7 sets, daily range): BP systolic 98–150; BP diastolic 55–80
[~2021-06-09] VITALS: Ht 162.6 cm; Wt 73.6 kg
[2021-06-09] MEDS ORDERED: ceFAZolin INJECTION 1,000 MG ONE (08:49)
--- NOTE | 2021-06-09 08:50 | Progress Note-Pre Operative ---
Pre-Operative Progress Note H&P Reviewed The H&P was reviewed, patient examined and no changes noted. Date Seen by Provider: Jun 09, 2021 Time Seen by Provider: 08:50 Date H&P Reviewed: Jun 09, 2021 Time H&P Reviewed: 08:50 Pre-Operative Diagnosis: hx neuroblastoma SHEKHAR TJEEDA DO Jun 09, 2021 08:50
[2021-06-09] MEDS ORDERED: LIDOCAINE/EPI 2% 1:100,00 (XYLOCAINE) 20 ML VIAL ONE (09:13)
[2021-06-09] MEDS ORDERED: PROPOFOL INJECTION 50 ML IV ONE (09:27)
[2021-06-09] MEDS ORDERED: ceFAZolin INJECTION 1,000 MG VIAL IV ONE (09:30)
[2021-06-09] MEDS ORDERED: LACTATED RINGERS 1,000 ML IV PRN (09:30)
--- NOTE | 2021-06-09 10:14 | Progress Note-Post Operative ---
Post-Operative Progess Note Surgeon (s)/Veterans Adviser (s) Surgeon SHEKHAR TEJEDA DO Veterans Adviser: NA Pre-Operative Diagnosis hx neuroblastoma Post-Operative Diagnosis SAME Procedure & Operative Findings Date of Procedure 06/09/21 Procedure Performed/Findings PROCEDURE: Removal of port, COMPLICATIONS: None. INDICATIONS: The patient is a 80 year-old female who had a port previously placed. Patient is ok to have port removed. The patient was explained risk and benefits of the procedure and wished to proceed with procedure. Consent was signed on the chart. PROCEDURE: The patient was taken to the operating suite and was prepped and draped in sterile fashion. A surgical pause was performed. Local anesthetic was infiltrated to the area around the port. A number 15 blade scalpel was used to make an incision. Cautery was used to dissect down to the port which was then grasped and then dissected around. The catheter was removed in its entirety. The port was then able to be dissected out of the pocket and elevated. The wound was then irrigated with copious amounts of irrigation. Hemostasis had been achieved. The subcutaneous tissues were then reapproximated using 3-0 Vicryl. Skin was then washed and dried and Skin Affix placed over the incision. The patient tolerated the procedure well without complication and was taken to recovery room in stable condition. Anesthesia Type MAC C LOCAL Estimated Blood Loss Estimated blood loss (mL): MINIMAL Specimens/Packing Specimens Removed SHEKHAR JARAMILLO DO Jun 09, 2021 10:14
--- NOTE | 2021-06-09 10:15 | Discharge Inst-Simple/Standard ---
Discharge Inst-Standard Patient Instructions/Follow Up Plan of Care/Instructions/FU: 2 WEEKS NIKHIL Activity as Tolerated: Yes Discharge Diet: Regular Diet Other Inst to Patient Follow up Appt: Make appointment for 2 week. Instructions: No strenuous activity. May shower in 24 hours, no tub bath or soaking. Use incentive spirometer at home as directed. No Smoking Skin/Wound Care: You have special glue over your incision that will fall off on it's own. Symptoms to Report: Appetite Changes, Extremity Discoloration, Numbness/Tingling, Swelling Increased, Bleeding Excessive, Eyesight Changes, Pain Increased, Urine Color Change, Constipation(Persistent), Fever over 101 degree F, Pain/Pressure in alla st, Urinating Difficulty, Cough Up/Vomit Blood, Heart Beat Irreg/Pounding, Pain/Pressure in jaw, Vaginal Bleeding Increase, Cramps in feet or legs, Lightheadedness, Pain/Pressure in shoulder, Diarrhea(Persistent), Memory Changes Suddenly, Questions/Concerns, Weight gain consecutive days, Dizziness/Fainting, Nausea/Vomiting, Shortness of Breath, Weight gain over 2 pounds If questions or concerns contact your physician Or seek help at emergency department. SHEKHAR TEJEDA DO Jun 09, 2021 10:15
--- NOTE | 2021-06-09 10:15 | Anesthesia-General Post-Op ---
MAC Patient Condition Mental Status/LOC: Same as Preop Cardiovascular: Satisfactory Nausea/Vomiting: Absent Respiratory: Satisfactory Pain: Controlled Complications: Absent Post Op Complications Complications None Follow Up Care/Instructions Patient Instructions None needed. Anesthesiology Discharge Order Discharge Order Patient is doing well, no complaints, stable vital signs, no apparent adverse anesthesia problems. No complications reported per nursing. BURKE JUSTICE CRNA Jun 09, 2021 10:15
== END 2021-06-09 11:20 ==
LOC: SDC 08:06
PROVIDERS: ATTEND Surgery
DX: Z85.858 Personal history of malignant neoplasm of other endocrine glands (principal); I87.2 Venous insufficiency (chronic) (peripheral)
CPT/HCPCS: 87081; 88300